=== PATIENT | male | born 1950 | race Caucasian/White ===

== ENCOUNTER → 2016-12-30 | Outpatient (REF) | payer MEDICARE, BC, OTHER ==
[~2016-12-30] MED LIST: AMBI10TA PO; ASPI81TA85 PO; AVOD0.5C PO; BUPR15TA PO; CARB25TA PO; CRES20TA PO; DALI1TAB2 PO; FLUT11IN INH; GLIM4TAB PO; JANU100T PO; LEVAINH INH; LEXA1TAB2 PO; LIDO4CRE4 TOP; LISI-542 PO; POTA10TA67 PO; PRIL20CA9 PO; SERO50TA PO; SING10TA32 PO; SYMB16INH INH; TAMS0.4C2; TAMS0.4C2 PO; TRIL135C6 PO; VANC250C2 PO; VITA100054 PO; ZYRT10TA2 PO
== END ==
LOC: M LAB REF 20:39
PROVIDERS: ATTEND Internal Medicine
DX: R19.7 Diarrhea, unspecified (principal)

== ENCOUNTER 2017-02-04 13:32 | Emergency (ER) | payer MEDICARE, BC, OTHER ==
[~2017-02-04] VITALS: Ht 177.8 cm; Wt 120.2 kg
[~2017-02-04 13:32] MED LIST changes: -VANC250C2 PO
[2017-02-04] MEDS ORDERED: VANC250C2 PO (13:51)
[2017-02-04 14:57] LABS: BASO # 0.1 10^3/uL (0.0-0.2); BASO % 0.8 % (0.0-1.0); EOS # 0.6 10^3/uL (0.0-0.50); EOS % 7.2 % (0.0-3.0); IMMATURE GRANULOCYTE % 0.8 % (0-0); LYMPH # 1.7 10^3/uL (1.5-4.5); LYMPH % 18.4 % (24.0-44.0); MEAN CORPUSCULAR HEMOGLOBIN 28.8 pg (27.0-33.0); MEAN CORPUSCULAR HGB CONC 32.8 g/dl (32.0-36.5); MEAN CORPUSCULAR VOLUME 87.9 fl (80.0-96.0); MONO # 0.4 10^3/uL (0.0-0.8); MONO % 4.2 % (0.0-5.0); NEUTROPHILS # 6.1 10^3/uL (1.8-7.7); NEUTROPHILS % 68.6 % (36.0-66.0); PLATELET COUNT, AUTOMATED 219 10^3/uL (150-450)
[2017-02-04 15:21] LABS: CALCIUM LEVEL 9.2 MG/DL (8.8-10.2); CREATININE FOR GFR 1.7 MG/DL (0.70-1.30); POTASSIUM SERUM 4.3 MEQ/L (3.5-5.1)
--- NOTE | 2017-02-04 15:36 | REP ---
Abdominal wall ultrasound: The patient states she had a midline abdominal surgery in December 2016. Scanning of the anterior abdominal wall identifies a few focal fluid collection approximate 2 cm deep to the skin surface. The collection measures 4.1 x 0.8 x 1.9 cm and contains internal echoes therefore is a complex fluid collection. This is compatible with abscess or hematoma or seroma. . There appears to be a tract pointing to the skin surface from this fluid collection. Interposed between this collection and the skin surface approximately 0.7 cm deep to the skin surface. There is a second hypoechoic collection measuring 2.3 x 1.3 x 1.2 cm, compatible with a second abscess versus hematoma versus phlegmon. Signed by Socrates Anne MD 02/04/2017 03:27 P
[2017-02-04 16:16] VITALS: BP 105/56
== END 2017-02-04 16:22 | disposition home or self-care (01) ==
LOC: M ED 13:32
DX: T81.4XXA Infection following a procedure, initial encounter (principal); E78.4 Other hyperlipidemia; I25.2 Old myocardial infarction; Z86.19 Personal history of other infectious and parasitic diseases; Z72.0 Tobacco use

== ENCOUNTER 2017-02-24 14:48 | Inpatient (IN) | payer MEDICARE, BC, OTHER ==
[~2017-02-24] VITALS: Ht 177.8 cm; Wt 122.2 kg
[~2017-02-24 14:48] MED LIST changes: +VANC250C2 PO
[2017-02-24 14:55] VITALS: BP 121/63
[2017-02-24] MEDS ORDERED: zolPIDEM TARTRATE 10MG TAB PO PRN (15:00)
[2017-02-24] MEDS ORDERED: ONDANSETRON 4 MG TAB (S0181) PO PRN (15:00)
[2017-02-24] MEDS ORDERED: PERCOCET 5MG/325MG TAB PO PRN (15:00)
[2017-02-24] MEDS ORDERED: ACETAMINOPHEN TAB 650MG DOSE (2X325MG) PO PRN (15:00)
[2017-02-24] MEDS ORDERED: GLUCOSE 4 GM CHEW TABLET PO PRN (15:15)
[2017-02-24] MEDS ORDERED: DEXTROSE 50% 50 ML SYRINGE IV PRN (15:15)
[2017-02-24] MEDS ORDERED: GLUCAGON FOR INJ 1 MG VIAL (J1610) SC PRN (15:15)
[2017-02-24 15:43] LABS: BASO # 0.1 10^3/uL (0.0-0.2); BASO % 1.1 % (0.0-1.0); EOS # 0.7 10^3/uL (0.0-0.50); EOS % 7.5 % (0.0-3.0); IMMATURE GRANULOCYTE % 0.7 % (0-0); LYMPH # 2.1 10^3/uL (1.5-4.5); LYMPH % 22.6 % (24.0-44.0); MEAN CORPUSCULAR HEMOGLOBIN 27.8 pg (27.0-33.0); MONO # 0.5 10^3/uL (0.0-0.8); MONO % 4.9 % (0.0-5.0); NEUTROPHILS # 5.8 10^3/uL (1.8-7.7); NEUTROPHILS % 63.2 % (36.0-66.0); PLATELET COUNT, AUTOMATED 335 10^3/uL (150-450); RED CELL DISTRIBUTION WIDTH 14.2 % (11.5-14.5); WHITE BLOOD COUNT 9.1 10^3/uL (4.0-10.0)
[2017-02-24 15:55] LABS: INR 1.06
[2017-02-24 15:59] LABS: ALBUMIN 3.8 GM/DL (3.2-5.2); ALBUMIN/GLOBULIN RATIO 1.03 (1.00-1.93); BILIRUBIN,TOTAL 0.3 MG/DL (0.2-1.0); CALCIUM LEVEL 9.3 MG/DL (8.8-10.2); CREATININE FOR GFR 1.77 MG/DL (0.70-1.30); GLOMERULAR FILTRATION RATE 41.1 (>49); POTASSIUM SERUM 5.1 MEQ/L (3.5-5.1); TOTAL PROTEIN 7.5 GM/DL (6.4-8.2)
[2017-02-24 16:05] LABS: ERYTHROCYTE SEDIMENTATION RATE 40 mm/hr (0-20)
--- NOTE | 2017-02-24 16:45 | REP ---
RIGHT PICC LINE: The procedure was performed by MARIA Argueta under the direct supervision of Dr. Nguyễn. The procedure along with its risks, benefits, and complications were discussed with the patient prior to the examination. Informed consent was obtained both verbally and written. The patient was identified in the interventional suite and placed in a supine position. The right arm was prepped and draped in the usual sterile fashion. A procedural time out was performed to ensure that the correct, site and procedure were being performed. Under ultrasound guidance the right basilic vein was punctured. A thin guidewire was introduced and the needle was removed and local infiltrative anesthesia was achieved using 2% Lidocaine. A break-away sheath was placed over the wire. Under fluoroscopic observation via the break away sheath a 44 cm long 4.5 Telugu single lumen PICC line was placed with its tip at the junction of the distal superior vena cava. The catheter was flushed with heparinized saline and affixed to the patients skin. The patient tolerated the procedure well and had no immediate complications. IMPRESSION: Uncomplicated placement of right upper extremity single lumen PICC line. Fluoroscopy time 0.2 minutes were utilized for the this procedure. Reviewed by MARIA Shields 02/25/2017 05:28 PEdited and Signed by Socrates Nguyễn MD 02/26/2017 01:49 P
[2017-02-24] MEDS ORDERED: VITA20008 PO (17:12)
[2017-02-24] MEDS ORDERED: LIDO5DIS41 TD (17:12)
[2017-02-24] MEDS ORDERED: SERO50TA PO (17:12)
[2017-02-24] MEDS ORDERED: TRIL135C6 PO (17:12)
[2017-02-24] MEDS ORDERED: ESCI20TA PO (17:12)
[2017-02-24] MEDS ORDERED: LEVA12INH INH (17:12)
[2017-02-24] MEDS ORDERED: AVOD0.5C PO (17:12)
[2017-02-24] MEDS ORDERED: OMEP20CA3 PO (17:12)
[2017-02-24] MEDS ORDERED: BUPR15TA PO (17:12)
[2017-02-24] MEDS ORDERED: CRES20TA PO (17:12)
[2017-02-24] MEDS ORDERED: DALI1TAB2 PO (17:12)
[2017-02-24] MEDS ORDERED: SYMB16INH INH (17:12)
[2017-02-24] MEDS ORDERED: CETI10TA PO (17:12)
[2017-02-24] MEDS ORDERED: FLOM5CAP PO (17:12)
[2017-02-24] MEDS ORDERED: JANU100T PO (17:12)
[2017-02-24] MEDS ORDERED: POTA10CA PO (17:12)
[2017-02-24] MEDS ORDERED: ZOLP10TA2 PO (17:12)
[2017-02-24] MEDS ORDERED: GLIM4TAB PO (17:12)
[2017-02-24] MEDS ORDERED: ASPI1TAB PO (17:12)
[2017-02-24] MEDS ORDERED: DOXY100C PO (17:12)
[2017-02-24] MEDS ORDERED: ALBU17IN2 INH (17:12)
[2017-02-24] MEDS ORDERED: MONT10TA2 PO (17:12)
[2017-02-24] MEDS ORDERED: PRED10TA2 PO (17:12)
[2017-02-24] MEDS ORDERED: CARB25TA PO (17:12)
[2017-02-24] MEDS ORDERED: VANC25SOL PO (17:12)
[2017-02-24] MEDS ORDERED: FLUT11IN INH (17:12)
[2017-02-24] MEDS ORDERED: LISI10TA4 PO (17:12)
[2017-02-24] MEDS ORDERED: CETIRIZINE (ZyrTEC) 10 MG TAB PO PRN (17:15)
[2017-02-24] MEDS ORDERED: ALBUTEROL SULFATE 2.5 MG/0.5 ML INH NEB SOLN NEB PRN (17:15)
[2017-02-24] MEDS ORDERED: NS 1,000 ML IV SCH (17:45)
[2017-02-24] MEDS ORDERED: SODIUM CHLORIDE 0.9% INJ 10 ML SYR IV PRN (18:00)
[2017-02-24] MEDS: HEPARIN SOD (PORCINE) 5000 UNITS/ML VIAL SC SCH ×2 (18:46→22:17)
[2017-02-24] MEDS: SITagliptin 50 MG TAB (JANUVIA) PO SCH (18:57)
[2017-02-24] MEDS: LACTOBACILLUS ACIDOPHILUS CAP (BACID) PO SCH (18:57)
[2017-02-24] MEDS: HumaLOG INSULIN (NovoLOG) PER UNIT SC SCH ×2 (18:58→20:10)
[2017-02-24] MEDS: VANCOMYCIN HCL 1,000 MG, VIAL MATE ADAPTER 1 EACH in D5W 250 ML IV SCH (18:58)
[2017-02-24] MEDS: SODIUM CHLORIDE 0.9% INJ 10 ML SYR IV SCH (18:59)
[2017-02-24] MEDS: PANTOPRAZOLE 40MG TAB (PROTONIX) PO SCH (19:04)
[2017-02-24] MEDS: SYMBICORT 160/4.5MCG INHALER 6GM INH SCH (20:46)
--- NOTE | 2017-02-24 21:04 | PHACANCOPD ---
PHARMACY VANCOMYCIN DOSING Pt Demographics Demographics Patient Age:66 , Weight:121.600 , Gender: male Adjusted Body Weight Date: 02/24/17, Adjusted Body Weight: [92.44] Kg Events Past 24 Hours Events Past 24 Hours: YES: Other (MRSA positive abdominal wound culture) Vancomycin Vancomycin indication: abd abscess Vancomycin Target Ranges: 15-20 mcg/ml Vancomycin Load Y/N: No Load Dose Date Time Vancomycin Load Dose: Date: Time: Vancomycin Dose Date: 02/24/17. Current Vancomycin Dose: [1g IV Q12H] Intermittent Dosing?: No Labs Labs Item Value Date Time White Blood Count 9.1 10^3/uL 02/24/17 1523 Erythrocyte Sedimentation Rate 40 mm/hr H 02/24/17 1523 Creatinine 1.77 MG/DL H 02/24/17 1523 Blood Urea Nitrogen 25 MG/DL H 02/24/17 1523 C-Reactive Protein, Quantitative 1.34 MG/DL H 02/24/17 1523 Creatinine Clearance Date:02/24/17. Estimated Creatinine Clearance: [~42ml/min]. Pending Labs Vancomycin trough level scheduled 02/26/17 @0500 Assessment and Plan Maintaining Current Dose?: Yes Reason for dose change: No Dose Change Pharmacist Note Pharmacist Note Date: 02/24/17. Pharmacist note: Day #1 vancomycin tx initiated at 1g IV Q12H for the treatment of an abdominal abscess - aiming for a goal trough of 15-20mcg /ml. The patient recently had an abdominal wound culture that was positive for MRSA from 02/04/17 with an ROSEMARIE=1. No hx of vanco use here at [facility]. The patient is also currently being treated for cdiff colitis with Dificid. Patient is currently afebrile, WBC is WNL, but ESR and CRP are elevated. A vancomycin trough has been scheduled for 02/26/17@0500, prior to the 4th dose. We will continue to monitor and make dose adjustments if needed. [facility] Feb 24, 2017 21:04
[2017-02-24] MEDS ORDERED: LIDOCAINE 5% (LIDODERM) PATCH TD PRN (21:30)
--- NOTE | 2017-02-24 21:38 | HPEPDOC ---
General Date of Admission Feb 24, 2017 at 15:04 Other Providers Infectious disease: Dr. Dionna Spaulding Attending Physician: JACKLYN BELTRAN MD Chief Complaint The patient is a 66-year-old male admitted with a reason for visit of Mrsa,Abd Wound,Cdiff. Source: Patient, Family, RN notes reviewed, Old records Exam Limitations: No limitations History of Present Illness Mr. Ritchie is a 66-year-old male who presents to [facility] as a direct admission from the infectious disease specialist's office. Past medical history is significant for: MRSA of the abdomen, Clostridium difficile infection, dyslipidemia, benign prostatic hyperplasia, insomnia, degenerative disc disease, small sliding esophageal hiatal hernia, gastroesophageal reflux disease, diastolic congestive heart failure, pulmonary hypertension, mild aortic stensosis without insufficiency, obstructive sleep apnea, diabetes mellitus, chronic obstructive pulmonary disease, Parkinson's disease, depression/anxiety, hypertension, history of "silent" myocardial infarction. Patient had presented to the infectious disease specialist's office for evaluation of his C. diff infection and abdominal abscess. Initially presented to [facility] with fever on 12/03/16. Transferred to [facility] in [place] where he received IV antibiotics for 48 hours and an I&D was performed. Discharged from [facility] on 12/04/16. Continued with Ciprofloxacin and Metronidazole for two weeks post-discharge. Patient admitted to the development of a rash with associated pruritis of his arms and abdomen, but unsure of its relation to antibiotic use. Almost a month later on 12/31/16 patient developed diarrhea and was positive for Clostridium difficile. Treated with Vancomycin 250mg orally three times a day for ten days. Has had a total of three cycles of antibiotic therapy with the most recent on 02/03/17. Patient then presented to the Emergency Department on 02/04/17 and an abdominal ultrasound was done which showed a 4x2 cm complex fluid collection compatible with an abscess with a tract pointing to the skin surface. Would culture was performed and was positive for MRSA and Klebsiella oxytoca. On 02/08/17 he was given Bactrim DS orally twice day, but subsequently developed an increase in his creatinine. Patient was then switched to Doxycycline 100mg orally twice a day which he is still on. Patient did have an appointment scheduled with general surgery for evaluation of his abdominal abscess. Patient's states that incision is quite erythematous. Patient continues to have diarrhea with a 20 pound weight loss over the last two months. Admits to shortness of breath with exertion and the occasional numbness and tingling in his extremities, but no other review of systems was positive during my evaluation at bedside. Hospitalist service was consulted for further evaluation and management. Home Medications Scheduled (Trilipix) 135 Mg Cap, 135 MG PO QPM, (Reported) (Summer-Bid Probiotic) 1 Tab Tab, 2 EA PO WM Aspirin (Aspirin 81) 81 Mg Tab, 81 MG PO QPM, (Reported) Budesonide/Formoterol (Symbicort 160-4.5 Mcg/Act) 60 Puff/Inhaler Aers, 2 PUFF INH BID, (Reported) Bupropion HCl (Wellbutrin Sr) 150 Mg Tabcr, 150 MG PO DAILY, (Reported) Carbidopa/Levodopa (Carbidopa/Levodopa 25-100 mg) 1 Tab Tab, 1 TAB PO TID, ( Reported) Cetirizine HCl (Cetirizine HCl) 10 Mg Tab, 10 MG PO QPM, (Reported) Cholecalciferol (Vitamin D3) 2,000 Unit Tab, 2,000 UNIT PO QPM, (Reported) Dutasteride (Avodart) 0.5 Mg Cap, 0.5 MG PO QPM, (Reported) Escitalopram Oxalate (Escitalopram Oxalate) 20 Mg Tab, 20 MG PO QPM, (Reported) Fidaxomicin (Dificid) 200 Mg Tab, 200 MG PO BID Glimepiride (Glimepiride) 4 Mg Tab, 4 MG PO QPM, (Reported) Lisinopril (Lisinopril) 10 Mg Tab, 10 MG PO QPM, (Reported) Montelukast Sodium (Montelukast Sodium) 10 Mg Tab, 10 MG PO QPM, (Reported) Omeprazole (Omeprazole) 20 Mg Cap, 20 MG PO QPM, (Reported) Potassium Chloride (Klor-Con M10) 10 Meq Tabcr, 10 MEQ PO QPM, (Reported) Roflumilast (Daliresp) 500 Mcg Tab, 500 MCG PO QPM, (Reported) Rosuvastatin Calcium (Crestor) 20 Mg Tab, 20 MG PO QPM, (Reported) Sitagliptin Phosphate (Januvia) 100 Mg Tab, 100 MG PO QPM, (Reported) Tamsulosin Hydrochloride (Flomax) 0.4 Mg Cap, 0.4 MG PO QPM, (Reported) Zolpidem Tartrate (Zolpidem Tartrate) 10 Mg Tab, 10 MG PO QHS, (Reported) Scheduled PRN Albuterol Sulfate (Proventil Hfa) 108 Mcg/Act Aer, 2 MCG INH QID PRN for SHORTNESS OF BREATH, (Reported) Fluticasone Propionate (Flovent Hfa) Unknown Strength Aer, Unknown Dose INH BID PRN for SHORTNESS OF BREATH, (Reported) Levalbuterol Hydrochloride (Xopenex Concentrate) 1.25 Mg/0.5 Ml Neb, 1.25 MG INH Q4H PRN for SHORTNESS OF BREATH, (Reported) Lidocaine (Lidoderm) 5 % Dis, 1 PATCH TD DAILY PRN for BACK PAIN, (Reported) Prednisone (Prednisone) 10 Mg Tab, 10 MG PO DAILY PRN for ASTHMA, (Reported) Quetiapine Fumerate (Seroquel) 50 Mg Tab, 50 MG PO BID PRN for ANXIETY, ( Reported) Allergies Coded Allergies: Metformin (Unverified Allergy, Unknown, 09/20/15) Niacin (Unverified Allergy, Unknown, 09/20/15) Penicillins (Verified Allergy, Unknown, 07/13/12) Penicillins Cross Reactors (Verified Allergy, Unknown, 07/13/12) Insulin Degludec (Unverified Adverse Reaction, Intermediate, EXTREMELY LOW BLOOD SUGAR- JUST TRULICITY, 02/24/17) Past Medical History Medical History 1. MRSA of the abdomen with abscess 2. Clostridium difficile infection 3. Dyslipidemia 4. Benign prostatic hyperplasia 5. Insomnia 6. Degenerative disc disease 7. Small sliding esophageal hiatal hernia 8. Gastroesophageal reflux disease 9. Diastolic congestive heart failure 10. Pulmonary hypertension 11. Mild aortic stensosis without insufficiency 12. Obstructive sleep apnea 13. Diabetes mellitus 14. Chronic obstructive pulmonary disease 15. Parkinson's disease 16. Depression/anxiety 17. Hypertension 18. History of "silent" myocardial infarction. Surgical History 1. Colonoscopy 2. Palate lesion removal 3. EGD 4. Bilateral hip replacements 5. Cardiac stress test x2 6. Incision and drainage of abdominal abscess Family History Father: , 86, lung disease Mother: , 68, myocardial infarction Brother: , 62, myocardial infarction Sister: Alive, 77, Alzheimer's disease Half-sister: Alive, 81, renal and liver cancer Son: , 31, suicide Social History Lives independently with at home. 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 One adult son living, one son who is . Admits to five grandchildren. Has a dog and two cats in the home. Smokes approximately 1/2-1 PPD for the last 50 years. Denies alcohol or illicit drug use. Review of Symptoms Constitutional: Reports: Weight Loss (20 pounds over two months), Denies: Chills, Fever, Night Sweats, Weakness, Fatigue, Lethargy Eyes: Denies: Pain, Vision change, Conjunctivae inflammation ENT: Denies: Head Aches, Dysphagia, Sinus Congestion, Post Nasal Drip, Sore Throat, Epistaxis Skin: Reports: Lesions, Dry, Breakdown, Denies: Rash, Jaundice, Bruising, Itching Pulmonary: Denies: Dyspnea, Cough Cardiovascular: Denies: Chest Pain, Palpitations, Orthopnea, Paroxysmal Noc. Dyspnea, Edema, Lt Headedness Gastrointestinal: Reports: Diarrhea, Denies: Nausea, Vomiting, Abdominal Pain, Constipation, Melena, Hematochezia Genitourinary: Denies: Dysuria, Frequency, Incontinence, Hematuria, Retention Hematologic: Denies: Bruising, Bleeding Excessively, Petecchia, Purpura, Enlarged Lymph Nodes Musculoskeletal: Denies: Neck Pain, Back Pain, Joint Pain Neurological: Denies: Weakness, Numbness Physical Examination General Exam: Positive: Alert, Cooperative, No Acute Distress Eye Exam: Positive: PERRLA, Conjunctiva & lids normal, EOMI, Negative: Sclera icteric, Ptosis ENT Exam: Positive: Atraumatic, Mucous membr. moist/pink, Pharynx Normal, Tongue Midline, Nares Patent, Negative: Pharyngeal Edema Neck Exam: Positive: Supple, +2 carotid pulse wo bruit, Negative: JVD, thyromegaly, Lymphadenopathy Chest Exam: Positive: Clear to auscultation, Normal air movement, Negative: Rales, Rhonchi, Wheezing Heart Exam: Positive: Rate Normal, Regular Rhythm, Normal S1, Normal S2, Negative: Gallops, Murmurs, Rubs Abdomen Exam: Positive: BS Hypoactive, Other (Protuberant, distended, tympanic throughout, healed midline abdominal incision extending below umbilicus, open and erythematous abodminal wound with apparent sinus tract) Extremity Exam: Positive: Normal pulses, Other (Small, discrete hyperkeratotic lesions noted on upper extremities bilaterally), Negative: Clubbing, Cyanosis, Edema Skin Exam: Positive: Lesion (As noted above), Negative: Rash Neuro Exam: Positive: Normal Speech, Cranial Nerves 3-12 NL Other physical findings PICC line insertion CT abdomen and pelvis IMPRESSION: Pending Vital Signs Vital Signs Date Time Temp Pulse Resp B/P (MAP) Pulse Ox O2 Delivery O2 Flow Rate FiO2 02/24/17 14:55 97.8 82 18 121/63 (82) 95 Room Air Height (in): 70 Weight (kg): 121.6 BMI (kg): 38.5 Laboratory Data Labs 24H Laboratory Tests 2 02/24/17 15:23: Immature Granulocyte % (Auto) 0.7H, White Blood Count 9.1, Red Blood Count 4.24L , Hemoglobin 11.8L, Hematocrit 36.9L, Mean Corpuscular Volume 87.0, Mean Corpuscular Hemoglobin 27.8, Mean Corpuscular Hemoglobin Concent 32.0, Red Cell Distribution Width 14.2, Platelet Count 335, Neutrophils (%) (Auto) 63.2, Lymphocytes (%) (Auto) 22.6L, Monocytes (%) (Auto) 4.9, Eosinophils (%) (Auto) 7.5H, Basophils (%) (Auto) 1.1H, Neutrophils # (Auto) 5.8, Lymphocytes # (Auto) 2.1, Monocytes # (Auto) 0.5, Eosinophils # (Auto) 0.7H, Basophils # (Auto) 0.1, Immature Granulocyte # (Auto) 0.1H, Nucleated Red Blood Cells % (auto) 0.0, Erythrocyte Sedimentation Rate 40H, Prothrombin Time 13.9, Prothromb Time International Ratio 1.06, Anion Gap 8, Glomerular Filtration Rate 41.1L, Blood Urea Nitrogen 25H, Creatinine 1.77H, Sodium Level 140, Potassium Level 5.1, Chloride Level 109H, Carbon Dioxide Level 23, Calcium Level 9.3, Aspartate Amino Transf (AST/SGOT) 15, Alanine Aminotransferase (ALT/SGPT) 13, Alkaline Phosphatase 50, Total Bilirubin 0.3, Total Protein 7.5, Albumin 3.8, C-Reactive Protein, Quantitative 1.34H, Albumin/Globulin Ratio 1.03 02/24/17 16:51: Bedside Glucose (Misc Panel) 128H CBC/BMP Laboratory Tests 02/24/17 15:23 Red Blood Count 4.24 L, Mean Corpuscular Volume 87.0, Mean Corpuscular Hemoglobin 27.8, Mean Corpuscular Hemoglobin Concent 32.0, Red Cell Distribution Width 14.2, Neutrophils (%) (Auto) 63.2, Lymphocytes (%) (Auto) 22.6 L, Monocytes (%) (Auto) 4.9, Eosinophils (%) (Auto) 7.5 H, Basophils (%) ( Auto) 1.1 H, Neutrophils # (Auto) 5.8, Lymphocytes # (Auto) 2.1, Monocytes # ( Auto) 0.5, Eosinophils # (Auto) 0.7 H, Basophils # (Auto) 0.1, Calcium Level 9.3 , Aspartate Amino Transf (AST/SGOT) 15, Alanine Aminotransferase (ALT/SGPT) 13, Alkaline Phosphatase 50, Total Bilirubin 0.3, Total Protein 7.5, Albumin 3.8 Plan / VTE VTE Prophylaxis Ordered?: Yes (Heparin 5,000 units SC every 8 hours) Plan Plan Clostridium difficile - Start Fidaxomycin - Start Bacid - Consult infectious disease MRSA of abdominal abscess - Start IV Vancomycin - Start IVF with NS @125mLs/hr - Percocet for pain, as needed - Consult general surgery Hypertension - Continue with Lisinopril COPD - Continue Proventil, Symbicort, Avodart, Prednisone Allergies - Continue with Zyrtec, Singulair Dyslipidemia - Continue with Crestor Diabetes mellitus - Continue with Januvia - Provided SSI, fingersticks before meals and at bedtime, hypoglycemic protocol Depression - Continue with Wellbutrin and Lexapro Insomnia - Continue Ambien, Seroquel BPH - Continue Flomax GERD - Protonix Iron deficiency - Ferrous sulfate CAD - ASA Osteoarthritis - Continue with Lidocaine patch Vitamin D deficiency - Continue with supplementation Disposition Admit: Medical-surgical unit Anticipated hospitalization: 2 nights Attending; Dr. Mathias IVF: Initiate (NS @125mLs/hr) Diet: Continue Current Activity: Continue Current Medications: Change to IV, Start Antibiotics Diagnostics: Check Labs, Repeat Labs in AM, Obtain Cultures, CT (Guided abscess drain) Anticipated Discharge: Home GME ATTESTATION GME ATTESTATION My faculty preceptor for this patient encounter was physically present during the encounter and was fully available. All aspects of the patient interview, examination, medical decision making process, and medical care plan development were reviewed and approved by the faculty preceptor. The faculty preceptor is aware and concurs with the plan as stated in the body of this note and will attest to such by his/her cosignature. ATTENDING NOTE I, Jacklyn Beltran, have both independently examined this patient as well as reviewed the documentation. I have discussed in detail with the resident the findings and plan of treatment as documented in the residents documentation. I will continue to follow the patient and offer further guidance to the patients care as necessary during this hospital stay. KAHLIL MEYER DO Feb 24, 2017 21:38 JACKLYN BELTRAN MD Feb 28, 2017 16:02
[2017-02-24] MEDS: ROSUVASTATIN 10 MG TAB (CRESTOR) PO SCH (22:11)
[2017-02-24] MEDS: ESCITALOPRAM OXALATE 10 MG TAB (LEXAPRO) PO SCH (22:11)
[2017-02-24] MEDS: QUEtiapine FUMARATE 50 MG TAB PO SCH (22:11)
[2017-02-24] MEDS: VITAMIN D 1,000 INTERNATIONAL UNITS TABLET PO SCH (22:12)
[2017-02-24] MEDS: SINEMET 25-100 MG TAB PO SCH (22:12)
[2017-02-24] MEDS: TAMSULOSIN 0.4 MG CAP PO SCH (22:12)
[2017-02-24] MEDS: LISINOPRIL 10 MG TAB PO SCH (22:15)
[2017-02-24] MEDS: MONTELUKAST 10 MG TAB PO SCH (22:15)
[2017-02-24] MEDS: FIDAXOMICIN 200 MG TAB (DIFICID) PO SCH (22:16)
[2017-02-24] MEDS: DUTASTERIDE 0.5 MG CAP (AVODART) PO SCH (22:16)
[2017-02-25 01:19] VITALS: O2SAT 95
[2017-02-25] MEDS: HEPARIN SOD (PORCINE) 5000 UNITS/ML VIAL SC SCH ×4 (05:12→21:19)
[2017-02-25] MEDS: SODIUM CHLORIDE 0.9% INJ 10 ML SYR IV SCH ×2 (05:12→18:47)
[2017-02-25 05:20] LABS: BASO # 0.1 10^3/uL (0.0-0.2); BASO % 1.1 % (0.0-1.0); EOS # 0.6 10^3/uL (0.0-0.50); EOS % 7.5 % (0.0-3.0); IMMATURE GRANULOCYTE % 0.7 % (0-0); LYMPH # 2.2 10^3/uL (1.5-4.5); LYMPH % 26.3 % (24.0-44.0); MEAN CORPUSCULAR HEMOGLOBIN 27.8 pg (27.0-33.0); MEAN CORPUSCULAR HGB CONC 31.4 g/dl (32.0-36.5); MEAN CORPUSCULAR VOLUME 88.4 fl (80.0-96.0); MONO # 0.4 10^3/uL (0.0-0.8); MONO % 5.3 % (0.0-5.0); NEUTROPHILS # 4.8 10^3/uL (1.8-7.7); NEUTROPHILS % 59.1 % (36.0-66.0); PLATELET COUNT, AUTOMATED 283 10^3/uL (150-450); RED CELL DISTRIBUTION WIDTH 14.2 % (11.5-14.5); WHITE BLOOD COUNT 8.2 10^3/uL (4.0-10.0)
[2017-02-25] MEDS: VANCOMYCIN HCL 1,000 MG, VIAL MATE ADAPTER 1 EACH in D5W 250 ML IV SCH ×2 (05:58→17:36)
[2017-02-25 06:12] LABS: CALCIUM LEVEL 8.8 MG/DL (8.8-10.2); CREATININE FOR GFR 1.8 MG/DL (0.70-1.30); GLOMERULAR FILTRATION RATE 40.3 (>49); POTASSIUM SERUM 4.7 MEQ/L (3.5-5.1)
[2017-02-25] MEDS: SYMBICORT 160/4.5MCG INHALER 6GM INH SCH ×2 (07:25→22:38)
[2017-02-25] MEDS: HumaLOG INSULIN (NovoLOG) PER UNIT SC SCH ×4 (07:30→21:00)
[2017-02-25 07:50] VITALS: O2SAT 96
[2017-02-25] MEDS: LACTOBACILLUS ACIDOPHILUS CAP (BACID) PO SCH ×3 (08:54→17:35)
[2017-02-25] MEDS: predniSONE 10 MG TAB PO SCH (09:15)
[2017-02-25] MEDS: buPROPion **SR TABLET** (ZYBAN) 150MG PO SCH (09:15)
[2017-02-25] MEDS: FIDAXOMICIN 200 MG TAB (DIFICID) PO SCH ×2 (09:15→21:17)
[2017-02-25] MEDS: ASPIRIN 81 MG ENTERIC TAB PO SCH (09:16)
[2017-02-25] MEDS: SINEMET 25-100 MG TAB PO SCH ×3 (09:16→21:17)
[2017-02-25] MEDS: FERROUS SULFATE 325MG TAB PO SCH (09:16)
[2017-02-25] MEDS: PANTOPRAZOLE 40MG TAB (PROTONIX) PO SCH (09:16)
[2017-02-25] MEDS: FENOFIBRATE 145 MG TAB (TRICOR) PO SCH (09:16)
[2017-02-25] MEDS ORDERED: LIDOCAINE 1% MDV 20ML VIAL As Ordered ONE (12:43)
--- NOTE | 2017-02-25 13:38 | REP ---
Clinical: Abscess Comparison: MRI dated 03/13/2016. Findings: Evidence for an anterior abdominal wall surgery with small complex fluid collection in the midline subcutaneous tissues measuring approximately 3.7 x 3.3 x 2.3 cm containing suspect a septation and small amount of gas. Small associated hernia containing nonobstructed portions of the bowel (large bowel at images 55 - 64; small bowel and images 67 - 74). Liver, spleen, pancreas, bilateral adrenal glands are normal. Cholelithiasis noted. Kidneys demonstrate bilateral hypodensities compatible with cysts and similar to findings on prior MRI. 5 mm nonobstructing left renal calculus identified. No perinephric stranding or hydroureteronephrosis. The enteric system is without obstruction or acute inflammatory process evidence of prior sigmoid anastomoses. Further evaluation of the pelvis is significantly limited due to beam-hardening artifact from bilateral hip prostheses. No ascites. No free intraperitoneal air. No significant adenopathy. Musculoskeletal structures demonstrate age-related degenerative changes. Lung bases demonstrate minimal posterior basilar dependent changes. Visualized portions of the heart and pericardium are normal. Impression: 1. Postsurgical changes involving the midline anterior abdominal wall with small complex fluid collection/abscess may be amendable to percutaneous or incisional drainage if necessary. Associated partial hernia of nonobstructed large and small bowel as described above. 2. Cholelithiasis. 3. Bilateral renal hypodensities compatible with cysts as documented by prior MRI and 5 mm nonobstructing left renal calculus. Signed by Arley Holt MD 02/25/2017 01:29 P
[2017-02-25 14:00] VITALS: BP 111/59
--- NOTE | 2017-02-25 14:09 | IPN ---
DATE: 02/25/2017 Mr. Ritchie is feeling well today. He has no complaints of pain, chest pain, no shortness of breath. He has tolerated a diet. Most recent temperature in the computer is 97.8, pulse 55, respiratory rate 15, blood pressure 128/78, pulse oximetry 95% on room air. Intake and output are notable for no bowel movements being recorded. Body mass index (BMI) is 39. He is awake, appropriately interactive, pleasantly conversant. Breathing is symmetrical. I-to-E ratio is 1:3. Heart is distant sounding. Normal S1 and S2. Abdomen is soft. There is an area of erythema under his subumbilical bandage without any obvious drainage or scent. It is grossly nontender. White cell count 8.2, hemoglobin 10.5, and platelets of 283. BUN 22, creatinine 1.8. CT scan of that area has not been read. My assessment is as follows: This is a 66-year-old patient with abdominal wall abscess, previously with Methicillin-resistant Staphylococcus aureus (MRSA). My plan will be as follows: 1. Infectious disease. Patient is being treated for MRSA abdominal wall abscess. Will go for drainage today. Patient also has C. Difficile, is on Dificid, which will be continued. Patient is being followed by Dr. Spaulding from infectious disease and will be seen by Dr. Laurent from general surgery. 2. The patient has congestive heart failure (CHF) with diastolic dysfunction, which is compensated. 3. The patient has hypertension which is reasonably well controlled for the current settings. 4. The patient has diabetes. 5 The patient has known coronary artery disease. 6. Deep vein thrombosis (DVT) prophylaxis with subcutaneous heparin.
[2017-02-25] MEDS: SITagliptin 50 MG TAB (JANUVIA) PO SCH (17:34)
[2017-02-25] MEDS ORDERED: DIFI200T PO (17:41)
--- NOTE | 2017-02-25 17:59 | REP ---
ULTRASOUND GUIDED ABDOMINAL ABSCESS DRAINAGE: The procedure was performed by MARIA Martinez under the direct supervision of Dr. Nguyễn. The procedure along with its risks, benefits, and complications were discussed with the patient prior to the examination. Informed consent was obtained both verbally and written. The patient was identified in the ultrasound suite and placed in a supine position. Ultrasound guidance was used to find an appropriate site for needle entry. This area was marked, prepped and draped in the usual sterile fashion. A procedural time-out was performed to ensure that the correct patient, site and procedure were being performed. Local infiltrate of the anesthesia was achieved using 1% Xylocaine. A small skin betzy was made. An attempt was made to place a #10-Scottish skater catheter. This attempt was unsuccessful as I was not able to get the catheter to advance through the scar tissue and into the abscess. An #8-Scottish centesis catheter was advanced into the area of interest and 5 mL of purulent yellow fluid was aspirated. The fluid was placed in a container and sent to the lab for further evaluation. Results pending. A soft dressing was applied to the needle entry site. The patient tolerated the procedure well and had no immediate complications. IMPRESSION: Ultrasound guided abdominal abscess drainage yielding 5 mL of purulent yellow fluid that was sent to the lab for further evaluation. Results pending. Reviewed by MARIA Shields 02/25/2017 06:02 PEdited and Signed by Socrates Nguyễn MD 02/26/2017 01:49 P
--- NOTE | 2017-02-25 18:15 | IPNPDOC ---
Text Note Date of Service The patient was seen on 02/25/17. NOTE Infectious Disease Progress Note Subjective: Mr. Ritchie is feeling well today, he did have his aspiration performed by the surgeon earlier as well as some debridement of the abdominal wound, and the patient reports that they were unable to place a drain because of all the scar tissue, however they were able to draw off an aspirate for culture. Otherwise, he is not complaining of much discomfort from the procedure. He denies any fevers, chills, night sweats, respiratory issues, chest discomfort, and all other review of systems is negative. Objective: General: Awake, alert, oriented 3. He is in no acute distress. He is sitting upright on the edge of the bed. HEENT: Head normocephalic, atraumatic, sclera are nonicteric. Hearing is grossly intact to conversation. Respiratory: Clear to auscultation bilaterally with no wheezes, rales, or rhonchi. Cardiovascular: Regular rate and rhythm, with no rubs, gallops, or murmur. Abdomen: Protuberant belly, he does have a midline abdominal incision that was debrided earlier today, there is no surrounding erythema, no discharge at this time. He is not tender in the area. Extremities: 2+ pulses in the radial and dorsalis pedis bilaterally. No evidence of clubbing or cyanosis. Assessment/Plan: 1. Clostridium difficile colitis. He has failed 3 rounds of oral vancomycin 10 days each (for a total of 30 days) and therefore he has been started on Dificid 200 mg by mouth twice a day. I have already sent the prescription to [place] pharmacy on [facility] {phone number is }, I called and spoke with the pharmacist on 02/25/17 @ 1224 who said that he does not require prior authorization, however they do not stock this drug and he will need to obtain the drug through their specialty pharmacy in [place], she has already sent the request/prescription to them and the patient should be receiving a phone call within the next 24 hours from the pharmacy and they will asked the patient whether he desires to have medication shipped to the local pharmacy or sensory to his home, therefore the patient should be expecting this phone call. Supposedly specialty pharmacy is quite good and usually is able to overnight drugs to their destination. 2. MRSA Abdominal abscess. I would recommend keeping him on IV vancomycin until more definitive surgical treatment is able to be performed regarding his abdominal abscess and infected mesh. It appears that surgery would like to order a special type of mesh that is less likely to become infected, and apparantly they will not be able to get him in to the OR until at least next week. He does have a PICC line in place. He will have home IV vancomycin 1 gram Q12H through the home health care [facility]. Plan: From an infectious disease standpoint, he will be appropriate for discharge when his home antibiotics are all set up and ready to go. My preceptor for this patient encounter was physically present in the building during the encounter and was fully available. As needed, all aspects of the patient interview, examination, medical decision making process, and medical care plan development were reviewed and approved by the preceptor. Preceptor is aware and concurs with the plan as stated in the body of this note and will attest to such by his/her cosignature. VS,Valery, I+O VS, Valery, I+O Laboratory Tests 02/25/17 05:11 Red Blood Count 3.78 L, Mean Corpuscular Volume 88.4, Mean Corpuscular Hemoglobin 27.8, Mean Corpuscular Hemoglobin Concent 31.4 L, Red Cell Distribution Width 14.2, Neutrophils (%) (Auto) 59.1, Lymphocytes (%) (Auto) 26.3, Monocytes (%) (Auto) 5.3 H, Eosinophils (%) (Auto) 7.5 H, Basophils (%) ( Auto) 1.1 H, Neutrophils # (Auto) 4.8, Lymphocytes # (Auto) 2.2, Monocytes # ( Auto) 0.4, Eosinophils # (Auto) 0.6 H, Basophils # (Auto) 0.1, Calcium Level 8.8 Vital Signs Date Time Temp Pulse Resp B/P (MAP) Pulse Ox O2 Delivery O2 Flow Rate FiO2 02/25/17 14:00 99.5 63 20 111/59 (76) 93 Room Air I&O- Last 24 Hours up to 6 AM 02/26/17 06:00 Intake Total 1330 ml Output Total 400 ml Balance 930 ml SHIVANI GAYLE DO Feb 25, 2017 18:15
[2017-02-25] MEDS ORDERED: **NOTE PATIENT COMMENT** MISC XX SCH (21:00)
[2017-02-25 21:16] VITALS: BP 118/63
[2017-02-25] MEDS: VITAMIN D 1,000 INTERNATIONAL UNITS TABLET PO SCH (21:16)
[2017-02-25] MEDS: MONTELUKAST 10 MG TAB PO SCH (21:16)
[2017-02-25] MEDS: TAMSULOSIN 0.4 MG CAP PO SCH (21:16)
[2017-02-25] MEDS: QUEtiapine FUMARATE 50 MG TAB PO SCH (21:16)
[2017-02-25] MEDS: LISINOPRIL 10 MG TAB PO SCH (21:16)
[2017-02-25] MEDS: ESCITALOPRAM OXALATE 10 MG TAB (LEXAPRO) PO SCH (21:17)
[2017-02-25] MEDS: ROSUVASTATIN 10 MG TAB (CRESTOR) PO SCH (21:17)
[2017-02-25] MEDS: DUTASTERIDE 0.5 MG CAP (AVODART) PO SCH (21:17)
[2017-02-25 22:00] VITALS: BP 118/63
[2017-02-26] MEDS: HEPARIN SOD (PORCINE) 5000 UNITS/ML VIAL SC SCH (05:08)
[2017-02-26] MEDS: SODIUM CHLORIDE 0.9% INJ 10 ML SYR IV SCH (05:19)
[2017-02-26] MEDS: VANCOMYCIN HCL 1,000 MG, VIAL MATE ADAPTER 1 EACH in D5W 250 ML IV SCH (05:20)
[2017-02-26 05:41] LABS: BASO # 0.1 10^3/uL (0.0-0.2); BASO % 1.2 % (0.0-1.0); EOS # 0.4 10^3/uL (0.0-0.50); EOS % 6.9 % (0.0-3.0); LYMPH # 1.8 10^3/uL (1.5-4.5); LYMPH % 31.1 % (24.0-44.0); MEAN CORPUSCULAR HEMOGLOBIN 27.4 pg (27.0-33.0); MEAN CORPUSCULAR HGB CONC 31.5 g/dl (32.0-36.5); MEAN CORPUSCULAR VOLUME 87.1 fl (80.0-96.0); MONO # 0.3 10^3/uL (0.0-0.8); MONO % 5.6 % (0.0-5.0); NEUTROPHILS # 3.2 10^3/uL (1.8-7.7); NEUTROPHILS % 54.2 % (36.0-66.0); PLATELET COUNT, AUTOMATED 225 10^3/uL (150-450); RED CELL DISTRIBUTION WIDTH 14.1 % (11.5-14.5); WHITE BLOOD COUNT 5.9 10^3/uL (4.0-10.0)
[2017-02-26 05:54] LABS: CALCIUM LEVEL 8.5 MG/DL (8.8-10.2); CREATININE FOR GFR 1.75 MG/DL (0.70-1.30); GLOMERULAR FILTRATION RATE 41.6 (>49); POTASSIUM SERUM 4.6 MEQ/L (3.5-5.1)
[2017-02-26 06:00] VITALS: BP 109/56
--- NOTE | 2017-02-26 06:00 | PHACANCOPD ---
PHARMACY VANCOMYCIN DOSING Pt Demographics Demographics Patient Age:66 , Weight:123.400 , Gender: male Adjusted Body Weight Date: 02/24/17, Adjusted Body Weight: [92.44] Kg Vancomycin Vancomycin indication: abd abscess Vancomycin Target Ranges: 15-20 mcg/ml Vancomycin Load Y/N: No Load Dose Date Time Vancomycin Load Dose: Date: Time: Vancomycin Dose Date: 02/24/17. Current Vancomycin Dose: [1g IV Q12H] Intermittent Dosing?: No Labs Labs Item Value Date Time White Blood Count 5.9 10^3/uL 02/26/17520 Creatinine 1.75 MG/DL H 02/26/17520 Blood Urea Nitrogen 25 MG/DL H 02/26/17520 Vancomycin Level Trough 16.5 UG/ML 02/26/17520 Vital Signs Label Value Date Time Patient Temperature 98.9 degrees F 02/25/170 Temperature Source Temporal 02/25/172199 Micro Microbiology 02/25/17 Anaerobic Culture, Received Pending 02/25/17 Gram Stain - Final, Resulted 02/25/17 Abscess Culture, Resulted Pending Creatinine Clearance Date:02/24/17. Estimated Creatinine Clearance: [~42ml/min]. Assessment and Plan Maintaining Current Dose?: Yes Reason for dose change: No Dose Change Pharmacist Note Pharmacist Note Date: 02/24/17. Pharmacist note:Trough of 16.5 is within target range. Will continue current dosing. Will continue to monitor and make adjustments as needed. LILIAN [facility] Feb 26, 2017 06:00
[2017-02-26] MEDS: SYMBICORT 160/4.5MCG INHALER 6GM INH SCH (08:00)
[2017-02-26] MEDS: HumaLOG INSULIN (NovoLOG) PER UNIT SC SCH (09:05)
[2017-02-26] MEDS: SINEMET 25-100 MG TAB PO SCH (09:05)
[2017-02-26] MEDS: buPROPion **SR TABLET** (ZYBAN) 150MG PO SCH (09:05)
[2017-02-26] MEDS: FIDAXOMICIN 200 MG TAB (DIFICID) PO SCH (09:05)
[2017-02-26] MEDS: FENOFIBRATE 145 MG TAB (TRICOR) PO SCH (09:06)
[2017-02-26] MEDS: ASPIRIN 81 MG ENTERIC TAB PO SCH (09:06)
[2017-02-26] MEDS: FERROUS SULFATE 325MG TAB PO SCH (09:06)
[2017-02-26] MEDS: PANTOPRAZOLE 40MG TAB (PROTONIX) PO SCH (09:06)
[2017-02-26] MEDS: LACTOBACILLUS ACIDOPHILUS CAP (BACID) PO SCH (09:06)
[2017-02-26] MEDS: predniSONE 10 MG TAB PO SCH (09:06)
[2017-02-26] MEDS ORDERED: RISATAB3 PO (11:27)
[2017-02-26] MEDS ORDERED: OPTI6PAD XX (11:30)
--- NOTE | 2017-02-27 06:42 | DSES ---
DATE OF ADMISSION: 02/24/2017 DATE OF DISCHARGE: 02/26/2017 SPECIALISTS INVOLVED IN CARE: Dr. Laurent and Dr. Spaulding. COMPLICATIONS: No complications during stay. PROCEDURES PERFORMED DURING STAY: Needle aspiration of abdominal wall abscess, cultures of which are pending. DISCHARGE DIAGNOSES: 1. Abdominal wall abscess, presumably methicillin-resistant Staphylococcus aureus (MRSA). 2. Clostridium (C.) difficile colitis, recurrent. 3. Congestive heart failure with diastolic dysfunction, compensated. 4. Hypertension. 5. Diabetes. 6. Coronary artery disease. 7. Degenerative disc disease. 8. Pulmonary hypertension. 9. Mild aortic stenosis without insufficiency. 10. Obstructive sleep apnea (KELSY). 11. Parkinson's. SUMMARY OF PRESENTATION: This is a 66-year-old who was admitted as a direct admission from Dr. Spaulding's office with known MRSA infection of the abdominal wall, history of C. difficile. Was treated with an incision and drainage (I and D) of his abdominal wall in November at [facility]. Was treated with antibiotics over three different courses. Has had C. difficile colitis, went to Dr. Spaulding's office and felt to need admission and was admitted. He had an abscess drain. Had a peripherally inserted central catheter (PICC) line placed. Was started on Dificid and vancomycin. We seen in consultation by Dr. Spaulding, and the case was discussed with Dr. Laurent. On the day of discharge he is feeling well. The plan is to followup with Dr. Laurent for mesh replacement and debridement, and to have ongoing antibiotic therapy as managed by Dr. Spaulding. On the day of discharge, he is feeling well. He has no complaints of pain, chest pain, shortness of breath. Is tolerating diet. PHYSICAL EXAMINATION: VITAL SIGNS: Temperature 97.4, pulse 59, respiratory rate 17, blood pressure 109/56, 93% on room air. GENERAL: Awake, appropriately interactive, pleasantly conversant. LUNGS: Breathing is symmetrical and rested. HEART: Regular rate and rhythm. ABDOMEN: Soft, doughy, nontender. He has an Optifoam covering the subumbilical site of abscess drainage. There is some maceration of the skin from previous wet-to-dry dressing changes. LABORATORY DATA: White blood cell count 5.9, hemoglobin 10.4, platelets of 225. BUN 25, creatinine 1.75. DISCHARGE INSTRUCTIONS: Followup with Dr. Spaulding per her instruction; Dr. Laurent within two weeks. Diet and activity as tolerated. Continue Optifoam dressing; apply daily and as needed. DISCHARGE MEDICATIONS: - Dificid 200 mg by mouth twice daily for nine days - probiotic tablets two tablets with meals #90 - albuterol inhaled four times a day - aspirin 81 mg by mouth every evening - Symbicort two puffs inhaled twice daily - Wellbutrin S R 150 mg by mouth daily - Sinemet one tablet by mouth three times a day - cetirizine 10 mg by mouth every evening - vitamin D 2000 units every morning - Avodart 0.5 mg by mouth every evening - Nexium 20 mg by mouth every evening - Flovent inhaled twice daily as needed for shortness of breath - glimepiride 4 mg by mouth every evening - Xopenex every four hours as needed for shortness of breath - Lidoderm one patch transdermally as needed for back pain - lisinopril 10 mg by mouth every evening - Singulair 10 mg by mouth every evening - omeprazole 20 mg by mouth every evening - potassium chloride 10 mEq by mouth every evening - prednisone 10 mg by mouth daily as needed for asthma - Seroquel 50 mg by mouth twice a day as needed for anxiety - Daliresp 500 mcg by mouth every evening - Crestor 20 mg by mouth every evening - Januvia 100 mg by mouth every evening - Flomax 0.4 mg by mouth every evening - Trilipix 135 mg by mouth every evening - Ambien 10 mg by mouth daily at bedtime Discontinue doxycycline, discontinue oral vancomycin. MTDD
== END 2017-02-26 12:54 | disposition home health service (06) | DRG 372 ==
LOC: M MSPAV 15:04 → EEVIPCON 15:04
PROVIDERS: ADMIT Internal Medicine Infectious Disease; ATTEND Internal Medicine
PROC: 02HV33Z Insertion of Infusion Device into Superior Vena Cava, Percutaneous Approach (ICD-10-PCS; principal; 2017-02-24)
PROC: 0W9F3ZZ Drainage of Abdominal Wall, Percutaneous Approach (ICD-10-PCS; 2017-02-25)
DX: A04.72 Enterocolitis due to Clostridium difficile, not specified as recurrent (principal); L02.211 Cutaneous abscess of abdominal wall; I50.32 Chronic diastolic (congestive) heart failure; I11.0 Hypertensive heart disease with heart failure; J44.9 Chronic obstructive pulmonary disease, unspecified; E78.5 Hyperlipidemia, unspecified; E11.9 Type 2 diabetes mellitus without complications; F32.9 Major depressive disorder, single episode, unspecified; G47.00 Insomnia, unspecified; N40.0 Benign prostatic hyperplasia without lower urinary tract symptoms; K21.9 Gastro-esophageal reflux disease without esophagitis; I25.10 Atherosclerotic heart disease of native coronary artery without angina pectoris; M19.90 Unspecified osteoarthritis, unspecified site; I35.0 Nonrheumatic aortic (valve) stenosis; E55.9 Vitamin D deficiency, unspecified; B95.62 Methicillin resistant Staphylococcus aureus infection as the cause of diseases classified elsewhere; J30.9 Allergic rhinitis, unspecified; F17.210 Nicotine dependence, cigarettes, uncomplicated; F41.9 Anxiety disorder, unspecified; I27.20 Pulmonary hypertension, unspecified; G47.33 Obstructive sleep apnea (adult) (pediatric); G20 Parkinson's disease; Z79.82 Long term (current) use of aspirin; Z79.84 Long term (current) use of oral hypoglycemic drugs; Z79.899 Other long term (current) drug therapy; Z88.8 Allergy status to other drugs, medicaments and biological substances; Z88.0 Allergy status to penicillin; Z96.643 Presence of artificial hip joint, bilateral

== ENCOUNTER → 2017-03-03 | Outpatient (REF) | payer MEDICARE, BC, OTHER ==
[~2017-03-03] MED LIST changes: +ALBU17IN2 INH; +ASPI1TAB PO; +CETI10TA PO; +DIFI200T PO; +DOXY100C PO; +ESCI20TA PO; +FLOM5CAP PO; +LEVA12INH INH; +LIDO5DIS41 TD; +LISI10TA4 PO; +MONT10TA2 PO; +OMEP20CA3 PO; +OPTI6PAD XX; +POTA10CA PO; +PRED10TA2 PO; +RISATAB3 PO; +VANC25SOL PO; +VITA20008 PO; +ZOLP10TA2 PO
[2017-03-03 14:16] LABS: BASO # 0.1 10^3/uL (0.0-0.2); BASO % 1.1 % (0.0-1.0); EOS # 0.6 10^3/uL (0.0-0.50); EOS % 7.5 % (0.0-3.0); IMMATURE GRANULOCYTE % 1.6 % (0-0); LYMPH % 23.1 % (24.0-44.0); MEAN CORPUSCULAR HEMOGLOBIN 28.3 pg (27.0-33.0); MEAN CORPUSCULAR HGB CONC 31.7 g/dl (32.0-36.5); MEAN CORPUSCULAR VOLUME 89.1 fl (80.0-96.0); MONO # 0.5 10^3/uL (0.0-0.8); MONO % 5.9 % (0.0-5.0); NEUTROPHILS # 5.2 10^3/uL (1.8-7.7); NEUTROPHILS % 60.8 % (36.0-66.0); PLATELET COUNT, AUTOMATED 249 10^3/uL (150-450); RED CELL DISTRIBUTION WIDTH 14.6 % (11.5-14.5); WHITE BLOOD COUNT 8.5 10^3/uL (4.0-10.0)
[2017-03-03 15:10] LABS: ERYTHROCYTE SEDIMENTATION RATE 25 mm/hr (0-20)
== END ==
LOC: M LAB REF 11:57
PROVIDERS: ATTEND Internal Medicine Infectious Disease
DX: B95.62 Methicillin resistant Staphylococcus aureus infection as the cause of diseases classified elsewhere (principal)

== ENCOUNTER → 2017-03-10 | Outpatient (REF) | payer MEDICARE, OTHER ==
[2017-03-10 15:39] LABS: BASO # 0.1 10^3/uL (0.0-0.2); EOS # 0.6 10^3/uL (0.0-0.50); EOS % 8.4 % (0.0-3.0); IMMATURE GRANULOCYTE % 0.6 % (0-0); LYMPH # 1.3 10^3/uL (1.5-4.5); LYMPH % 19.1 % (24.0-44.0); MEAN CORPUSCULAR HEMOGLOBIN 27.7 pg (27.0-33.0); MEAN CORPUSCULAR HGB CONC 31.4 g/dl (32.0-36.5); MEAN CORPUSCULAR VOLUME 88.3 fl (80.0-96.0); MONO # 0.3 10^3/uL (0.0-0.8); MONO % 4.3 % (0.0-5.0); NEUTROPHILS # 4.5 10^3/uL (1.8-7.7); NEUTROPHILS % 66.6 % (36.0-66.0); PLATELET COUNT, AUTOMATED 232 10^3/uL (150-450); RED CELL DISTRIBUTION WIDTH 14.1 % (11.5-14.5); WHITE BLOOD COUNT 6.8 10^3/uL (4.0-10.0)
[2017-03-10 16:11] LABS: CALCIUM LEVEL 8.9 MG/DL (8.8-10.2); CREATININE FOR GFR 1.81 MG/DL (0.70-1.30); POTASSIUM SERUM 4.5 MEQ/L (3.5-5.1)
[2017-03-10 16:13] LABS: ERYTHROCYTE SEDIMENTATION RATE 49 mm/hr (0-20)
== END ==
LOC: M LAB REF 15:15
PROVIDERS: ATTEND Internal Medicine Infectious Disease
DX: B95.62 Methicillin resistant Staphylococcus aureus infection as the cause of diseases classified elsewhere (principal)

== ENCOUNTER → 2017-03-17 | Outpatient (REF) | payer MEDICARE, OTHER ==
[2017-03-17 15:38] LABS: CALCIUM LEVEL 8.8 MG/DL (8.8-10.2); CREATININE FOR GFR 1.64 MG/DL (0.70-1.30); GLOMERULAR FILTRATION RATE 44.8 (>49); POTASSIUM SERUM 4.6 MEQ/L (3.5-5.1)
== END ==
LOC: M LAB REF 14:51
PROVIDERS: ATTEND Internal Medicine Infectious Disease
DX: T81.4XXA Infection following a procedure, initial encounter (principal); B95.62 Methicillin resistant Staphylococcus aureus infection as the cause of diseases classified elsewhere

== ENCOUNTER → 2017-03-24 | Outpatient (REF) | payer MEDICARE, OTHER ==
[~2017-03-24] MED LIST changes: +PROBCAP4 PO; +VANC125C2 PO; +VANC1INJ38 IV
[2017-03-24 13:39] LABS: BASO # 0.1 10^3/uL (0.0-0.2); BASO % 1.3 % (0.0-1.0); EOS # 0.5 10^3/uL (0.0-0.50); EOS % 8.6 % (0.0-3.0); LYMPH # 1.4 10^3/uL (1.5-4.5); LYMPH % 22.2 % (24.0-44.0); MEAN CORPUSCULAR HEMOGLOBIN 27.9 pg (27.0-33.0); MEAN CORPUSCULAR HGB CONC 31.5 g/dl (32.0-36.5); MEAN CORPUSCULAR VOLUME 88.5 fl (80.0-96.0); MONO # 0.4 10^3/uL (0.0-0.8); MONO % 5.9 % (0.0-5.0); NEUTROPHILS # 3.9 10^3/uL (1.8-7.7); PLATELET COUNT, AUTOMATED 202 10^3/uL (150-450); RED CELL DISTRIBUTION WIDTH 14.5 % (11.5-14.5); WHITE BLOOD COUNT 6.3 10^3/uL (4.0-10.0)
[2017-03-24 14:27] LABS: ERYTHROCYTE SEDIMENTATION RATE 28 mm/hr (0-20)
[2017-03-24 14:53] LABS: CALCIUM LEVEL 8.9 MG/DL (8.8-10.2); CREATININE FOR GFR 1.74 MG/DL (0.70-1.30); GLOMERULAR FILTRATION RATE 41.9 (>49); POTASSIUM SERUM 4.5 MEQ/L (3.5-5.1)
== END ==
LOC: M LAB REF 13:31
PROVIDERS: ATTEND Internal Medicine Infectious Disease
DX: L02.211 Cutaneous abscess of abdominal wall (principal); B95.62 Methicillin resistant Staphylococcus aureus infection as the cause of diseases classified elsewhere

== ENCOUNTER → 2017-04-01 | Outpatient (CLI) | payer MEDICARE, BC, OTHER ==
[2017-04-01 09:59] LABS: ALBUMIN 3.9 GM/DL (3.2-5.2); ALBUMIN/GLOBULIN RATIO 1.15 (1.00-1.93); BILIRUBIN,TOTAL 0.4 MG/DL (0.2-1.0); CALCIUM LEVEL 8.6 MG/DL (8.8-10.2); CREATININE FOR GFR 1.84 MG/DL (0.70-1.30); GLOMERULAR FILTRATION RATE 39.3 (>49); POTASSIUM SERUM 4.9 MEQ/L (3.5-5.1); TOTAL PROTEIN 7.3 GM/DL (6.4-8.2)
--- NOTE | 2017-04-01 21:27 | ECGEPIP ---
Stationary ECG Study [facility] Test Date: 2017-04-01 Pat Name: LEO NGUYEN Department: Room: - Gender: M Outpatient Facility Physical Therapist: DUY : 1950 Requested By: PEDRITO Irvin Order Number: [id number] Reading MD: Сергей Peñaloza Measurements Intervals [place] Rate: 64 P: 64 AK: 173 QRS: 28 QRSD: 97 T: 56 QT: 399 QTc: 412 Interpretive Statements Normal sinus rhythm Low QRS complex voltage in the limb leads Nonspecific ST-T wave abnormalities Comparison tracing not on file Electronically Signed On 04-01-2017 21:27:04 EST by Сергей Peñaloza
--- NOTE | 2017-04-02 09:09 | REP ---
Clinical: Chest pain. History of COPD. . Comparison: None . Technique: PA and lateral. Findings: The mediastinum and cardiac silhouette are normal. Right PICC line with tip in the SVC. The lung lal are clear and without acute consolidation, effusion, or pneumothorax. The skeletal structures are intact and normal. Impression: 1. No acute cardiopulmonary process. Signed by Arley Holt MD 04/01/2017 09:42 A
== END ==
LOC: M LAB 08:51
PROVIDERS: ATTEND Anesthesiology
DX: J44.9 Chronic obstructive pulmonary disease, unspecified (principal)

== ENCOUNTER → 2017-04-02 | Outpatient (REF) | payer MEDICARE, OTHER ==
[2017-04-02 15:23] LABS: BASO # 0.1 10^3/uL (0.0-0.2); BASO % 1.2 % (0.0-1.0); EOS # 0.4 10^3/uL (0.0-0.50); EOS % 5.7 % (0.0-3.0); IMMATURE GRANULOCYTE # 0.1 10^3/uL (0-0); IMMATURE GRANULOCYTE % 0.9 % (0-0); LYMPH # 1.4 10^3/uL (1.5-4.5); LYMPH % 20.9 % (24.0-44.0); MEAN CORPUSCULAR HEMOGLOBIN 27.8 pg (27.0-33.0); MEAN CORPUSCULAR HGB CONC 31.6 g/dl (32.0-36.5); MONO # 0.3 10^3/uL (0.0-0.8); MONO % 4.8 % (0.0-5.0); NEUTROPHILS # 4.5 10^3/uL (1.8-7.7); NEUTROPHILS % 66.5 % (36.0-66.0); PLATELET COUNT, AUTOMATED 204 10^3/uL (150-450); RED CELL DISTRIBUTION WIDTH 14.5 % (11.5-14.5); WHITE BLOOD COUNT 6.7 10^3/uL (4.0-10.0)
[2017-04-02 15:33] LABS: ANION GAP 6 MEQ/L (8-16); BLOOD UREA NITROGEN 29 MG/DL (7-18); CALCIUM LEVEL 8.7 MG/DL (8.8-10.2); CARBON DIOXIDE LEVEL 27 MEQ/L (21-32); CHLORIDE LEVEL 109 MEQ/L (98-107); CREATININE FOR GFR 1.82 MG/DL (0.70-1.30); GLOMERULAR FILTRATION RATE 39.8 (>49); GLUCOSE, FASTING 81 MG/DL (80-110); POTASSIUM SERUM 5.1 MEQ/L (3.5-5.1); SODIUM LEVEL 142 MEQ/L (136-145); VANCOMYCIN RANDOM 15.4 UG/ML
[2017-04-02 15:46] LABS: ERYTHROCYTE SEDIMENTATION RATE 20 mm/hr (0-20)
== END ==
LOC: M LAB REF 14:38
DX: L02.211 Cutaneous abscess of abdominal wall (principal); B95.62 Methicillin resistant Staphylococcus aureus infection as the cause of diseases classified elsewhere
CPT/HCPCS: 80202

== ENCOUNTER 2017-04-08 06:49 | Inpatient (IN) | payer MEDICARE, BC, OTHER ==
[2017-04-08] MEDS ORDERED: LIDOCAINE 1% MDV 20ML VIAL SQ (07:00)
[2017-04-08] MEDS ORDERED: VANCOMYCIN 1000 MG/20 ML VIAL (J3370) As Ordered (07:52)
[2017-04-08] MEDS: LR 1,000 ML IV ×2 (07:56→13:30)
[2017-04-08] MEDS: VANCOMYCIN HCL 1,000 MG, VIAL MATE ADAPTER 1 EACH in D5W 250 ML IV (08:00)
[2017-04-08] MEDS ORDERED: ALBUTEROL SULFATE 2.5 MG/0.5 ML INH NEB SOLN As Ordered (08:05)
[2017-04-08] MEDS ORDERED: ROCURONIUM BROMIDE 50 MG/5 ML VIAL As Ordered (08:15)
[2017-04-08] MEDS ORDERED: PROPOFOL 200 MG/20 ML VIAL As Ordered (08:15)
[2017-04-08] MEDS ORDERED: fentaNYL 250 MCG/5 ML INJECTION (J3010) As Ordered (08:15)
[2017-04-08] MEDS: ALBUTEROL SULFATE 2.5 MG/0.5 ML INH NEB SOLN INH ×3 (08:15→19:47)
[2017-04-08] MEDS ORDERED: LIDOCAINE 2% INJ 100 MG/5 ML SDV (FOR ANES.) As Ordered (08:15)
[2017-04-08] MEDS ORDERED: BUPIVACAINE LIPOSOME/PF 1.3% 20 ML VIAL (13.3MG/ML)(EXPAREL) As Ordered (08:15)
[2017-04-08] MEDS ORDERED: MIDAZOLAM INJ 2 MG/2 ML VIAL (J2250) As Ordered (08:16)
[2017-04-08 08:37] LABS: BEDSIDE GLUCOSE 89 MG/DL (80-115)
[2017-04-08] MEDS: OMEPRAZOLE 20 MG CAP PO (09:00)
[2017-04-08] MEDS: LACTOBACILLUS ACIDOPHILUS CAP (BACID) PO ×3 (09:00→21:59)
[2017-04-08] MEDS ORDERED: ePHEDrine SULFATE 25 MG/5 ML(5MG/ML) SYRINGE As Ordered (09:32)
[2017-04-08] MEDS ORDERED: PHENYLephrine HCL 500 MCG/5 ML (100MCG/ML) SYRINGE (J2370) As Ordered ×2 (09:32→10:14)
[2017-04-08] MEDS ORDERED: PHENYLEPHRINE INJ 10MG/ML VIAL (J2370) As Ordered (09:47)
[2017-04-08] MEDS ORDERED: NEOSTIGMINE 10 MG/10 ML VIAL (J2710) As Ordered (10:15)
[2017-04-08] MEDS ORDERED: GLYCOPYRROLATE INJ 0.2 MG/ML 2 ML VIAL As Ordered (10:15)
[2017-04-08] MEDS ORDERED: dexameTHASONE 4 MG/ML 1ML VIAL (J1100) As Ordered (10:15)
[2017-04-08] MEDS ORDERED: ONDANSETRON 4MG/2ML VIAL (J2405) As Ordered (10:15)
[2017-04-08] MEDS ORDERED: HYDROmorphone HCL 2 MG/ML 1ML VIAL (J1170) As Ordered (10:15)
[2017-04-08] MEDS ORDERED: BUPIVACAINE HCL 0.5% 10 ML VIAL As Ordered (11:10)
[2017-04-08] MEDS ORDERED: MORPHINE 1MG/ML IN 0.9% NACL 100ML IV BAG As Ordered (12:01)
[2017-04-08] MEDS: NS 1,000 ML IV ×3 (12:05→22:03)
[2017-04-08] MEDS ORDERED: DEXTROSE 50% 50 ML SYRINGE IV (12:15)
[2017-04-08] MEDS ORDERED: NALOXONE INJ 0.4 MG/1 ML VIAL (J2310) IV (12:15)
[2017-04-08] MEDS ORDERED: diphenhydrAMINE INJ 50MG/ML VIAL (J1200) IV (12:15)
[2017-04-08] MEDS ORDERED: LIDOCAINE 5% (LIDODERM) PATCH TD (12:15)
[2017-04-08] MEDS ORDERED: EPIDURAL/PCA KEYS XX (12:15)
[2017-04-08] MEDS ORDERED: ONDANSETRON 4MG/2ML VIAL (J2405) IV ×2 (12:15→13:30)
[2017-04-08] MEDS ORDERED: GLUCAGON FOR INJ 1 MG VIAL (J1610) SC (12:15)
[2017-04-08] MEDS ORDERED: QUEtiapine FUMARATE 50 MG TAB PO (12:15)
[2017-04-08] MEDS ORDERED: GLUCOSE 4 GM CHEW TABLET PO (12:15)
[2017-04-08 12:28] LABS: BEDSIDE GLUCOSE 175 MG/DL (80-115)
[2017-04-08] MEDS ORDERED: fentaNYL 100 MCG/2 ML INJECTION (J3010) IV (13:30)
[2017-04-08] MEDS ORDERED: HumaLOG INSULIN (NovoLOG) PER UNIT SC ×2 (13:30→21:00)
[2017-04-08] MEDS ORDERED: HYDROmorphone HCL 1 MG/ML SYRINGE (J1170) IV (13:30)
[2017-04-08] MEDS: buPROPion **SR TABLET** (ZYBAN) 150MG PO (13:44)
[2017-04-08] MEDS: PANTOPRAZOLE 40MG INJ (PROTONIX) (C9113) IV (14:00)
[2017-04-08] MEDS: HumaLOG INSULIN (NovoLOG) PER UNIT SC (17:20)
[2017-04-08] MEDS: SINEMET 25-100 MG TAB PO ×2 (17:20→21:59)
[2017-04-08] MEDS: SYMBICORT 160/4.5MCG INHALER 6GM INH (19:47)
[2017-04-08] MEDS ORDERED: VANCOMYCIN HCL 1,000 MG, VIAL MATE ADAPTER 1 EACH in D5W/0.2% SODIUM CHLORIDE 250 ML IV (20:00)
[2017-04-08] MEDS: zolPIDEM TARTRATE 10MG TAB PO (21:34)
[2017-04-08] MEDS: NALBUPHINE HCL 10 MG/ML AMP (J2300) IV (21:58)
[2017-04-08] MEDS: ESCITALOPRAM OXALATE 10 MG TAB (LEXAPRO) PO (21:59)
[2017-04-08] MEDS: VANCOMYCIN ORAL SOL 250MG/5ML ORAL SYRINGE PO (21:59)
[2017-04-08] MEDS: CETIRIZINE (ZyrTEC) 10 MG TAB PO (22:00)
[2017-04-08] MEDS: TAMSULOSIN 0.4 MG CAP PO (22:00)
[2017-04-08] MEDS: ROSUVASTATIN 10 MG TAB (CRESTOR) PO (22:00)
[2017-04-08] MEDS: DUTASTERIDE 0.5 MG CAP (AVODART) PO (22:00)
[2017-04-09 00:15] LABS: BEDSIDE GLUCOSE 176 MG/DL (80-115)
[2017-04-09 01:56] LABS: HEMATOCRIT 32.7 % (42.0-52.0); HEMOGLOBIN 10.1 g/dl (14.0-18.0); MEAN CORPUSCULAR HEMOGLOBIN 28.5 pg (27.0-33.0); MEAN CORPUSCULAR HGB CONC 30.9 g/dl (32.0-36.5); MEAN CORPUSCULAR VOLUME 92.1 fl (80.0-96.0); PLATELET COUNT, AUTOMATED 187 10^3/uL (150-450); RED BLOOD COUNT 3.55 10^6/uL (4.30-6.10); RED CELL DISTRIBUTION WIDTH 14.6 % (11.5-14.5); WHITE BLOOD COUNT 11.3 10^3/uL (4.0-10.0)
[2017-04-09 02:22] LABS: ANION GAP 9 MEQ/L (8-16); BLOOD UREA NITROGEN 36 MG/DL (7-18); CALCIUM LEVEL 6.6 MG/DL (8.8-10.2); CARBON DIOXIDE LEVEL 22 MEQ/L (21-32); CHLORIDE LEVEL 111 MEQ/L (98-107); CREATININE FOR GFR 3.28 MG/DL (0.70-1.30); GLOMERULAR FILTRATION RATE 20.1 (>49); GLUCOSE, FASTING 157 MG/DL (80-110); MAGNESIUM LEVEL 1.7 MG/DL (1.8-2.4); SODIUM LEVEL 142 MEQ/L (136-145)
[2017-04-09 02:28] LABS: POTASSIUM SERUM 6.4 MEQ/L (3.5-5.1)
[2017-04-09] MEDS: HumuLIN R (REGULAR) INSULIN (NovoLIN R) **100U/ML** PER UNIT IV (02:45)
[2017-04-09] MEDS: SOD POLYSTYRENE SULFONATE SUSP 15 GM/60 ML UD PO (03:08)
[2017-04-09] MEDS: HumaLOG INSULIN (NovoLOG) PER UNIT SC ×6 (03:09→23:36)
[2017-04-09] MEDS: DEXTROSE 50% 50 ML SYRINGE IV (03:09)
[2017-04-09 03:10] LABS: OSMOLALITY SERUM 303 MOSM/KG (280-301)
[2017-04-09] MEDS: SODIUM CHLORIDE 0.9% INJ 10 ML SYR IV ×2 (04:16→17:39)
[2017-04-09] MEDS: ONDANSETRON 4MG/2ML VIAL (J2405) IV (04:16)
[2017-04-09] MEDS: LEVALBUTEROL 1.25 MG/0.5 ML CONCENTRATE NEB INH (04:51)
[2017-04-09 05:42] LABS: BEDSIDE GLUCOSE 176 MG/DL (80-115)
[2017-04-09] MEDS: NS 1,000 ML IV ×4 (06:00→21:39)
[2017-04-09 06:37] LABS: HEMATOCRIT 34.1 % (42.0-52.0); HEMOGLOBIN 10.4 g/dl (14.0-18.0); MEAN CORPUSCULAR HEMOGLOBIN 27.8 pg (27.0-33.0); MEAN CORPUSCULAR HGB CONC 30.5 g/dl (32.0-36.5); MEAN CORPUSCULAR VOLUME 91.2 fl (80.0-96.0); PLATELET COUNT, AUTOMATED 203 10^3/uL (150-450); RED BLOOD COUNT 3.74 10^6/uL (4.30-6.10); RED CELL DISTRIBUTION WIDTH 14.8 % (11.5-14.5); WHITE BLOOD COUNT 11.4 10^3/uL (4.0-10.0)
[2017-04-09 07:06] LABS: ALBUMIN 3.6 GM/DL (3.2-5.2); ANION GAP 8 MEQ/L (8-16); BLOOD UREA NITROGEN 43 MG/DL (7-18); CALCIUM LEVEL 7.4 MG/DL (8.8-10.2); CARBON DIOXIDE LEVEL 22 MEQ/L (21-32); CHLORIDE LEVEL 108 MEQ/L (98-107); GLOMERULAR FILTRATION RATE 14.7 (>49); GLUCOSE, FASTING 148 MG/DL (80-110); PHOSPHORUS LEVEL 5.6 MG/DL (2.5-4.9); SODIUM LEVEL 138 MEQ/L (136-145); VANCOMYCIN RANDOM 23.9 UG/ML
[2017-04-09 07:12] LABS: POTASSIUM SERUM 6.1 MEQ/L (3.5-5.1)
[2017-04-09] MEDS: ALBUTEROL SULFATE 2.5 MG/0.5 ML INH NEB SOLN INH ×4 (08:00→20:00)
[2017-04-09] MEDS: SYMBICORT 160/4.5MCG INHALER 6GM INH ×2 (08:05→20:21)
[2017-04-09] MEDS ORDERED: POTASSIUM CHLORIDE 10 MEQ SR TABLET PO (09:00)
[2017-04-09] MEDS ORDERED: LISINOPRIL 10 MG TAB PO (09:00)
[2017-04-09] MEDS: VANCOMYCIN ORAL SOL 250MG/5ML ORAL SYRINGE PO ×2 (09:23→21:39)
[2017-04-09] MEDS: buPROPion **SR TABLET** (ZYBAN) 150MG PO (09:23)
[2017-04-09] MEDS: LACTOBACILLUS ACIDOPHILUS CAP (BACID) PO ×3 (09:23→21:38)
[2017-04-09] MEDS: MONTELUKAST 10 MG TAB PO (09:23)
[2017-04-09] MEDS: SINEMET 25-100 MG TAB PO (09:23)
[2017-04-09] MEDS: PANTOPRAZOLE 40MG INJ (PROTONIX) (C9113) IV (09:23)
[2017-04-09] MEDS: SODIUM CHLORIDE 0.9% 1000 ML IV (11:35)
[2017-04-09 12:18] LABS: BEDSIDE GLUCOSE 218 MG/DL (80-115)
[2017-04-09 12:23] LABS: BEDSIDE GLUCOSE 118 MG/DL (80-115)
[2017-04-09] MEDS: LevoFLOXacin 750 MG TABLET PO (12:34)
[2017-04-09] MEDS: metroNIDAZOLE 500 MG in APPROPRIATE DILUENT 1 EA IV ×2 (12:34→21:38)
[2017-04-09 13:36] LABS: LACTIC ACID SEPSIS PROTOCOL 1.1 MMOL/L (0.4-2.0)
[2017-04-09 13:36] LABS: ALBUMIN 3.5 GM/DL (3.2-5.2); ANION GAP 9 MEQ/L (8-16); BLOOD UREA NITROGEN 48 MG/DL (7-18); CARBON DIOXIDE LEVEL 21 MEQ/L (21-32); CHLORIDE LEVEL 110 MEQ/L (98-107); CREATININE FOR GFR 4.63 MG/DL (0.70-1.30); GLOMERULAR FILTRATION RATE 13.5 (>49); GLUCOSE, FASTING 106 MG/DL (80-110); PHOSPHORUS LEVEL 5.8 MG/DL (2.5-4.9); SODIUM LEVEL 140 MEQ/L (136-145)
[2017-04-09 13:47] LABS: POTASSIUM SERUM 5.8 MEQ/L (3.5-5.1)
[2017-04-09] MEDS ORDERED: MEROPENEM INJ 500 MG in APPROPRIATE DILUENT 1 EA IV (14:00)
[2017-04-09] MEDS: MORPHINE 1MG/ML IN 0.9% NACL 100ML IV BAG IV (14:48)
[2017-04-09 18:02] LABS: BEDSIDE GLUCOSE 107 MG/DL (80-115)
[2017-04-09] MEDS: ESCITALOPRAM OXALATE 10 MG TAB (LEXAPRO) PO (21:38)
[2017-04-09] MEDS ORDERED: SODIUM CHLORIDE NASAL 0.65% SPRAY BTL (OCEAN) (23:30)
[2017-04-09 23:43] LABS: BEDSIDE GLUCOSE 89 MG/DL (80-115)
[2017-04-10 00:26] LABS: APPEARANCE, URINE HAZY (CLEAR); BACTERIA, URINE AUTO NEGATIVE (NEGATIVE); BILIRUBIN, URINE AUTO NEGATIVE (NEGATIVE); BLOOD, URINE BLOOD 2+ (NEGATIVE); COLOR, URINE YELLOW (YELLOW); GLUCOSE, URINE (UA) AUTO NEGATIVE (NEGATIVE); KETONE, URINE AUTO TRACE mg/dL (NEGATIVE); LEUKOCYTE ESTERASE, URINE AUTO NEGATIVE (NEGATIVE); MUCUS, URINE SMALL (NEGATIVE); NITRITE, URINE AUTO NEGATIVE (NEGATIVE); PROTEIN, URINE AUTO NEGATIVE (NEGATIVE); RBC, URINE AUTO 20 /HPF (0-3); SPECIFIC GRAVITY URINE AUTO 1.014 (1.002-1.035); SQUAMOUS EPITHELIAL CELL UR AU 0 /HPF (0-6); UROBILINOGEN, URINE AUTO 0.2 mg/dL (0.0-2.0); WBC, URINE AUTO 5 /HPF (0-3)
[2017-04-10 00:37] LABS: OSMOLALITY URINE 389 MOSM/KG (500-800)
[2017-04-10 00:49] LABS: POTASSIUM RANDOM URINE 43.1 MEQ/L; SODIUM,RANDOM URINE 25 MEQ/L
[2017-04-10] MEDS: HumaLOG INSULIN (NovoLOG) PER UNIT SC ×3 (05:31→17:38)
[2017-04-10] MEDS: SODIUM CHLORIDE 0.9% INJ 10 ML SYR IV ×3 (05:37→21:41)
[2017-04-10] MEDS: metroNIDAZOLE 500 MG in APPROPRIATE DILUENT 1 EA IV ×2 (05:37→12:28)
[2017-04-10 06:06] LABS: HEMATOCRIT 32.1 % (42.0-52.0); HEMOGLOBIN 9.7 g/dl (14.0-18.0); MEAN CORPUSCULAR HEMOGLOBIN 28.4 pg (27.0-33.0); MEAN CORPUSCULAR HGB CONC 30.2 g/dl (32.0-36.5); MEAN CORPUSCULAR VOLUME 94.1 fl (80.0-96.0); PLATELET COUNT, AUTOMATED 148 10^3/uL (150-450); RED BLOOD COUNT 3.41 10^6/uL (4.30-6.10); RED CELL DISTRIBUTION WIDTH 14.7 % (11.5-14.5); WHITE BLOOD COUNT 10.6 10^3/uL (4.0-10.0)
[2017-04-10 06:07] LABS: IONIZED CALCIUM 3.9 MG/DL (4.5-5.3)
[2017-04-10] MEDS: NS 1,000 ML IV ×2 (06:20→09:44)
[2017-04-10 06:31] LABS: ANION GAP 8 MEQ/L (8-16); BLOOD UREA NITROGEN 53 MG/DL (7-18); CALCIUM LEVEL 7.1 MG/DL (8.8-10.2); CARBON DIOXIDE LEVEL 23 MEQ/L (21-32); CHLORIDE LEVEL 111 MEQ/L (98-107); CREATININE FOR GFR 3.61 MG/DL (0.70-1.30); GLUCOSE, FASTING 100 MG/DL (80-110); MAGNESIUM LEVEL 1.8 MG/DL (1.8-2.4); SODIUM LEVEL 142 MEQ/L (136-145)
[2017-04-10 06:34] LABS: POTASSIUM SERUM 5.2 MEQ/L (3.5-5.1)
[2017-04-10] MEDS: ALBUTEROL SULFATE 2.5 MG/0.5 ML INH NEB SOLN INH ×4 (08:00→19:56)
[2017-04-10] MEDS ORDERED: VANCOMYCIN INTERMITTENT/PULSE DOSING BY CLINICAL PHARMACIST PER DOSING PROTOCOL XX (08:00)
[2017-04-10] MEDS: SYMBICORT 160/4.5MCG INHALER 6GM INH ×2 (08:01→19:55)
[2017-04-10] MEDS: INFLUENZA VIRUS VACCINE HIGH DOSE 0.5 ML SYRINGE (90662) IM (09:00)
[2017-04-10] MEDS: PREVNAR 13 VACCINE SYRINGE (CPT CODE:90670) IM (09:00)
[2017-04-10] MEDS: CALCIUM GLUCONATE 1,000 MG in D5W MINI-BAG PLUS 100 ML IV (09:37)
[2017-04-10] MEDS: VANCOMYCIN HCL 500 MG in D5W MINI-BAG PLUS 100 ML IV (09:40)
[2017-04-10] MEDS: PANTOPRAZOLE 40MG INJ (PROTONIX) (C9113) IV (09:40)
[2017-04-10] MEDS: MONTELUKAST 10 MG TAB PO (09:43)
[2017-04-10] MEDS: VANCOMYCIN ORAL SOL 250MG/5ML ORAL SYRINGE PO ×2 (09:44→20:14)
[2017-04-10] MEDS: ALVIMOPAN 12 MG CAPSULE (ENTEREG) PO ×2 (09:44→20:15)
[2017-04-10] MEDS: LACTOBACILLUS ACIDOPHILUS CAP (BACID) PO ×3 (09:44→20:15)
[2017-04-10] MEDS: buPROPion **SR TABLET** (ZYBAN) 150MG PO (09:44)
[2017-04-10 12:55] LABS: BEDSIDE GLUCOSE 105 MG/DL (80-115)
[2017-04-10 12:55] LABS: BEDSIDE GLUCOSE 109 MG/DL (80-115)
[2017-04-10 12:55] LABS: BEDSIDE GLUCOSE 91 MG/DL (80-115)
[2017-04-10] MEDS: NS 0.45% 1,000 ML IV ×2 (14:02→21:39)
[2017-04-10 18:44] LABS: BEDSIDE GLUCOSE 110 MG/DL (80-115)
[2017-04-10] MEDS: ESCITALOPRAM OXALATE 10 MG TAB (LEXAPRO) PO (20:15)
[2017-04-10] MEDS: ONDANSETRON 4MG/2ML VIAL (J2405) IV (21:40)
[2017-04-10] MEDS: ACETAMINOPHEN TAB 650MG DOSE (2X325MG) PO (21:40)
[2017-04-10 23:58] LABS: BEDSIDE GLUCOSE 145 MG/DL (80-115)
[2017-04-11] MEDS: PROMETHAZINE INJ 25 MG/ML VIAL (J2550) IV (02:07)
[2017-04-11] MEDS: SODIUM CHLORIDE 0.9% INJ 10 ML SYR IV ×3 (02:53→17:34)
[2017-04-11] MEDS: ACETAMINOPHEN TAB 650MG DOSE (2X325MG) PO (04:48)
[2017-04-11] MEDS: LEVALBUTEROL 1.25 MG/0.5 ML CONCENTRATE NEB INH ×2 (04:58→17:57)
[2017-04-11] MEDS: NS 0.45% 1,000 ML IV ×2 (05:41→12:40)
[2017-04-11 05:58] LABS: BEDSIDE GLUCOSE 178 MG/DL (80-115)
[2017-04-11] MEDS: HumaLOG INSULIN (NovoLOG) PER UNIT SC ×5 (06:04→20:55)
[2017-04-11 06:05] LABS: HEMATOCRIT 30.2 % (42.0-52.0); HEMOGLOBIN 9.1 g/dl (14.0-18.0); MEAN CORPUSCULAR HEMOGLOBIN 28.1 pg (27.0-33.0); MEAN CORPUSCULAR HGB CONC 30.1 g/dl (32.0-36.5); MEAN CORPUSCULAR VOLUME 93.2 fl (80.0-96.0); PLATELET COUNT, AUTOMATED 137 10^3/uL (150-450); RED BLOOD COUNT 3.24 10^6/uL (4.30-6.10); RED CELL DISTRIBUTION WIDTH 14.2 % (11.5-14.5); WHITE BLOOD COUNT 9.5 10^3/uL (4.0-10.0)
[2017-04-11 06:29] LABS: ANION GAP 12 MEQ/L (8-16); BLOOD UREA NITROGEN 41 MG/DL (7-18); CALCIUM LEVEL 7.5 MG/DL (8.8-10.2); CARBON DIOXIDE LEVEL 19 MEQ/L (21-32); CHLORIDE LEVEL 109 MEQ/L (98-107); CREATININE FOR GFR 1.95 MG/DL (0.70-1.30); GLOMERULAR FILTRATION RATE 36.7 (>49); GLUCOSE, FASTING 186 MG/DL (80-110); MAGNESIUM LEVEL 1.9 MG/DL (1.8-2.4); SODIUM LEVEL 140 MEQ/L (136-145); VANCOMYCIN RANDOM 9.2 UG/ML
[2017-04-11 06:35] LABS: POTASSIUM SERUM 5.5 MEQ/L (3.5-5.1)
[2017-04-11] MEDS: ALBUTEROL SULFATE 2.5 MG/0.5 ML INH NEB SOLN INH ×4 (08:00→19:53)
[2017-04-11] MEDS: SYMBICORT 160/4.5MCG INHALER 6GM INH ×2 (08:22→19:52)
[2017-04-11] MEDS: VANCOMYCIN HCL 1,000 MG, VIAL MATE ADAPTER 1 EACH in D5W 250 ML IV (08:58)
[2017-04-11] MEDS: PANTOPRAZOLE 40MG INJ (PROTONIX) (C9113) IV (08:59)
[2017-04-11] MEDS: LACTOBACILLUS ACIDOPHILUS CAP (BACID) PO ×3 (09:02→21:21)
[2017-04-11] MEDS: MONTELUKAST 10 MG TAB PO (09:02)
[2017-04-11] MEDS: buPROPion **SR TABLET** (ZYBAN) 150MG PO (09:02)
[2017-04-11] MEDS: ALVIMOPAN 12 MG CAPSULE (ENTEREG) PO (09:02)
[2017-04-11] MEDS: VANCOMYCIN ORAL SOL 250MG/5ML ORAL SYRINGE PO ×2 (09:03→21:21)
[2017-04-11] MEDS: CALCIUM GLUCONATE 1,000 MG in D5W MINI-BAG PLUS 100 ML IV (10:06)
[2017-04-11] MEDS: SINEMET 25-100 MG TAB PO ×3 (10:06→21:21)
[2017-04-11 12:08] LABS: BEDSIDE GLUCOSE 118 MG/DL (80-115)
[2017-04-11] MEDS: NORCO, ANEXSIA 5/325MG TABLET (HYDROcodone/ACETAMINOPHEN) PO ×2 (14:59→21:22)
[2017-04-11 16:52] LABS: BEDSIDE GLUCOSE 152 MG/DL (80-115)
[2017-04-11 20:59] LABS: BEDSIDE GLUCOSE 133 MG/DL (80-115)
[2017-04-11] MEDS: ESCITALOPRAM OXALATE 10 MG TAB (LEXAPRO) PO (21:21)
[2017-04-12] MEDS: SODIUM CHLORIDE 0.9% INJ 10 ML SYR IV ×2 (06:18→11:06)
[2017-04-12 06:26] LABS: HEMATOCRIT 28.9 % (42.0-52.0); HEMOGLOBIN 9.1 g/dl (14.0-18.0); MEAN CORPUSCULAR HEMOGLOBIN 27.7 pg (27.0-33.0); MEAN CORPUSCULAR HGB CONC 31.5 g/dl (32.0-36.5); MEAN CORPUSCULAR VOLUME 88.1 fl (80.0-96.0); PLATELET COUNT, AUTOMATED 177 10^3/uL (150-450); RED BLOOD COUNT 3.28 10^6/uL (4.30-6.10); RED CELL DISTRIBUTION WIDTH 14.1 % (11.5-14.5); WHITE BLOOD COUNT 8.1 10^3/uL (4.0-10.0)
[2017-04-12 06:58] LABS: ANION GAP 7 MEQ/L (8-16); BLOOD UREA NITROGEN 25 MG/DL (7-18); CALCIUM LEVEL 8.3 MG/DL (8.8-10.2); CARBON DIOXIDE LEVEL 27 MEQ/L (21-32); CHLORIDE LEVEL 107 MEQ/L (98-107); CREATININE FOR GFR 1.21 MG/DL (0.70-1.30); GLOMERULAR FILTRATION RATE > 60.0 (>49); GLUCOSE, FASTING 133 MG/DL (80-110); MAGNESIUM LEVEL 1.6 MG/DL (1.8-2.4); POTASSIUM SERUM 4.1 MEQ/L (3.5-5.1); SODIUM LEVEL 141 MEQ/L (136-145)
[2017-04-12] MEDS: ALBUTEROL SULFATE 2.5 MG/0.5 ML INH NEB SOLN INH (08:00)
[2017-04-12] MEDS: QUEtiapine FUMARATE 50 MG TAB PO ×2 (08:33→21:41)
[2017-04-12] MEDS: LACTOBACILLUS ACIDOPHILUS CAP (BACID) PO ×3 (08:33→21:22)
[2017-04-12] MEDS: PANTOPRAZOLE 40MG INJ (PROTONIX) (C9113) IV (08:33)
[2017-04-12] MEDS: HumaLOG INSULIN (NovoLOG) PER UNIT SC ×4 (08:33→21:00)
[2017-04-12] MEDS: buPROPion **SR TABLET** (ZYBAN) 150MG PO (08:33)
[2017-04-12] MEDS: NORCO, ANEXSIA 5/325MG TABLET (HYDROcodone/ACETAMINOPHEN) PO (08:35)
[2017-04-12] MEDS: MONTELUKAST 10 MG TAB PO (08:35)
[2017-04-12] MEDS: SYMBICORT 160/4.5MCG INHALER 6GM INH (08:36)
[2017-04-12] MEDS: SINEMET 25-100 MG TAB PO ×3 (08:36→21:22)
[2017-04-12] MEDS: VANCOMYCIN HCL 1,000 MG, VIAL MATE ADAPTER 1 EACH in D5W 250 ML IV (08:36)
[2017-04-12] MEDS: VANCOMYCIN ORAL SOL 250MG/5ML ORAL SYRINGE PO ×2 (08:36→21:23)
[2017-04-12] MEDS ORDERED: ALBUTEROL SULFATE 2.5 MG/0.5 ML INH NEB SOLN NEB (09:45)
[2017-04-12 10:14] LABS: ABG BASE EXCESS -3.5 (-2.0-2.0); ABG HCO3 21.7 MEQ/L (22.0-26.0); ABG O2 SATURATION 97.6 % (95.0-99.0); ABG PARTIAL PRESSURE O2 96.1 mmHg (75.0-100.0); ABG STANDARD HCO3 21.5 MEQ/L (22.0-26.0); ABG pH (ARTERIAL) 7.353 UNITS (7.350-7.450)
[2017-04-12] MEDS: MAG SULF 1GM/100ML (MAG RUN) 1 GM in APPROPRIATE DILUENT 1 EA IV ×2 (11:04→11:05)
[2017-04-12] MEDS: methylPREDNISolone INJ 125 MG/2 ML VIAL (J2930) IV (11:05)
[2017-04-12] MEDS: IPRATROPIUM 0.5MG/ALBUTEROL 2.5MG INH SOL UD 3ML (DUONEB)(J7620) NEB ×2 (13:48→21:40)
[2017-04-12] MEDS: CALCIUM GLUCONATE 1,000 MG in D5W MINI-BAG PLUS 100 ML IV (15:54)
[2017-04-12 16:45] LABS: BEDSIDE GLUCOSE 251 MG/DL (80-115)
[2017-04-12 16:45] LABS: BEDSIDE GLUCOSE 304 MG/DL (80-115)
[2017-04-12] MEDS: BUDESONIDE 0.5 MG/2 ML INHALATION SUSPENSION INH (20:00)
[2017-04-12] MEDS: FORMOTEROL FUMARATE 20 MCG/2 ML INHALATION SOLUTION (PERFOROMIST) INH (20:00)
[2017-04-12 20:11] LABS: BEDSIDE GLUCOSE 207 MG/DL (80-115)
[2017-04-12] MEDS: ESCITALOPRAM OXALATE 10 MG TAB (LEXAPRO) PO (21:22)
[2017-04-13] MEDS: IPRATROPIUM 0.5MG/ALBUTEROL 2.5MG INH SOL UD 3ML (DUONEB)(J7620) NEB ×4 (02:00→20:00)
[2017-04-13] MEDS: SODIUM CHLORIDE 0.9% INJ 10 ML SYR IV ×2 (05:11→18:18)
[2017-04-13 05:39] LABS: HEMATOCRIT 29.1 % (42.0-52.0); HEMOGLOBIN 9.2 g/dl (14.0-18.0); MEAN CORPUSCULAR HEMOGLOBIN 27.7 pg (27.0-33.0); MEAN CORPUSCULAR HGB CONC 31.6 g/dl (32.0-36.5); MEAN CORPUSCULAR VOLUME 87.7 fl (80.0-96.0); PLATELET COUNT, AUTOMATED 192 10^3/uL (150-450); RED BLOOD COUNT 3.32 10^6/uL (4.30-6.10); RED CELL DISTRIBUTION WIDTH 14.2 % (11.5-14.5); WHITE BLOOD COUNT 8.2 10^3/uL (4.0-10.0)
[2017-04-13 05:54] LABS: ANION GAP 6 MEQ/L (8-16); BLOOD UREA NITROGEN 22 MG/DL (7-18); CALCIUM LEVEL 8.8 MG/DL (8.8-10.2); CARBON DIOXIDE LEVEL 30 MEQ/L (21-32); CHLORIDE LEVEL 108 MEQ/L (98-107); CREATININE FOR GFR 1.26 MG/DL (0.70-1.30); GLOMERULAR FILTRATION RATE > 60.0 (>49); GLUCOSE, FASTING 187 MG/DL (80-110); POTASSIUM SERUM 3.9 MEQ/L (3.5-5.1); SODIUM LEVEL 144 MEQ/L (136-145)
[2017-04-13] MEDS: NORCO, ANEXSIA 5/325MG TABLET (HYDROcodone/ACETAMINOPHEN) PO (06:07)
[2017-04-13] MEDS: BUDESONIDE 0.5 MG/2 ML INHALATION SUSPENSION INH ×2 (07:49→21:18)
[2017-04-13] MEDS: FORMOTEROL FUMARATE 20 MCG/2 ML INHALATION SOLUTION (PERFOROMIST) INH ×2 (07:49→21:18)
[2017-04-13 08:37] LABS: VANCOMYCIN LEVEL TROUGH 7.5 UG/ML (10.0-20.0)
[2017-04-13] MEDS: VANCOMYCIN HCL 1,000 MG, VIAL MATE ADAPTER 1 EACH in D5W 250 ML IV (09:13)
[2017-04-13] MEDS: PANTOPRAZOLE 40MG INJ (PROTONIX) (C9113) IV (09:13)
[2017-04-13] MEDS: VANCOMYCIN ORAL SOL 250MG/5ML ORAL SYRINGE PO ×2 (09:13→20:54)
[2017-04-13] MEDS: MONTELUKAST 10 MG TAB PO (09:13)
[2017-04-13] MEDS: SINEMET 25-100 MG TAB PO ×3 (09:13→20:54)
[2017-04-13] MEDS: LACTOBACILLUS ACIDOPHILUS CAP (BACID) PO ×3 (09:13→21:39)
[2017-04-13] MEDS: buPROPion **SR TABLET** (ZYBAN) 150MG PO (09:13)
[2017-04-13] MEDS: HumaLOG INSULIN (NovoLOG) PER UNIT SC ×4 (09:14→20:56)
[2017-04-13] MEDS: predniSONE 20 MG TAB PO (10:34)
[2017-04-13] MEDS: QUEtiapine FUMARATE 50 MG TAB PO (15:17)
[2017-04-13 17:13] LABS: BEDSIDE GLUCOSE 288 MG/DL (80-115)
[2017-04-13 17:13] LABS: BEDSIDE GLUCOSE 188 MG/DL (80-115)
[2017-04-13] MEDS: VANCOMYCIN HCL 750 MG, VIAL MATE ADAPTER 1 EACH in D5W 250 ML IV (18:19)
[2017-04-13 20:16] LABS: BEDSIDE GLUCOSE 302 MG/DL (80-115)
[2017-04-13] MEDS: ESCITALOPRAM OXALATE 10 MG TAB (LEXAPRO) PO (20:54)
[2017-04-14] MEDS: IPRATROPIUM 0.5MG/ALBUTEROL 2.5MG INH SOL UD 3ML (DUONEB)(J7620) NEB ×4 (02:00→20:00)
[2017-04-14] MEDS: VANCOMYCIN HCL 750 MG, VIAL MATE ADAPTER 1 EACH in D5W 250 ML IV ×2 (05:50→18:27)
[2017-04-14 06:03] LABS: HEMATOCRIT 31.1 % (42.0-52.0); HEMOGLOBIN 9.8 g/dl (14.0-18.0); MEAN CORPUSCULAR HEMOGLOBIN 27.6 pg (27.0-33.0); MEAN CORPUSCULAR HGB CONC 31.5 g/dl (32.0-36.5); MEAN CORPUSCULAR VOLUME 87.6 fl (80.0-96.0); PLATELET COUNT, AUTOMATED 229 10^3/uL (150-450); RED BLOOD COUNT 3.55 10^6/uL (4.30-6.10); RED CELL DISTRIBUTION WIDTH 14.5 % (11.5-14.5); WHITE BLOOD COUNT 10.6 10^3/uL (4.0-10.0)
[2017-04-14 06:16] LABS: ANION GAP 7 MEQ/L (8-16); BLOOD UREA NITROGEN 22 MG/DL (7-18); CALCIUM LEVEL 8.8 MG/DL (8.8-10.2); CARBON DIOXIDE LEVEL 31 MEQ/L (21-32); CHLORIDE LEVEL 106 MEQ/L (98-107); CREATININE FOR GFR 1.26 MG/DL (0.70-1.30); GLOMERULAR FILTRATION RATE > 60.0 (>49); GLUCOSE, FASTING 116 MG/DL (80-110); MAGNESIUM LEVEL 1.6 MG/DL (1.8-2.4); POTASSIUM SERUM 4.1 MEQ/L (3.5-5.1); SODIUM LEVEL 144 MEQ/L (136-145)
[2017-04-14] MEDS: BUDESONIDE 0.5 MG/2 ML INHALATION SUSPENSION INH ×2 (07:12→20:00)
[2017-04-14] MEDS: FORMOTEROL FUMARATE 20 MCG/2 ML INHALATION SOLUTION (PERFOROMIST) INH ×2 (07:13→20:00)
[2017-04-14] MEDS ORDERED: amLODIPine 5 MG TAB PO (09:00)
[2017-04-14] MEDS: SODIUM CHLORIDE 0.9% INJ 10 ML SYR IV ×2 (09:29→18:27)
[2017-04-14] MEDS: VANCOMYCIN ORAL SOL 250MG/5ML ORAL SYRINGE PO ×2 (09:30→20:59)
[2017-04-14] MEDS: PANTOPRAZOLE 40MG INJ (PROTONIX) (C9113) IV (09:33)
[2017-04-14] MEDS: amLODIPine 10 MG TAB PO (09:34)
[2017-04-14] MEDS: SINEMET 25-100 MG TAB PO ×3 (09:34→21:01)
[2017-04-14] MEDS: HumaLOG INSULIN (NovoLOG) PER UNIT SC ×4 (09:34→20:59)
[2017-04-14] MEDS: predniSONE 20 MG TAB PO (09:34)
[2017-04-14] MEDS: LACTOBACILLUS ACIDOPHILUS CAP (BACID) PO ×3 (09:34→20:57)
[2017-04-14] MEDS: buPROPion **SR TABLET** (ZYBAN) 150MG PO (09:34)
[2017-04-14] MEDS: QUEtiapine FUMARATE 50 MG TAB PO (09:35)
[2017-04-14] MEDS: MONTELUKAST 10 MG TAB PO (09:35)
[2017-04-14] MEDS: **hydrALAZINE HCL** 25 MG TAB PO ×3 (09:35→20:58)
[2017-04-14 12:14] LABS: BEDSIDE GLUCOSE 188 MG/DL (80-115)
[2017-04-14] MEDS: LEVEMIR (INSULIN DETEMIR) 1 UNITS/0.01ML SC (13:59)
[2017-04-14] MEDS: MAG SULF 1GM/100ML (MAG RUN) 1 GM in APPROPRIATE DILUENT 1 EA IV ×2 (13:59→14:00)
[2017-04-14] MEDS: NORCO, ANEXSIA 5/325MG TABLET (HYDROcodone/ACETAMINOPHEN) PO ×2 (15:11→20:57)
[2017-04-14 16:54] LABS: BEDSIDE GLUCOSE 298 MG/DL (80-115)
[2017-04-14 20:33] LABS: BEDSIDE GLUCOSE 313 MG/DL (80-115)
[2017-04-14] MEDS: ESCITALOPRAM OXALATE 10 MG TAB (LEXAPRO) PO (20:55)
[2017-04-15] MEDS: IPRATROPIUM 0.5MG/ALBUTEROL 2.5MG INH SOL UD 3ML (DUONEB)(J7620) NEB ×4 (02:00→20:00)
[2017-04-15] MEDS: SODIUM CHLORIDE 0.9% INJ 10 ML SYR IV ×2 (05:53→18:08)
[2017-04-15] MEDS: VANCOMYCIN HCL 750 MG, VIAL MATE ADAPTER 1 EACH in D5W 250 ML IV (05:53)
[2017-04-15 06:20] LABS: HEMOGLOBIN 9.9 g/dl (14.0-18.0); MEAN CORPUSCULAR HEMOGLOBIN 27.9 pg (27.0-33.0); MEAN CORPUSCULAR HGB CONC 31.9 g/dl (32.0-36.5); MEAN CORPUSCULAR VOLUME 87.3 fl (80.0-96.0); PLATELET COUNT, AUTOMATED 210 10^3/uL (150-450); RED BLOOD COUNT 3.55 10^6/uL (4.30-6.10); RED CELL DISTRIBUTION WIDTH 14.2 % (11.5-14.5); WHITE BLOOD COUNT 9.5 10^3/uL (4.0-10.0)
[2017-04-15 06:31] LABS: ANION GAP 9 MEQ/L (8-16); BLOOD UREA NITROGEN 24 MG/DL (7-18); CALCIUM LEVEL 8.6 MG/DL (8.8-10.2); CARBON DIOXIDE LEVEL 30 MEQ/L (21-32); CHLORIDE LEVEL 103 MEQ/L (98-107); CREATININE FOR GFR 1.28 MG/DL (0.70-1.30); GLOMERULAR FILTRATION RATE 59.7 (>49); GLUCOSE, FASTING 110 MG/DL (80-110); MAGNESIUM LEVEL 1.9 MG/DL (1.8-2.4); POTASSIUM SERUM 3.9 MEQ/L (3.5-5.1); SODIUM LEVEL 142 MEQ/L (136-145)
[2017-04-15] MEDS: FORMOTEROL FUMARATE 20 MCG/2 ML INHALATION SOLUTION (PERFOROMIST) INH ×2 (07:37→21:51)
[2017-04-15] MEDS: BUDESONIDE 0.5 MG/2 ML INHALATION SUSPENSION INH ×2 (07:38→21:51)
[2017-04-15] MEDS: **hydrALAZINE HCL** 25 MG TAB PO ×3 (08:41→20:50)
[2017-04-15] MEDS: NORCO, ANEXSIA 5/325MG TABLET (HYDROcodone/ACETAMINOPHEN) PO ×2 (08:41→20:49)
[2017-04-15] MEDS: buPROPion **SR TABLET** (ZYBAN) 150MG PO (08:42)
[2017-04-15] MEDS: SINEMET 25-100 MG TAB PO ×3 (08:42→20:49)
[2017-04-15] MEDS: amLODIPine 10 MG TAB PO (08:42)
[2017-04-15] MEDS: VANCOMYCIN ORAL SOL 250MG/5ML ORAL SYRINGE PO (08:43)
[2017-04-15] MEDS: PANTOPRAZOLE 40MG INJ (PROTONIX) (C9113) IV (08:43)
[2017-04-15] MEDS: MONTELUKAST 10 MG TAB PO (08:43)
[2017-04-15] MEDS: LACTOBACILLUS ACIDOPHILUS CAP (BACID) PO ×3 (08:43→20:50)
[2017-04-15] MEDS: LEVEMIR (INSULIN DETEMIR) 1 UNITS/0.01ML SC (08:44)
[2017-04-15] MEDS: HumaLOG INSULIN (NovoLOG) PER UNIT SC ×4 (08:44→20:50)
[2017-04-15 11:36] LABS: BEDSIDE GLUCOSE 148 MG/DL (80-115)
[2017-04-15 17:13] LABS: BEDSIDE GLUCOSE 232 MG/DL (80-115)
[2017-04-15 17:42] LABS: VANCOMYCIN LEVEL TROUGH 10.6 UG/ML (10.0-20.0)
[2017-04-15] MEDS: VANCOMYCIN HCL 1,000 MG, VIAL MATE ADAPTER 1 EACH in D5W 250 ML IV (18:08)
[2017-04-15 20:23] LABS: BEDSIDE GLUCOSE 263 MG/DL (80-115)
[2017-04-15] MEDS: ESCITALOPRAM OXALATE 10 MG TAB (LEXAPRO) PO (20:50)
[2017-04-15 20:54] LABS: C REACTIVE PROTEIN QUANTITATIV 4.68 MG/DL (0.00-0.30)
[2017-04-16] MEDS: VANCOMYCIN ORAL SOL 250MG/5ML ORAL SYRINGE PO ×3 (01:19→20:19)
[2017-04-16] MEDS: IPRATROPIUM 0.5MG/ALBUTEROL 2.5MG INH SOL UD 3ML (DUONEB)(J7620) NEB ×4 (01:34→18:46)
[2017-04-16] MEDS: SODIUM CHLORIDE 0.9% INJ 10 ML SYR IV ×2 (05:53→18:05)
[2017-04-16] MEDS: VANCOMYCIN HCL 1,000 MG, VIAL MATE ADAPTER 1 EACH in D5W 250 ML IV ×2 (05:54→18:05)
[2017-04-16 07:08] LABS: HEMATOCRIT 32.9 % (42.0-52.0); HEMOGLOBIN 10.6 g/dl (14.0-18.0); MEAN CORPUSCULAR HEMOGLOBIN 27.7 pg (27.0-33.0); MEAN CORPUSCULAR HGB CONC 32.2 g/dl (32.0-36.5); MEAN CORPUSCULAR VOLUME 86.1 fl (80.0-96.0); PLATELET COUNT, AUTOMATED 224 10^3/uL (150-450); RED BLOOD COUNT 3.82 10^6/uL (4.30-6.10); RED CELL DISTRIBUTION WIDTH 14.5 % (11.5-14.5); WHITE BLOOD COUNT 10.1 10^3/uL (4.0-10.0)
[2017-04-16 07:27] LABS: ANION GAP 8 MEQ/L (8-16); BLOOD UREA NITROGEN 25 MG/DL (7-18); CALCIUM LEVEL 8.6 MG/DL (8.8-10.2); CARBON DIOXIDE LEVEL 29 MEQ/L (21-32); CHLORIDE LEVEL 102 MEQ/L (98-107); CREATININE FOR GFR 1.27 MG/DL (0.70-1.30); GLOMERULAR FILTRATION RATE > 60.0 (>49); GLUCOSE, FASTING 160 MG/DL (80-110); POTASSIUM SERUM 3.7 MEQ/L (3.5-5.1); SODIUM LEVEL 139 MEQ/L (136-145)
[2017-04-16] MEDS: FORMOTEROL FUMARATE 20 MCG/2 ML INHALATION SOLUTION (PERFOROMIST) INH ×2 (07:50→21:35)
[2017-04-16 07:51] LABS: ADD MANUAL DIFFER YES; DIFF SLIDE NUMBER 48; POS COUNT POS FLAG; POSITIVE MORPH POS FLAG
[2017-04-16] MEDS: BUDESONIDE 0.5 MG/2 ML INHALATION SUSPENSION INH ×2 (07:51→21:35)
[2017-04-16 08:58] LABS: ATYPICAL LYMPH 3 % (0-5); BANDS 3 % (< 11); EOSINOPHILS 13 % (0-5); LYMPHOCYTES 17 % (16-52); METAMYELOCYTES 4 % (0-0); MONOCYTES 2 % (0-8); MYELOCYTES 9 % (0-0); NEUTROPHILS 49 % (35-75)
[2017-04-16 08:59] LABS: ANISOCYTOSIS 1+; PLATELET ESTIMATE NORMAL (NORMAL); POIKILOCYTOSIS 1+
[2017-04-16] MEDS: **hydrALAZINE HCL** 25 MG TAB PO ×3 (09:00→20:19)
[2017-04-16] MEDS: buPROPion **SR TABLET** (ZYBAN) 150MG PO (09:10)
[2017-04-16] MEDS: LACTOBACILLUS ACIDOPHILUS CAP (BACID) PO ×3 (09:10→20:19)
[2017-04-16] MEDS: SINEMET 25-100 MG TAB PO ×3 (09:11→20:19)
[2017-04-16] MEDS: PANTOPRAZOLE 40MG INJ (PROTONIX) (C9113) IV (09:11)
[2017-04-16] MEDS: MONTELUKAST 10 MG TAB PO (09:11)
[2017-04-16] MEDS: amLODIPine 10 MG TAB PO (09:11)
[2017-04-16] MEDS: HumaLOG INSULIN (NovoLOG) PER UNIT SC ×4 (09:12→21:00)
[2017-04-16] MEDS: LEVEMIR (INSULIN DETEMIR) 1 UNITS/0.01ML SC (09:13)
[2017-04-16 11:27] LABS: BEDSIDE GLUCOSE 174 MG/DL (80-115)
[2017-04-16] MEDS: NORCO, ANEXSIA 5/325MG TABLET (HYDROcodone/ACETAMINOPHEN) PO (12:17)
[2017-04-16] MEDS: ACETAMINOPHEN TAB 650MG DOSE (2X325MG) PO (14:05)
[2017-04-16 16:40] LABS: BEDSIDE GLUCOSE 172 MG/DL (80-115)
[2017-04-16] MEDS: ESCITALOPRAM OXALATE 10 MG TAB (LEXAPRO) PO (20:19)
[2017-04-16 20:37] LABS: BEDSIDE GLUCOSE 208 MG/DL (80-115)
[2017-04-17] MEDS: NORCO, ANEXSIA 5/325MG TABLET (HYDROcodone/ACETAMINOPHEN) PO ×3 (00:28→17:22)
[2017-04-17] MEDS: IPRATROPIUM 0.5MG/ALBUTEROL 2.5MG INH SOL UD 3ML (DUONEB)(J7620) NEB ×4 (02:00→19:45)
[2017-04-17 05:13] LABS: HEMATOCRIT 31.8 % (42.0-52.0); HEMOGLOBIN 10.3 g/dl (14.0-18.0); MEAN CORPUSCULAR HEMOGLOBIN 28.4 pg (27.0-33.0); MEAN CORPUSCULAR HGB CONC 32.4 g/dl (32.0-36.5); MEAN CORPUSCULAR VOLUME 87.6 fl (80.0-96.0); PLATELET COUNT, AUTOMATED 218 10^3/uL (150-450); RED BLOOD COUNT 3.63 10^6/uL (4.30-6.10); RED CELL DISTRIBUTION WIDTH 14.3 % (11.5-14.5); WHITE BLOOD COUNT 11.6 10^3/uL (4.0-10.0)
[2017-04-17 05:17] LABS: ADD MANUAL DIFFER YES; DIFF SLIDE NUMBER 38; POS COUNT POS FLAG; POSITIVE MORPH POS FLAG
[2017-04-17 05:34] LABS: ANION GAP 6 MEQ/L (8-16); BLOOD UREA NITROGEN 25 MG/DL (7-18); CALCIUM LEVEL 8.3 MG/DL (8.8-10.2); CARBON DIOXIDE LEVEL 32 MEQ/L (21-32); CHLORIDE LEVEL 103 MEQ/L (98-107); GLOMERULAR FILTRATION RATE 53.8 (>49); GLUCOSE, FASTING 135 MG/DL (80-110); POTASSIUM SERUM 4.1 MEQ/L (3.5-5.1); SODIUM LEVEL 141 MEQ/L (136-145)
[2017-04-17 05:36] LABS: VANCOMYCIN LEVEL TROUGH 16.5 UG/ML (10.0-20.0)
[2017-04-17 05:44] LABS: EOSINOPHILS 6 % (0-5); HYPOCHROMASIA 1+; LYMPHOCYTES 15 % (16-52); METAMYELOCYTES 2 % (0-0); MONOCYTES 11 % (0-8); MYELOCYTES 2 % (0-0); NEUTROPHILS 64 % (35-75); PLATELET ESTIMATE NORMAL (NORMAL)
[2017-04-17] MEDS: VANCOMYCIN HCL 1,000 MG, VIAL MATE ADAPTER 1 EACH in D5W 250 ML IV ×2 (05:52→18:41)
[2017-04-17] MEDS: SODIUM CHLORIDE 0.9% INJ 10 ML SYR IV ×2 (05:52→18:00)
[2017-04-17] MEDS: BUDESONIDE 0.5 MG/2 ML INHALATION SUSPENSION INH ×2 (07:58→19:43)
[2017-04-17] MEDS: FORMOTEROL FUMARATE 20 MCG/2 ML INHALATION SOLUTION (PERFOROMIST) INH ×2 (07:58→19:43)
[2017-04-17] MEDS: buPROPion **SR TABLET** (ZYBAN) 150MG PO (09:53)
[2017-04-17] MEDS: VANCOMYCIN ORAL SOL 250MG/5ML ORAL SYRINGE PO ×2 (09:53→20:15)
[2017-04-17] MEDS: PANTOPRAZOLE 40MG INJ (PROTONIX) (C9113) IV (09:53)
[2017-04-17] MEDS: LACTOBACILLUS ACIDOPHILUS CAP (BACID) PO ×3 (09:54→20:15)
[2017-04-17] MEDS: SINEMET 25-100 MG TAB PO ×3 (09:54→20:15)
[2017-04-17] MEDS: MONTELUKAST 10 MG TAB PO (09:55)
[2017-04-17] MEDS: LEVEMIR (INSULIN DETEMIR) 1 UNITS/0.01ML SC (09:55)
[2017-04-17] MEDS: HumaLOG INSULIN (NovoLOG) PER UNIT SC ×4 (09:56→21:00)
[2017-04-17] MEDS: **hydrALAZINE HCL** 25 MG TAB PO ×3 (10:06→20:16)
[2017-04-17] MEDS: amLODIPine 10 MG TAB PO (10:09)
[2017-04-17 11:36] LABS: BEDSIDE GLUCOSE 251 MG/DL (80-115)
[2017-04-17 16:42] LABS: BEDSIDE GLUCOSE 176 MG/DL (80-115)
[2017-04-17 17:44] LABS: C REACTIVE PROTEIN QUANTITATIV 7.46 MG/DL (0.00-0.30)
[2017-04-17] MEDS: ESCITALOPRAM OXALATE 10 MG TAB (LEXAPRO) PO (20:16)
[2017-04-17] MEDS: QUEtiapine FUMARATE 50 MG TAB PO (20:16)
[2017-04-17 21:10] LABS: BEDSIDE GLUCOSE 189 MG/DL (80-115)
[2017-04-18] MEDS: IPRATROPIUM 0.5MG/ALBUTEROL 2.5MG INH SOL UD 3ML (DUONEB)(J7620) NEB ×4 (01:49→20:00)
[2017-04-18] MEDS: VANCOMYCIN HCL 1,000 MG, VIAL MATE ADAPTER 1 EACH in D5W 250 ML IV ×2 (05:48→17:47)
[2017-04-18] MEDS: SODIUM CHLORIDE 0.9% INJ 10 ML SYR IV ×3 (05:48→21:30)
[2017-04-18 06:01] LABS: HEMATOCRIT 32.6 % (42.0-52.0); HEMOGLOBIN 10.3 g/dl (14.0-18.0); MEAN CORPUSCULAR HEMOGLOBIN 27.5 pg (27.0-33.0); MEAN CORPUSCULAR HGB CONC 31.6 g/dl (32.0-36.5); MEAN CORPUSCULAR VOLUME 87.2 fl (80.0-96.0); PLATELET COUNT, AUTOMATED 234 10^3/uL (150-450); RED BLOOD COUNT 3.74 10^6/uL (4.30-6.10); RED CELL DISTRIBUTION WIDTH 14.2 % (11.5-14.5); WHITE BLOOD COUNT 11.8 10^3/uL (4.0-10.0)
[2017-04-18 06:24] LABS: ADD MANUAL DIFFER YES; DIFF SLIDE NUMBER 20; POS COUNT POS FLAG; POSITIVE MORPH POS FLAG
[2017-04-18 06:33] LABS: ANION GAP 7 MEQ/L (8-16); BLOOD UREA NITROGEN 27 MG/DL (7-18); CALCIUM LEVEL 8.3 MG/DL (8.8-10.2); CARBON DIOXIDE LEVEL 31 MEQ/L (21-32); CHLORIDE LEVEL 103 MEQ/L (98-107); CREATININE FOR GFR 1.65 MG/DL (0.70-1.30); GLOMERULAR FILTRATION RATE 44.5 (>49); GLUCOSE, FASTING 137 MG/DL (80-110); POTASSIUM SERUM 4.8 MEQ/L (3.5-5.1); SODIUM LEVEL 141 MEQ/L (136-145)
[2017-04-18 06:52] LABS: EOSINOPHILS 8 % (0-5); LYMPHOCYTES 23 % (16-52); METAMYELOCYTES 1 % (0-0); MONOCYTES 6 % (0-8); MYELOCYTES 3 % (0-0); NEUTROPHILS 59 % (35-75); PLATELET ESTIMATE NORMAL (NORMAL); POIKILOCYTOSIS 1+
[2017-04-18] MEDS: BUDESONIDE 0.5 MG/2 ML INHALATION SUSPENSION INH ×2 (07:19→20:18)
[2017-04-18] MEDS: FORMOTEROL FUMARATE 20 MCG/2 ML INHALATION SOLUTION (PERFOROMIST) INH ×2 (07:19→20:18)
[2017-04-18] MEDS: **hydrALAZINE HCL** 25 MG TAB PO ×3 (08:30→21:00)
[2017-04-18] MEDS: buPROPion **SR TABLET** (ZYBAN) 150MG PO (08:31)
[2017-04-18] MEDS: LACTOBACILLUS ACIDOPHILUS CAP (BACID) PO ×3 (08:31→21:36)
[2017-04-18] MEDS: MONTELUKAST 10 MG TAB PO (08:31)
[2017-04-18] MEDS: PANTOPRAZOLE 40MG INJ (PROTONIX) (C9113) IV (08:31)
[2017-04-18] MEDS: SINEMET 25-100 MG TAB PO ×3 (08:31→21:36)
[2017-04-18] MEDS: amLODIPine 10 MG TAB PO (08:31)
[2017-04-18] MEDS: HumaLOG INSULIN (NovoLOG) PER UNIT SC ×4 (08:32→21:00)
[2017-04-18] MEDS: VANCOMYCIN ORAL SOL 250MG/5ML ORAL SYRINGE PO ×2 (08:32→21:34)
[2017-04-18] MEDS: LEVEMIR (INSULIN DETEMIR) 1 UNITS/0.01ML SC (08:33)
[2017-04-18] MEDS: NORCO, ANEXSIA 5/325MG TABLET (HYDROcodone/ACETAMINOPHEN) PO ×3 (08:51→21:35)
[2017-04-18] MEDS: NS 1,000 ML IV (10:17)
[2017-04-18] MEDS: GASTROGRAFIN SOLUTION 30ML PO (10:18)
[2017-04-18] MEDS: GASTROGRAFIN SOLUTION 30ML (Q9963) PO (10:19)
[2017-04-18 11:54] LABS: BEDSIDE GLUCOSE 181 MG/DL (80-115)
[2017-04-18 16:53] LABS: BEDSIDE GLUCOSE 197 MG/DL (80-115)
[2017-04-18] MEDS: ESCITALOPRAM OXALATE 10 MG TAB (LEXAPRO) PO (21:35)
[2017-04-19] MEDS: IPRATROPIUM 0.5MG/ALBUTEROL 2.5MG INH SOL UD 3ML (DUONEB)(J7620) NEB ×4 (01:44→19:56)
[2017-04-19 02:26] LABS: BEDSIDE GLUCOSE 228 MG/DL (80-115)
[2017-04-19] MEDS: SODIUM CHLORIDE 0.9% INJ 10 ML SYR IV ×2 (05:20→17:06)
[2017-04-19] MEDS: VANCOMYCIN HCL 1,000 MG, VIAL MATE ADAPTER 1 EACH in D5W 250 ML IV (05:20)
[2017-04-19 06:02] LABS: HEMATOCRIT 31.7 % (42.0-52.0); HEMOGLOBIN 10.1 g/dl (14.0-18.0); MEAN CORPUSCULAR HEMOGLOBIN 27.9 pg (27.0-33.0); MEAN CORPUSCULAR HGB CONC 31.9 g/dl (32.0-36.5); MEAN CORPUSCULAR VOLUME 87.6 fl (80.0-96.0); PLATELET COUNT, AUTOMATED 225 10^3/uL (150-450); RED BLOOD COUNT 3.62 10^6/uL (4.30-6.10); RED CELL DISTRIBUTION WIDTH 13.7 % (11.5-14.5); WHITE BLOOD COUNT 10.7 10^3/uL (4.0-10.0)
[2017-04-19 06:03] LABS: ADD MANUAL DIFFER YES; DIFF SLIDE NUMBER 14; POS COUNT POS FLAG; POSITIVE MORPH POS FLAG
[2017-04-19 06:27] LABS: ANION GAP 6 MEQ/L (8-16); BLOOD UREA NITROGEN 24 MG/DL (7-18); C REACTIVE PROTEIN QUANTITATIV 8.87 MG/DL (0.00-0.30); CALCIUM LEVEL 8.2 MG/DL (8.8-10.2); CARBON DIOXIDE LEVEL 27 MEQ/L (21-32); CHLORIDE LEVEL 105 MEQ/L (98-107); CREATININE FOR GFR 1.45 MG/DL (0.70-1.30); GLOMERULAR FILTRATION RATE 51.7 (>49); GLUCOSE, FASTING 138 MG/DL (80-110); POTASSIUM SERUM 4.2 MEQ/L (3.5-5.1); SODIUM LEVEL 138 MEQ/L (136-145)
[2017-04-19 06:57] LABS: BANDS 1 % (< 11); EOSINOPHILS 6 % (0-5); LYMPHOCYTES 15 % (16-52); METAMYELOCYTES 4 % (0-0); MONOCYTES 7 % (0-8); MYELOCYTES 3 % (0-0); NEUTROPHILS 64 % (35-75)
[2017-04-19 06:58] LABS: PLATELET ESTIMATE NORMAL (NORMAL)
[2017-04-19] MEDS: BUDESONIDE 0.5 MG/2 ML INHALATION SUSPENSION INH ×2 (07:57→19:56)
[2017-04-19] MEDS: FORMOTEROL FUMARATE 20 MCG/2 ML INHALATION SOLUTION (PERFOROMIST) INH ×2 (07:57→19:56)
[2017-04-19] MEDS: **hydrALAZINE HCL** 25 MG TAB PO ×3 (09:00→21:00)
[2017-04-19] MEDS: MONTELUKAST 10 MG TAB PO (09:34)
[2017-04-19] MEDS: PANTOPRAZOLE 40MG INJ (PROTONIX) (C9113) IV (09:34)
[2017-04-19] MEDS: buPROPion **SR TABLET** (ZYBAN) 150MG PO (09:34)
[2017-04-19] MEDS: SINEMET 25-100 MG TAB PO ×3 (09:34→20:51)
[2017-04-19] MEDS: LACTOBACILLUS ACIDOPHILUS CAP (BACID) PO ×3 (09:34→20:51)
[2017-04-19] MEDS: HumaLOG INSULIN (NovoLOG) PER UNIT SC ×4 (09:34→21:00)
[2017-04-19] MEDS: LEVEMIR (INSULIN DETEMIR) 1 UNITS/0.01ML SC (09:37)
[2017-04-19] MEDS: VANCOMYCIN ORAL SOL 250MG/5ML ORAL SYRINGE PO ×2 (09:54→20:51)
[2017-04-19] MEDS: NS 1,000 ML IV ×2 (09:54→22:13)
[2017-04-19] MEDS: NORCO, ANEXSIA 5/325MG TABLET (HYDROcodone/ACETAMINOPHEN) PO ×2 (09:55→20:52)
[2017-04-19 12:11] LABS: BEDSIDE GLUCOSE 178 MG/DL (80-115)
[2017-04-19 17:02] LABS: BEDSIDE GLUCOSE 134 MG/DL (80-115)
[2017-04-19 18:33] LABS: VANCOMYCIN LEVEL TROUGH 20.4 UG/ML (10.0-20.0)
[2017-04-19 20:49] LABS: BEDSIDE GLUCOSE 167 MG/DL (80-115)
[2017-04-19] MEDS: ESCITALOPRAM OXALATE 10 MG TAB (LEXAPRO) PO (20:51)
[2017-04-20] MEDS: IPRATROPIUM 0.5MG/ALBUTEROL 2.5MG INH SOL UD 3ML (DUONEB)(J7620) NEB ×3 (02:00→13:12)
[2017-04-20] MEDS: NORCO, ANEXSIA 5/325MG TABLET (HYDROcodone/ACETAMINOPHEN) PO ×2 (04:28→10:12)
[2017-04-20] MEDS: VANCOMYCIN HCL 1,000 MG, VIAL MATE ADAPTER 1 EACH in D5W 250 ML IV (05:40)
[2017-04-20 05:50] LABS: BASO # 0.1 10^3/uL (0.0-0.2); BASO % 0.5 % (0.0-1.0); EOS # 0.5 10^3/uL (0.0-0.50); EOS % 4.9 % (0.0-3.0); HEMATOCRIT 32.2 % (42.0-52.0); HEMOGLOBIN 10.1 g/dl (14.0-18.0); IMMATURE GRANULOCYTE # 0.3 10^3/uL (0-0); IMMATURE GRANULOCYTE % 2.9 % (0-0); LYMPH # 1.9 10^3/uL (1.5-4.5); MEAN CORPUSCULAR HEMOGLOBIN 27.2 pg (27.0-33.0); MEAN CORPUSCULAR HGB CONC 31.4 g/dl (32.0-36.5); MEAN CORPUSCULAR VOLUME 86.8 fl (80.0-96.0); MONO # 0.8 10^3/uL (0.0-0.8); MONO % 6.8 % (0.0-5.0); NEUTROPHILS # 7.4 10^3/uL (1.8-7.7); NEUTROPHILS % 67.9 % (36.0-66.0); PLATELET COUNT, AUTOMATED 253 10^3/uL (150-450); RED BLOOD COUNT 3.71 10^6/uL (4.30-6.10); RED CELL DISTRIBUTION WIDTH 13.7 % (11.5-14.5)
[2017-04-20] MEDS: SODIUM CHLORIDE 0.9% INJ 10 ML SYR IV (06:00)
[2017-04-20 06:01] LABS: ANION GAP 7 MEQ/L (8-16); BLOOD UREA NITROGEN 23 MG/DL (7-18); CALCIUM LEVEL 8.2 MG/DL (8.8-10.2); CARBON DIOXIDE LEVEL 27 MEQ/L (21-32); CHLORIDE LEVEL 107 MEQ/L (98-107); CREATININE FOR GFR 1.53 MG/DL (0.70-1.30); GLOMERULAR FILTRATION RATE 48.6 (>49); GLUCOSE, FASTING 144 MG/DL (80-110); POTASSIUM SERUM 4.5 MEQ/L (3.5-5.1); SODIUM LEVEL 141 MEQ/L (136-145)
[2017-04-20] MEDS: FORMOTEROL FUMARATE 20 MCG/2 ML INHALATION SOLUTION (PERFOROMIST) INH (07:38)
[2017-04-20] MEDS: BUDESONIDE 0.5 MG/2 ML INHALATION SUSPENSION INH (07:38)
[2017-04-20] MEDS: SINEMET 25-100 MG TAB PO (08:06)
[2017-04-20] MEDS: buPROPion **SR TABLET** (ZYBAN) 150MG PO (08:06)
[2017-04-20] MEDS: LACTOBACILLUS ACIDOPHILUS CAP (BACID) PO (08:06)
[2017-04-20] MEDS: MONTELUKAST 10 MG TAB PO (08:06)
[2017-04-20] MEDS: VANCOMYCIN ORAL SOL 250MG/5ML ORAL SYRINGE PO (08:07)
[2017-04-20] MEDS: **hydrALAZINE HCL** 25 MG TAB PO (08:07)
[2017-04-20] MEDS: HumaLOG INSULIN (NovoLOG) PER UNIT SC ×2 (08:07→12:00)
[2017-04-20] MEDS: PANTOPRAZOLE 40MG INJ (PROTONIX) (C9113) IV (08:07)
[2017-04-20] MEDS: LEVEMIR (INSULIN DETEMIR) 1 UNITS/0.01ML SC (08:09)
[2017-04-20 11:44] LABS: BEDSIDE GLUCOSE 157 MG/DL (80-115)
== END 2017-04-20 14:00 | disposition home health service (06) | DRG 907 ==
LOC: M OR 06:49 → M MSPAV 13:33
PROVIDERS: Surgery
PROC: 0WPF0JZ Removal of Synthetic Substitute from Abdominal Wall, Open Approach (ICD-10-PCS; principal; 2017-04-08 08:30)
PROC: 0WUF0JZ Supplement Abdominal Wall with Synthetic Substitute, Open Approach (ICD-10-PCS; 2017-04-08 08:30)
PROC: 0KXK0Z6 Transfer Right Abdomen Muscle, Transverse Rectus Abdominis Myocutaneous Flap, Open Approach (ICD-10-PCS; 2017-04-08 08:30)
DX: T85.79XA Infection and inflammatory reaction due to other internal prosthetic devices, implants and grafts, initial encounter (principal); N17.0 Acute kidney failure with tubular necrosis; A41.9 Sepsis, unspecified organism; I50.32 Chronic diastolic (congestive) heart failure; I13.0 Hypertensive heart and chronic kidney disease with heart failure and stage 1 through stage 4 chronic kidney disease, or unspecified chronic kidney disease; J44.1 Chronic obstructive pulmonary disease with (acute) exacerbation; A04.72 Enterocolitis due to Clostridium difficile, not specified as recurrent; Y83.1 Surgical operation with implant of artificial internal device as the cause of abnormal reaction of the patient, or of later complication, without mention of misadventure at the time of the procedure; G20 Parkinson's disease; F32.9 Major depressive disorder, single episode, unspecified; F43.10 Post-traumatic stress disorder, unspecified; E78.5 Hyperlipidemia, unspecified; K43.2 Incisional hernia without obstruction or gangrene; M62.08 Separation of muscle (nontraumatic), other site; E11.22 Type 2 diabetes mellitus with diabetic chronic kidney disease; F41.9 Anxiety disorder, unspecified; I25.10 Atherosclerotic heart disease of native coronary artery without angina pectoris; N40.0 Benign prostatic hyperplasia without lower urinary tract symptoms; G47.00 Insomnia, unspecified; F17.210 Nicotine dependence, cigarettes, uncomplicated; E87.6 Hypokalemia; K21.9 Gastro-esophageal reflux disease without esophagitis; N18.3 Chronic kidney disease, stage 3 (moderate); I35.0 Nonrheumatic aortic (valve) stenosis; E83.51 Hypocalcemia; I27.20 Pulmonary hypertension, unspecified; E66.01 Morbid (severe) obesity due to excess calories; G47.33 Obstructive sleep apnea (adult) (pediatric); B95.62 Methicillin resistant Staphylococcus aureus infection as the cause of diseases classified elsewhere; I25.2 Old myocardial infarction; Z88.0 Allergy status to penicillin; Z79.2 Long term (current) use of antibiotics; Z88.8 Allergy status to other drugs, medicaments and biological substances; Z91.048 Other nonmedicinal substance allergy status; Z96.643 Presence of artificial hip joint, bilateral; Z79.82 Long term (current) use of aspirin; Z79.84 Long term (current) use of oral hypoglycemic drugs; Z79.899 Other long term (current) drug therapy; Z99.81 Dependence on supplemental oxygen; Z68.39 Body mass index [BMI] 39.0-39.9, adult

== ENCOUNTER → 2017-04-24 | Outpatient (REF) | payer MEDICARE, OTHER ==
[2017-04-24 14:39] LABS: FERRITIN 118 NG/ML (26-388); IRON (FE) 26 UG/DL (65-175); PERCENT SATURATION 8.6 % (19.7-50.0); TOTAL IRON BINDING CAPACITY 303 UG/DL (250-450)
[2017-04-24 14:42] LABS: VITAMIN B12 LEVEL 898 PG/ML
[2017-04-24 14:43] LABS: FOLATE 5.7 NG/ML
== END ==
LOC: M LAB REF 13:45
DX: D64.9 Anemia, unspecified (principal)
CPT/HCPCS: 82746

== ENCOUNTER → 2017-04-25 | Outpatient (REF) | payer MEDICARE, OTHER ==
[2017-04-25 16:05] LABS: BASO # 0.1 10^3/uL (0.0-0.2); BASO % 0.7 % (0.0-1.0); EOS # 0.4 10^3/uL (0.0-0.50); EOS % 4.4 % (0.0-3.0); HEMOGLOBIN 10.7 g/dl (14.0-18.0); IMMATURE GRANULOCYTE # 0.1 10^3/uL (0-0); IMMATURE GRANULOCYTE % 0.8 % (0-0); LYMPH # 1.5 10^3/uL (1.5-4.5); LYMPH % 16.2 % (24.0-44.0); MEAN CORPUSCULAR HEMOGLOBIN 27.6 pg (27.0-33.0); MEAN CORPUSCULAR HGB CONC 31.5 g/dl (32.0-36.5); MEAN CORPUSCULAR VOLUME 87.6 fl (80.0-96.0); MONO # 0.5 10^3/uL (0.0-0.8); MONO % 5.8 % (0.0-5.0); NEUTROPHILS # 6.5 10^3/uL (1.8-7.7); NEUTROPHILS % 72.1 % (36.0-66.0); PLATELET COUNT, AUTOMATED 327 10^3/uL (150-450); RED BLOOD COUNT 3.88 10^6/uL (4.30-6.10); RED CELL DISTRIBUTION WIDTH 13.7 % (11.5-14.5)
[2017-04-25 16:32] LABS: ALBUMIN/GLOBULIN RATIO 0.83 (1.00-1.93); ALKALINE PHOSPHATASE 70 U/L (45-117); ALT/SGPT 6 U/L (12-78); ANION GAP 9 MEQ/L (8-16); AST/SGOT 12 U/L (7-37); BILIRUBIN,TOTAL 0.4 MG/DL (0.2-1.0); BLOOD UREA NITROGEN 20 MG/DL (7-18); C REACTIVE PROTEIN QUANTITATIV 7.24 MG/DL (0.00-0.30); CALCIUM LEVEL 8.6 MG/DL (8.8-10.2); CARBON DIOXIDE LEVEL 27 MEQ/L (21-32); CHLORIDE LEVEL 104 MEQ/L (98-107); CREATININE FOR GFR 1.46 MG/DL (0.70-1.30); GLOMERULAR FILTRATION RATE 51.3 (>49); GLUCOSE, FASTING 179 MG/DL (80-110); POTASSIUM SERUM 4.4 MEQ/L (3.5-5.1); SODIUM LEVEL 140 MEQ/L (136-145); TOTAL PROTEIN 6.6 GM/DL (6.4-8.2); VANCOMYCIN LEVEL TROUGH 8.9 UG/ML (10.0-20.0)
[2017-04-25 19:05] LABS: ERYTHROCYTE SEDIMENTATION RATE 65 mm/hr (0-20)
== END ==
LOC: M SHH 15:42
DX: N28.89 Other specified disorders of kidney and ureter (principal); A49.02 Methicillin resistant Staphylococcus aureus infection, unspecified site
CPT/HCPCS: 80053

== ENCOUNTER → 2017-04-28 | Outpatient (REF) | payer MEDICARE, OTHER ==
[2017-04-28 18:02] LABS: BASO # 0.1 10^3/uL (0.0-0.2); BASO % 0.6 % (0.0-1.0); EOS # 0.3 10^3/uL (0.0-0.50); EOS % 3.5 % (0.0-3.0); HEMATOCRIT 32.2 % (42.0-52.0); HEMOGLOBIN 10.3 g/dl (14.0-18.0); IMMATURE GRANULOCYTE % 0.3 % (0-0); LYMPH # 1.2 10^3/uL (1.5-4.5); LYMPH % 13.2 % (24.0-44.0); MEAN CORPUSCULAR HEMOGLOBIN 27.3 pg (27.0-33.0); MEAN CORPUSCULAR VOLUME 85.4 fl (80.0-96.0); MONO # 0.5 10^3/uL (0.0-0.8); MONO % 5.7 % (0.0-5.0); NEUTROPHILS # 6.9 10^3/uL (1.8-7.7); NEUTROPHILS % 76.7 % (36.0-66.0); PLATELET COUNT, AUTOMATED 294 10^3/uL (150-450); RED BLOOD COUNT 3.77 10^6/uL (4.30-6.10); RED CELL DISTRIBUTION WIDTH 13.3 % (11.5-14.5); WHITE BLOOD COUNT 8.9 10^3/uL (4.0-10.0)
[2017-04-28 18:38] LABS: ERYTHROCYTE SEDIMENTATION RATE > 140 mm/hr (0-20)
[2017-04-28 19:48] LABS: ALBUMIN 2.8 GM/DL (3.2-5.2); ALBUMIN/GLOBULIN RATIO 0.82 (1.00-1.93); ALKALINE PHOSPHATASE 70 U/L (45-117); ALT/SGPT 10 U/L (12-78); ANION GAP 11 MEQ/L (8-16); AST/SGOT 8 U/L (7-37); BILIRUBIN,TOTAL 0.4 MG/DL (0.2-1.0); BLOOD UREA NITROGEN 23 MG/DL (7-18); CALCIUM LEVEL 8.5 MG/DL (8.8-10.2); CARBON DIOXIDE LEVEL 25 MEQ/L (21-32); CHLORIDE LEVEL 101 MEQ/L (98-107); CREATININE FOR GFR 1.54 MG/DL (0.70-1.30); GLOMERULAR FILTRATION RATE 48.2 (>49); GLUCOSE, FASTING 198 MG/DL (70-100); POTASSIUM SERUM 4.1 MEQ/L (3.5-5.1); SODIUM LEVEL 137 MEQ/L (136-145); TOTAL PROTEIN 6.2 GM/DL (6.4-8.2); VANCOMYCIN LEVEL TROUGH 8.9 UG/ML (10.0-20.0)
== END ==
LOC: M SHH 16:47
DX: A04.72 Enterocolitis due to Clostridium difficile, not specified as recurrent (principal); A49.02 Methicillin resistant Staphylococcus aureus infection, unspecified site
CPT/HCPCS: 80053

== ENCOUNTER → 2017-05-02 | Outpatient (CLI) | payer MEDICARE, BC, OTHER ==
[~2017-05-02] MED LIST changes: -ALBU17IN2 INH; -AMBI10TA PO; -ASPI1TAB PO; -ASPI81TA85 PO; -AVOD0.5C PO; -BUPR15TA PO; -CARB25TA PO; -CETI10TA PO; -CRES20TA PO; -DALI1TAB2 PO; -DIFI200T PO; -DOXY100C PO; -ESCI20TA PO; -FLOM5CAP PO; -FLUT11IN INH; +GASTROGRAFIN SOLUTION 30ML (Q9963) As Ordered; -GLIM4TAB PO; +ISOVUE-370 76% 100ML VIAL (Q9967) As Ordered; -JANU100T PO; -LEVA12INH INH; -LEVAINH INH; -LEXA1TAB2 PO; -LIDO4CRE4 TOP; -LIDO5DIS41 TD; -LISI-542 PO; -LISI10TA4 PO; -MONT10TA2 PO; -OMEP20CA3 PO; -OPTI6PAD XX; -POTA10CA PO; -POTA10TA67 PO; -PRED10TA2 PO; -PRIL20CA9 PO; -PROBCAP4 PO; -RISATAB3 PO; -SERO50TA PO; -SING10TA32 PO; -SYMB16INH INH; -TAMS0.4C2; -TAMS0.4C2 PO; -TRIL135C6 PO; -VANC125C2 PO; -VANC1INJ38 IV; -VANC250C2 PO; -VANC25SOL PO; -VITA100054 PO; -VITA20008 PO; -ZOLP10TA2 PO; -ZYRT10TA2 PO
== END ==
LOC: M RAD 09:37
DX: R93.5 Abnormal findings on diagnostic imaging of other abdominal regions, including retroperitoneum (principal); A49.02 Methicillin resistant Staphylococcus aureus infection, unspecified site
CPT/HCPCS: Q9963

== ENCOUNTER 2017-05-08 08:57 | Outpatient (CLI) | payer MEDICARE, BC, OTHER ==
[2017-05-08] MEDS: IRON SUCROSE 25 MG in NS 50 ML IV (10:33)
[2017-05-08] MEDS: IRON SUCROSE 475 MG in NS 250 ML IV (11:41)
== END 2017-05-08 15:25 | disposition home or self-care (01) ==
LOC: M INFU 08:57
DX: D50.9 Iron deficiency anemia, unspecified (principal); N18.4 Chronic kidney disease, stage 4 (severe); I11.0 Hypertensive heart disease with heart failure; E78.00 Pure hypercholesterolemia, unspecified; I50.30 Unspecified diastolic (congestive) heart failure; G20 Parkinson's disease; G47.33 Obstructive sleep apnea (adult) (pediatric); E11.9 Type 2 diabetes mellitus without complications; E03.9 Hypothyroidism, unspecified; K21.9 Gastro-esophageal reflux disease without esophagitis; J44.9 Chronic obstructive pulmonary disease, unspecified; M54.17 Radiculopathy, lumbosacral region; F32.9 Major depressive disorder, single episode, unspecified; F41.9 Anxiety disorder, unspecified; E55.9 Vitamin D deficiency, unspecified; F43.10 Post-traumatic stress disorder, unspecified; Z79.4 Long term (current) use of insulin; Z79.891 Long term (current) use of opiate analgesic; Z79.899 Other long term (current) drug therapy; Z88.0 Allergy status to penicillin; Z88.8 Allergy status to other drugs, medicaments and biological substances; Z91.048 Other nonmedicinal substance allergy status; Z99.89 Dependence on other enabling machines and devices
CPT/HCPCS: J1756

== ENCOUNTER → 2017-05-20 | Outpatient (REF) | payer MEDICARE, OTHER ==
[2017-05-20 17:57] LABS: BASO # 0.1 10^3/uL (0.0-0.2); BASO % 0.8 % (0.0-1.0); EOS # 0.4 10^3/uL (0.0-0.50); EOS % 5.7 % (0.0-3.0); HEMOGLOBIN 10.2 g/dl (14.0-18.0); IMMATURE GRANULOCYTE % 0.9 % (0-3.0); LYMPH # 1.5 10^3/uL (1.5-4.5); LYMPH % 20.8 % (24.0-44.0); MEAN CORPUSCULAR HEMOGLOBIN 27.4 pg (27.0-33.0); MEAN CORPUSCULAR HGB CONC 30.9 g/dl (32.0-36.5); MEAN CORPUSCULAR VOLUME 88.7 fl (80.0-96.0); MONO # 0.5 10^3/uL (0.0-0.8); MONO % 6.4 % (0.0-5.0); NEUTROPHILS # 4.8 10^3/uL (1.8-7.7); NEUTROPHILS % 65.4 % (36.0-66.0); PLATELET COUNT, AUTOMATED 195 10^3/uL (150-450); RED BLOOD COUNT 3.72 10^6/uL (4.30-6.10); RED CELL DISTRIBUTION WIDTH 15.3 % (11.5-14.5); WHITE BLOOD COUNT 7.4 10^3/uL (4.0-10.0)
[2017-05-20 18:27] LABS: ERYTHROCYTE SEDIMENTATION RATE 68 mm/hr (0-20)
[2017-05-20 19:22] LABS: ANION GAP 9 MEQ/L (8-16); BLOOD UREA NITROGEN 26 MG/DL (7-18); C REACTIVE PROTEIN QUANTITATIV 1.99 MG/DL (0.00-0.30); CARBON DIOXIDE LEVEL 26 MEQ/L (21-32); CHLORIDE LEVEL 107 MEQ/L (98-107); CREATININE FOR GFR 1.77 MG/DL (0.70-1.30); GLOMERULAR FILTRATION RATE 41.1 (>49); GLUCOSE, FASTING 107 MG/DL (70-100); POTASSIUM SERUM 4.7 MEQ/L (3.5-5.1); SODIUM LEVEL 142 MEQ/L (136-145)
== END ==
LOC: M SFHCPLAZ 11:46
DX: A49.02 Methicillin resistant Staphylococcus aureus infection, unspecified site (principal)
CPT/HCPCS: 80048

== ENCOUNTER → 2019-12-28 | Outpatient (CLI) | payer MEDICARE, BC, OTHER ==
[~2019-12-28] MED LIST changes: +ALCOPAD25 XX; +AMBI10TA PO; +ASPI81TA26 PO; +ASPI81TA86 PO; +AVOD0.5C PO; +BD L33MI XX; +BD P32MI XX; +BLOOKIT21 XX; +BUPR15TA PO; +CARB25TA9 PO; +CETI10TA PO; +CRES20TA2 PO; +DALI1TAB2 PO; +DIFI200T PO; +DOXY100C PO; +ESCI20TA PO; +FLOM0.4C39 PO; +FLUT11IN INH; -GASTROGRAFIN SOLUTION 30ML (Q9963) As Ordered; +GLIM4TAB5 PO; +HYDR-3715 PO; +HYDR25TA PO; +INSUDET SC; -ISOVUE-370 76% 100ML VIAL (Q9967) As Ordered; +JANU100T PO; +KLOR10TA76 PO; +LEVA12INH INH; +LEVAINH INH; +LEXA1TAB2 PO; +LIDO4CRE4 TOP; +LIDO5DIS41 TD; +LISI-542 PO; +LISI10TA4 PO; +MONT10TA4 PO; +OMEP1CAP73 PO; +OPTI6PAD XX; +POTA10TA67 PO; +PRED10TA2 PO; +PRED20TA PO; +PRIL20CA9 PO; +PROBCAP4 PO; +PROV108A INH; +RISATAB3 PO; +SERO50TA PO; +SING10TA32 PO; +SYMB16INH INH; +TAMS0.4C2; +TAMS0.4C2 PO; +TRIL135C6 PO; +TRUL0.5I SC; +TRUL10IN SC; +VANC10005 INJ; +VANC125C3 PO; +VANC1INJ38 IV; +VANC250C3 PO; +VANC25SOL PO; +VITA100054 PO; +VITA20008 PO; +ZOLP10TA2 PO; +ZYRT10CA5 PO
--- NOTE | 2020-01-04 17:01 | REP ---
CHEST X-RAY: 2-VIEWS HISTORY: COPD COMPARISON: 04/18/17 as well as other prior exams. FINDINGS: There is no evidence of acute infiltrate. The lungs are clear. The heart is normal in size. Mediastinal silhouette is unremarkable and unchanged. There are moderate degenerative changes of the spine. There is a stable compression deformity of a mid-thoracic vertebral body. IMPRESSION: No active pulmonary disease. MTDD
== END ==
LOC: M RAD 13:10
PROVIDERS: ATTEND Anesthesiology
DX: Z01.818 Encounter for other preprocedural examination (principal); J44.9 Chronic obstructive pulmonary disease, unspecified; I25.10 Atherosclerotic heart disease of native coronary artery without angina pectoris

== ENCOUNTER → 2020-01-06 | Outpatient (CLI) | payer MEDICARE, BC, OTHER | LOC: M LABSMTC 09:31 | PROVIDERS: ATTEND Anesthesiology | DX: Z01.812 Encounter for preprocedural laboratory examination (principal); Z20.828 Contact with and (suspected) exposure to other viral communicable diseases | CPT/HCPCS: C9803; U0003 ==

== ENCOUNTER 2020-01-11 09:23 | Day surgery (SDC) | payer MEDICARE, BC, OTHER ==
[~2020-01-11] VITALS: Ht 177.8 cm; Wt 110.7 kg
[~2020-01-11 09:23] MED LIST changes: +LR 1,000 ML IV ONE; +LevoFLOXacin IV 500 MG in IV 1 EA IV ONE
[2020-01-11] MEDS ORDERED: ONDANSETRON 4MG/2ML VIAL As Ordered ONE (10:41)
[2020-01-11] MEDS ORDERED: dexameTHASONE 4 MG/ML 1ML VIAL (J1100 PER 1MG) As Ordered ONE (10:41)
[2020-01-11] MEDS ORDERED: ROCURONIUM BROMIDE 50 MG/5 ML VIAL As Ordered ONE ×2 (10:41→12:04)
[2020-01-11] MEDS ORDERED: LIDOCAINE 2% INJ 100 MG/5 ML SYRINGE As Ordered ONE (10:41)
[2020-01-11] MEDS ORDERED: fentaNYL 100 MCG/2 ML INJECTION (J3010) As Ordered ONE (10:41)
[2020-01-11] MEDS ORDERED: propofoL 200 MG/20 ML VIAL As Ordered ONE (10:41)
[2020-01-11] MEDS ORDERED: MIDAZOLAM INJ 2MG/2ML VIAL (J2250 PER 1MG) As Ordered ONE (10:42)
[2020-01-11] MEDS ORDERED: LIDOCAINE 2% 100MG/5ML SDV (FOR ANES.) As Ordered ONE (10:44)
[2020-01-11] MEDS ORDERED: BUPIVACAINE/EPIN 0.25% 30 ML VIAL As Ordered ONE (11:19)
[2020-01-11] MEDS ORDERED: BUPIVACAINE HCL 0.25% 10ML VIAL As Ordered ONE (11:19)
[2020-01-11] MEDS ORDERED: BUPIVACAINE LIPOSOME/PF 1.3% 20ML VIAL (13.3MG/ML)(EXPAREL)(C9290 PER1MG) As Ordered ONE (11:19)
[2020-01-11] MEDS ORDERED: SUCCINYLCHOLINE 100 MG/5 ML SYRINGE (J0330) As Ordered ONE (11:41)
[2020-01-11] MEDS ORDERED: ACETAMINOPHEN 1000MG 100ML IV BTL (OFIRMEV) (J0131 PER 10MG) As Ordered ONE (11:54)
[2020-01-11] MEDS ORDERED: ePHEDrine SULFATE 25 MG/5 ML(5MG/ML) SYRINGE As Ordered ONE (12:00)
[2020-01-11] MEDS ORDERED: SUGAMMADEX SODIUM 500 MG/5 ML VIAL (BRIDION) As Ordered ONE (13:47)
[2020-01-11] MEDS ORDERED: HYDROmorphone HCL 2 MG/ML 1ML VIAL (J1170) As Ordered ONE (13:56)
[2020-01-11] MEDS ORDERED: oxyCODONE 5MG TAB As Ordered ONE (14:23)
[2020-01-11] MEDS ORDERED: oxyCODONE 5MG TAB PO PRN (14:30)
[2020-01-11] MEDS ORDERED: fentaNYL 100 MCG/2 ML INJECTION (J3010) IV PRN (14:30)
[2020-01-11] MEDS ORDERED: ONDANSETRON 4MG/2ML VIAL IV PRN (14:30)
[2020-01-11] MEDS ORDERED: LR 1,000 ML IV SCH ×2 (14:30→15:30)
[2020-01-11] MEDS ORDERED: PERCOCET 5MG/325MG TAB PO PRN (15:30)
[2020-01-11 16:35] VITALS: BP 125/64
--- NOTE | 2020-02-08 07:34 | RO ---
DATE OF OPERATION: 01/11/2020 PREOPERATIVE DIAGNOSIS: Incisional hernia. POSTOPERATIVE DIAGNOSIS: Incisional hernia. PROCEDURE: Laparoscopic incisional hernia repair with Ventralight mesh. SURGEON: Jeremy Laurent MD ANESTHESIA: General endotracheal anesthesia. EBL: Minimal. FLUIDS: Crystalloid. BRIEF PROCEDURE SUMMARY: The patient was brought to the operating room, given general anesthesia. After adequate anesthesia and preoperative antibiotics were given the patient was prepped and draped in usual sterile fashion. An epigastric incision was made with skin knife, blunt dissection was carried down to fascia and Veress needle was placed into the abdominal cavity, insufflated to 15 mm of pressure. Left subcostal and left lateral abdominal 5 mm trocars were placed. Once the trocar was placed I was able to see where I could place a lateral trocar on the left-hand side and this was also repeated on the right-hand side after I was able to take down some adhesions along the midline. There were a significant amount of adhesions that I eventually was able to take down with Harmonic scalpel. Fortunately the majority of these were taken down with Harmonic scalpel but there was still some small bowel adherent to the midline and eventually once I was able to take this down with sharp dissection the hernia was well visualized along the midline. Previously I had done a laparoscopic colostomy reversal and I was able to take down at least some of these adhesions last visit and thus, even there were still a fair bit, it was not as bad as it could have been. In any case, once these adhesions were taken down in the midline, there were multiple smaller, almost [place] cheesing of the incision just above the umbilicus and then there was a larger hernia below that with some diastasis of the rectus muscle and this extended down to the mid area between the pubis and the umbilicus. Once this was eventually established the patient was placed in Trendelenburg position and I then placed 12 mm trocar just above the umbilicus which actually it seemed right about at the level of the midportion of the multiple hernias present. Once these were well visualized and identified the Ventralight mesh was positioned and circumferentially using SecureStraps after the abdominal pressure was decreased, I used three SecureStraps to tack the Ventralight in circumferentially. Once this was performed circumferentially then additional tacks on the rectus muscle were added. The abdomen was then desufflated after removing the green balloon for the Ventralight. Once this was all intact local Exparel was injected laterally and all sites were closed with toya. Dry, sterile dressing was applied. The patient was awakened from his anesthesia, extubated and brought to the recovery room awake, alert, hemodynamically stable. Sponge and needle counts correct x2. MTDD
== END 2020-01-11 16:35 | disposition home or self-care (01) ==
LOC: M SDC 09:23
PROVIDERS: ATTEND Surgery
DX: K43.2 Incisional hernia without obstruction or gangrene (principal); J44.9 Chronic obstructive pulmonary disease, unspecified; E78.00 Pure hypercholesterolemia, unspecified; E11.9 Type 2 diabetes mellitus without complications; I25.10 Atherosclerotic heart disease of native coronary artery without angina pectoris; F41.9 Anxiety disorder, unspecified; F32.9 Major depressive disorder, single episode, unspecified; G47.33 Obstructive sleep apnea (adult) (pediatric); Z79.82 Long term (current) use of aspirin; K57.92 Diverticulitis of intestine, part unspecified, without perforation or abscess without bleeding; Z79.899 Other long term (current) drug therapy; Z88.0 Allergy status to penicillin; Z88.8 Allergy status to other drugs, medicaments and biological substances; Z91.040 Latex allergy status; F17.218 Nicotine dependence, cigarettes, with other nicotine-induced disorders; G20 Parkinson's disease
CPT/HCPCS: 49654; C1781; C9290; J0131; J0330; J1170; J1956; J2250; J2405; J3010

== ENCOUNTER → 2020-04-08 | Outpatient (CLI) | payer MEDICARE, BC, OTHER ==
[~2020-04-08] MED LIST changes: +BENA25CA4 PO; -LR 1,000 ML IV ONE; -LevoFLOXacin IV 500 MG in IV 1 EA IV ONE; -MONT10TA4 PO; +MONT5TAB2 PO; +PROAAER10
== END ==
LOC: M LABSMTC 08:39
PROVIDERS: ATTEND Anesthesiology
DX: Z01.812 Encounter for preprocedural laboratory examination (principal); Z20.828 Contact with and (suspected) exposure to other viral communicable diseases

== ENCOUNTER 2020-04-13 07:12 | Day surgery (SDC) | payer MEDICARE, BC, OTHER ==
[~2020-04-13] VITALS: Ht 177.8 cm; Wt 108.4 kg
[~2020-04-13 07:12] MED LIST changes: +LIDOCAINE 2% 100MG/5ML SDV (FOR ANES.) As Ordered ONE; +NS 1,000 ML IV ONE; +propofoL 200 MG/20 ML VIAL As Ordered ONE
[2020-04-13] MEDS ORDERED: ePHEDrine SULFATE 25 MG/5 ML(5MG/ML) SYRINGE As Ordered ONE (08:33)
--- NOTE | 2020-04-13 08:59 | ROOR ---
Patient Name: Koby Ritchie Procedure Date: 04/13/2020 8:16 AM Date of : 1950 Age: 69 Room: [facility] Gender: Male Note Status: Finalized Procedure: Colonoscopy Indications: High risk colon cancer surveillance: Personal history of colonic polyps Providers: Jeremy Laurent Jr, MD Referring MD: KONG DENNEY Requesting Provider: Medicines: Propofol per Anesthesia Complications: No immediate complications. Procedure: Pre-Anesthesia Assessment: - Prior to the procedure, a History and Physical was performed, and patient medications and allergies were reviewed. The patient is competent. The risks and benefits of the procedure and the sedation options and risks were discussed with the patient. All questions were answered and informed consent was obtained. Patient identification and proposed procedure were verified by the physician and the nurse in the pre-procedure area and in the procedure room. Mental Status Examination: alert and oriented. Airway Examination: normal oropharyngeal airway and neck mobility. Respiratory Examination: clear to auscultation. CV Examination: normal. ASA Grade Assessment: III - A patient with severe systemic disease. After reviewing the risks and benefits, the patient was deemed in satisfactory condition to undergo the procedure. The anesthesia plan was to use moderate sedation / analgesia (conscious sedation). Immediately prior to administration of medications, the patient was re-assessed for adequacy to receive sedatives. The heart rate, respiratory rate, oxygen saturations, blood pressure, adequacy of pulmonary ventilation, and response to care were monitored throughout the procedure. The physical status of the patient was re-assessed after the procedure. The Colonoscope was introduced through the anus and advanced to the cecum, identified by appendiceal orifice and ileocecal valve. The colonoscopy was performed without difficulty. The patient tolerated the procedure well. The quality of the bowel preparation was adequate. Findings: The cecum, appendiceal orifice, ileocecal valve and anastomosis appeared normal. Six polyps were found in the rectum, recto-sigmoid colon, descending colon, transverse colon and ascending colon. The polyps were small in size. These polyps were removed with a hot snare. Resection was complete, but the polyp tissue was only partially retrieved. Multiple small-mouthed diverticula were found in the descending colon. Impression: - The cecum, appendiceal orifice, ileocecal valve and colonic anastomosis are normal. - Six small polyps in the rectum, at the recto-sigmoid colon, in the descending colon, in the transverse colon and in the ascending colon, removed with a hot snare. Complete resection. Partial retrieval. - Diverticulosis in the descending colon. Recommendation: - Discharge patient to home (ambulatory). - Repeat colonoscopy in 5 years for surveillance. Procedure Code(s): --- Professional --- 81434, Colonoscopy, flexible; with removal of tumor(s), polyp(s), or other lesion(s) by snare technique Diagnosis Code(s): --- Professional --- Z86.010, Personal history of colonic polyps K62.1, Rectal polyp K63.5, Polyp of colon K57.30, Diverticulosis of large intestine without perforation or abscess without bleeding CPT copyright 2019 [employer]. All rights reserved. The codes documented in this report are preliminary and upon remote coders review may be revised to meet current compliance requirements. Jeremy Laurent MD Jeremy Laurent Jr, MD 04/13/2020 8:59:15 AM Electronically signed by Jeremy Laurent Jr, MD Number of Addenda: 0 Note Initiated On: 04/13/2020 8:16 AM Estimated Blood Loss: Estimated blood loss: none.
[2020-04-13 09:20] VITALS: BP 133/77
== END 2020-04-13 09:27 | disposition home or self-care (01) ==
LOC: M OPP 07:12
PROVIDERS: ATTEND Surgery
DX: Z12.11 Encounter for screening for malignant neoplasm of colon (principal); Z86.010 Personal history of colon polyps; D12.6 Benign neoplasm of colon, unspecified; K57.30 Diverticulosis of large intestine without perforation or abscess without bleeding; I25.2 Old myocardial infarction; E11.9 Type 2 diabetes mellitus without complications; M19.90 Unspecified osteoarthritis, unspecified site; F41.9 Anxiety disorder, unspecified; F31.9 Bipolar disorder, unspecified; F43.10 Post-traumatic stress disorder, unspecified; J44.9 Chronic obstructive pulmonary disease, unspecified; G47.30 Sleep apnea, unspecified; F17.210 Nicotine dependence, cigarettes, uncomplicated; B20 Human immunodeficiency virus [HIV] disease; G20 Parkinson's disease; I25.10 Atherosclerotic heart disease of native coronary artery without angina pectoris; Z86.14 Personal history of Methicillin resistant Staphylococcus aureus infection; Z88.0 Allergy status to penicillin; Z88.8 Allergy status to other drugs, medicaments and biological substances; Z91.040 Latex allergy status; Z91.09 Other allergy status, other than to drugs and biological substances; Z79.4 Long term (current) use of insulin; Z79.899 Other long term (current) drug therapy

== ENCOUNTER → 2020-07-04 | Outpatient (REF) | payer MEDICARE, OTHER ==
[~2020-07-04] MED LIST changes: -ESCI20TA PO; +ESCI20TA16 PO; -LIDOCAINE 2% 100MG/5ML SDV (FOR ANES.) As Ordered ONE; -LISI-542 PO; +LISI-898 PO; +LISI10TA22 PO; -LISI10TA4 PO; +MONT10TA10 PO; -MONT5TAB2 PO; -NS 1,000 ML IV ONE; -propofoL 200 MG/20 ML VIAL As Ordered ONE
[2020-07-04 18:11] LABS: PERCENT SATURATION 17.9 % (19.7-50.0)
== END ==
LOC: M LAB REF 17:00
PROVIDERS: ATTEND Nurse Practitioner Family
DX: D50.9 Iron deficiency anemia, unspecified (principal)

== ENCOUNTER → 2020-07-21 | Outpatient (CLI) | payer MEDICARE, BC, OTHER ==
[~2020-07-21] MED LIST changes: +ISOVUE-370 76% 100ML VIAL As Ordered ONE
--- NOTE | 2020-07-21 10:41 | REP ---
INDICATION: HEMATURIA. COMPARISON: 05/02/2017. TECHNIQUE: CT abdomen and pelvis performed without IV contrast. CT abdomen and pelvis performed with IV contrast as well, following intravenous administration of 100 cc of Isovue 370. Sagittal, coronal and 3D MIP reconstruction images are performed. FINDINGS: Lung bases: There is mild bibasilar fibro atelectatic change. There are 2 small calcified granulomas in the left lower lobe. Liver: Normal Gallbladder: There is a subcentimeter gallstone in the gallbladder with no evidence gallbladder wall edema.. Spleen: There is mild splenomegaly, the length of the spleen is approximately 14.1 cm.. Adrenals: Normal. Pancreas: Normal. Kidneys: There is a 7 mm calculus in the left lower pole collecting system. There are multiple bilateral renal cysts which do not demonstrate suspicious enhancement. The largest on the right is superior and posterior and somewhat exophytic measuring 3 cm in maximum diameter. The largest on the left is exophytic at the medial aspect of the lower pole. This is bilobed and demonstrates mild linear calcification in the lower wall of the cyst. Maximum diameter is approximately 4.1 cm. No suspicious solid renal mass is seen. Ureters demonstrate no calculus or other abnormality. Small and large bowel: Unremarkable. Free fluid: None. Adenopathy: None. Appendix: Not inflamed. Osseous structures: There are degenerative changes of the spine without compression deformity.. Metallic hip prostheses are seen bilaterally. Pelvis: In the posteroinferior bladder lumen there is a small irregular crescentic defect which could be due to the patient's prostate. Evaluation of the bladder is limited, streak artifact from the hip prostheses limits evaluation of pelvic structures. IMPRESSION: Subcentimeter gallstone in a nondistended gallbladder. Mild splenomegaly. 7 mm calculus lower pole left renal collecting system. Multiple bilateral renal cysts with no suspicious enhancement. Limited evaluation of pelvic structures, including the bladder, due to metallic hip prostheses. Broad small irregular filling defect at the posteroinferior bladder may be due to the prostate. Consider cystoscopy. <Electronically signed by Socrates Nguyễn > 07/21/20 [id number]
== END ==
LOC: M RAD 09:05
PROVIDERS: ATTEND Urology
DX: K80.20 Calculus of gallbladder without cholecystitis without obstruction (principal); Q61.02 Congenital multiple renal cysts; R16.1 Splenomegaly, not elsewhere classified; R31.29 Other microscopic hematuria
CPT/HCPCS: 74178; Q9967

== ENCOUNTER → 2020-10-19 | Outpatient (CLI) | payer MEDICARE, BC, OTHER ==
[~2020-10-19] MED LIST changes: -ISOVUE-370 76% 100ML VIAL As Ordered ONE
--- NOTE | 2020-10-19 13:15 | REP ---
INDICATION: NICOTINE DEPENDENCE. COMPARISON: Comparison study August 24, 2018.. TECHNIQUE: Dose reduction was performed utilizing CARE dose with automated adjustment of the kV and MAS according to patient size; iterative reconstruction, automated exposure control, as well as adaptive dose shielding. Helical scanning is acquired and 3 mm axial images are re-formatted at lung windows. FINDINGS: Digital preliminary drafter chief design radiograph is unremarkable. There is bilateral upper lobe predominantly peripheral pattern of interstitial fibrosis which is more pronounced than on the 2019 study. There is no evidence of pleural effusion. No pulmonary mass lesion is seen. There is a 5 mm noncalcified pulmonary nodule in the left upper lobe on page 53 of 116 in today's study. This is unchanged from the prior study, previously measured as 7 mm. There are 2 tiny stable nodules in the left lower lobe. These are observed on page 68 and page 79 of today's exam. They are visible in retrospect and are unchanged. No new pulmonary nodule is appreciated. There is some mucoid material in the trachea and right mainstem bronchus. No bony destructive lesion. IMPRESSION: Lung RADS category 1 findings. Peripheral pattern of bilateral upper lobe interstitial fibrosis has progressed somewhat since the August 24, 2018 prior study. Repeat screening study indicated in 1 year. <Electronically signed by Isra Narayanan > 10/19/20 [id number]
== END ==
LOC: M RAD 12:50
PROVIDERS: ATTEND Internal Medicine Pulmonary Disease
DX: F17.218 Nicotine dependence, cigarettes, with other nicotine-induced disorders (principal)

== ENCOUNTER 2021-02-07 08:57 | Emergency (ER) | payer MEDICARE, BC, OTHER ==
[~2021-02-07] VITALS: Ht 177.8 cm; Wt 102.7 kg
[~2021-02-07 08:57] MED LIST changes: -DOXY100C PO; +DOXY100C3 PO; -KLOR10TA76 PO; +POTA-136 PO
--- OUTSIDE RECORDS SUMMARY | 2021-02-07 09:04 | CCD | Continuity of Care Document ---
Author Author Koby MARIE [facility] Organization Unknown Address 3 [facility] 3 [place] [address] Phone [phone] Problems Active Problems Provider Date Chronic obstructive lung disease Rina Contreras Onset: 04/05/2002 Sleep apnea Dale Amaya D.O., SIOBHAN Onset: 03/09 Gastroesophageal reflux disease Dale Amaya D.O., NHIFP Onset: 04/05/2002 Hyperlipidemia Dale Amaya D.O., FAAFP Onset: 05/08 Degenerative joint disease involving multiple joints Louise Trinh DO Onset: 10/12/2003 Impotence of organic origin Dale Amaya D.O., FAAFP Ons et: 05/24/2002 Anxiety state Сергей Oneal M.D. Onset: 12/29/2006 Moderate recurrent major depression Сергей Oneal M.D. On set: 12/29/2006 Hypothyroidism Сергей Oneal M.D. Onset: 12/29/2006 Benign prostatic hyperplasia without outflow obstruction Jim Oneal M.D. Onset: 12/29/2006 Posttraumatic stress disorder Isma Marie RPA Onset: 03/08/2009 Type 2 diabetes mellitus Isma Marie RPA Onset: 06/05 Vitamin D deficiency Isma Marie RPA Onset: 0 Secondary parkinsonism Isma Marie RPA Onset: 013 Note: [facility] Treated Kidney stone Isma Marie RPA Onset: 05/18/2013 Note: 05/14/13 CT Lumbar radiculopathy Isma Marie RPA Onset: 10/29/201 5 Chronic kidney disease stage 4 Isma Marie, RPA Onset: 06/07/2015 History of polyp of colon Isma Marie, RPA Onset: 09/06 Note: Colonoscopy 09/21/15 Dr. Ralph perez 1 yr Social History Type Date Description Comments Sex Unknown Tobacco Use Start: Unknown Half a pack a day ETOH Use Denies alcohol use Recreational Drug Use Never Used Drugs Tobacco Use Start: Unknown End: Unknown Patient is a former smoker Exercise Type/Frequency exercises sporadically Allergies and adverse reactions Active Allergies Criticality Reaction | Severity Comments Date Penicillin Unable to assess criticality 09/05/2000 Niaspan Unable to assess criticality 01/15/2010 Metformin Unable to assess criticality Hives 11/02/2010 Medications Active Medications SIG Qnty Indications Ordering Provide r Date Moderna Covid-19 Vaccine 100mcg/0.5ML Suspension - 05/02/20 Dale Amaya D.O., FAAFP 06/22/2020 Flonase Allergy Relief 50mcg/Act Suspension 2 sprays each nare every day 15.800ml Dale brown D.O., FAAFP 04/18/2020 Viagra 100mg Tablets 1 by mouth every day as needed 14tabs Dale Amaya D.O., FAAFP Proair HFA 108(90Base) mcg/Act Aer osol inhale 2 puffs by mouth every 4 hours as needed for shortness of breath 8.5units Dale Amaya D.O., FAAFP 06/30/2019 Trulicity 1.5mg/0.5ML Solution Pen -Inject inject 1 subcutaneously once a week 2units Brandon Fam M.D. 08/06/2018 Prevnar 13 Suspension injection x 1 .500ml Dale Amaya D.O., FAAFP 09/18/2017 Pen Bath 32G X 4 mm Misc use to inject insulin twice a day dx: e 11.9 200units Dale Amaya D.O., FAAFP 05/19/2017 Symbicort 160-4.5mcg/Act Aerosol 2 puffs bid. Unknown Levemir Flextouch 10 0Unit/ML Solution Pen-Inject inject 40 units twice a day (change 07/01/19) 45ml Dale Amaya D.O., FAAFP Medications Administered in Office Medication SIG Qnty Indications Ordering Provider Date Injection (SC)/(Im) Injection Tereza Joseph D., SENIOR ORACLE APPLICATIONS DEVELOPER-C 03/22/2014 Injection (SC)/(Im) Injection Isma Marie, KEVIN 01/22/2012 Injection (SC)/(Im) Injection Сергей Oneal M.D. 03/19/2002 Immunizations CPT Code Status Date Vaccine Reaction Lot # [id number] Given 01/09/2021 Influenza Virus Vaccine, Quadrivalent, Slit Virus, Im Use 3Y & Up [id number] 23013 Given 01/25/2015 Influenza Vaccin e (Fluzone) 3Yrs Of Age Or Older Medicare Plans 45225 Given 01/24/2014 Influenza Vaccin e (Fluzone) 3Yrs Of Age Or Older Medicare Plans [id number] 79317 Given 01/24/2014 Pneumococcal Immunization [id number] 18915 Given 01/22/2012 Influenza Vaccin e (Fluzone) 3Yrs Of Age Or Older Medicare Plans 16409 Given 01/22/2012 Tdap Tetanus,Dip htheria Toxoids/Acellular Pertussis 7Yrs Or Older [id number] 46369 Given 01/22/2012 Influenza Virus Vac. Split Virus Individuals 3 Years And Above [id number] 27246 Given 01/19/2011 Influenza Virus Vac. Split Virus Individuals 3 Years And Above 71143 Given 12/05/2008 Influenza Virus Vac. Split Virus Individuals 3 Years And Above [id number] 06133 Given 01/15/2008 Pneumococcal Immunization [id number] 54994 Given 01/15/2008 Influenza Virus Vac. Split Virus Individuals 3 Years And Above [id number] 10979 Given 03/19/2002 Influenza Virus Vac. Whole Virus 49985 Given 03/19/2002 Influenza Virus Vac. Split Virus Individuals 3 Years And Above [id number] Refused 01/04/2020 Influenza Virus Vaccine, Quadrivalent, Slit Virus, Im Use 3Y & Up RECEIVED AT [facility] 1 WEEK AGO Vital Signs Date Vital Result Comment 01/09/2021 9:08am BP Systolic 122 mmHg BP Diastolic 76 mmHg Body Temperature 97.6 F Heart Rate 85 /min Respiratory Rate 16 /min Height 70 inches 5'10" Weight 231.00 lb [place] Body Weight 166 lb BMI (Body Mass Index) 33.1 kg/m2 O2 % BldC Oximetry 97 % 10/11/2020 1:08pm BP Systolic 102 mmHg BP Diastolic 72 mmHg Body Temperature 97.6 F Heart Rate 53 /min Respiratory Rate 16 /min Height 70 inches 5'10" Weight 241.00 lb [place] Body Weight 166 lb BMI (Body Mass Index) 34.6 kg/m2 O2 % BldC Oximetry 94 % Results Test Acquired Date Facility Test Result H/L Range Note Laboratory test finding 01/09/2021 [facility] Hemoglobin A1c 5.9 % 4.50-6.20 CMP 01/09/2021 [facility] Glu 102 mg/dL 70 - 110 1 BUN 22 mg/dL 8 - 23 Creat 1.1 mg/dL 0.7 - 1.2 BUN/Creatinine Ratio 19.2 CALC Na 140 mmol/L 136 - 145 K 4.2 mmol/L 3.5 - 5.1 CL 105.3 mmol/L 98.0 - 107.0 Co2 19.6 mmol/L Low 22.0 - 29.0 CA 9.4 mg/dL 8.6 - 10.2 TP 6.5 g/dL Low 6.6 - 8.7 Alb 4.6 g/dL 3.5 - 5.2 A/G Ratio 2.3 CALC Globulin 2.0 CALC Alp 87.7 U/L 40 - 129 Alt (SGPT) 9 U/L 0 - 41 Ast (Sgot) 12 U/L 0 - 40 Tbili 0.41 mg/dL 0.0 - 1.2 Osmolality-Calculated 282.3 CALC Anion Gap 19 mmol/L eGFR 78 # Calc 2 eGFR Non-Afr. Burundian 67 # Calc 3 Lipid Panel 01/09/2021 [facility] Chol 208 mg/dL High 0 - 200 Trig 114 mg/dL 35 - 200 HDL 40 mg/dL 35 - 55 LDL_C 145 Calc High 75 - 129 Cho/HDL Ratio 5.3 CALC Laboratory test finding 10/11/2020 [facility] Hemoglobin A1c 6.3 % High 4.50-6.20 1 CHRONIC KIDNEY DISEASE STAGI NG PER NKF: MALE GFR INTERPRETATION: 20-49 YRS: >60 mL/min Normal 50-59 YRS: >56 mL/min Normal 60-69 YRS: >49 mL/min Normal 70-79 YRS: >42 mL/min Normal 80 and above >35 mL/min Normal FEMALE GRF INTERPRETATION: 20-39 YRS: >60 mL/min Normal 40-49 YRS: >58 mL/min Normal 50-59 YRS: >51 mL/min Normal 60-69 YRS: >45 mL/min Normal 70-79 YRS: >39 mL/min Normal 80 and above >32 mL/min NormalCLASSIFICATION CHOLESTEROL FOR ADULTS CHILDREN/ADOLESCENTS* DESIRABLE: <200 MG/DL <170 MG/DL BORDER-LINE HIGH RISK: 200-239 MG/DL 170-199 MG/DL HIGH RISK: >240 MG/DL >200 MG/DL CLASS. FOR PRIMARY LDL CHOL PREVENTION: LDL CHOL-CHILD/ADOLESCENTS* DESIRABLE: <130 MG/DL <110 MG/DL BORDERLINE-HIGH RISK: 130-159 MG/DL 110-129 MG/DL HIGH RISK: >160 MG/DL >130 MG/DL *CHILDREN AND ADOLESCENTS REPRESENTS INDIVIDUALA AGED 2-19 YEARS EXCLUSIVE. 2 CKD-EPI 3 CKD-EPI Procedures Date Code Description Status 01/09/2021 02728 Office/Outpatient Established Mo d MDM 30-39 Min Completed 10/11/2020 85954 Office/Outpatient Established Mo d MDM 30-39 Min Completed 10/11/2020 14455 Capillary Blood Collection Finge r, Heel, Ear Stick Completed Medical Devices Description No Information Available Encounters Type Date Location Provider Dx Diagnosis Office Visit 01/09/2021 9:15a [place] Office Isma Marie, ALONDRA A E11.9 Type 2 diabetes mellitus without complications J44.9 Chronic obstructive pulmonar y disease, unspecified E78.5 Hyperlipidemia, unspecified G47.30 Sleep apnea, unspecified E03.9 Hypothyroidism, unspecified Z23 Encounter for immunization Office Visit 10/11/2020 1:00p [place] [facility] Isma Marie, ALONDRA A E11.9 Type 2 diabetes mellitus without complications J44.9 Chronic obstructive pulmonar y disease, unspecified E78.5 Hyperlipidemia, unspecified G47.30 Sleep apnea, unspecified E03.9 Hypothyroidism, unspecified Assessments Date Code Description Provider 01/09/2021 E11.9 Type 2 diabetes mellitus without complications Isma Marie, RPA 01/09/2021 J44.9 Chronic obstructive pulmonary di sease, unspecified Isma Marie, RPA 01/09/2021 E78.5 Hyperlipidemia, unspecified Isma Elise, RPA 01/09/2021 G47.30 Sleep apnea, unspecified Isma Marie, RPA 01/09/2021 E03.9 Hypothyroidism, unspecified Isma Elise, RPA 01/09/2021 Z23 Encounter for immunization Isma Alan, RPA 10/11/2020 E11.9 Type 2 diabetes mellitus without complications Isma Marie, RPA 10/11/2020 J44.9 Chronic obstructive pulmonary di sease, unspecified Isma Marie, RPA 10/11/2020 E78.5 Hyperlipidemia, unspecified Isma Elise, RPA 10/11/2020 G47.30 Sleep apnea, unspecified Isma Marie, RPA 10/11/2020 E03.9 Hypothyroidism, unspecified Isma Elise, RPA 10/11/2020 E11.9 Type 2 diabetes mellitus without complications Laboratory [place] Schedule Plan of Treatment Future Appointment(s):* 04/13/2021 9:00 am - Isma Marie, [facility] at [place] Office 12/05/2008 - Сергей Oneal M.D.* 496 COPD* Comments:* Discussed current use of MDIs/Nebulyzed rx. Ensured appropriate technique. * Follow up:* In 3 months, For Complete Annual Exam. * 780.57 Sleep Apnea Other Unspecified * 530.81 Esophageal Reflux * 244.9 Hypothyroidism Unspecified * 272.4 Hyperlipidemia Oth Unspec * 715.09 [facility] Multiple Sites* Follow up:* In 3 months, For Complete Annual Exam. * V04.81 Flu Vaccine * All * New Medication:* Xopenex HFA 45 mcg/Act - 2 puffs q4-6h prn shortness of breath Functional Status Description No Information Available Mental Status Description No Information Available Referrals Description No Information Available
--- OUTSIDE RECORDS SUMMARY | 2021-02-07 09:05 | CCD | Continuity of Care Document ---
Author Author Koby MARIE [facility] Organization Unknown Address 3 [facility] 3 [place] [address] Phone [phone] Problems Active Problems Provider Date Chronic obstructive [...] .500ml Dale Amaya D.O., FAAFP 09/18/2017 Pen [place] 32G X 4 mm Misc use to [...] Date Injection (SC)/(Im) Injection Tereza Joseph D., FASHION SHOW DIRECTOR-C 03/22/2014 Injection (SC)/(Im) Injection Isma Marie, KEVIN 01/22/2012 Injection (SC)/(Im) Injection Сергей Oneal M.D. 03/19/2002 Immunizations CPT Code Status Date Vaccine Reaction Lot # [id number] Given 01/09/2021 Influenza Virus Vaccine, Quadrivalent, Slit Virus, Im Use 3Y & Up [id number] 35758 Given 01/25/2015 Influenza Vaccin e (Fluzone) 3Yrs Of Age Or Older Medicare Plans 68851 Given 01/24/2014 Influenza Vaccin e (Fluzone) 3Yrs Of Age Or Older Medicare Plans [id number] 30663 Given 01/24/2014 Pneumococcal Immunization [id number] 07971 Given 01/22/2012 Influenza Vaccin e (Fluzone) 3Yrs Of Age Or Older Medicare Plans 94203 Given 01/22/2012 Tdap Tetanus,Dip htheria Toxoids/Acellular Pertussis 7Yrs Or Older [id number] 35258 Given 01/22/2012 Influenza Virus Vac. Split Virus Individuals 3 Years And Above [id number] 78663 Given 01/19/2011 Influenza Virus Vac. Split Virus Individuals 3 Years And Above 54054 Given 12/05/2008 Influenza Virus Vac. Split Virus Individuals 3 Years And Above [id number] 99504 Given 01/15/2008 Pneumococcal Immunization [id number] 91283 Given 01/15/2008 Influenza Virus Vac. Split Virus Individuals 3 Years And Above [id number] 51773 Given 03/19/2002 Influenza Virus Vac. Whole Virus 57678 Given 03/19/2002 Influenza Virus Vac. Split Virus Individuals 3 Years And Above [id number] Refused 01/04/2020 Influenza Virus Vaccine, Quadrivalent, Slit Virus, Im Use 3Y & Up RECEIVED AT [facility] 1 WEEK AGO Vital Signs Date Vital Result Comment 01/09/2021 9:08am BP Systolic 122 mmHg BP Diastolic 76 mmHg Body Temperature 97.6 F Heart Rate 85 /min Respiratory Rate 16 /min Height 70 inches 5'10" Weight 231.00 lb [place] Body Weight 166 lb BMI (Body Mass Index) 33.1 kg/m2 O2 % BldC Oximetry 97 % 10/11/2020 1:08pm BP Systolic 102 mmHg BP Diastolic 72 mmHg Body Temperature 97.6 F Heart Rate 53 /min Respiratory Rate 16 /min Height 70 inches 5'10" Weight 241.00 lb [place] Body Weight 166 lb BMI (Body Mass Index) 34.6 kg/m2 O2 % BldC Oximetry 94 % Results Test Acquired Date Facility Test Result H/L Range Note Laboratory test finding 01/09/2021 [facility] Hemoglobin A1c 5.9 % 4.50-6.20 Laboratory test finding 10/11/2020 [facility] Hemoglobin A1c 6.3 % High 4.50-6.20 Laboratory test finding 07/11/2020 [facility] Hemoglobin A1c 6.3 % High 4.50-6.20 Laboratory test finding 07/11/2020 [facility] PSA, Total 0.89 ng/mL 0.0 - 4.0 CMP 07/11/2020 [facility] Glu 207 mg/dL High 70 - 110 1 BUN 20 mg/dL 8 - 23 Creat 1.1 mg/dL 0.7 - 1.2 BUN/Creatinine Ratio 18.2 CALC Na 134 mmol/L Low 136 - 145 K 4.1 mmol/L 3.5 - 5.1 CL 99.9 mmol/L 98.0 - 107.0 Co2 21.9 mmol/L Low 22.0 - 29.0 CA 8.8 mg/dL 8.6 - 10.2 TP 6.2 g/dL Low 6.6 - 8.7 Alb 4.2 g/dL 3.5 - 5.2 A/G Ratio 2.1 CALC Globulin 2.0 CALC Alp 79.4 U/L 40 - 129 Alt (SGPT) 11 U/L 0 - 41 Ast (Sgot) 12 U/L 0 - 40 Tbili 0.52 mg/dL 0.0 - 1.2 Osmolality-Calculated 276.4 CALC Anion Gap 16 mmol/L eGFR 78 # Calc 2 eGFR Non-Afr. [place]ian 67 # Calc 3 Lipid Panel 07/11/2020 [facility] Chol 180 mg/dL 0 - 200 Trig 191 mg/dL 35 - 200 HDL 42 mg/dL 35 - 55 LDL_C 100 Calc 75 - 129 Cho/HDL Ratio 4.3 CALC 1 CHRONIC KIDNEY DISEASE STAGI NG PER [...] CKD-EPI Procedures Date Code Description Status 01/09/2021 61161 Office/Outpatient Established Mo d MDM 30-39 Min Completed 10/11/2020 13218 Office/Outpatient Established Mo d MDM 30-39 Min Completed 10/11/2020 67477 Capillary Blood Collection Finge r, Heel, Ear Stick Completed Medical Devices Description No Information Available Encounters Type Date Location Provider Dx Diagnosis Office Visit 01/09/2021 9:15a [place] Office Isma Marie, RP A E11.9 Type 2 diabetes mellitus without complications J44.9 Chronic obstructive pulmonar y disease, unspecified E78.5 Hyperlipidemia, unspecified G47.30 Sleep apnea, unspecified E03.9 Hypothyroidism, unspecified Office Visit 10/11/2020 1:00p [place] [facility] Isma Maire, RP A E11.9 Type 2 diabetes mellitus without [...] 01/09/2021 E03.9 Hypothyroidism, unspecified Isma Elise, RPA 10/11/2020 E11.9 Type 2 diabetes mellitus without complications Isma Marie, RPA 10/11/2020 J44.9 Chronic obstructive pulmonary di sease, unspecified Isma Marie, RPA 10/11/2020 E78.5 Hyperlipidemia, unspecified Isma Elise, RPA 10/11/2020 G47.30 Sleep apnea, unspecified Isma Marie, RPA 10/11/2020 E03.9 Hypothyroidism, unspecified Isma Elise, RPA 10/11/2020 E11.9 Type 2 diabetes mellitus without complications Laboratory [place] Schedule 07/11/2020 E11.9 Type 2 diabetes mellitus without complications Huy Fam M.D. 07/11/2020 E11.9 Type 2 diabetes mellitus without complications Laboratory [place] Schedule 07/11/2020 J44.9 Chronic obstructive pulmonary di sease, unspecified Huy Fam M.D. 07/11/2020 J44.9 Chronic obstructive pulmonary di sease, unspecified Laboratory [place] Schedule 07/11/2020 E78.5 Hyperlipidemia, unspecified [facility] Huy gillis M.D. 07/11/2020 E78.5 Hyperlipidemia, unspecified Labo ratory [place] Schedule 07/11/2020 Z12.5 Encounter for screening for tamera gnant neoplasm of prostate Huy Fam M.D. 07/11/2020 Z12.5 Encounter for screening for tamera gnant neoplasm of prostate Laboratory [place] Schedule Plan of Treatment Future Appointment(s):* 04/13/2021 9:00 am - Isma Marie, RPA at [facility] 12/05/2008 - Сергей Oneal M.D.* 496 COPD* Comments:* Discussed current use of MDIs/Nebulyzed rx. Ensured appropriate technique. * Follow up:* In 3 months, For Complete Annual Exam. * 780.57 Sleep Apnea Other Unspecified * 530.81 Esophageal Reflux * 244.9 Hypothyroidism Unspecified * 272.4 Hyperlipidemia Oth Unspec * 715.09 [facility] Multiple Sites* Follow up:* In 3 months, For Complete Annual Exam. * V04.81 Flu Vaccine * All * New Medication:* Xopenex HFA 45 mcg/Act - 2 puffs q4-6h prn shortness of breath Functional Status Description No Information Available Mental Status Description No Information Available Referrals Description No Information Available
--- OUTSIDE RECORDS SUMMARY | 2021-02-07 09:05 | CCD | Continuity of Care Document ---
Author Author Koby MARIE [facility] Organization Unknown Address 3 [facility] 3 [place] [address] Phone [phone] Problems Active Problems Provider Date Chronic obstructive lung disease Rina Cotnreras Onset: 04/05/2002 Sleep apnea Dale Amaya D.O., [...] .500ml Dale Amaya D.O., FAAFP 09/18/2017 Pen [place] 32G X 4 mm Misc use to [...] Date Injection (SC)/(Im) Injection Tereza Joseph D., DRESSAGE INSTRUCTOR-C 03/22/2014 Injection (SC)/(Im) Injection Isma Marie, KEVIN 01/22/2012 Injection (SC)/(Im) Injection Сергей Oneal M.D. 03/19/2002 Immunizations CPT Code Status Date Vaccine Reaction Lot # [id number] Given 01/09/2021 Influenza Virus Vaccine, Quadrivalent, Slit Virus, Im Use 3Y & Up [id number] 42366 Given 01/25/2015 Influenza Vaccin e (Fluzone) 3Yrs Of Age Or Older Medicare Plans 24816 Given 01/24/2014 Influenza Vaccin e (Fluzone) 3Yrs Of Age Or Older Medicare Plans [id number] 80253 Given 01/24/2014 Pneumococcal Immunization [id number] 49758 Given 01/22/2012 Influenza Vaccin e (Fluzone) 3Yrs Of Age Or Older Medicare Plans 26578 Given 01/22/2012 Tdap Tetanus,Dip htheria Toxoids/Acellular Pertussis 7Yrs Or Older [id number] 41940 Given 01/22/2012 Influenza Virus Vac. Split Virus Individuals 3 Years And Above [id number] 35205 Given 01/19/2011 Influenza Virus Vac. Split Virus Individuals 3 Years And Above 69322 Given 12/05/2008 Influenza Virus Vac. Split Virus Individuals 3 Years And Above [id number] 07292 Given 01/15/2008 Pneumococcal Immunization [id number] 43171 Given 01/15/2008 Influenza Virus Vac. Split Virus Individuals 3 Years And Above [id number] 26564 Given 03/19/2002 Influenza Virus Vac. Whole Virus 86632 Given 03/19/2002 Influenza Virus Vac. Split Virus Individuals 3 Years And Above [id number] Refused 01/04/2020 Influenza Virus Vaccine, Quadrivalent, Slit Virus, Im Use 3Y & Up RECEIVED AT [facility] 1 WEEK AGO Vital Signs Date Vital Result Comment 01/09/2021 9:08am BP Systolic 122 mmHg BP Diastolic 76 mmHg Body Temperature 97.6 F Heart Rate 85 /min Respiratory Rate 16 /min Height 70 inches 5'10" Weight 231.00 lb [place] Body Weight 166 lb BMI (Body Mass Index) 33.1 kg/m2 O2 % BldC Oximetry 97 % 10/11/2020 1:08pm BP Systolic 102 mmHg BP Diastolic 72 mmHg Body Temperature 97.6 F Heart Rate 53 /min Respiratory Rate 16 /min Height 70 inches 5'10" Weight 241.00 lb [place] Body Weight 166 lb BMI (Body Mass Index) 34.6 kg/m2 O2 % BldC Oximetry 94 % Results Test Acquired Date Facility Test Result H/L Range Note Laboratory test finding 01/09/2021 [facility] Hemoglobin A1c 5.9 % 4.50-6.20 CMP 01/09/2021 [...] eGFR 78 # Calc 2 eGFR Non-Afr. [place] 67 # Calc 3 Lipid Panel 01/09/2021 [facility] Chol 208 mg/dL High 0 - 200 Trig 114 mg/dL 35 - 200 HDL 40 mg/dL 35 - 55 LDL_C 145 Calc High 75 - 129 Cho/HDL Ratio 5.3 CALC Laboratory test finding 10/11/2020 [facility] Hemoglobin A1c 6.3 % High 4.50-6.20 1 [...] CKD-EPI Procedures Date Code Description Status 01/09/2021 71516 Office/Outpatient Established Mo d MDM 30-39 Min Completed 10/11/2020 93536 Office/Outpatient Established Mo d MDM 30-39 Min Completed 10/11/2020 12328 Capillary Blood Collection Finge r, Heel, Ear Stick Completed Medical Devices Description No Information Available Encounters Type Date Location Provider Dx Diagnosis Office Visit 01/09/2021 9:15a [place] Office Isma Marie, RP A E11.9 Type 2 diabetes mellitus without complications J44.9 Chronic obstructive pulmonar y disease, unspecified E78.5 Hyperlipidemia, unspecified G47.30 Sleep apnea, unspecified E03.9 Hypothyroidism, unspecified Office Visit 10/11/2020 1:00p [place] Office Isma Marie, RP A E11.9 Type [...] E11.9 Type 2 diabetes mellitus without complications [facility] Schedule Plan of Treatment Future Appointment(s):* 04/13/2021 9:00 am - Isma Marie, [facility] at [place] Office 12/05/2008 - Сергей Oneal M.D.* 496 COPD* Comments:* Discussed current use of MDIs/Nebulyzed rx. Ensured appropriate technique. * Follow up:* In 3 months, For Complete Annual Exam. * 780.57 Sleep Apnea Other Unspecified * 530.81 Esophageal Reflux * 244.9 Hypothyroidism Unspecified * 272.4 Hyperlipidemia Oth Unspec * 715.09 [facility] Sites* Follow up:* In 3 months, For Complete Annual Exam. * V04.81 Flu Vaccine * All * New Medication:* Xopenex HFA 45 mcg/Act - 2 puffs q4-6h prn shortness of breath Functional Status Description No Information Available Mental Status Description No Information Available Referrals Description No Information Available
--- OUTSIDE RECORDS SUMMARY | 2021-02-07 09:05 | CCD | Continuity of Care Document ---
Author Author Koby [facility] Organization Unknown Address [address] [facility] [address] [place] [address] Phone [phone] Problems Active Problems Provider Date Chronic obstructive [...] .500ml Dale Amaya D.O., FAAFP 09/18/2017 Pen [place] 32G X 4 mm Misc use to inject insulin twice a day dx: e 11.9 200units Dale Amaya D.O., FAAFP 05/19/2017 Symbicort 160-4.5mcg/Act Aerosol 2 puffs bid. Unknown Levemir Flextouch 10 0Unit/ML Solution Pen-Inject inject 40 units twice a day (change 07/01/19) 45ml Dale Amaya D.O., FAAFP Montelukast Sodium 10mg Tablets take 1 tablet at bedtime Unknown Medications Administered in Office Medication SIG Qnty Indications Ordering Provider Date Injection (SC)/(Im) Injection Tereza Joseph D., [employer] 03/22/2014 Injection (SC)/(Im) Injection Isma Marie, KEVIN 01/22/2012 Injection (SC)/(Im) Injection Сергей Oneal M.D. 03/19/2002 Immunizations CPT Code Status Date Vaccine Reaction Lot # 68085 Given 01/09/2021 Influenza Virus Vaccine, Quadrivalent, Slit Virus, Im Use 3Y & Up [id number] 54160 Given 01/25/2015 Influenza Vaccin e (Fluzone) 3Yrs Of Age Or Older Medicare Plans [id number] Given 01/24/2014 Influenza Vaccin e (Fluzone) 3Yrs Of Age Or Older Medicare Plans [id number] 26200 Given 01/24/2014 Pneumococcal Immunization [id number] 47648 Given 01/22/2012 Influenza Vaccin e (Fluzone) 3Yrs Of Age Or Older Medicare Plans [id number] Given 01/22/2012 Tdap Tetanus,Dip htheria Toxoids/Acellular Pertussis 7Yrs Or Older [id number] 51537 Given 01/22/2012 Influenza Virus Vac. Split Virus Individuals 3 Years And Above [id number] 54363 Given 01/19/2011 Influenza Virus Vac. Split Virus Individuals 3 Years And Above 59772 Given 12/05/2008 Influenza Virus Vac. Split Virus Individuals 3 Years And Above [id number] 20649 Given 01/15/2008 Pneumococcal Immunization [id number] 40839 Given 01/15/2008 Influenza Virus Vac. Split Virus Individuals 3 Years And Above [id number] 81626 Given 03/19/2002 Influenza Virus Vac. Whole Virus 46372 Given 03/19/2002 Influenza Virus Vac. Split Virus Individuals 3 Years And Above [id number] Refused 01/04/2020 Influenza Virus Vaccine, Quadrivalent, Slit Virus, Im Use 3Y & Up RECEIVED AT [facility] 1 WEEK AGO Vital Signs Date Vital Result Comment 01/09/2021 9:08am BP Systolic 122 mmHg BP Diastolic 76 mmHg Body Temperature 97.6 F Heart Rate 85 /min Respiratory Rate 16 /min Height 70 inches 5'10" Weight 231.00 lb [place] Body Weight 166 lb BMI (Body Mass Index) 33.1 kg/m2 O2 % BldC Oximetry 97 % 10/11/2020 1:08pm BP Systolic 102 mmHg BP Diastolic 72 mmHg Body Temperature 97.6 F Heart Rate 53 /min Respiratory Rate 16 /min Height 70 inches 5'10" Weight 241.00 lb [place] Body Weight 166 lb BMI (Body Mass Index) 34.6 kg/m2 O2 % BldC Oximetry 94 % Results Test Acquired Date Facility Test Result H/L Range Note Laboratory test finding 10/11/2020 [facility] Hemoglobin A1c 6.3 % High 4.50-6.20 Laboratory test finding 07/11/2020 [facility] Hemoglobin A1c 6.3 % High 4.50-6.20 [...] eGFR 78 # Calc 2 eGFR Non-Afr. Ethiopian 67 # Calc 3 Lipid Panel 07/11/2020 [...] 3 CKD-EPI Procedures Date Code Description Status 10/11/2020 88835 Office/Outpatient Established Mo d MDM 30-39 Min Completed 10/11/2020 85566 Capillary Blood Collection Finge r, Heel, Ear Stick Completed Medical Devices Description No Information Available Encounters Type Date Location Provider Dx Diagnosis Office Visit 10/11/2020 1:00p [place] [facility] Isma Marie, RP A E11.9 Type 2 diabetes mellitus without complications J44.9 Chronic obstructive pulmonar y disease, unspecified E78.5 Hyperlipidemia, unspecified G47.30 Sleep apnea, unspecified E03.9 Hypothyroidism, unspecified Assessments Date Code Description Provider 10/11/2020 E11.9 Type 2 diabetes mellitus without complications Isma Marie, RPA 10/11/2020 J44.9 Chronic obstructive pulmonary di sease, unspecified Isma Marie, RPA 10/11/2020 E78.5 Hyperlipidemia, unspecified Isma Elise, RPA 10/11/2020 G47.30 Sleep apnea, unspecified Isma Marie, RPA 10/11/2020 E03.9 Hypothyroidism, unspecified Isma Elise, RPA 10/11/2020 E11.9 Type 2 diabetes mellitus without complications Laboratory [place] Schedule 07/11/2020 E11.9 Type 2 diabetes mellitus without complications Huy Fam M.D. 07/11/2020 E11.9 Type 2 diabetes mellitus without complications Laboratory [place] Schedule 07/11/2020 J44.9 Chronic obstructive pulmonary di sease, unspecified Huy Fam M.D. 07/11/2020 J44.9 Chronic obstructive pulmonary di sease, unspecified Laboratory [place] Schedule 07/11/2020 E78.5 Hyperlipidemia, unspecified Mitc Huy gillis M.D. 07/11/2020 E78.5 Hyperlipidemia, unspecified Labo ratory [place] Schedule 07/11/2020 Z12.5 Encounter for screening for tamera gnant neoplasm of prostate Huy Fam M.D. 07/11/2020 Z12.5 Encounter for screening for tamera gnant neoplasm of prostate Laboratory [place] Schedule Plan of Treatment 12/05/2008 - Сергей Oneal M.D.* 496 COPD* [...]
--- OUTSIDE RECORDS SUMMARY | 2021-02-07 09:06 | CCD ---
Author Author [facility] Organization [facility] Address Unknown Phone Unavailable Care Team Providers Care Air Pollution Inspector Name Role Phone Judy Otto XRAY TECH Unavailable Unavailable Fam, Judy Prieto XRAY TECH Unavailable Unavailable [place], Judy Prieto XRAY TECH Unavailable Unavailable [place], Judy Prieto XRAY TECH Unavailable Unavailable [place], Judy Prieto XRAY TECH Unavailable Unavailable [place], Judy Prieto XRAY TECH Unavailable Unavailable Fam, Judy Prieto XRAY TECH Unavailable Unavailable [place], Judy Prieto XRAY TECH Unavailable Unavailable [place], Judy Prieto XRAY TECH Unavailable Unavailable Fam, Judy Prieto XRAY TECH Unavailable Unavailable Fam, Judy Prieto XRAY TECH Unavailable Unavailable Fam, Judy Prieto XRAY TECH Unavailable Unavailable Fam, Judy Prieto XRAY TECH Unavailable Unavailable [place], Judy Prieto XRAY TECH Unavailable Unavailable Lauren Marie PA Unavailable Unavailable Lauren Marie PA Unavailable Unavailable Lauren Marie PA Unavailable Unavailable Lauren Marie PA Unavailable Unavailable Frank, D Isma PA Unavailable Unavailable Frank, D Isma PA Unavailable Unavailable Frank, D Isma PA Unavailable Unavailable Frank, D Isma PA Unavailable Unavailable Frank, D Isma PA Unavailable Unavailable Frank, D Isma PA Unavailable Unavailable Frank, D Isma PA Unavailable Unavailable Frank, D Isma PA Unavailable Unavailable Frank, D Isma PA Unavailable Unavailable Frank, D Isma PA Unavailable Unavailable Frank, D Isma PA Unavailable Unavailable Frank, D Isma PA Unavailable Unavailable Frank, D Isma PA Unavailable Unavailable Frank, D Isma PA Unavailable Unavailable Frank, D Isma PA Unavailable Unavailable Frank, D Isma PA Unavailable Unavailable Frank, D Isma PA Unavailable Unavailable Frank, D Isma PA Unavailable Unavailable Frank, D Isma PA Unavailable Unavailable Frank, D Isma PA Unavailable Unavailable Frank, D Isma PA Unavailable Unavailable Frank, D Isma PA Unavailable Unavailable Frank, D Isma PA Unavailable Unavailable Frank, D Isma PA Unavailable Unavailable Frank, D Isma PA Unavailable Unavailable Frank, D Isma PA Unavailable Unavailable Frank, D Isma PA Unavailable Unavailable Frank, D Isma PA Unavailable Unavailable Frank, D Isma PA Unavailable Unavailable Frank, D Isma PA Unavailable Unavailable Frank, D Isma PA Unavailable Unavailable Frank, D Isma PA Unavailable Unavailable Frank, D Isma PA Unavailable Unavailable Frank, D Isma PA Unavailable Unavailable Frank, D Isma PA Unavailable Unavailable Frank, D Isma PA Unavailable Unavailable Frank, D Isma PA Unavailable Unavailable Frank, D Isma PA Unavailable Unavailable Frank, D Isma PA Unavailable Unavailable Frank, D Isma PA Unavailable Unavailable Frank, D Isma PA Unavailable Unavailable Frank, D Isma PA Unavailable Unavailable Frank, D Isma PA Unavailable Unavailable Frank, D Isma PA Unavailable Unavailable Frank, D Isma PA Unavailable Unavailable Frank, D Isma PA Unavailable Unavailable Frank, D Isma PA Unavailable Unavailable Frank, D Isma PA Unavailable Unavailable Frank, D Isma PA Unavailable Unavailable Frank, D Isma PA Unavailable Unavailable Frank, D Isma PA Unavailable Unavailable Frank, D Isma PA Unavailable Unavailable Frank, D Isma PA Unavailable Unavailable Frank, D Isma PA Unavailable Unavailable Frank, D Isma PA Unavailable Unavailable Frank, D Isma PA Unavailable Unavailable Frank, D Isma PA Unavailable Unavailable Frank, D Isma PA Unavailable Unavailable Frank, D Isma PA Unavailable Unavailable Frank, D Isma PA Unavailable Unavailable Frank, D Isma PA Unavailable Unavailable Frank, D Isma PA Unavailable Unavailable Frank, D Isma PA Unavailable Unavailable Frank, D Isma PA Unavailable Unavailable Americo Laurent JR, MD Unavailable Unavailable Americo Laurent JR, MD Unavailable Unavailable Americo Laurent JR, MD Unavailable Unavailable Americo Laurent JR, MD Unavailable Unavailable Americo Laurent JR, MD Unavailable Unavailable Americo Laurent JR, MD Unavailable Unavailable Americo Laurent JR, MD Unavailable Unavailable Americo Laurent JR, MD Unavailable Unavailable Americo Laurent JR, MD Unavailable Unavailable Americo Laurent JR, MD Unavailable Unavailable Americo Laurent JR, MD Unavailable Unavailable Americo Laurent JR, MD Unavailable Unavailable Americo Laurent JR, MD Unavailable Unavailable Americo Laurent JR, MD Unavailable Unavailable Americo Laurent JR, MD Unavailable Unavailable Americo Laurent JR, MD Unavailable Unavailable Americo Laurent JR, MD Unavailable Unavailable Americo Laurent JR, MD Unavailable Unavailable Americo Laurent JR, MD Unavailable Unavailable Americo Laurent JR, MD Unavailable Unavailable Americo Laurent JR, MD Unavailable Unavailable Americo Laurent JR, MD Unavailable Unavailable Americo Laurent JR, MD Unavailable Unavailable Americo Laurent JR, MD Unavailable Unavailable Americo Laurent JR, MD Unavailable Unavailable Americo Laurent JR, MD Unavailable Unavailable Americo Laurent JR, MD Unavailable Unavailable Americo Laurent JR, MD Unavailable Unavailable Americo Laurent JR, MD Unavailable Unavailable Americo Laurent JR, MD Unavailable Unavailable Americo Laurent JR, MD Unavailable Unavailable Americo Laurent JR, MD Unavailable Unavailable Americo Laurent JR, MD Unavailable Unavailable Americo Laurent JR, MD Unavailable Unavailable Americo Laurent JR, MD Unavailable Unavailable Americo Laurent JR, MD Unavailable Unavailable Americo Laurent JR, MD Unavailable Unavailable Americo Laurent JR, MD Unavailable Unavailable Americo Laurent JR, MD Unavailable Unavailable Americo Laurent JR, MD Unavailable Unavailable Americo Laurent JR, MD Unavailable Unavailable Americo Laurent JR, MD Unavailable Unavailable Americo Laurent JR, MD Unavailable Unavailable Americo Laurent JR, MD Unavailable Unavailable Americo Laurent JR, MD Unavailable Unavailable Americo Laurent JR, MD Unavailable Unavailable Americo Laurent JR, MD Unavailable Unavailable Americo Laurent JR, MD Unavailable Unavailable Americo Laurent JR, MD Unavailable Unavailable Americo Laurent JR, MD Unavailable Unavailable Americo Laurent JR, MD Unavailable Unavailable Americo Laurent JR, MD Unavailable Unavailable Americo Laurent JR, MD Unavailable Unavailable Americo Laurent JR, MD Unavailable Unavailable BertrandDomenic MD Unavailable Unavailable BertrandDomenic MD Unavailable Unavailable BertrandDomenic MD Unavailable Unavailable BertrandDomenic MD Unavailable Unavailable BertrandDomenic MD Unavailable Unavailable BertrandDomenic MD Unavailable Unavailable BertrandDomenic MD Unavailable Unavailable BertrandDomenic MD Unavailable Unavailable BertrandDomenic MD Unavailable Unavailable BertrandDomenic MD Unavailable Unavailable BertrandDomenic MD Unavailable Unavailable Domenic Bertrand MD Unavailable Unavailable Domenic Bertrand MD Unavailable Unavailable Domenic Bertrand MD Unavailable Unavailable Domenic Bertrand MD Unavailable Unavailable BertrandDomenic MD Unavailable Unavailable BertrandDomenic MD Unavailable Unavailable Domenic Bertrand MD Unavailable Unavailable BertrandDomenic MD Unavailable Unavailable BertrandDomenic MD Unavailable Unavailable Domenic Bertrand MD Unavailable Unavailable Domenic Bertrand MD Unavailable Unavailable Domenic Bertrand MD Unavailable Unavailable Domenic Bertrand MD Unavailable Unavailable BertrandDomenic MD Unavailable Unavailable BertrandDomenic MD Unavailable Unavailable Domenic Bertrand MD Unavailable Unavailable BertrandDomenic MD Unavailable Unavailable Domenic Bertrand MD Unavailable Unavailable Domenic Bertrand MD Unavailable Unavailable Domenic Bertrand MD Unavailable Unavailable Domenic Bertrand MD Unavailable Unavailable Domenic Bertrand MD Unavailable Unavailable BertrandDomenic MD Unavailable Unavailable BertrandDomenic MD Unavailable Unavailable Domenic Bertrand MD Unavailable Unavailable BertrandDomenic MD Unavailable Unavailable Domenic Bertrand MD Unavailable Unavailable Domenic Bertrand MD Unavailable Unavailable Domenic Bertrand MD Unavailable Unavailable Domenic Bertrand MD Unavailable Unavailable Domenic Bertrand MD Unavailable Unavailable Domenic Bertrand MD Unavailable Unavailable BertrandDomenic MD Unavailable Unavailable BertrandDomenic MD Unavailable Unavailable Domenic Bertrand MD Unavailable Unavailable BertrandDomenic MD Unavailable Unavailable Domenic Bertrand MD Unavailable Unavailable Domenic Bertrand MD Unavailable Unavailable Domenic Bertrand MD Unavailable Unavailable Domenic Bertrand MD Unavailable Unavailable Domenic Bertrand MD Unavailable Unavailable Domenic Bertrand MD Unavailable Unavailable BertrandDomenic MD Unavailable Unavailable Re-disclosure Warning The records that you are about to access may contain information from federally-assisted alcohol or drug abuse programs. If such information is present, then the following federally mandated warning applies: This information has been disclosed to you from records protected by federal confidentiality rules (42 CFR part 2). The federal rules prohibit you from making any further disclosure of this information unless further disclosure is expressly permitted by the written consent of the person to whom it pertains or as otherwise permitted by 42 CFR part 2. A general authorization for the release of medical or other information is NOT sufficient for this purpose. The Federal rules restrict any use of the information to criminally investigate or prosecute any alcohol or drug abuse patient.The records that you are about to access may contain highly sensitive health information, the redisclosure of which is protected by Article 27-F of the [facility] Public Health law. If you continue you may have access to information: Regarding HIV / AIDS; Provided by facilities licensed or operated by the [facility] Office of Mental Health; or Provided by the [facility] Office for People With Developmental Disabilities. If such information is present, then the following [facility] mandated warning applies: This information has been disclosed to you from confidential records which are protected by state law. State law prohibits you from making any further disclosure of this information without the specific written consent of the person to whom it pertains, or as otherwise permitted by law. Any unauthorized further disclosure in violation of state law may result in a fine or detention sentence or both. A general authorization for the release of medical or other information is NOT sufficient authorization for further disc losure. Family History Family Member Name Family Member Gender Family Member Status Date o f Status Description Data Source(s) Unknown Male Problem [facility] ([facility]) Unknown Male Problem [facility] ([facility] () Unknown Male Problem [facility] ([facility] () Encounters Encounter Providers Location Date Indications Data Source(s ) Outpatient Attender: Isma [place] Office 08/2020 09:15:00 AM EDT [facility] ([facility] Outpatient Attender: Isma [place] Office 10/2020 01:00:00 PM EDT [facility] ([facility] Outpatient Attender: Tor [place]ravo/[place]/R eindl 09/20/2020 01:00:00 PM EDT [facility] ([facility] (Cysto1) Urology [address] [place] [address] 08/11/2020 12:00:00 AM EDT eCW1 ([facility]) Unknown [address] [facility] [id number] 07/19/2020 12:00:00 AM EDT eCW1 ([facility]) Outpatient [address] [facility] [id number] 07/06/2020 12:00:00 AM EDT eCW1 ([facility]) Outpatient Attender: Isma TRIANA [place] Office 01:15:00 PM EDT MEDENT ([facility] Outpatient Attender: Jeremy Bravo/[place]/Rein dl 05/01/2020 08:55:00 AM EST MED[facility] ([facility]) Outpatient Attender: Isma TRIANA [place] Office 12:15:00 PM EST MED[facility] ([facility] Outpatient Attender: Tor Bravo/[place]/R eindl 03/20/2020 10:00:00 AM EST [facility] ([facility]) Office Visit Attender: Jeremy Bravo/[place]/Rein dl 02/09/2020 08:10:00 AM EST [facility] ([facility] Office Visit Attender: Prieto Bravo/[place]/Dimitrios ndl 01/25/2020 10:30:00 AM EDT MED[facility] ([facility]) Outpatient Attender: Isma TRIANA [place] Office 01:30:00 PM EDT MED[facility] ([facility] Immunizations Vaccine Date Status Description Data Source(s) COVID-19 VACCINE Moderna 02/01/2021 12:00:00 AM EDT completed [place] Vaccine Series Complete: YESThis Data wa s Submitted to [facility] Via [employer]. New in 2012. IIV4 01/09/2021 09:06:00 AM EDT completed [facility] ([facility] COVID-19 VACCINE Moderna 05/02/2020 12:00:00 AM EST completed [place] Vaccine Series Complete: YESThis Data wa s Submitted to [facility] Via [employer]. COVID-19 VACCINE Moderna 04/04/2020 12:00:00 AM EST completed [place] Vaccine Series Complete: NOThis Data was Submitted to [facility] Via [employer]. New in 2012. IIV4 01/04/2020 01:38:00 PM EDT completed [facility] ([facility] INFLUENZA VIRUS VACCINE QUADRIVALENT 2019- (6 MOS AN D UP) 12/28/2019 12:00:00 AM EDT completed [facility] Medications Medication Brand Name Start Date Product Form Dose Route Admi nistrative Instructions Pharmacy Instructions Status Indications Reaction Description Data Source(s) 0.6 mg 01/04/2021 12:00:00 AM EDT tablet 10 2 TABLETS BY MOUTH FOR THE 1ST DOSE, THEN 1 AFTER 1 HOUR, THEN 1 EVERY DAY FOR 7 DAYS NEEDED FOR GOUT 2 TABLETS BY MOUTH FOR THE 1ST DOSE, THEN 1 AFTER 1 HOUR, THEN 1 EVERY DAY FOR 7 DAYS NEEDED FOR GOUT SOLD: 01/08/2021 [facility] 90 mcg/actuation 12/02/2020 12:00:00 AM EDT HFA aerosol inha ler 8 INHALE TWO PUFFS BY MOUTH FOUR TIMES A DAY NEEDED INHALE TWO PUFFS BY MOUTH FOUR TIMES A DAY NEEDED SOLD: 12/04/2020 [facility] 90 mcg/actuation 12/02/2020 12:00:00 AM EDT HFA aerosol inha ler 8 INHALE TWO PUFFS BY MOUTH FOUR TIMES A DAY NEEDED INHALE TWO PUFFS BY MOUTH FOUR TIMES A DAY NEEDED SOLD: 12/27/2020 [facility] 10 mg 09/20/2020 12:00:00 AM EDT tablet 40 TAKE 4 TABLETS BY MOUTH ONCE DAILY FOR 4 DAYS THEN 3 ONCE DAILY FOR 4 DAYS THEN 2 TABLETS BY MOUTH EVERY DAY FOR 4 DAYS THEN 1 TABLET BY MOUTH EVERY DAY FOR 4 DAYS AND STOP TAKE 4 TABLETS BY MOUTH ONCE DAILY FOR 4 DAYS THEN 3 ONCE DAILY FOR 4 DAYS THEN 2 TABLETS BY MOUTH EVERY DAY FOR 4 DAYS THEN 1 TABLET BY MOUTH EVERY DAY FOR 4 DAYS AND STOP SOLD: 09/25/2020 [facility] Prednisone 10 MG Oral Tablet Prednisone 09/20/2020 12:00:00 AM EDT ORAL active [facility] ([facility] ) 1.5 mg/0.5 mL 09/05/2020 12:00:00 AM EDT pen injector 2 INJECT 1 SUBCUTANEOUSLY ONCE A WEEK INJECT 1 SUBCUTANEOUSLY ONCE A WEEK SOLD: 11/07/2020 [facility] 1.5 mg/0.5 mL 09/05/2020 12:00:00 AM EDT pen injector 2 INJECT 1 SUBCUTANEOUSLY ONCE A WEEK INJECT 1 SUBCUTANEOUSLY ONCE A WEEK SOLD: 09/06/2020 [facility] 1.5 mg/0.5 mL 09/05/2020 12:00:00 AM EDT pen injector 2 INJECT 1 SUBCUTANEOUSLY ONCE A WEEK INJECT 1 SUBCUTANEOUSLY ONCE A WEEK SOLD: 01/11/2021 [facility] 1.5 mg/0.5 mL 09/05/2020 12:00:00 AM EDT pen injector 2 INJECT 1 SUBCUTANEOUSLY ONCE A WEEK INJECT 1 SUBCUTANEOUSLY ONCE A WEEK SOLD: 12/04/2020 [facility] vardenafil 20 MG Oral Tablet Vardenafil HCl 20 MG Vardenafil HCl 20 MG 08/11/2020 12:00:00 AM EDT active Vardenafil HCl 20 MG eCW1 ([facility]) vardenafil 20 MG Oral Tablet Vardenafil HCl 20 MG Vardenafil HCl 20 MG 08/11/2020 12:00:00 AM EDT active Vardenafil HCl 20 MG eCW1 ([facility]) 20 mg 08/11/2020 12:00:00 AM EDT tablet 6 TAKE 1 TABLET BY MOUTH 60 MINUTES BEFORE SEXUAL ACTIVITY NEEDED TAKE 1 TABLET BY MOUTH 60 MINUTES BEFORE SEXUAL ACTIVITY NEEDED SOLD: 01/22/2021 [facility] vardenafil 20 MG Oral Tablet Vardenafil HCl 20 MG Vardenafil HCl 20 MG 08/11/2020 12:00:00 AM EDT active Vardenafil HCl 20 MG eCW1 ([facility]) vardenafil 20 MG Oral Tablet Vardenafil HCl 20 MG Vardenafil HCl 20 MG 08/11/2020 12:00:00 AM EDT active Vardenafil HCl 20 MG eCW1 ([facility]) 20 mg 08/11/2020 12:00:00 AM EDT tablet 6 TAKE 1 TABLET BY MOUTH 60 MINUTES BEFORE SEXUAL ACTIVITY NEEDED TAKE 1 TABLET BY MOUTH 60 MINUTES BEFORE SEXUAL ACTIVITY NEEDED SOLD: 08/12/2020 [facility] 0.5 mg (11)- 1 mg (42) 07/04/2020 12:00:00 AM EDT tablets,do se pack 53 TAKE BY MOUTH DIRECTED TAKE BY MOUTH DIRECTED SOLD: 07/07/2020 [facility] 90 mcg/actuation 06/26/2020 12:00:00 AM EDT HFA aerosol inha ler 8 INHALE TWO PUFFS BY MOUTH FOUR TIMES A DAY NEEDED INHALE TWO PUFFS BY MOUTH FOUR TIMES A DAY NEEDED SOLD: 09/25/2020 [facility] 90 mcg/actuation 06/26/2020 12:00:00 AM EDT HFA aerosol inha ler 8 INHALE TWO PUFFS BY MOUTH FOUR TIMES A DAY NEEDED INHALE TWO PUFFS BY MOUTH FOUR TIMES A DAY NEEDED SOLD: 10/17/2020 [facility] 90 mcg/actuation 06/26/2020 12:00:00 AM EDT HFA aerosol inha ler 8 INHALE TWO PUFFS BY MOUTH FOUR TIMES A DAY NEEDED INHALE TWO PUFFS BY MOUTH FOUR TIMES A DAY NEEDED SOLD: 06/27/2020 [facility] 90 mcg/actuation 06/26/2020 12:00:00 AM EDT HFA aerosol inha ler 8 INHALE TWO PUFFS BY MOUTH FOUR TIMES A DAY NEEDED INHALE TWO PUFFS BY MOUTH FOUR TIMES A DAY NEEDED SOLD: 08/27/2020 [facility] 90 mcg/actuation 06/26/2020 12:00:00 AM EDT HFA aerosol inha ler 8 INHALE TWO PUFFS BY MOUTH FOUR TIMES A DAY NEEDED INHALE TWO PUFFS BY MOUTH FOUR TIMES A DAY NEEDED SOLD: 11/14/2020 [facility] 90 mcg/actuation 06/26/2020 12:00:00 AM EDT HFA aerosol inha ler 8 INHALE TWO PUFFS BY MOUTH FOUR TIMES A DAY NEEDED INHALE TWO PUFFS BY MOUTH FOUR TIMES A DAY NEEDED SOLD: 07/25/2020 [facility] Moderna Covid-19 Vaccine Moderna Covid-19 Vaccine 06/22/2020 12:00: 00 AM EDT active [facility] ([facility] 800-160 mg 06/22/2020 12:00:00 AM EDT tablet 20 TAKE ONE TABLET BY MOUTH TWICE A DAY FOR 10 DAYS TAKE ONE TABLET BY MOUTH TWICE A DAY FOR 10 DAYS SOLD: 06/22/2020 [facility] Sulfamethoxazole 800 MG / Trimethoprim 160 MG Oral Tab let Sulfamethoxazole/Trimethoprim DS 06/22/2020 12:00:00 AM EDT ORAL completed [facility] ([facility] 60 ACTUAT Albuterol 0.09 MG/ACTUAT Metered Dose Inhaler Albu terol Sulfate HFA 06/20/2020 12:00:00 AM EDT RESPIRATORY active [facility] ([facility], ) 0.05 % 04/27/2020 12:00:00 AM EST cream 15 APPLY TO AFFECTED AREA(S) ON FACE SPARINGLY TWO TIMES A DAY FOR 2 DAYS THEN NEEDED FOR SCALING APPLY TO AFFECTED AREA(S) ON FACE SPARINGLY TWO TIMES A DAY FOR 2 DAYS THEN NEEDED FOR SCALING SOLD: 04/29/2020 [facility] 50 mcg/actuation 04/19/2020 12:00:00 AM EST spray,suspension 48 SPRAY TWO SPRAYS IN EACH NOSTRIL EVERY DAY SPRAY TWO SPRAYS IN EACH NOSTRIL EVERY DAY SOLD: 04/20/2020 [facility] Flonase Allergy Relief Flonase Allergy Relief 04/18/2020 12:00:[address] active [facility] ([facility] 100 mg 04/05/2020 12:00:00 AM EST tablet 12 TAKE ONE TABLET BY MOUTH EVERY DAY NEEDED TAKE ONE TABLET BY MOUTH EVERY DAY NEEDED SOLD: 08/27/2020 [facility] 100 mg 04/05/2020 12:00:00 AM EST tablet 12 TAKE ONE TABLET BY MOUTH EVERY DAY NEEDED TAKE ONE TABLET BY MOUTH EVERY DAY NEEDED SOLD: 07/07/2020 [facility] 100 mg 04/05/2020 12:00:00 AM EST tablet 12 TAKE ONE TABLET BY MOUTH EVERY DAY NEEDED TAKE ONE TABLET BY MOUTH EVERY DAY NEEDED SOLD: 04/08/2020 [facility] 100 mg 04/05/2020 12:00:00 AM EST tablet 12 TAKE ONE TABLET BY MOUTH EVERY DAY NEEDED TAKE ONE TABLET BY MOUTH EVERY DAY NEEDED SOLD: 01/08/2021 [facility] sildenafil 100 MG Oral Tablet [Viagra] Viagra 04/04/2020 12:00:00 AM EST ORAL active [facility] ([facility] 17.5-3.13-1.6 gram 04/04/2020 12:00:00 AM EST recon [place]n 354 USE DIRECTED BY PHYSICIAN USE DIRECTED BY PHYSICIAN SOLD: 04/08/2020 [facility] Suprep Bowel Prep Kit Suprep Bowel Prep Kit 04/03/2020 12:00:00 AM EST completed [facility] ([facility]) 1.5 mg/0.5 mL 02/07/2020 12:00:00 AM EST pen injector 2 INJECT 1 SUBCUTANEOUSLY ONCE A WEEK INJECT 1 SUBCUTANEOUSLY ONCE A WEEK SOLD: 08/02/2020 [facility] 1.5 mg/0.5 mL 02/07/2020 12:00:00 AM EST pen injector 2 INJECT 1 SUBCUTANEOUSLY ONCE A WEEK INJECT 1 SUBCUTANEOUSLY ONCE A WEEK SOLD: 04/13/2020 [facility] 1.5 mg/0.5 mL 02/07/2020 12:00:00 AM EST pen injector 2 INJECT 1 SUBCUTANEOUSLY ONCE A WEEK INJECT 1 SUBCUTANEOUSLY ONCE A WEEK SOLD: 02/09/2020 [facility] 1.5 mg/0.5 mL 02/07/2020 12:00:00 AM EST pen injector 2 INJECT 1 SUBCUTANEOUSLY ONCE A WEEK INJECT 1 SUBCUTANEOUSLY ONCE A WEEK SOLD: 05/16/2020 [facility] 1.5 mg/0.5 mL 02/07/2020 12:00:00 AM EST pen injector 2 INJECT 1 SUBCUTANEOUSLY ONCE A WEEK INJECT 1 SUBCUTANEOUSLY ONCE A WEEK SOLD: 06/22/2020 [facility] 90 mcg/actuation 01/25/2020 12:00:00 AM EDT HFA aerosol inha ler 8 INHALE TWO PUFFS BY MOUTH FOUR TIMES A DAY NEEDED INHALE TWO PUFFS BY MOUTH FOUR TIMES A DAY NEEDED SOLD: 01/27/2020 [facility] 90 mcg/actuation 01/25/2020 12:00:00 AM EDT HFA aerosol inha ler 8 INHALE TWO PUFFS BY MOUTH FOUR TIMES A DAY NEEDED INHALE TWO PUFFS BY MOUTH FOUR TIMES A DAY NEEDED SOLD: 03/27/2020 [facility] 90 mcg/actuation 01/25/2020 12:00:00 AM EDT HFA aerosol inha ler 8 INHALE TWO PUFFS BY MOUTH FOUR TIMES A DAY NEEDED INHALE TWO PUFFS BY MOUTH FOUR TIMES A DAY NEEDED SOLD: 06/07/2020 [facility] 90 mcg/actuation 01/25/2020 12:00:00 AM EDT HFA aerosol inha ler 8 INHALE TWO PUFFS BY MOUTH FOUR TIMES A DAY NEEDED INHALE TWO PUFFS BY MOUTH FOUR TIMES A DAY NEEDED SOLD: 03/06/2020 [facility] 90 mcg/actuation 01/25/2020 12:00:00 AM EDT HFA aerosol inha ler 8 INHALE TWO PUFFS BY MOUTH FOUR TIMES A DAY NEEDED INHALE TWO PUFFS BY MOUTH FOUR TIMES A DAY NEEDED SOLD: 04/20/2020 [facility] 90 mcg/actuation 01/25/2020 12:00:00 AM EDT HFA aerosol inha ler 8 INHALE TWO PUFFS BY MOUTH FOUR TIMES A DAY NEEDED INHALE TWO PUFFS BY MOUTH FOUR TIMES A DAY NEEDED SOLD: 05/16/2020 [facility] 160-4.5 mcg/actuation 01/20/2020 12:00:00 AM EDT HFA aerosol inhaler 10 INHALE TWO PUFFS BY MOUTH TWICE A DAY INHALE TWO PUFFS BY MOUTH TWICE A DAY SOLD: 01/22/2020 [facility] 5-325 mg 01/11/2020 12:00:00 AM EDT tablet 30 TAKE ONE TO TWO TABLETS BY MOUTH EVERY 6 HOURS NEEDED FOR PAIN MAXIMUM DAILY DOSE = 6 TABLETS TAKE ONE TO TWO TABLETS BY MOUTH EVERY 6 HOURS NEEDED FOR PAIN MAXIMUM DAILY DOSE = 6 TABLETS SOLD: 01/11/2020 [facility] Acetaminophen 325 MG / Oxycodone Hydrochloride 5 MG Or al Tablet [Percocet] Percocet 01/11/2020 12:00:00 AM EDT ORAL completed [facility] ([facility], ) 0.5 mg (11)- 1 mg (42) 01/05/2020 12:00:00 AM EDT tablets,do se pack 53 TAKE BY MOUTH PER PACKAGE INSTRUCTIONS, CALL OFFICE FOR REFILLS TAKE BY MOUTH PER PACKAGE INSTRUCTIONS, CALL OFFICE FOR REFILLS SOLD: 01/06/2020 [facility] 90 mcg/actuation 08/03/2019 12:00:00 AM EDT HFA aerosol inha ler 8 INHALE TWO PUFFS BY MOUTH FOUR TIMES A DAY NEEDED INHALE TWO PUFFS BY MOUTH FOUR TIMES A DAY NEEDED SOLD: 12/28/2019 [facility] 160-4.5 mcg/actuation 08/02/2019 12:00:00 AM EDT HFA aerosol inhaler 10 INHALE TWO PUFFS BY MOUTH TWICE A DAY INHALE TWO PUFFS BY MOUTH TWICE A DAY SOLD: 12/28/2019 [facility] 1.5 mg/0.5 mL 06/16/2019 12:00:00 AM EDT pen injector 2 INJECT 1 SUBCUTANEOUSLY ONCE A WEEK INJECT 1 SUBCUTANEOUSLY ONCE A WEEK SOLD: 01/06/2020 [facility] Insurance Providers Payer name Policy type / Coverage type Policy ID Covered republican ID Covered republican's relationship to starr Policy Starr Plan Information [facility] [id number] Self [id number] [facility] Part B [id number] Self [id number] [facility] Part B [id number] Self [id number] Medicare [facility]/[place] Medicare Primary [id number] Self [id number] MEDICARE [id number] SP [id number] A Medicare [place] Medicare Primary [id number] Self [id number] Medicare C [id number] SELF [id number] A Medicare [facility] Medicare Primary [id number] Self [id number] MEDICARE [id number] Faiza [id number] A [facility] MEDICARE DIVISION [id number] S [id number] [place]ICARE [place] [id number] S [id number] MEDICARE A [id number] Self [id number] A [place] Plan F [id number] SELF [id number] Blue Cross Blue Shield P [id number] SPOUSE [id number] MEDICARE [id number] SP [id number] A DME Jurisdiction A [facility] C [id number] SELF [id number] BCBS EMPIRE [place] DIV [id number] SP [id number] UNITED HEALTHCARE [id number] SP [id number] EXCELLUS BCBS [id number] [place] YLS [id number] UNITED HEALTHCARE [id number] SP [id number] UNITED HEALTHCARE [id number] S [id number] BCBS EMPIRE [id number] S [id number] UNITED HEALTHCARE [id number] SP [id number] BCBS EMPIRE [place] DIV [id number] SP [id number] EMPIRE PLAN C U [id number] Self [id number] UNITED HEALTHCARE [id number] SP [id number] BCBS EMPIRE [place] DIV [id number] SP [id number] BCBS EMPIRE [place] DIV [id number] SP [id number] UNITED HEALTHCARE [id number] SP [id number] MEDICARE PART A -O/P [id number] 18 [id number] [employer] BCBS Medigap Part B [id number] Family Dependent United Healthcare [place] Medigap Part B [id number] [place] Medicare Primary [id number] Self UNITED HEALTHCARE O [id number] S [id number] EXCELLUS BCBS S [id number] S [id number] BLUE CROSS OTHER 1 [id number] MEDICARE [id number] SP [id number] BC/BS OF ULISESCA O [id number] P [id number] [facility] DIV [id number] SP [id number] [facility] [id number] SP [id number] [facility] [id number] SP [id number] MEDICARE [id number] SP [id number] A [facility] (HMO) [id number] Family Dependent [id number] [facility] Part B [id number] Family Dependent [id number] [facility] Part B [id number] Self [id number] Medicare (Part B) Medicare Primary [id number] Self [id number] [place] BC/BS [facility] Part B [id number] Family Dependent [id number] [facility] Medigap Part B [id number] Self [id number] Medicare (Part B) Medicare Primary [id number] Self [id number] Medicare (Part B) Medicare Primary [id number] Self 8 [id number] MEDICARE [id number] SP [id number] UNITED HEALTHCARE [id number] S [id number] BS EMPIRE [id number] S [id number] [facility] MEDICARE DIVISION [id number] S [id number] MEDICARE - [place] [id number] S [id number] BCBS EMPIRE [place] DIV UNAVAILABLE UNAVAILABLE [place] BCBS Medigap Part B [id number] Family Dependent [id number] [place] Plan Medigap Part B [id number] Self [id number] [facility] O [id number] S [id number] MEDICARE [id number] S [id number] A BCBS EMPIRE [place] DIV [id number] SP [id number] MEDICARE [id number] SP [id number] A [place] Medicare Primary [id number] Self [id number] EMPIRE ([facility]) O [id number] S [id number] [facility] [id number] SP [id number] [facility] -O/P [id number] 18 [id number] Problems, Conditions, and Diagnoses No Information Surgeries/Procedures Procedure Description Date Indications Data Source(s) OFFICE OUTPATIENT VISIT 25 MINUTES 01/09/2021 12:00:00 AM EDT IGNACIO ([facility] Capillary Blood Collection Finger, Heel, Ear Stick 10/11/2020 12:00:00 AM EDT IGNACIO ([facility] ) OFFICE OUTPATIENT VISIT 25 MINUTES 10/11/2020 12:00:00 AM EDLouise PIERRE ([facility] Spirometry 09/20/2020 12:00:00 AM EDWIN TONEY ([facility], ) Medication: Lidocaine HCl 2% Jelly 5mL Intravesically 08/11/2020 12:00:00 AM EDT eCW1 ([facility]) OFFICE OUTPATIENT VISIT 25 MINUTES 06/22/2020 12:00:00 AM EDT MEDENT ([facility] Colonoscopy W/ Poly 04/13/2020 12:00:00 AM EST MEDENT ([facility], ) Spirometry 03/20/2020 12:00:00 AM EST M EDENT ([facility], ) Laparoscopic Incisional Hernia W/ Mesh, Reducible 01/11/2020 12:00:00 AM EDT MEDENT ([facility], ) Electrocardiogram Complete 01/04/2020 12:00:00 AM EDT MEDENT ([facility] Results ID Date Data Source [id number] 01/09/2021 09:35:00 AM EDT MEDENT ([facility] Name Value Range Interpretation Code Description Data Ashley rce(s) Supporting Document(s) Trig 114 mg/dL 35-200 MEDENT ([facility] CHRONIC KIDNEY DISEASE STAGING PER NKF: MALE GFR INTERPRETATION: 20-49 YRS: [...] DESIRABLE: <130 MG/DL <110 MG/DL BORDERLINE-HIGH RISK: 130- 159 MG/DL 110-129 MG/DL HIGH RISK: >160 MG/DL >130 MG/DL *CHILDREN AND ADOLESCENTS REPRESENTS INDIVIDUALA AGED 2-19 YEARS EXCLUSIVE. Chol 208 mg/dL 0-200 Above high normal MEDENT ([facility] CHRONIC KIDNEY DISEASE STAGING PER NKF: MALE GFR INTERPRETATION: 20-49 YRS: [...] DESIRABLE: <130 MG/DL <110 MG/DL BORDERLINE-HIGH RISK: 130- 159 MG/DL 110-129 MG/DL HIGH RISK: >160 MG/DL >130 MG/DL *CHILDREN AND ADOLESCENTS REPRESENTS INDIVIDUALA AGED 2-19 YEARS EXCLUSIVE. LDL_C 145 Calc 75-129 Above high normal MEDENT ([facility] CHRONIC KIDNEY DISEASE STAGING PER NKF: MALE GFR INTERPRETATION: 20-49 YRS: [...] DESIRABLE: <130 MG/DL <110 MG/DL BORDERLINE-HIGH RISK: 130- 159 MG/DL 110-129 MG/DL HIGH RISK: >160 MG/DL >130 MG/DL *CHILDREN AND ADOLESCENTS REPRESENTS INDIVIDUALA AGED 2-19 YEARS EXCLUSIVE. Cho/HDL Ratio 5.3 CALC MEDENT ([facility] CHRONIC KIDNEY DISEASE STAGING PER NKF: MALE GFR INTERPRETATION: 20-49 YRS: [...] DESIRABLE: <130 MG/DL <110 MG/DL BORDERLINE-HIGH RISK: 130- 159 MG/DL 110-129 MG/DL HIGH RISK: >160 MG/DL >130 MG/DL *CHILDREN AND ADOLESCENTS REPRESENTS INDIVIDUALA AGED 2-19 YEARS EXCLUSIVE. Cholesterol in HDL [Mass/volume] in Serum or Plasma 40 mg/dL 35-55 MED[facility] ([facility] CHRONIC KIDNEY DISEASE STAGING PER NKF: MALE GFR INTERPRETATION: 20-49 YRS: [...] DESIRABLE: <130 MG/DL <110 MG/DL BORDERLINE-HIGH RISK: 130- 159 MG/DL 110-129 MG/DL HIGH RISK: >160 MG/DL >130 MG/DL *CHILDREN AND ADOLESCENTS REPRESENTS INDIVIDUALA AGED 2-19 YEARS EXCLUSIVE. ID Date Data Source [id number] 01/09/2021 09:35:00 AM EDT IGNACIO ([facility] Name Value Range Interpretation Code Description Data Ashley rce(s) Supporting Document(s) Glu 102 mg/dL 70-110 MEDENT ([employer] [facility] CHRONIC KIDNEY DISEASE STAGING PER NKF: MALE GFR INTERPRETATION: 20-49 YRS: [...] DESIRABLE: <130 MG/DL <110 MG/DL BORDERLINE-HIGH RISK: 130- 159 MG/DL 110-129 MG/DL HIGH RISK: >160 MG/DL >130 MG/DL *CHILDREN AND ADOLESCENTS REPRESENTS INDIVIDUALA AGED 2-19 YEARS EXCLUSIVE. BUN 22 mg/dL 8-23 MEDENT ([facility] [facility] CHRONIC KIDNEY DISEASE STAGING PER NKF: MALE GFR INTERPRETATION: 20-49 YRS: [...] DESIRABLE: <130 MG/DL <110 MG/DL BORDERLINE-HIGH RISK: 130- 159 MG/DL 110-129 MG/DL HIGH RISK: >160 MG/DL >130 MG/DL *CHILDREN AND ADOLESCENTS REPRESENTS INDIVIDUALA AGED 2-19 YEARS EXCLUSIVE. Na 140 mmol/L 136-145 [facility] CHRONIC KIDNEY DISEASE STAGING PER NKF: MALE GFR INTERPRETATION: 20-49 YRS: [...] DESIRABLE: <130 MG/DL <110 MG/DL BORDERLINE-HIGH RISK: 130- 159 MG/DL 110-129 MG/DL HIGH RISK: >160 MG/DL >130 MG/DL *CHILDREN AND ADOLESCENTS REPRESENTS INDIVIDUALA AGED 2-19 YEARS EXCLUSIVE. BUN/Creatinine Ratio 19.2 CALC MEDENT ([facility] CHRONIC KIDNEY DISEASE STAGING PER NKF: MALE GFR INTERPRETATION: 20-49 YRS: [...] DESIRABLE: <130 MG/DL <110 MG/DL BORDERLINE-HIGH RISK: 130- 159 MG/DL 110-129 MG/DL HIGH RISK: >160 MG/DL >130 MG/DL *CHILDREN AND ADOLESCENTS REPRESENTS INDIVIDUALA AGED 2-19 YEARS EXCLUSIVE. Creat 1.1 mg/dL 0.7-1.2 MED[facility] ([facility] CHRONIC KIDNEY DISEASE STAGING PER NKF: MALE GFR INTERPRETATION: 20-49 YRS: [...] DESIRABLE: <130 MG/DL <110 MG/DL BORDERLINE-HIGH RISK: 130- 159 MG/DL 110-129 MG/DL HIGH RISK: >160 MG/DL >130 MG/DL *CHILDREN AND ADOLESCENTS REPRESENTS INDIVIDUALA AGED 2-19 YEARS EXCLUSIVE. K 4.2 mmol/L 3.5-5.1 [facility] ([facility] CHRONIC KIDNEY DISEASE STAGING PER NKF: MALE GFR INTERPRETATION: 20-49 YRS: [...] DESIRABLE: <130 MG/DL <110 MG/DL BORDERLINE-HIGH RISK: 130- 159 MG/DL 110-129 MG/DL HIGH RISK: >160 MG/DL >130 MG/DL *CHILDREN AND ADOLESCENTS REPRESENTS INDIVIDUALA AGED 2-19 YEARS EXCLUSIVE. Co2 19.6 mmol/L 22.0-29.0 Below low normal [facility] ([facility] CHRONIC KIDNEY DISEASE STAGING PER NKF: MALE GFR INTERPRETATION: 20-49 YRS: [...] DESIRABLE: <130 MG/DL <110 MG/DL BORDERLINE-HIGH RISK: 130- 159 MG/DL 110-129 MG/DL HIGH RISK: >160 MG/DL >130 MG/DL *CHILDREN AND ADOLESCENTS REPRESENTS INDIVIDUALA AGED 2-19 YEARS EXCLUSIVE. CL 105.3 mmol/L 98.0-107.0 MEDENT ([facility] CHRONIC KIDNEY DISEASE STAGING PER NKF: MALE GFR INTERPRETATION: 20-49 YRS: [...] DESIRABLE: <130 MG/DL <110 MG/DL BORDERLINE-HIGH RISK: 130- 159 MG/DL 110-129 MG/DL HIGH RISK: >160 MG/DL >130 MG/DL *CHILDREN AND ADOLESCENTS REPRESENTS INDIVIDUALA AGED 2-19 YEARS EXCLUSIVE. TP 6.5 g/dL 6.6-8.7 Below low normal MEDENT ( [facility] CHRONIC KIDNEY DISEASE STAGING PER NKF: MALE GFR INTERPRETATION: 20-49 YRS: [...] DESIRABLE: <130 MG/DL <110 MG/DL BORDERLINE-HIGH RISK: 130- 159 MG/DL 110-129 MG/DL HIGH RISK: >160 MG/DL >130 MG/DL *CHILDREN AND ADOLESCENTS REPRESENTS INDIVIDUALA AGED 2-19 YEARS EXCLUSIVE. CA 9.4 mg/dL 8.6-10.2 [facility] ([facility] CHRONIC KIDNEY DISEASE STAGING PER NKF: MALE GFR INTERPRETATION: 20-49 YRS: [...] DESIRABLE: <130 MG/DL <110 MG/DL BORDERLINE-HIGH RISK: 130- 159 MG/DL 110-129 MG/DL HIGH RISK: >160 MG/DL >130 MG/DL *CHILDREN AND ADOLESCENTS REPRESENTS INDIVIDUALA AGED 2-19 YEARS EXCLUSIVE. Alb 4.6 g/dL 3.5-5.2 [facility] ([facility] CHRONIC KIDNEY DISEASE STAGING PER NKF: MALE GFR INTERPRETATION: 20-49 YRS: [...] DESIRABLE: <130 MG/DL <110 MG/DL BORDERLINE-HIGH RISK: 130- 159 MG/DL 110-129 MG/DL HIGH RISK: >160 MG/DL >130 MG/DL *CHILDREN AND ADOLESCENTS REPRESENTS INDIVIDUALA AGED 2-19 YEARS EXCLUSIVE. Globulin 2.0 CALC [facility] ([facility] CHRONIC KIDNEY DISEASE STAGING PER NKF: MALE GFR INTERPRETATION: 20-49 YRS: [...] DESIRABLE: <130 MG/DL <110 MG/DL BORDERLINE-HIGH RISK: 130- 159 MG/DL 110-129 MG/DL HIGH RISK: >160 MG/DL >130 MG/DL *CHILDREN AND ADOLESCENTS REPRESENTS INDIVIDUALA AGED 2-19 YEARS EXCLUSIVE. A/G Ratio 2.3 CALC [facility] ([facility] CHRONIC KIDNEY DISEASE STAGING PER NKF: MALE GFR INTERPRETATION: 20-49 YRS: [...] DESIRABLE: <130 MG/DL <110 MG/DL BORDERLINE-HIGH RISK: 130- 159 MG/DL 110-129 MG/DL HIGH RISK: >160 MG/DL >130 MG/DL *CHILDREN AND ADOLESCENTS REPRESENTS INDIVIDUALA AGED 2-19 YEARS EXCLUSIVE. Alt (SGPT) 9 U/L 0-41 [facility] ([facility] CHRONIC KIDNEY DISEASE STAGING PER NKF: MALE GFR INTERPRETATION: 20-49 YRS: [...] DESIRABLE: <130 MG/DL <110 MG/DL BORDERLINE-HIGH RISK: 130- 159 MG/DL 110-129 MG/DL HIGH RISK: >160 MG/DL >130 MG/DL *CHILDREN AND ADOLESCENTS REPRESENTS INDIVIDUALA AGED 2-19 YEARS EXCLUSIVE. Alp 87.7 U/L 40-129 [facility] ([facility] CHRONIC KIDNEY DISEASE STAGING PER NKF: MALE GFR INTERPRETATION: 20-49 YRS: [...] DESIRABLE: <130 MG/DL <110 MG/DL BORDERLINE-HIGH RISK: 130- 159 MG/DL 110-129 MG/DL HIGH RISK: >160 MG/DL >130 MG/DL *CHILDREN AND ADOLESCENTS REPRESENTS INDIVIDUALA AGED 2-19 YEARS EXCLUSIVE. Ast (Sgot) 12 U/L 0-40 [facility] ([facility] CHRONIC KIDNEY DISEASE STAGING PER NKF: MALE GFR INTERPRETATION: 20-49 YRS: [...] DESIRABLE: <130 MG/DL <110 MG/DL BORDERLINE-HIGH RISK: 130- 159 MG/DL 110-129 MG/DL HIGH RISK: >160 MG/DL >130 MG/DL *CHILDREN AND ADOLESCENTS REPRESENTS INDIVIDUALA AGED 2-19 YEARS EXCLUSIVE. Anion Gap 19 mmol/L MEDENT ([facility] CHRONIC KIDNEY DISEASE STAGING PER NKF: MALE GFR INTERPRETATION: 20-49 YRS: [...] DESIRABLE: <130 MG/DL <110 MG/DL BORDERLINE-HIGH RISK: 130- 159 MG/DL 110-129 MG/DL HIGH RISK: >160 MG/DL >130 MG/DL *CHILDREN AND ADOLESCENTS REPRESENTS INDIVIDUALA AGED 2-19 YEARS EXCLUSIVE. Tbili 0.41 mg/dL 0.0-1.2 [facility] ([facility] CHRONIC KIDNEY DISEASE STAGING PER NKF: MALE GFR INTERPRETATION: 20-49 YRS: [...] DESIRABLE: <130 MG/DL <110 MG/DL BORDERLINE-HIGH RISK: 130- 159 MG/DL 110-129 MG/DL HIGH RISK: >160 MG/DL >130 MG/DL *CHILDREN AND ADOLESCENTS REPRESENTS INDIVIDUALA AGED 2-19 YEARS EXCLUSIVE. Osmolality-Calculated 282.3 CALC MED ENT ([facility] CHRONIC KIDNEY DISEASE STAGING PER NKF: MALE GFR INTERPRETATION: 20-49 YRS: [...] DESIRABLE: <130 MG/DL <110 MG/DL BORDERLINE-HIGH RISK: 130- 159 MG/DL 110-129 MG/DL HIGH RISK: >160 MG/DL >130 MG/DL *CHILDREN AND ADOLESCENTS REPRESENTS INDIVIDUALA AGED 2-19 YEARS EXCLUSIVE. eGFR 78 # MEDMARCUS ( [facility] CHRONIC KIDNEY DISEASE STAGING PER NKF: MALE GFR INTERPRETATION: 20-49 YRS: [...] DESIRABLE: <130 MG/DL <110 MG/DL BORDERLINE-HIGH RISK: 130- 159 MG/DL 110-129 MG/DL HIGH RISK: >160 MG/DL >130 MG/DL *CHILDREN AND ADOLESCENTS REPRESENTS INDIVIDUALA AGED 2-19 YEARS EXCLUSIVE. eGFR Non-Afr. Algerian 67 # MEDENT ([facility] CHRONIC KIDNEY DISEASE STAGING PER NKF: MALE GFR INTERPRETATION: 20-49 YRS: [...] DESIRABLE: <130 MG/DL <110 MG/DL BORDERLINE-HIGH RISK: 130- 159 MG/DL 110-129 MG/DL HIGH RISK: >160 MG/DL >130 MG/DL *CHILDREN AND ADOLESCENTS REPRESENTS INDIVIDUALA AGED 2-19 YEARS EXCLUSIVE. ID Date Data Source [id number] 01/09/2021 09:35:00 AM EDT MEDENT ([facility] Name Value Range Interpretation Code Description Data Ashley rce(s) Supporting Document(s) Hemoglobin A1c/Hemoglobin.total in Blood 5.9 % 4.50-6.20 MED[facility] ([facility] ID Date Data Source [id number] 10/11/2020 01:34:00 PM EDT MEDENT ([facility] Name Value Range Interpretation Code Description Data Ashley rce(s) Supporting Document(s) Hemoglobin A1c/Hemoglobin.total in Blood 6.3 % 4.50-6.20 Above high normal MEDENT ([facility] [facility] ID Date Data Source CT ABD & Pelvis w/o FOL by BERNICE 07/21/2020 12:00:00 AM EDT eC W1 ([facility]) Name Value Range Interpretation Code Description Data Ashley rce(s) Supporting Document(s) CT ABD & Pelvis w/o FOL by BERNICE eCW1 ([facility]) ID Date Data Source [id number] 07/11/2020 09:05:00 AM EDT MEDENT ([facility] Name Value Range Interpretation Code Description Data Ashley rce(s) Supporting Document(s) Hemoglobin A1c/Hemoglobin.total in Blood 6.3 % 4.50-6.20 Above high normal MEDENT ([facility] ID Date Data Source [id number] 07/11/2020 09:00:00 AM EDT MEDENT ([facility] Name Value Range Interpretation Code Description Data Ashley rce(s) Supporting Document(s) Prostate specific Ag [Mass/volume] in Serum or Plasma 0.89 ng/mL 0.0- 4.0 MEDMARCUS ([facility] ID Date Data Source [id number] 07/11/2020 08:59:00 AM EDT IGNACIO ([facility] Name Value Range Interpretation Code Description Data Ashley rce(s) Supporting Document(s) Chol 180 mg/dL 0-200 MEDMARCUS ([facility] CHRONIC KIDNEY DISEASE STAGING PER NKF: MALE GFR INTERPRETATION: 20-49 YRS: [...] DESIRABLE: <130 MG/DL <110 MG/DL BORDERLINE-HIGH RISK: 130- 159 MG/DL 110-129 MG/DL HIGH RISK: >160 MG/DL >130 MG/DL *CHILDREN AND ADOLESCENTS REPRESENTS INDIVIDUALA AGED 2-19 YEARS EXCLUSIVE. Cholesterol in HDL [Mass/volume] in Serum or Plasma 42 mg/dL 35-55 MEDENT ([facility] CHRONIC KIDNEY DISEASE STAGING PER NKF: MALE GFR INTERPRETATION: 20-49 YRS: [...] DESIRABLE: <130 MG/DL <110 MG/DL BORDERLINE-HIGH RISK: 130- 159 MG/DL 110-129 MG/DL HIGH RISK: >160 MG/DL >130 MG/DL *CHILDREN AND ADOLESCENTS REPRESENTS INDIVIDUALA AGED 2-19 YEARS EXCLUSIVE. Trig 191 mg/dL 35-200 [facility] ([facility] CHRONIC KIDNEY DISEASE STAGING PER NKF: MALE GFR INTERPRETATION: 20-49 YRS: [...] DESIRABLE: <130 MG/DL <110 MG/DL BORDERLINE-HIGH RISK: 130- 159 MG/DL 110-129 MG/DL HIGH RISK: >160 MG/DL >130 MG/DL *CHILDREN AND ADOLESCENTS REPRESENTS INDIVIDUALA AGED 2-19 YEARS EXCLUSIVE. LDL_C 100 Calc 75-129 [facility] ([facility] CHRONIC KIDNEY DISEASE STAGING PER NKF: MALE GFR INTERPRETATION: 20-49 YRS: [...] DESIRABLE: <130 MG/DL <110 MG/DL BORDERLINE-HIGH RISK: 130- 159 MG/DL 110-129 MG/DL HIGH RISK: >160 MG/DL >130 MG/DL *CHILDREN AND ADOLESCENTS REPRESENTS INDIVIDUALA AGED 2-19 YEARS EXCLUSIVE. Cho/HDL Ratio 4.3 [facility]C [facility] CHRONIC KIDNEY DISEASE STAGING PER NKF: MALE GFR INTERPRETATION: 20-49 YRS: [...] DESIRABLE: <130 MG/DL <110 MG/DL BORDERLINE-HIGH RISK: 130- 159 MG/DL 110-129 MG/DL HIGH RISK: >160 MG/DL >130 MG/DL *CHILDREN AND ADOLESCENTS REPRESENTS INDIVIDUALA AGED 2-19 YEARS EXCLUSIVE. ID Date Data Source [id number] 07/11/2020 08:59:00 AM EDT IGNACIO ([facility] Name Value Range Interpretation Code Description Data Ashley rce(s) Supporting Document(s) Glu 207 mg/dL 70-110 Above high normal IGNACIO ([facility] CHRONIC KIDNEY DISEASE STAGING PER NKF: MALE GFR INTERPRETATION: 20-49 YRS: [...] DESIRABLE: <130 MG/DL <110 MG/DL BORDERLINE-HIGH RISK: 130- 159 MG/DL 110-129 MG/DL HIGH RISK: >160 MG/DL >130 MG/DL *CHILDREN AND ADOLESCENTS REPRESENTS INDIVIDUALA AGED 2-19 YEARS EXCLUSIVE. BUN 20 mg/dL 8-23 MEDMARCUS ([facility] CHRONIC KIDNEY DISEASE STAGING PER NKF: MALE GFR INTERPRETATION: 20-49 YRS: [...] DESIRABLE: <130 MG/DL <110 MG/DL BORDERLINE-HIGH RISK: 130- 159 MG/DL 110-129 MG/DL HIGH RISK: >160 MG/DL >130 MG/DL *CHILDREN AND ADOLESCENTS REPRESENTS INDIVIDUALA AGED 2-19 YEARS EXCLUSIVE. BUN/Creatinine Ratio 18.2 CALC MEDENT ([facility] CHRONIC KIDNEY DISEASE STAGING PER NKF: MALE GFR INTERPRETATION: 20-49 YRS: [...] DESIRABLE: <130 MG/DL <110 MG/DL BORDERLINE-HIGH RISK: 130- 159 MG/DL 110-129 MG/DL HIGH RISK: >160 MG/DL >130 MG/DL *CHILDREN AND ADOLESCENTS REPRESENTS INDIVIDUALA AGED 2-19 YEARS EXCLUSIVE. Creat 1.1 mg/dL 0.7-1.2 MEDENT ([facility] CHRONIC KIDNEY DISEASE STAGING PER NKF: MALE GFR INTERPRETATION: 20-49 YRS: [...] DESIRABLE: <130 MG/DL <110 MG/DL BORDERLINE-HIGH RISK: 130- 159 MG/DL 110-129 MG/DL HIGH RISK: >160 MG/DL >130 MG/DL *CHILDREN AND ADOLESCENTS REPRESENTS INDIVIDUALA AGED 2-19 YEARS EXCLUSIVE. Na 134 mmol/L 136-145 Below low normal [facility] ( [facility] CHRONIC KIDNEY DISEASE STAGING PER NKF: MALE GFR INTERPRETATION: 20-49 YRS: [...] DESIRABLE: <130 MG/DL <110 MG/DL BORDERLINE-HIGH RISK: 130- 159 MG/DL 110-129 MG/DL HIGH RISK: >160 MG/DL >130 MG/DL *CHILDREN AND ADOLESCENTS REPRESENTS INDIVIDUALA AGED 2-19 YEARS EXCLUSIVE. K 4.1 mmol/L 3.5-5.1 [facility] ([facility] CHRONIC KIDNEY DISEASE STAGING PER NKF: MALE GFR INTERPRETATION: 20-49 YRS: [...] DESIRABLE: <130 MG/DL <110 MG/DL BORDERLINE-HIGH RISK: 130- 159 MG/DL 110-129 MG/DL HIGH RISK: >160 MG/DL >130 MG/DL *CHILDREN AND ADOLESCENTS REPRESENTS INDIVIDUALA AGED 2-19 YEARS EXCLUSIVE. CL 99.9 mmol/L 98.0-107.0 [facility] ([facility] CHRONIC KIDNEY DISEASE STAGING PER NKF: MALE GFR INTERPRETATION: 20-49 YRS: [...] DESIRABLE: <130 MG/DL <110 MG/DL BORDERLINE-HIGH RISK: 130- 159 MG/DL 110-129 MG/DL HIGH RISK: >160 MG/DL >130 MG/DL *CHILDREN AND ADOLESCENTS REPRESENTS INDIVIDUALA AGED 2-19 YEARS EXCLUSIVE. Co2 21.9 mmol/L 22.0-29.0 Below low normal [facility] ([facility] CHRONIC KIDNEY DISEASE STAGING PER NKF: MALE GFR INTERPRETATION: 20-49 YRS: [...] DESIRABLE: <130 MG/DL <110 MG/DL BORDERLINE-HIGH RISK: 130- 159 MG/DL 110-129 MG/DL HIGH RISK: >160 MG/DL >130 MG/DL *CHILDREN AND ADOLESCENTS REPRESENTS INDIVIDUALA AGED 2-19 YEARS EXCLUSIVE. CA 8.8 mg/dL 8.6-10.2 [facility] ([facility] CHRONIC KIDNEY DISEASE STAGING PER NKF: MALE GFR INTERPRETATION: 20-49 YRS: [...] DESIRABLE: <130 MG/DL <110 MG/DL BORDERLINE-HIGH RISK: 130- 159 MG/DL 110-129 MG/DL HIGH RISK: >160 MG/DL >130 MG/DL *CHILDREN AND ADOLESCENTS REPRESENTS INDIVIDUALA AGED 2-19 YEARS EXCLUSIVE. TP 6.2 g/dL 6.6-8.7 Below low normal [facility] ( [facility] CHRONIC KIDNEY DISEASE STAGING PER NKF: MALE GFR INTERPRETATION: 20-49 YRS: [...] DESIRABLE: <130 MG/DL <110 MG/DL BORDERLINE-HIGH RISK: 130- 159 MG/DL 110-129 MG/DL HIGH RISK: >160 MG/DL >130 MG/DL *CHILDREN AND ADOLESCENTS REPRESENTS INDIVIDUALA AGED 2-19 YEARS EXCLUSIVE. Alb 4.2 g/dL 3.5-5.2 [facility] ([facility] CHRONIC KIDNEY DISEASE STAGING PER NKF: MALE GFR INTERPRETATION: 20-49 YRS: [...] DESIRABLE: <130 MG/DL <110 MG/DL BORDERLINE-HIGH RISK: 130- 159 MG/DL 110-129 MG/DL HIGH RISK: >160 MG/DL >130 MG/DL *CHILDREN AND ADOLESCENTS REPRESENTS INDIVIDUALA AGED 2-19 YEARS EXCLUSIVE. A/G Ratio 2.1 CALC [facility] ([facility] CHRONIC KIDNEY DISEASE STAGING PER NKF: MALE GFR INTERPRETATION: 20-49 YRS: [...] DESIRABLE: <130 MG/DL <110 MG/DL BORDERLINE-HIGH RISK: 130- 159 MG/DL 110-129 MG/DL HIGH RISK: >160 MG/DL >130 MG/DL *CHILDREN AND ADOLESCENTS REPRESENTS INDIVIDUALA AGED 2-19 YEARS EXCLUSIVE. Globulin 2.0 CALC [facility] ([facility] CHRONIC KIDNEY DISEASE STAGING PER NKF: MALE GFR INTERPRETATION: 20-49 YRS: [...] DESIRABLE: <130 MG/DL <110 MG/DL BORDERLINE-HIGH RISK: 130- 159 MG/DL 110-129 MG/DL HIGH RISK: >160 MG/DL >130 MG/DL *CHILDREN AND ADOLESCENTS REPRESENTS INDIVIDUALA AGED 2-19 YEARS EXCLUSIVE. Ast (Sgot) 12 U/L 0-40 [facility] ([facility] CHRONIC KIDNEY DISEASE STAGING PER NKF: MALE GFR INTERPRETATION: 20-49 YRS: [...] DESIRABLE: <130 MG/DL <110 MG/DL BORDERLINE-HIGH RISK: 130- 159 MG/DL 110-129 MG/DL HIGH RISK: >160 MG/DL >130 MG/DL *CHILDREN AND ADOLESCENTS REPRESENTS INDIVIDUALA AGED 2-19 YEARS EXCLUSIVE. Alt (SGPT) 11 U/L 0-41 [facility] ([facility] CHRONIC KIDNEY DISEASE STAGING PER NKF: MALE GFR INTERPRETATION: 20-49 YRS: [...] DESIRABLE: <130 MG/DL <110 MG/DL BORDERLINE-HIGH RISK: 130- 159 MG/DL 110-129 MG/DL HIGH RISK: >160 MG/DL >130 MG/DL *CHILDREN AND ADOLESCENTS REPRESENTS INDIVIDUALA AGED 2-19 YEARS EXCLUSIVE. Alp 79.4 U/L 40-129 [facility] ([facility] CHRONIC KIDNEY DISEASE STAGING PER NKF: MALE GFR INTERPRETATION: 20-49 YRS: [...] DESIRABLE: <130 MG/DL <110 MG/DL BORDERLINE-HIGH RISK: 130- 159 MG/DL 110-129 MG/DL HIGH RISK: >160 MG/DL >130 MG/DL *CHILDREN AND ADOLESCENTS REPRESENTS INDIVIDUALA AGED 2-19 YEARS EXCLUSIVE. Osmolality-Calculated 276.4 CALC MED ENT ([facility] CHRONIC KIDNEY DISEASE STAGING PER NKF: MALE GFR INTERPRETATION: 20-49 YRS: [...] DESIRABLE: <130 MG/DL <110 MG/DL BORDERLINE-HIGH RISK: 130- 159 MG/DL 110-129 MG/DL HIGH RISK: >160 MG/DL >130 MG/DL *CHILDREN AND ADOLESCENTS REPRESENTS INDIVIDUALA AGED 2-19 YEARS EXCLUSIVE. Tbili 0.52 mg/dL 0.0-1.2 MEDENT ([facility] CHRONIC KIDNEY DISEASE STAGING PER NKF: MALE GFR INTERPRETATION: 20-49 YRS: [...] DESIRABLE: <130 MG/DL <110 MG/DL BORDERLINE-HIGH RISK: 130- 159 MG/DL 110-129 MG/DL HIGH RISK: >160 MG/DL >130 MG/DL *CHILDREN AND ADOLESCENTS REPRESENTS INDIVIDUALA AGED 2-19 YEARS EXCLUSIVE. eGFR 78 # MEDMARCUS ( [facility] CHRONIC KIDNEY DISEASE STAGING PER NKF: MALE GFR INTERPRETATION: 20-49 YRS: [...] DESIRABLE: <130 MG/DL <110 MG/DL BORDERLINE-HIGH RISK: 130- 159 MG/DL 110-129 MG/DL HIGH RISK: >160 MG/DL >130 MG/DL *CHILDREN AND ADOLESCENTS REPRESENTS INDIVIDUALA AGED 2-19 YEARS EXCLUSIVE. Anion Gap 16 mmol/L MEDENT ([facility] CHRONIC KIDNEY DISEASE STAGING PER NKF: MALE GFR INTERPRETATION: 20-49 YRS: [...] DESIRABLE: <130 MG/DL <110 MG/DL BORDERLINE-HIGH RISK: 130- 159 MG/DL 110-129 MG/DL HIGH RISK: >160 MG/DL >130 MG/DL *CHILDREN AND ADOLESCENTS REPRESENTS INDIVIDUALA AGED 2-19 YEARS EXCLUSIVE. eGFR Non-Afr. Algerian 67 # IGNACIO ([facility] CHRONIC KIDNEY DISEASE STAGING PER NKF: MALE GFR INTERPRETATION: 20-49 YRS: [...] DESIRABLE: <130 MG/DL <110 MG/DL BORDERLINE-HIGH RISK: 130- 159 MG/DL 110-129 MG/DL HIGH RISK: >160 MG/DL >130 MG/DL *CHILDREN AND ADOLESCENTS REPRESENTS INDIVIDUALA AGED 2-19 YEARS EXCLUSIVE. ID Date Data Source [id number] 06/22/2020 01:53:00 PM EDT IGNACIO ([facility] Name Value Range Interpretation Code Description Data Ashley rce(s) Supporting Document(s) Pathology report site of origin Narrative Laboratory test result MEDENT ([facility] No. of containers..01 Sterile Cup SRC:MARCO A JERNIGAN [id number] Laboratory test finding (navigational concept) Laboratory test result MEDENT ([facility] No. of containers..01 Sterile Cup SRC:MARCO A JERNIGAN [id number] Pathology report final diagnosis Narrative Laboratory test result MEDENT ([facility] No. of containers..01 Sterile Cup SRC:MARCO A JERNIGAN [id number] Laboratory test finding (navigational concept) Laboratory test result MEDENT ([facility] No. of containers..01 Sterile Cup SRC:MARCO A JERNIGAN [id number] Pathology report comments [Interpretation] Narrative Laboratory clint t result MEDENT ([facility] No. of containers..01 Sterile Cup SRC:MARCO A JERNIGAN [id number] Pathologist name Laboratory test result MEDENT ([facility] No. of containers..01 Sterile Cup SRC:MARCO A JERNIGAN [id number] Pathology report gross observation Narrative Laboratory test result MEDENT ([facility] No. of containers..01 Sterile Cup SRC:MARCO A JERNIGAN [id number] Laboratory test finding (navigational concept) Laboratory test result MEDENT ([facility] No. of containers..01 Sterile Cup SRC:MARCO A JERNIGAN [id number] ID Date Data Source [id number] 06/22/2020 01:49:00 PM EDT MEDENT ([facility] Name Value Range Interpretation Code Description Data Ashley rce(s) Supporting Document(s) Urine Culture, Routine Laboratory test result MEDENT ([facility] SRC:URINE Bacteria identified in Urine by Culture Laboratory test result MEDENT ([facility] SRC:URINE ID Date Data Source [id number] 06/22/2020 01:48:00 PM EDT MEDENT ([facility] Name Value Range Interpretation Code Description Data Ashley rce(s) Supporting Document(s) Comment 1 Laboratory test result ME DENT ([facility] Color Urine Laboratory test result M EDENT ([facility] Specific [place] 1.030 1.00-1.03 MEDENT ([facility] Appearance of Urine Laboratory test result MEDENT ([facility] PH Urine 6.0 5.0-8.0 MEDENT ([facility] Bilirubin.total [Presence] in Urine by Test strip Laboratory test res ult MEDENT ([facility] Glucose Urine Laboratory test result MEDENT ([facility] Blood Urine Laboratory test result M EDENT ([facility] Protein Urine Laboratory test result MEDENT ([facility] Ketones Laboratory test result MEDENT ([facility] Urobilinogen 1.0 EU/dl 0.2-1.0 MEDENT ([facility] Nitrite Laboratory test result MEDENT ([facility] Leukocytes Laboratory test result ME DENT ([facility] ID Date Data Source [id number] 04/13/2020 08:55:00 AM EST MEDENT ([facility]) Name Value Range Interpretation Code Description [facility] Surgical pathology study Laboratory test result MEDENT ([facility], ) FINAL DIAGNOSIS Colon, polyps, polypectomy: Adenomatous polyp/tubular adenoma fragments. 04/14/2020 - 1037 CLINICAL DIAGNOSIS H/O colon polyps 04/13/2020 - 1320 GROSS DIAGNOSIS Received in formalin labeled "colon polyps" is a 1 x 0.4 x 0.4 cm. aggregate of polyp fragments. All in one. - 04/13/2020 - 1320 Signed Breezy Burroughs MD 04/14/2020 1208 ID Date Data Source [id number] 04/08/2020 09:00:00 AM EST [facility] Name Value Range Interpretation Code Description Data [facility] rce(s) Supporting Document(s) SARS coronavirus 2 RNA [facility] This lab was ordered by [facility] and reported by [facility]. ID Date Data Source [id number] 04/04/2020 01:36:00 PM EST MEDENT ([facility] Name Value Range Interpretation Code Description Data Ashley rce(s) Supporting Document(s) Hemoglobin A1c/Hemoglobin.total in Blood 6.0 % 4.50-6.20 MED[facility] ([facility] ID Date Data Source [id number] 03/20/2020 11:00:00 AM EST MEDENT ([facility], ) Name Value Range Interpretation Code Description Data Ashley rce(s) Supporting Document(s) PDFReport Laboratory test result MEDENT ([facility], ) FVC-Pre 3.52 L MEDENT ([facility]) FVC-Pred 4.43 L MEDENT ([facility]) FVC-%Pred-Pre 79 L MEDENT ([facility], ) FVC-LLN 3.49 L MEDENT ([facility]) Fev1-Pred 3.26 L MEDENT ([facility]) Fev1-Pre 2.34 L MED[facility] ([facility]) Fev1-%Pred-Pre 71 L MEDENT ([facility]) Fev1-LLN 2.47 L MED[facility] ([facility]) Fev6-Pred 4.18 L MED[facility] ([facility]) Fev6-Pre 3.52 L MEDENT ([facility]) Fev6-%Pred-Pre 84 L MEDENT ([facility]) Xvv6bsm-Fmc 67 % MEDENT ([facility]) Thw8icy-Ebiu 74 % [facility] ([facility]) Fev6-LLN 3.27 L MEDENT ([facility]) Qsd7mbm-Vjxv 94 % MED[facility] ([facility]) Uxb7afh-%Pred-Pre 90 % MED[facility] ([facility]) Jrv9xtr-LKP 64 % [facility] ([facility]) Rsm9ida-%Pred-Pre 105 % MED[facility] ([facility]) Wcw8wer-Zzb 100 % MED[facility] ([facility]) FEFMax-Pred 8.36 L/E/sec MEDENT ([facility]) FEFMax-%Pred-Pre 69 L/E/sec MED[facility] ([facility]) FEFMax-LLN 6.04 L/E/sec MED[facility] ([facility]) FEFMax-Pre 5.83 L/E/sec [facility] ([facility]) Osz2793-%Pred-Pre 53 L/E/sec [facility] ([facility]) Lie5983-Kbz 1.31 L/E/sec MED[facility] ([facility]) Ycl2917-Ytyt 2.47 L/E/sec MED[facility] ([facility]) Qwz2khc5-Siop 78 % MEDENT ([facility]) Xiv8797-PSZ 0.87 L/E/sec MED[facility] ([facility]) ExpTime-Pre 6.31 sec MEDENT ([facility]) Ada0knq9-Zql 67 % [facility] ([facility]) Krq1aiy1-PVZ 69 % [facility] ([facility]) Nxh5ggz4-%Pred-Pre 85 % MED[facility] ([facility]) ID Date Data Source [id number] 02/28/2020 12:00:00 AM EST [facility] Name Value Range Interpretation Code Description Data Ashley rce(s) Supporting Document(s) SARS coronavirus 2 Ag [facility] This lab was ordered by [facility] and reported by [facility]. ID Date Data Source [id number] 01/11/2020 02:09:00 PM EDT MEDENT ([facility] Name Value Range Interpretation Code Description Data Ashley rce(s) Supporting Document(s) Glucose [Mass/volume] in Capillary blood by Glucometer 144 mg/dL 83-110 Above high normal MEDENT ([facility] ) ID Date Data Source [id number] 01/11/2020 02:09:00 PM EDT MEDENT ([facility]) Name Value Range Interpretation Code Description Data Ashley rce(s) Supporting Document(s) Glucose [Mass/volume] in Capillary blood by Glucometer 144 mg/dL 83-110 Above high normal MED[facility] ([facility]) ID Date Data Source [id number] 01/11/2020 10:46:00 AM EDT MEDENT ([facility] Name Value Range Interpretation Code Description Data Ashley rce(s) Supporting Document(s) Glucose [Mass/volume] in Capillary blood by Glucometer 130 mg/dL 83-110 Above high normal [facility] ([facility] ) ID Date Data Source [id number] 01/11/2020 10:46:00 AM EDT MEDENT ([facility]) Name Value Range Interpretation Code Description Data Ashley rce(s) Supporting Document(s) Glucose [Mass/volume] in Capillary blood by Glucometer 130 mg/dL 83-110 Above high normal [facility] ([facility]) ID Date Data Source [id number] 01/06/2020 10:00:00 AM EDT [facility] Name Value Range Interpretation Code Description Data Ashley rce(s) Supporting Document(s) SARS coronavirus 2 RNA [facility] This lab was ordered by [facility] and reported by [facility]. ID Date Data Source [id number] 01/04/2020 01:59:00 PM EDT MEDENT ([facility] Name Value Range Interpretation Code Description Data Ashley rce(s) Supporting Document(s) Hemoglobin A1c/Hemoglobin.total in Blood 6.1 % 4.50-6.20 MEDENT ([facility] ID Date Data Source [id number] 01/04/2020 01:59:00 PM EDT MEDENT ([facility] Name Value Range Interpretation Code Description Data Ashley rce(s) Supporting Document(s) Glu 198 mg/dL 70-110 Above high normal MEDENT ([facility] NORMAL RANGES Age WBC RBC HGB HCT MCV PLT Adult M 4.1-10.9 4.20-6.30 12.0-18.0 37.0-51.0 80-97 140-440 Adult F 4.1-10.9 4.04-5.48 12.0-18.0 37.0-51.0 80-97 140-440 0 -1 Yr 5.0-20.0 3.9-5.9 15-18 MV: 44 MV: 91 MV: 277 2-9 Yr. 6.0-17.0 3.8-5.4 11-13 MV: 37 MV: 78 MV: 300 10 Yrs. 5.0-13.0 3.8-5.4 12-15 MV: 39 MV: 80 MV: 250 NOTE: * FOR ADULT BLACK MALES AND FEMALES, NORMAL WBC IS 2.9-7.7 K/ML * FOR ADULT BLACK MALES AND FEMALES, NORMAL RBC,HGB, AND HCT IS 5% LESS SOURCE FOR DATA: [employer] 1800 OPERATION MANUAL( AUTOMATED BLOOD COUNTS AND DIFF.) APPENDIX B-3 CHRONIC KIDNEY DISEASE STAGING PER NKF: MALE GFR INTERPRETATION: 20-49 YRS: [...] mL/min Normal 80 and above >32 mL/min Normal BUN 22 mg/dL 8- [facility] ([facility] NORMAL RANGES Age WBC RBC HGB HCT MCV PLT Adult M 4.1-10.9 4.20-6.30 12.0-18.0 37.0-51.0 80-97 140-440 Adult F 4.1-10.9 4.04-5.48 12.0-18.0 37.0-51.0 80-97 140-440 0 -1 Yr 5.0-20.0 3.9-5.9 15-18 MV: 44 MV: 91 MV: 277 2-9 Yr. 6.0-17.0 3.8-5.4 11-13 MV: 37 MV: 78 MV: 300 10 Yrs. 5.0-13.0 3.8-5.4 12-15 MV: 39 MV: 80 MV: 250 NOTE: * FOR ADULT BLACK MALES AND FEMALES, NORMAL WBC IS 2.9-7.7 K/ML * FOR ADULT BLACK MALES AND FEMALES, NORMAL RBC,HGB, AND HCT IS 5% LESS SOURCE FOR DATA: [employer] 1800 OPERATION MANUAL( AUTOMATED BLOOD COUNTS AND DIFF.) APPENDIX B-3 CHRONIC KIDNEY DISEASE STAGING PER NKF: MALE GFR INTERPRETATION: 20-49 YRS: [...] mL/min Normal 80 and above >32 mL/min Normal Creat 1.2 mg/dL 0.7-1.2 [facility] ([facility] NORMAL RANGES Age WBC RBC HGB HCT MCV PLT Adult M 4.1-10.9 4.20-6.30 12.0-18.0 37.0-51.0 80-97 140-440 Adult F 4.1-10.9 4.04-5.48 12.0-18.0 37.0-51.0 80-97 140-440 0 -1 Yr 5.0-20.0 3.9-5.9 15-18 MV: 44 MV: 91 MV: 277 2-9 Yr. 6.0-17.0 3.8-5.4 11-13 MV: 37 MV: 78 MV: 300 10 Yrs. 5.0-13.0 3.8-5.4 12-15 MV: 39 MV: 80 MV: 250 NOTE: * FOR ADULT BLACK MALES AND FEMALES, NORMAL WBC IS 2.9-7.7 K/ML * FOR ADULT BLACK MALES AND FEMALES, NORMAL RBC,HGB, AND HCT IS 5% LESS SOURCE FOR DATA: [employer] 1800 OPERATION MANUAL( AUTOMATED BLOOD COUNTS AND DIFF.) APPENDIX B-3 CHRONIC KIDNEY DISEASE STAGING PER NKF: MALE GFR INTERPRETATION: 20-49 YRS: [...] mL/min Normal 80 and above >32 mL/min Normal BUN/Creatinine Ratio 18.4 [facility] [employer] ([facility] NORMAL RANGES Age WBC RBC HGB HCT MCV PLT Adult M 4.1-10.9 4.20-6.30 12.0-18.0 37.0-51.0 80-97 140-440 Adult F 4.1-10.9 4.04-5.48 12.0-18.0 37.0-51.0 80-97 140-440 0 -1 Yr 5.0-20.0 3.9-5.9 15-18 MV: 44 MV: 91 MV: 277 2-9 Yr. 6.0-17.0 3.8-5.4 11-13 MV: 37 MV: 78 MV: 300 10 Yrs. 5.0-13.0 3.8-5.4 12-15 MV: 39 MV: 80 MV: 250 NOTE: * FOR ADULT BLACK MALES AND FEMALES, NORMAL WBC IS 2.9-7.7 K/ML * FOR ADULT BLACK MALES AND FEMALES, NORMAL RBC,HGB, AND HCT IS 5% LESS SOURCE FOR DATA: [employer] 1800 OPERATION MANUAL( AUTOMATED BLOOD COUNTS AND DIFF.) APPENDIX B-3 CHRONIC KIDNEY DISEASE STAGING PER NKF: MALE GFR INTERPRETATION: 20-49 YRS: [...] mL/min Normal 80 and above >32 mL/min Normal CL 101.1 mmol/L 98.0-107.0 [facility] ([facility] NORMAL RANGES Age WBC RBC HGB HCT MCV PLT Adult M 4.1-10.9 4.20-6.30 12.0-18.0 37.0-51.0 80-97 140-440 Adult F 4.1-10.9 4.04-5.48 12.0-18.0 37.0-51.0 80-97 140-440 0 -1 Yr 5.0-20.0 3.9-5.9 15-18 MV: 44 MV: 91 MV: 277 2-9 Yr. 6.0-17.0 3.8-5.4 11-13 MV: 37 MV: 78 MV: 300 10 Yrs. 5.0-13.0 3.8-5.4 12-15 MV: 39 MV: 80 MV: 250 NOTE: * FOR ADULT BLACK MALES AND FEMALES, NORMAL WBC IS 2.9-7.7 K/ML * FOR ADULT BLACK MALES AND FEMALES, NORMAL RBC,HGB, AND HCT IS 5% LESS SOURCE FOR DATA: [employer] 1800 OPERATION MANUAL( AUTOMATED BLOOD COUNTS AND DIFF.) APPENDIX B-3 CHRONIC KIDNEY DISEASE STAGING PER NKF: MALE GFR INTERPRETATION: 20-49 YRS: [...] mL/min Normal 80 and above >32 mL/min Normal K 4.0 mmol/L 3.5-5.1 [facility] NORMAL RANGES Age WBC RBC HGB HCT MCV PLT Adult M 4.1-10.9 4.20-6.30 12.0-18.0 37.0-51.0 80-97 140-440 Adult F 4.1-10.9 4.04-5.48 12.0-18.0 37.0-51.0 80-97 140-440 0 -1 Yr 5.0-20.0 3.9-5.9 15-18 MV: 44 MV: 91 MV: 277 2-9 Yr. 6.0-17.0 3.8-5.4 11-13 MV: 37 MV: 78 MV: 300 10 Yrs. 5.0-13.0 3.8-5.4 12-15 MV: 39 MV: 80 MV: 250 NOTE: * FOR ADULT BLACK MALES AND FEMALES, NORMAL WBC IS 2.9-7.7 K/ML * FOR ADULT BLACK MALES AND FEMALES, NORMAL RBC,HGB, AND HCT IS 5% LESS SOURCE FOR DATA: [employer] 1800 OPERATION MANUAL( AUTOMATED BLOOD COUNTS AND DIFF.) APPENDIX B-3 CHRONIC KIDNEY DISEASE STAGING PER NKF: MALE GFR INTERPRETATION: 20-49 YRS: [...] mL/min Normal 80 and above >32 mL/min Normal Na 138 mmol/L 136-145 [facility] ([facility] NORMAL RANGES Age WBC RBC HGB HCT MCV PLT Adult M 4.1-10.9 4.20-6.30 12.0-18.0 37.0-51.0 80-97 140-440 Adult F 4.1-10.9 4.04-5.48 12.0-18.0 37.0-51.0 80-97 140-440 0 -1 Yr 5.0-20.0 3.9-5.9 15-18 MV: 44 MV: 91 MV: 277 2-9 Yr. 6.0-17.0 3.8-5.4 11-13 MV: 37 MV: 78 MV: 300 10 Yrs. 5.0-13.0 3.8-5.4 12-15 MV: 39 MV: 80 MV: 250 NOTE: * FOR ADULT BLACK MALES AND FEMALES, NORMAL WBC IS 2.9-7.7 K/ML * FOR ADULT BLACK MALES AND FEMALES, NORMAL RBC,HGB, AND HCT IS 5% LESS SOURCE FOR DATA: [employer] 1800 OPERATION MANUAL( AUTOMATED BLOOD COUNTS AND DIFF.) APPENDIX B-3 CHRONIC KIDNEY DISEASE STAGING PER NKF: MALE GFR INTERPRETATION: 20-49 YRS: [...] mL/min Normal 80 and above >32 mL/min Normal CA 9.4 mg/dL 8.6-10.2 [facility] NORMAL RANGES Age WBC RBC HGB HCT MCV PLT Adult M 4.1-10.9 4.20-6.30 12.0-18.0 37.0-51.0 80-97 140-440 Adult F 4.1-10.9 4.04-5.48 12.0-18.0 37.0-51.0 80-97 140-440 0 -1 Yr 5.0-20.0 3.9-5.9 15-18 MV: 44 MV: 91 MV: 277 2-9 Yr. 6.0-17.0 3.8-5.4 11-13 MV: 37 MV: 78 MV: 300 10 Yrs. 5.0-13.0 3.8-5.4 12-15 MV: 39 MV: 80 MV: 250 NOTE: * FOR ADULT BLACK MALES AND FEMALES, NORMAL WBC IS 2.9-7.7 K/ML * FOR ADULT BLACK MALES AND FEMALES, NORMAL RBC,HGB, AND HCT IS 5% LESS SOURCE FOR DATA: [employer] 1800 OPERATION MANUAL( AUTOMATED BLOOD COUNTS AND DIFF.) APPENDIX B-3 CHRONIC KIDNEY DISEASE STAGING PER NKF: MALE GFR INTERPRETATION: 20-49 YRS: [...] mL/min Normal 80 and above >32 mL/min Normal Co2 23.7 mmol/L 22.0-29.0 [facility] NORMAL RANGES Age WBC RBC HGB HCT MCV PLT Adult M 4.1-10.9 4.20-6.30 12.0-18.0 37.0-51.0 80-97 140-440 Adult F 4.1-10.9 4.04-5.48 12.0-18.0 37.0-51.0 80-97 140-440 0 -1 Yr 5.0-20.0 3.9-5.9 15-18 MV: 44 MV: 91 MV: 277 2-9 Yr. 6.0-17.0 3.8-5.4 11-13 MV: 37 MV: 78 MV: 300 10 Yrs. 5.0-13.0 3.8-5.4 12-15 MV: 39 MV: 80 MV: 250 NOTE: * FOR ADULT BLACK MALES AND FEMALES, NORMAL WBC IS 2.9-7.7 K/ML * FOR ADULT BLACK MALES AND FEMALES, NORMAL RBC,HGB, AND HCT IS 5% LESS SOURCE FOR DATA: [employer] 1800 OPERATION MANUAL( AUTOMATED BLOOD COUNTS AND DIFF.) APPENDIX B-3 CHRONIC KIDNEY DISEASE STAGING PER NKF: MALE GFR INTERPRETATION: 20-49 YRS: [...] mL/min Normal 80 and above >32 mL/min Normal TP 6.5 g/dL 6.6-8.7 Below low normal [facility] NORMAL RANGES Age WBC RBC HGB HCT MCV PLT Adult M 4.1-10.9 4.20-6.30 12.0-18.0 37.0-51.0 80-97 140-440 Adult F 4.1-10.9 4.04-5.48 12.0-18.0 37.0-51.0 80-97 140-440 0 -1 Yr 5.0-20.0 3.9-5.9 15-18 MV: 44 MV: 91 MV: 277 2-9 Yr. 6.0-17.0 3.8-5.4 11-13 MV: 37 MV: 78 MV: 300 10 Yrs. 5.0-13.0 3.8-5.4 12-15 MV: 39 MV: 80 MV: 250 NOTE: * FOR ADULT BLACK MALES AND FEMALES, NORMAL WBC IS 2.9-7.7 K/ML * FOR ADULT BLACK MALES AND FEMALES, NORMAL RBC,HGB, AND HCT IS 5% LESS SOURCE FOR DATA: [employer] 1800 OPERATION MANUAL( AUTOMATED BLOOD COUNTS AND DIFF.) APPENDIX B-3 CHRONIC KIDNEY DISEASE STAGING PER NKF: MALE GFR INTERPRETATION: 20-49 YRS: [...] mL/min Normal 80 and above >32 mL/min Normal A/G Ratio 2.2 [facility] ([facility] NORMAL RANGES Age WBC RBC HGB HCT MCV PLT Adult M 4.1-10.9 4.20-6.30 12.0-18.0 37.0-51.0 80-97 140-440 Adult F 4.1-10.9 4.04-5.48 12.0-18.0 37.0-51.0 80-97 140-440 0 -1 Yr 5.0-20.0 3.9-5.9 15-18 MV: 44 MV: 91 MV: 277 2-9 Yr. 6.0-17.0 3.8-5.4 11-13 MV: 37 MV: 78 MV: 300 10 Yrs. 5.0-13.0 3.8-5.4 12-15 MV: 39 MV: 80 MV: 250 NOTE: * FOR ADULT BLACK MALES AND FEMALES, NORMAL WBC IS 2.9-7.7 K/ML * FOR ADULT BLACK MALES AND FEMALES, NORMAL RBC,HGB, AND HCT IS 5% LESS SOURCE FOR DATA: [employer] 1800 OPERATION MANUAL( AUTOMATED BLOOD COUNTS AND DIFF.) APPENDIX B-3 CHRONIC KIDNEY DISEASE STAGING PER NKF: MALE GFR INTERPRETATION: 20-49 YRS: [...] mL/min Normal 80 and above >32 mL/min Normal Alb 4.5 g/dL 3.5-5.2 [facility] ([facility] NORMAL RANGES Age WBC RBC HGB HCT MCV PLT Adult M 4.1-10.9 4.20-6.30 12.0-18.0 37.0-51.0 80-97 140-440 Adult F 4.1-10.9 4.04-5.48 12.0-18.0 37.0-51.0 80-97 140-440 0 -1 Yr 5.0-20.0 3.9-5.9 15-18 MV: 44 MV: 91 MV: 277 2-9 Yr. 6.0-17.0 3.8-5.4 11-13 MV: 37 MV: 78 MV: 300 10 Yrs. 5.0-13.0 3.8-5.4 12-15 MV: 39 MV: 80 MV: 250 NOTE: * FOR ADULT BLACK MALES AND FEMALES, NORMAL WBC IS 2.9-7.7 K/ML * FOR ADULT BLACK MALES AND FEMALES, NORMAL RBC,HGB, AND HCT IS 5% LESS SOURCE FOR DATA: [employer] 1800 OPERATION MANUAL( AUTOMATED BLOOD COUNTS AND DIFF.) APPENDIX B-3 CHRONIC KIDNEY DISEASE STAGING PER NKF: MALE GFR INTERPRETATION: 20-49 YRS: [...] mL/min Normal 80 and above >32 mL/min Normal Globulin 2.0 [facility]C [facility] ([facility] NORMAL RANGES Age WBC RBC HGB HCT MCV PLT Adult M 4.1-10.9 4.20-6.30 12.0-18.0 37.0-51.0 80-97 140-440 Adult F 4.1-10.9 4.04-5.48 12.0-18.0 37.0-51.0 80-97 140-440 0 -1 Yr 5.0-20.0 3.9-5.9 15-18 MV: 44 MV: 91 MV: 277 2-9 Yr. 6.0-17.0 3.8-5.4 11-13 MV: 37 MV: 78 MV: 300 10 Yrs. 5.0-13.0 3.8-5.4 12-15 MV: 39 MV: 80 MV: 250 NOTE: * FOR ADULT BLACK MALES AND FEMALES, NORMAL WBC IS 2.9-7.7 K/ML * FOR ADULT BLACK MALES AND FEMALES, NORMAL RBC,HGB, AND HCT IS 5% LESS SOURCE FOR DATA: [employer] 1800 OPERATION MANUAL( AUTOMATED BLOOD COUNTS AND DIFF.) APPENDIX B-3 CHRONIC KIDNEY DISEASE STAGING PER NKF: MALE GFR INTERPRETATION: 20-49 YRS: [...] mL/min Normal 80 and above >32 mL/min Normal Alt (SGPT) 13 U/L 0-[facility] NORMAL RANGES Age WBC RBC HGB HCT MCV PLT Adult M 4.1-10.9 4.20-6.30 12.0-18.0 37.0-51.0 80-97 140-440 Adult F 4.1-10.9 4.04-5.48 12.0-18.0 37.0-51.0 80-97 140-440 0 -1 Yr 5.0-20.0 3.9-5.9 15-18 MV: 44 MV: 91 MV: 277 2-9 Yr. 6.0-17.0 3.8-5.4 11-13 MV: 37 MV: 78 MV: 300 10 Yrs. 5.0-13.0 3.8-5.4 12-15 MV: 39 MV: 80 MV: 250 NOTE: * FOR ADULT BLACK MALES AND FEMALES, NORMAL WBC IS 2.9-7.7 K/ML * FOR ADULT BLACK MALES AND FEMALES, NORMAL RBC,HGB, AND HCT IS 5% LESS SOURCE FOR DATA: [employer] 1800 OPERATION MANUAL( AUTOMATED BLOOD COUNTS AND DIFF.) APPENDIX B-3 CHRONIC KIDNEY DISEASE STAGING PER NKF: MALE GFR INTERPRETATION: 20-49 YRS: [...] mL/min Normal 80 and above >32 mL/min Normal Alp 81.9 U/L 40-129 [facility] ([facility] NORMAL RANGES Age WBC RBC HGB HCT MCV PLT Adult M 4.1-10.9 4.20-6.30 12.0-18.0 37.0-51.0 80-97 140-440 Adult F 4.1-10.9 4.04-5.48 12.0-18.0 37.0-51.0 80-97 140-440 0 -1 Yr 5.0-20.0 3.9-5.9 15-18 MV: 44 MV: 91 MV: 277 2-9 Yr. 6.0-17.0 3.8-5.4 11-13 MV: 37 MV: 78 MV: 300 10 Yrs. 5.0-13.0 3.8-5.4 12-15 MV: 39 MV: 80 MV: 250 NOTE: * FOR ADULT BLACK MALES AND FEMALES, NORMAL WBC IS 2.9-7.7 K/ML * FOR ADULT BLACK MALES AND FEMALES, NORMAL RBC,HGB, AND HCT IS 5% LESS SOURCE FOR DATA: [employer] 1800 OPERATION MANUAL( AUTOMATED BLOOD COUNTS AND DIFF.) APPENDIX B-3 CHRONIC KIDNEY DISEASE STAGING PER NKF: MALE GFR INTERPRETATION: 20-49 YRS: [...] mL/min Normal 80 and above >32 mL/min Normal Osmolality-Calculated 283.7 [facility] ([facility] NORMAL RANGES Age WBC RBC HGB HCT MCV PLT Adult M 4.1-10.9 4.20-6.30 12.0-18.0 37.0-51.0 80-97 140-440 Adult F 4.1-10.9 4.04-5.48 12.0-18.0 37.0-51.0 80-97 140-440 0 -1 Yr 5.0-20.0 3.9-5.9 15-18 MV: 44 MV: 91 MV: 277 2-9 Yr. 6.0-17.0 3.8-5.4 11-13 MV: 37 MV: 78 MV: 300 10 Yrs. 5.0-13.0 3.8-5.4 12-15 MV: 39 MV: 80 MV: 250 NOTE: * FOR ADULT BLACK MALES AND FEMALES, NORMAL WBC IS 2.9-7.7 K/ML * FOR ADULT BLACK MALES AND FEMALES, NORMAL RBC,HGB, AND HCT IS 5% LESS SOURCE FOR DATA: [employer] 1800 OPERATION MANUAL( AUTOMATED BLOOD COUNTS AND DIFF.) APPENDIX B-3 CHRONIC KIDNEY DISEASE STAGING PER NKF: MALE GFR INTERPRETATION: 20-49 YRS: [...] mL/min Normal 80 and above >32 mL/min Normal Ast (Sgot) 12 U/L 0-40 [facility] ([facility] NORMAL RANGES Age WBC RBC HGB HCT MCV PLT Adult M 4.1-10.9 4.20-6.30 12.0-18.0 37.0-51.0 80-97 140-440 Adult F 4.1-10.9 4.04-5.48 12.0-18.0 37.0-51.0 80-97 140-440 0 -1 Yr 5.0-20.0 3.9-5.9 15-18 MV: 44 MV: 91 MV: 277 2-9 Yr. 6.0-17.0 3.8-5.4 11-13 MV: 37 MV: 78 MV: 300 10 Yrs. 5.0-13.0 3.8-5.4 12-15 MV: 39 MV: 80 MV: 250 NOTE: * FOR ADULT BLACK MALES AND FEMALES, NORMAL WBC IS 2.9-7.7 K/ML * FOR ADULT BLACK MALES AND FEMALES, NORMAL RBC,HGB, AND HCT IS 5% LESS SOURCE FOR DATA: [employer] 1800 OPERATION MANUAL( AUTOMATED BLOOD COUNTS AND DIFF.) APPENDIX B-3 CHRONIC KIDNEY DISEASE STAGING PER NKF: MALE GFR INTERPRETATION: 20-49 YRS: [...] mL/min Normal 80 and above >32 mL/min Normal Tbili 0.60 mg/dL 0.0-1.2 [facility] ([facility] NORMAL RANGES Age WBC RBC HGB HCT MCV PLT Adult M 4.1-10.9 4.20-6.30 12.0-18.0 37.0-51.0 80-97 140-440 Adult F 4.1-10.9 4.04-5.48 12.0-18.0 37.0-51.0 80-97 140-440 0 -1 Yr 5.0-20.0 3.9-5.9 15-18 MV: 44 MV: 91 MV: 277 2-9 Yr. 6.0-17.0 3.8-5.4 11-13 MV: 37 MV: 78 MV: 300 10 Yrs. 5.0-13.0 3.8-5.4 12-15 MV: 39 MV: 80 MV: 250 NOTE: * FOR ADULT BLACK MALES AND FEMALES, NORMAL WBC IS 2.9-7.7 K/ML * FOR ADULT BLACK MALES AND FEMALES, NORMAL RBC,HGB, AND HCT IS 5% LESS SOURCE FOR DATA: [employer] 1800 OPERATION MANUAL( AUTOMATED BLOOD COUNTS AND DIFF.) APPENDIX B-3 CHRONIC KIDNEY DISEASE STAGING PER NKF: MALE GFR INTERPRETATION: 20-49 YRS: [...] mL/min Normal 80 and above >32 mL/min Normal eGFR Non-Afr. Algerian 61 # [facility] ([facility] NORMAL RANGES Age WBC RBC HGB HCT MCV PLT Adult M 4.1-10.9 4.20-6.30 12.0-18.0 37.0-51.0 80-97 140-440 Adult F 4.1-10.9 4.04-5.48 12.0-18.0 37.0-51.0 80-97 140-440 0 -1 Yr 5.0-20.0 3.9-5.9 15-18 MV: 44 MV: 91 MV: 277 2-9 Yr. 6.0-17.0 3.8-5.4 11-13 MV: 37 MV: 78 MV: 300 10 Yrs. 5.0-13.0 3.8-5.4 12-15 MV: 39 MV: 80 MV: 250 NOTE: * FOR ADULT BLACK MALES AND FEMALES, NORMAL WBC IS 2.9-7.7 K/ML * FOR ADULT BLACK MALES AND FEMALES, NORMAL RBC,HGB, AND HCT IS 5% LESS SOURCE FOR DATA: [employer] 1800 OPERATION MANUAL( AUTOMATED BLOOD COUNTS AND DIFF.) APPENDIX B-3 CHRONIC KIDNEY DISEASE STAGING PER NKF: MALE GFR INTERPRETATION: 20-49 YRS: [...] mL/min Normal 80 and above >32 mL/min Normal Anion Gap 17 mmol/L [facility] NORMAL RANGES Age WBC RBC HGB HCT MCV PLT Adult M 4.1-10.9 4.20-6.30 12.0-18.0 37.0-51.0 80-97 140-440 Adult F 4.1-10.9 4.04-5.48 12.0-18.0 37.0-51.0 80-97 140-440 0 -1 Yr 5.0-20.0 3.9-5.9 15-18 MV: 44 MV: 91 MV: 277 2-9 Yr. 6.0-17.0 3.8-5.4 11-13 MV: 37 MV: 78 MV: 300 10 Yrs. 5.0-13.0 3.8-5.4 12-15 MV: 39 MV: 80 MV: 250 NOTE: * FOR ADULT BLACK MALES AND FEMALES, NORMAL WBC IS 2.9-7.7 K/ML * FOR ADULT BLACK MALES AND FEMALES, NORMAL RBC,HGB, AND HCT IS 5% LESS SOURCE FOR DATA: [employer] 1800 OPERATION MANUAL( AUTOMATED BLOOD COUNTS AND DIFF.) APPENDIX B-3 CHRONIC KIDNEY DISEASE STAGING PER NKF: MALE GFR INTERPRETATION: 20-49 YRS: [...] mL/min Normal 80 and above >32 mL/min Normal eGFR 71 # [facility] ( [facility] NORMAL RANGES Age WBC RBC HGB HCT MCV PLT Adult M 4.1-10.9 4.20-6.30 12.0-18.0 37.0-51.0 80-97 140-440 Adult F 4.1-10.9 4.04-5.48 12.0-18.0 37.0-51.0 80-97 140-440 0 -1 Yr 5.0-20.0 3.9-5.9 15-18 MV: 44 MV: 91 MV: 277 2-9 Yr. 6.0-17.0 3.8-5.4 11-13 MV: 37 MV: 78 MV: 300 10 Yrs. 5.0-13.0 3.8-5.4 12-15 MV: 39 MV: 80 MV: 250 NOTE: * FOR ADULT BLACK MALES AND FEMALES, NORMAL WBC IS 2.9-7.7 K/ML * FOR ADULT BLACK MALES AND FEMALES, NORMAL RBC,HGB, AND HCT IS 5% LESS SOURCE FOR DATA: [employer] 1800 OPERATION MANUAL( AUTOMATED BLOOD COUNTS AND DIFF.) APPENDIX B-3 CHRONIC KIDNEY DISEASE STAGING PER NKF: MALE GFR INTERPRETATION: 20-49 YRS: [...] mL/min Normal 80 and above >32 mL/min Normal ID Date Data Source [id number] 01/04/2020 01:59:00 PM EDT [facility] ([facility] Name Value Range Interpretation Code Description Data Ashley rce(s) Supporting Document(s) RBC 5.12 10E6/uL [facility] ([facility] NORMAL RANGES Age WBC RBC HGB HCT MCV PLT Adult M 4.1-10.9 4.20-6.30 12.0-18.0 37.0-51.0 80-97 140-440 Adult F 4.1-10.9 4.04-5.48 12.0-18.0 37.0-51.0 80-97 140-440 0 -1 Yr 5.0-20.0 3.9-5.9 15-18 MV: 44 MV: 91 MV: 277 2-9 Yr. 6.0-17.0 3.8-5.4 11-13 MV: 37 MV: 78 MV: 300 10 Yrs. 5.0-13.0 3.8-5.4 12-15 MV: 39 MV: 80 MV: 250 NOTE: * FOR ADULT BLACK MALES AND FEMALES, NORMAL WBC IS 2.9-7.7 K/ML * FOR ADULT BLACK MALES AND FEMALES, NORMAL RBC,HGB, AND HCT IS 5% LESS SOURCE FOR DATA: [employer] 1800 OPERATION MANUAL( AUTOMATED BLOOD COUNTS AND DIFF.) APPENDIX B-3 CHRONIC KIDNEY DISEASE STAGING PER NKF: MALE GFR INTERPRETATION: 20-49 YRS: [...] mL/min Normal 80 and above >32 mL/min Normal WBC 7.9 10E3/uL 4.1-10.9 [employer] ([facility] NORMAL RANGES Age WBC RBC HGB HCT MCV PLT Adult M 4.1-10.9 4.20-6.30 12.0-18.0 37.0-51.0 80-97 140-440 Adult F 4.1-10.9 4.04-5.48 12.0-18.0 37.0-51.0 80-97 140-440 0 -1 Yr 5.0-20.0 3.9-5.9 15-18 MV: 44 MV: 91 MV: 277 2-9 Yr. 6.0-17.0 3.8-5.4 11-13 MV: 37 MV: 78 MV: 300 10 Yrs. 5.0-13.0 3.8-5.4 12-15 MV: 39 MV: 80 MV: 250 NOTE: * FOR ADULT BLACK MALES AND FEMALES, NORMAL WBC IS 2.9-7.7 K/ML * FOR ADULT BLACK MALES AND FEMALES, NORMAL RBC,HGB, AND HCT IS 5% LESS SOURCE FOR DATA: [employer] 1800 OPERATION MANUAL( AUTOMATED BLOOD COUNTS AND DIFF.) APPENDIX B-3 CHRONIC KIDNEY DISEASE STAGING PER NKF: MALE GFR INTERPRETATION: 20-49 YRS: [...] mL/min Normal 80 and above >32 mL/min Normal HGB 15.9 g/dL 12.0-18.0 [facility] ([facility] NORMAL RANGES Age WBC RBC HGB HCT MCV PLT Adult M 4.1-10.9 4.20-6.30 12.0-18.0 37.0-51.0 80-97 140-440 Adult F 4.1-10.9 4.04-5.48 12.0-18.0 37.0-51.0 80-97 140-440 0 -1 Yr 5.0-20.0 3.9-5.9 15-18 MV: 44 MV: 91 MV: 277 2-9 Yr. 6.0-17.0 3.8-5.4 11-13 MV: 37 MV: 78 MV: 300 10 Yrs. 5.0-13.0 3.8-5.4 12-15 MV: 39 MV: 80 MV: 250 NOTE: * FOR ADULT BLACK MALES AND FEMALES, NORMAL WBC IS 2.9-7.7 K/ML * FOR ADULT BLACK MALES AND FEMALES, NORMAL RBC,HGB, AND HCT IS 5% LESS SOURCE FOR DATA: [employer] 1800 OPERATION MANUAL( AUTOMATED BLOOD COUNTS AND DIFF.) APPENDIX B-3 CHRONIC KIDNEY DISEASE STAGING PER NKF: MALE GFR INTERPRETATION: 20-49 YRS: [...] mL/min Normal 80 and above >32 mL/min Normal MCV 90.0 fL 80.0-97.0 [facility] ([facility] NORMAL RANGES Age WBC RBC HGB HCT MCV PLT Adult M 4.1-10.9 4.20-6.30 12.0-18.0 37.0-51.0 80-97 140-440 Adult F 4.1-10.9 4.04-5.48 12.0-18.0 37.0-51.0 80-97 140-440 0 -1 Yr 5.0-20.0 3.9-5.9 15-18 MV: 44 MV: 91 MV: 277 2-9 Yr. 6.0-17.0 3.8-5.4 11-13 MV: 37 MV: 78 MV: 300 10 Yrs. 5.0-13.0 3.8-5.4 12-15 MV: 39 MV: 80 MV: 250 NOTE: * FOR ADULT BLACK MALES AND FEMALES, NORMAL WBC IS 2.9-7.7 K/ML * FOR ADULT BLACK MALES AND FEMALES, NORMAL RBC,HGB, AND HCT IS 5% LESS SOURCE FOR DATA: [employer] 1800 OPERATION MANUAL( AUTOMATED BLOOD COUNTS AND DIFF.) APPENDIX B-3 CHRONIC KIDNEY DISEASE STAGING PER NKF: MALE GFR INTERPRETATION: 20-49 YRS: [...] mL/min Normal 80 and above >32 mL/min Normal HCT 46.1 % 37.0-51.0 [facility] NORMAL RANGES Age WBC RBC HGB HCT MCV PLT Adult M 4.1-10.9 4.20-6.30 12.0-18.0 37.0-51.0 80-97 140-440 Adult F 4.1-10.9 4.04-5.48 12.0-18.0 37.0-51.0 80-97 140-440 0 -1 Yr 5.0-20.0 3.9-5.9 15-18 MV: 44 MV: 91 MV: 277 2-9 Yr. 6.0-17.0 3.8-5.4 11-13 MV: 37 MV: 78 MV: 300 10 Yrs. 5.0-13.0 3.8-5.4 12-15 MV: 39 MV: 80 MV: 250 NOTE: * FOR ADULT BLACK MALES AND FEMALES, NORMAL WBC IS 2.9-7.7 K/ML * FOR ADULT BLACK MALES AND FEMALES, NORMAL RBC,HGB, AND HCT IS 5% LESS SOURCE FOR DATA: [employer] 1800 OPERATION MANUAL( AUTOMATED BLOOD COUNTS AND DIFF.) APPENDIX B-3 CHRONIC KIDNEY DISEASE STAGING PER NKF: MALE GFR INTERPRETATION: 20-49 YRS: [...] mL/min Normal 80 and above >32 mL/min Normal PLT 186 10E3/uL 140-440 [facility] ([facility] NORMAL RANGES Age WBC RBC HGB HCT MCV PLT Adult M 4.1-10.9 4.20-6.30 12.0-18.0 37.0-51.0 80-97 140-440 Adult F 4.1-10.9 4.04-5.48 12.0-18.0 37.0-51.0 80-97 140-440 0 -1 Yr 5.0-20.0 3.9-5.9 15-18 MV: 44 MV: 91 MV: 277 2-9 Yr. 6.0-17.0 3.8-5.4 11-13 MV: 37 MV: 78 MV: 300 10 Yrs. 5.0-13.0 3.8-5.4 12-15 MV: 39 MV: 80 MV: 250 NOTE: * FOR ADULT BLACK MALES AND FEMALES, NORMAL WBC IS 2.9-7.7 K/ML * FOR ADULT BLACK MALES AND FEMALES, NORMAL RBC,HGB, AND HCT IS 5% LESS SOURCE FOR DATA: [employer] 1800 OPERATION MANUAL( AUTOMATED BLOOD COUNTS AND DIFF.) APPENDIX B-3 CHRONIC KIDNEY DISEASE STAGING PER NKF: MALE GFR INTERPRETATION: 20-49 YRS: [...] mL/min Normal 80 and above >32 mL/min Normal MCHC 34.5 g/dL 31.0-36.0 [facility] ([facility] NORMAL RANGES Age WBC RBC HGB HCT MCV PLT Adult M 4.1-10.9 4.20-6.30 12.0-18.0 37.0-51.0 80-97 140-440 Adult F 4.1-10.9 4.04-5.48 12.0-18.0 37.0-51.0 80-97 140-440 0 -1 Yr 5.0-20.0 3.9-5.9 15-18 MV: 44 MV: 91 MV: 277 2-9 Yr. 6.0-17.0 3.8-5.4 11-13 MV: 37 MV: 78 MV: 300 10 Yrs. 5.0-13.0 3.8-5.4 12-15 MV: 39 MV: 80 MV: 250 NOTE: * FOR ADULT BLACK MALES AND FEMALES, NORMAL WBC IS 2.9-7.7 K/ML * FOR ADULT BLACK MALES AND FEMALES, NORMAL RBC,HGB, AND HCT IS 5% LESS SOURCE FOR DATA: [employer] 1800 OPERATION MANUAL( AUTOMATED BLOOD COUNTS AND DIFF.) APPENDIX B-3 CHRONIC KIDNEY DISEASE STAGING PER NKF: MALE GFR INTERPRETATION: 20-49 YRS: [...] mL/min Normal 80 and above >32 mL/min Normal MCH 31.1 pg 26.0-32.0 [facility] NORMAL RANGES Age WBC RBC HGB HCT MCV PLT Adult M 4.1-10.9 4.20-6.30 12.0-18.0 37.0-51.0 80-97 140-440 Adult F 4.1-10.9 4.04-5.48 12.0-18.0 37.0-51.0 80-97 140-440 0 -1 Yr 5.0-20.0 3.9-5.9 15-18 MV: 44 MV: 91 MV: 277 2-9 Yr. 6.0-17.0 3.8-5.4 11-13 MV: 37 MV: 78 MV: 300 10 Yrs. 5.0-13.0 3.8-5.4 12-15 MV: 39 MV: 80 MV: 250 NOTE: * FOR ADULT BLACK MALES AND FEMALES, NORMAL WBC IS 2.9-7.7 K/ML * FOR ADULT BLACK MALES AND FEMALES, NORMAL RBC,HGB, AND HCT IS 5% LESS SOURCE FOR DATA: [employer] 1800 OPERATION MANUAL( AUTOMATED BLOOD COUNTS AND DIFF.) APPENDIX B-3 CHRONIC KIDNEY DISEASE STAGING PER NKF: MALE GFR INTERPRETATION: 20-49 YRS: [...] mL/min Normal 80 and above >32 mL/min Normal Lym% 22.0 % 10.0-58.5 [facility] ([facility] NORMAL RANGES Age WBC RBC HGB HCT MCV PLT Adult M 4.1-10.9 4.20-6.30 12.0-18.0 37.0-51.0 80-97 140-440 Adult F 4.1-10.9 4.04-5.48 12.0-18.0 37.0-51.0 80-97 140-440 0 -1 Yr 5.0-20.0 3.9-5.9 15-18 MV: 44 MV: 91 MV: 277 2-9 Yr. 6.0-17.0 3.8-5.4 11-13 MV: 37 MV: 78 MV: 300 10 Yrs. 5.0-13.0 3.8-5.4 12-15 MV: 39 MV: 80 MV: 250 NOTE: * FOR ADULT BLACK MALES AND FEMALES, NORMAL WBC IS 2.9-7.7 K/ML * FOR ADULT BLACK MALES AND FEMALES, NORMAL RBC,HGB, AND HCT IS 5% LESS SOURCE FOR DATA: [employer] 1800 OPERATION MANUAL( AUTOMATED BLOOD COUNTS AND DIFF.) APPENDIX B-3 CHRONIC KIDNEY DISEASE STAGING PER NKF: MALE GFR INTERPRETATION: 20-49 YRS: [...] mL/min Normal 80 and above >32 mL/min Normal RDW-CV 14.2 % 11.5-14.5 [facility] ([facility] NORMAL RANGES Age WBC RBC HGB HCT MCV PLT Adult M 4.1-10.9 4.20-6.30 12.0-18.0 37.0-51.0 80-97 140-440 Adult F 4.1-10.9 4.04-5.48 12.0-18.0 37.0-51.0 80-97 140-440 0 -1 Yr 5.0-20.0 3.9-5.9 15-18 MV: 44 MV: 91 MV: 277 2-9 Yr. 6.0-17.0 3.8-5.4 11-13 MV: 37 MV: 78 MV: 300 10 Yrs. 5.0-13.0 3.8-5.4 12-15 MV: 39 MV: 80 MV: 250 NOTE: * FOR ADULT BLACK MALES AND FEMALES, NORMAL WBC IS 2.9-7.7 K/ML * FOR ADULT BLACK MALES AND FEMALES, NORMAL RBC,HGB, AND HCT IS 5% LESS SOURCE FOR DATA: [employer] 1800 OPERATION MANUAL( AUTOMATED BLOOD COUNTS AND DIFF.) APPENDIX B-3 CHRONIC KIDNEY DISEASE STAGING PER NKF: MALE GFR INTERPRETATION: 20-49 YRS: [...] mL/min Normal 80 and above >32 mL/min Normal Lym# 1.7 10E3/uL 0.6-4.1 [employer] ([facility] NORMAL RANGES Age WBC RBC HGB HCT MCV PLT Adult M 4.1-10.9 4.20-6.30 12.0-18.0 37.0-51.0 80-97 140-440 Adult F 4.1-10.9 4.04-5.48 12.0-18.0 37.0-51.0 80-97 140-440 0 -1 Yr 5.0-20.0 3.9-5.9 15-18 MV: 44 MV: 91 MV: 277 2-9 Yr. 6.0-17.0 3.8-5.4 11-13 MV: 37 MV: 78 MV: 300 10 Yrs. 5.0-13.0 3.8-5.4 12-15 MV: 39 MV: 80 MV: 250 NOTE: * FOR ADULT BLACK MALES AND FEMALES, NORMAL WBC IS 2.9-7.7 K/ML * FOR ADULT BLACK MALES AND FEMALES, NORMAL RBC,HGB, AND HCT IS 5% LESS SOURCE FOR DATA: [employer] 1800 [employer]( AUTOMATED BLOOD COUNTS AND DIFF.) APPENDIX B-3 CHRONIC KIDNEY DISEASE STAGING PER NKF: MALE GFR INTERPRETATION: 20-49 YRS: [...] mL/min Normal 80 and above >32 mL/min Normal MXD% 5.5 % 0.1-24.0 [facility] ([facility] NORMAL RANGES Age WBC RBC HGB HCT MCV PLT Adult M 4.1-10.9 4.20-6.30 12.0-18.0 37.0-51.0 80-97 140-440 Adult F 4.1-10.9 4.04-5.48 12.0-18.0 37.0-51.0 80-97 140-440 0 -1 Yr 5.0-20.0 3.9-5.9 15-18 MV: 44 MV: 91 MV: 277 2-9 Yr. 6.0-17.0 3.8-5.4 11-13 MV: 37 MV: 78 MV: 300 10 Yrs. 5.0-13.0 3.8-5.4 12-15 MV: 39 MV: 80 MV: 250 NOTE: * FOR ADULT BLACK MALES AND FEMALES, NORMAL WBC IS 2.9-7.7 K/ML * FOR ADULT BLACK MALES AND FEMALES, NORMAL RBC,HGB, AND HCT IS 5% LESS SOURCE FOR DATA: [employer] 1800 [employer] MANUAL( AUTOMATED BLOOD COUNTS AND DIFF.) APPENDIX B-3 CHRONIC KIDNEY DISEASE STAGING PER NKF: MALE GFR INTERPRETATION: 20-49 YRS: [...] mL/min Normal 80 and above >32 mL/min Normal Neut% 72.5 % 37.0-92.0 [facility] NORMAL RANGES Age WBC RBC HGB HCT MCV PLT Adult M 4.1-10.9 4.20-6.30 12.0-18.0 37.0-51.0 80-97 140-440 Adult F 4.1-10.9 4.04-5.48 12.0-18.0 37.0-51.0 80-97 140-440 0 -1 Yr 5.0-20.0 3.9-5.9 15-18 MV: 44 MV: 91 MV: 277 2-9 Yr. 6.0-17.0 3.8-5.4 11-13 MV: 37 MV: 78 MV: 300 10 Yrs. 5.0-13.0 3.8-5.4 12-15 MV: 39 MV: 80 MV: 250 NOTE: * FOR ADULT BLACK MALES AND FEMALES, NORMAL WBC IS 2.9-7.7 K/ML * FOR ADULT BLACK MALES AND FEMALES, NORMAL RBC,HGB, AND HCT IS 5% LESS SOURCE FOR DATA: [employer] 1800 [employer]( AUTOMATED BLOOD COUNTS AND DIFF.) APPENDIX B-3 CHRONIC KIDNEY DISEASE STAGING PER NKF: MALE GFR INTERPRETATION: 20-49 YRS: [...] mL/min Normal 80 and above >32 mL/min Normal MXD# 0.4 10E3/uL 0.0-1.8 [facility] ([facility] NORMAL RANGES Age WBC RBC HGB HCT MCV PLT Adult M 4.1-10.9 4.20-6.30 12.0-18.0 37.0-51.0 80-97 140-440 Adult F 4.1-10.9 4.04-5.48 12.0-18.0 37.0-51.0 80-97 140-440 0 -1 Yr 5.0-20.0 3.9-5.9 15-18 MV: 44 MV: 91 MV: 277 2-9 Yr. 6.0-17.0 3.8-5.4 11-13 MV: 37 MV: 78 MV: 300 10 Yrs. 5.0-13.0 3.8-5.4 12-15 MV: 39 MV: 80 MV: 250 NOTE: * FOR ADULT BLACK MALES AND FEMALES, NORMAL WBC IS 2.9-7.7 K/ML * FOR ADULT BLACK MALES AND FEMALES, NORMAL RBC,HGB, AND HCT IS 5% LESS SOURCE FOR DATA: [employer] 1800 [employer]UAL( AUTOMATED BLOOD COUNTS AND DIFF.) APPENDIX B-3 CHRONIC KIDNEY DISEASE STAGING PER NKF: MALE GFR INTERPRETATION: 20-49 YRS: [...] mL/min Normal 80 and above >32 mL/min Normal Neut# 5.8 % 2.0-7.8 [facility] ([facility] NORMAL RANGES Age WBC RBC HGB HCT MCV PLT Adult M 4.1-10.9 4.20-6.30 12.0-18.0 37.0-51.0 80-97 140-440 Adult F 4.1-10.9 4.04-5.48 12.0-18.0 37.0-51.0 80-97 140-440 0 -1 Yr 5.0-20.0 3.9-5.9 15-18 MV: 44 MV: 91 MV: 277 2-9 Yr. 6.0-17.0 3.8-5.4 11-13 MV: 37 MV: 78 MV: 300 10 Yrs. 5.0-13.0 3.8-5.4 12-15 MV: 39 MV: 80 MV: 250 NOTE: * FOR ADULT BLACK MALES AND FEMALES, NORMAL WBC IS 2.9-7.7 K/ML * FOR ADULT BLACK MALES AND FEMALES, NORMAL RBC,HGB, AND HCT IS 5% LESS SOURCE FOR DATA: [employer] 1800 [employer] MANUAL( AUTOMATED BLOOD COUNTS AND DIFF.) APPENDIX B-3 CHRONIC KIDNEY DISEASE STAGING PER NKF: MALE GFR INTERPRETATION: 20-49 YRS: [...] mL/min Normal 80 and above >32 mL/min Normal MPV 10.0 fL 9.0-13.0 [facility] ([facility] NORMAL RANGES Age WBC RBC HGB HCT MCV PLT Adult M 4.1-10.9 4.20-6.30 12.0-18.0 37.0-51.0 80-97 140-440 Adult F 4.1-10.9 4.04-5.48 12.0-18.0 37.0-51.0 80-97 140-440 0 -1 Yr 5.0-20.0 3.9-5.9 15-18 MV: 44 MV: 91 MV: 277 2-9 Yr. 6.0-17.0 3.8-5.4 11-13 MV: 37 MV: 78 MV: 300 10 Yrs. 5.0-13.0 3.8-5.4 12-15 MV: 39 MV: 80 MV: 250 NOTE: * FOR ADULT BLACK MALES AND FEMALES, NORMAL WBC IS 2.9-7.7 K/ML * FOR ADULT BLACK MALES AND FEMALES, NORMAL RBC,HGB, AND HCT IS 5% LESS SOURCE FOR DATA: [employer] 1800 [employer]UAL( AUTOMATED BLOOD COUNTS AND DIFF.) APPENDIX B-3 CHRONIC KIDNEY DISEASE STAGING PER NKF: MALE GFR INTERPRETATION: 20-49 YRS: [...] mL/min Normal 80 and above >32 mL/min Normal Procedure Social History Code Duration Value Status Description Data Source(s ) 09/20/2020 12:00:00 AM EDT Patient is a current smoker, smokes every day completed Patient is a current smoker, smokes every day [facility] ( [facility], ) Smoking 08/11/2020 12:00:00 AM EDT Current Smoker completed Curre nt Smoker eCW1 ([facility]) Smoking 08/11/2020 12:00:00 AM EDT Current Smoker completed Curre nt Smoker eCW1 ([facility]) Smoking 07/06/2020 12:00:00 AM EDT Current Smoker completed Curre nt Smoker eCW1 ([facility]) Vital Signs ID Date Data Source UNK Name Value Range Interpretation Code Description Data Source(s) Diastolic blood pressure 76 mm[Hg] 76 mm[Hg] [facility] ([facility] Systolic blood pressure 122 mm[Hg] 122 mm[Hg] M [facility] ([facility] Body temperature 97.6 [degF] 97.6 [degF] [facility] ([facility] Heart rate 85 /min 85 /min [facility] ([facility] Respiratory rate 16 /min 16 /min [facility] ( [facility] Body height 70 [in_i] 70 [in_i] [facility] ([facility] 5'10" Body weight 231.00 [lb_av] 231.00 [lb_av] [facility] T ([facility] [place] body weight 166 [lb_av] 166 [lb_av] [facility] T ([facility] Body mass index (BMI) [Ratio] 33.1 kg/m2 33.1 k g/m2 [facility] ([facility] Oxygen saturation in Arterial blood by Pulse oximetry 97 % 97 % [facility] ([facility] Body mass index (BMI) [Ratio] 34.6 kg/m2 34.6 k g/m2 MEDENT ([facility] [place] body weight 166 [lb_av] 166 [lb_av] MEDEN T ([facility] Respiratory rate 16 /min 16 /min MEDENT ( [facility] Systolic blood pressure 102 mm[Hg] 102 mm[Hg] M EDENT ([facility] Diastolic blood pressure 72 mm[Hg] 72 mm[Hg] MEDENT ([facility] Body temperature 97.6 [degF] 97.6 [degF] MEDENT ([facility] Heart rate 53 /min 53 /min [facility] Body height 70 [in_i] 70 [in_i] MEDENT ([facility] 5'10" Body weight 241.00 [lb_av] 241.00 [lb_av] MEDEN T ([facility] Oxygen saturation in Arterial blood by Pulse oximetry 94 % 94 % [facility] ([facility] Body surface area Derived from formula 2.24 m2 2.24 m2 [facility] ([facility], ) Systolic blood pressure 120 mm[Hg] 120 mm[Hg] M EDENT ([facility], ) Diastolic blood pressure 78 mm[Hg] 78 mm[Hg] [facility] ([facility]) Heart rate 78 /min 78 /min [facility] ([facility]) Oxygen saturation in Arterial blood by Pulse oximetry 98 % 98 % [facility] ([facility]) Room Air Body height 70 [in_i] 70 [in_i] [facility] ([facility]) 5'10" Body weight 237.00 [lb_av] 237.00 [lb_av] MEDEN T ([facility], ) Body mass index (BMI) [Ratio] 34.0 kg/m2 34.0 k g/m2 [facility] ([facility]) [place] body weight 166 [lb_av] 166 [lb_av] MEDEN T ([facility]) Body weight 107.503 kg 107.503 kg [facility] ([facility]) Body weight 244 [lb_av] 244 [lb_av] W1 ([facility]) Body height [in_i] eCW1 ([facility]) Body mass index (BMI) [Ratio] 35.01 kg/m2 35.01 kg/m2 eCW1 ([facility]) Heart rate 79 /min 79 /min eCW1 ([facility]) Respiratory rate 18 /min 18 /min eCW1 ([facility]) Body temperature 98.0 [degF] 98.0 [degF] eCW1 ( [facility]) Systolic blood pressure 128 mm[Hg] 128 mm[Hg] e CW1 ([facility]) Diastolic blood pressure 76 mm[Hg] 76 mm[Hg] eCW1 ([facility]) Body weight 250 [lb_av] 250 [lb_av] eCW1 ([facility]) Body height [in_i] eCW1 ([facility]) Body mass index (BMI) [Ratio] 35.87 kg/m2 35.87 kg/m2 eCW1 ([facility]) Heart rate 70 /min 70 /min eCW1 ([facility]) Respiratory rate 18 /min 18 /min eCW1 ([facility]) Body temperature 97.7 [degF] 97.7 [degF] eCW1 ( [facility]) Systolic blood pressure 120 mm[Hg] 120 mm[Hg] e CW1 ([facility]) Diastolic blood pressure 74 mm[Hg] 74 mm[Hg] eCW1 ([facility]) Systolic blood pressure 112 mm[Hg] 112 mm[Hg] M EDENT ([facility] Heart rate 79 /min 79 /min MEDENT ([facility] Diastolic blood pressure 72 mm[Hg] 72 mm[Hg] MEDENT ([facility] [place] body weight 166 [lb_av] 166 [lb_av] MEDEN T ([facility] Body temperature 97.3 [degF] 97.3 [degF] MEDENT ([facility] Respiratory rate 16 /min 16 /min MEDENT ( [facility] Body height 70 [in_i] 70 [in_i] MEDENT ([facility] 5'10" Body weight 252.00 [lb_av] 252.00 [lb_av] MEDEN T ([facility] Body mass index (BMI) [Ratio] 36.2 kg/m2 36.2 k g/m2 MEDENT ([facility] Oxygen saturation in Arterial blood by Pulse oximetry 96 % 96 % [facility] Body mass index (BMI) [Ratio] 36.1 kg/m2 36.1 k g/m2 MEDENT ([facility]) Body height 70 [in_i] 70 [in_i] [facility] ([facility]) 5'10" Systolic blood pressure 118 mm[Hg] 118 mm[Hg] M EDENT ([facility]) Diastolic blood pressure 67 mm[Hg] 67 mm[Hg] [facility] ([facility]) Heart rate 77 /min 77 /min [facility] ([facility]) Body weight 251.50 [lb_av] 251.50 [lb_av] MEDEN T ([facility]) [place] body weight 166 [lb_av] 166 [lb_av] MEDEN T ([facility]) Body weight 114.080 kg 114.080 kg [facility] ([facility]) Body surface area Derived from formula 2.30 m2 2.30 m2 [facility] ([facility]) [place] body weight 166 [lb_av] 166 [lb_av] MEDEN T ([facility] Body mass index (BMI) [Ratio] 34.9 kg/m2 34.9 k g/m2 MEDENT ([facility] Oxygen saturation in Arterial blood by Pulse oximetry 96 % 96 % MEDENT ([facility] Systolic blood pressure 128 mm[Hg] 128 mm[Hg] M EDENT ([facility] Diastolic blood pressure 72 mm[Hg] 72 mm[Hg] MEDENT ([facility] Body temperature 98.2 [degF] 98.2 [degF] MED[facility] ([facility] Heart rate 71 /min 71 /min [facility] ([facility] [facility] Respiratory rate 16 /min 16 /min MEDENT ( [facility] Body height 70 [in_i] 70 [in_i] MEDENT ([facility] 5'10" Body weight 243.00 [lb_av] 243.00 [lb_av] MEDEN T ([facility] Systolic blood pressure 108 mm[Hg] 108 mm[Hg] M EDENT ([facility], ) Diastolic blood pressure 70 mm[Hg] 70 mm[Hg] MEDENT ([facility]) Heart rate 86 /min 86 /min [facility] ([facility]) Oxygen saturation in Arterial blood by Pulse oximetry 96 % 96 % [facility] ([facility]) Room Air Body height 70 [in_i] 70 [in_i] [facility] ([facility]) 5'10" Body weight 242.00 [lb_av] 242.00 [lb_av] MEDEN T ([facility]) Body mass index (BMI) [Ratio] 34.7 kg/m2 34.7 k g/m2 [facility] ([facility]) [place] body weight 166 [lb_av] 166 [lb_av] MEDEN T ([facility]) Body weight 109.771 kg 109.771 kg [facility] ([facility]) Body surface area Derived from formula 2.26 m2 2.26 m2 [facility] ([facility]) Systolic blood pressure 115 mm[Hg] 115 mm[Hg] M EDENT ([facility]) Diastolic blood pressure 75 mm[Hg] 75 mm[Hg] [facility] ([facility]) Body height 70 [in_i] 70 [in_i] [facility] ([facility]) 5'10" Body weight 242.00 [lb_av] 242.00 [lb_av] MEDEN T ([facility]) Body mass index (BMI) [Ratio] 34.7 kg/m2 34.7 k g/m2 [facility] ([facility]) [place] body weight 166 [lb_av] 166 [lb_av] MEDEN T ([facility]) Body weight 109.771 kg 109.771 kg [facility] ([facility]) Body surface area Derived from formula 2.26 m2 2.26 m2 [facility] ([facility]) Systolic blood pressure 130 mm[Hg] 130 mm[Hg] M EDENT ([facility]) Diastolic blood pressure 78 mm[Hg] 78 mm[Hg] MEDENT ([facility]) Body height 70 [in_i] 70 [in_i] [facility] ([facility]) 5'10" Body weight 245.00 [lb_av] 245.00 [lb_av] MEDEN T ([facility]) Body mass index (BMI) [Ratio] 35.1 kg/m2 35.1 k g/m2 [facility] ([facility]) [place] body weight 166 [lb_av] 166 [lb_av] MEDEN T ([facility]) Body weight 111.132 kg 111.132 kg [facility] ([facility]) [place] body weight 166 [lb_av] 166 [lb_av] MEDEN T ([facility] Body mass index (BMI) [Ratio] 34.9 kg/m2 34.9 k g/m2 [facility] ([facility] Oxygen saturation in Arterial blood by Pulse oximetry 96 % 96 % [facility] Systolic blood pressure 102 mm[Hg] 102 mm[Hg] M EDENT ([facility] Diastolic blood pressure 54 mm[Hg] 54 mm[Hg] MEDENT ([facility] Body temperature 97.6 [degF] 97.6 [degF] MEDENT ([facility] Heart rate 77 /min 77 /min [facility] ([facility] Respiratory rate 16 /min 16 /min [facility] Body height 70 [in_i] 70 [in_i] MEDENT ([facility] 5'10" Body weight 243.00 [lb_av] 243.00 [lb_av] JOY Gil ([facility] Patient Treatment Plan of Care Planned Activity Planned Date Details Description Data Source (s) vardenafil 20 MG Oral Tablet 08/11/2020 12:00:00 AM EDT eCW1 ([facility]) vardenafil 20 MG Oral Tablet 08/11/2020 12:00:00 AM EDT eCW1 ([facility]) vardenafil 20 MG Oral Tablet 08/11/2020 12:00:00 AM EDT eCW1 ([facility]) vardenafil 20 MG Oral Tablet 08/11/2020 12:00:00 AM EDT eCW1 ([facility])
[2021-02-07] MEDS ORDERED: VARD20TA (09:12)
[2021-02-07] MEDS ORDERED: HUMA100I3 SC (09:12)
[2021-02-07] MEDS ORDERED: ALBUTEROL 90 MCG/ACT 8GM HFA INHALER INH ONE (11:45)
--- OUTSIDE RECORDS SUMMARY | 2021-02-07 11:47 | CCD ---
Author Author [facility] Organization [facility] Address Unknown Phone Unavailable Care Team Providers Care Risk Compliance Manager Name Role Phone Judy Otto BIZTALK DEVELOPER Unavailable Unavailable Fam, Judy Prieto BIZTALK DEVELOPER Unavailable Unavailable [place], Judy Prieto BIZTALK DEVELOPER Unavailable Unavailable [place], Judy Prieto BIZTALK DEVELOPER Unavailable Unavailable [place], Judy Prieto BIZTALK DEVELOPER Unavailable Unavailable [place], Judy Prieto BIZTALK DEVELOPER Unavailable Unavailable Fam, Judy Prieto BIZTALK DEVELOPER Unavailable Unavailable [place], Judy Prieto BIZTALK DEVELOPER Unavailable Unavailable [place], Judy Prieto BIZTALK DEVELOPER Unavailable Unavailable Afm, Judy Prieto BIZTALK DEVELOPER Unavailable Unavailable Afm, Judy Prieto BIZTALK DEVELOPER Unavailable Unavailable Fam, Judy Prieto BIZTALK DEVELOPER Unavailable Unavailable Fam, Judy Prieto BIZTALK DEVELOPER Unavailable Unavailable [place], Judy Prieto BIZTALK DEVELOPER Unavailable Unavailable Lauren Marie PA Unavailable Unavailable [...] Unavailable Domenic Bertrand MD Unavailable Unavailable Domenic Bretrand MD Unavailable Unavailable Domenic Bertrand MD Unavailable [...] is protected by Article 27-F of the [facility] Public Health law. If you continue you may have access to information: Regarding HIV / AIDS; Provided by facilities licensed or operated by the [facility] Office of Mental Health; or Provided by the [facility] Office for People With Developmental Disabilities. If such information is present, then the following [facility] mandated warning applies: This information has been [...] law may result in a fine or usp sentence or both. A general authorization for the release of medical or other information is NOT sufficient authorization for further disc losure. Family History Family Member Name Family Member Gender Family Member Status Date o f Status Description Data Source(s) Unknown Male Problem [facility] ([facility]) Unknown Male Problem [facility] ([facility] () Unknown Male Problem [facility] ([facility] () Encounters Encounter Providers Location Date Indications Data Source(s ) Outpatient Attender: Isma [place] Office 08/2020 09:15:00 AM EDT [facility] ([facility] Outpatient Attender: Isma [place] Office 10/2020 01:00:00 PM EDT MED[facility] ([facility] Outpatient Attender: Tor Bravo/[place]/R eindl 09/20/2020 01:00:00 PM EDT [facility] ([facility] (Cysto1) Urology [address] [place] [address] 08/11/2020 12:00:00 AM EDT [facility] Unknown [address] [facility] [address] 07/19/2020 12:00:00 AM EDT eCW1 ([facility]) Outpatient [address] [facility] [address] 07/06/2020 12:00:00 AM EDT eCW1 ([facility]) Outpatient Attender: Isma TRIANA [place] Office 01:15:00 PM EDT MEDENT ([facility] Outpatient Attender: Jeremy Bravo/[place]/Thomas/Rein dl 05/01/2020 08:55:00 AM EST MED[facility] ([facility] Outpatient Attender: Isma TRIANA [place] Office 12:15:00 PM EST MED[facility] ([facility] Outpatient Attender: Tor Bravo/Jerri/Thomas/R eindl 03/20/2020 10:00:00 AM EST [facility] ([facility] Office Visit Attender: Jeremy Bravo/[place]/Rein dl 02/09/2020 08:10:00 AM EST MED[facility] ([facility] Office Visit Attender: Prieto Bravo/[place]/Thomas/Dimitrios ndl 01/25/2020 10:30:00 AM EDT MEDENT ([facility] Outpatient Attender: Isma TRIANA [place] Office 01:30:00 PM EDT MED[facility] ([facility] Immunizations Vaccine Date Status Description Data Source(s) COVID-19 VACCINE Moderna 02/01/2021 12:00:00 AM EDT completed [place]SIIS Vaccine Series Complete: YESThis Data wa s Submitted to [facility] Via iGen6. New in 2012. IIV4 01/09/2021 09:06:00 AM EDT completed MEDENT ([facility] COVID-19 VACCINE Moderna 05/02/2020 12:00:00 AM EST completed [place]IS Vaccine Series Complete: YESThis Data wa s Submitted to [facility] Via iGen6. COVID-19 VACCINE Moderna 04/04/2020 12:00:00 AM EST completed [place]SIIS Vaccine Series Complete: NOThis Data was Submitted to [facility] Via iGen6. New in 2012. IIV4 01/04/2020 01:38:00 PM EDT completed MEDENT ([facility] INFLUENZA VIRUS VACCINE [...] 09/20/2020 12:00:00 AM EDT ORAL active MEDENT ([facility], ) 1.5 mg/0.5 mL 09/05/2020 12:00:00 AM [...] EDT active Vardenafil HCl 20 MG eCW1 ([facility]s [facility]) vardenafil 20 MG Oral Tablet Vardenafil HCl 20 MG Vardenafil HCl 20 MG 08/11/2020 12:00:00 AM EDT active Vardenafil HCl 20 MG eCW1 (Counts Include [facility]) 20 mg 08/11/2020 12:00:00 AM EDT tablet 6 TAKE 1 TABLET BY MOUTH 60 MINUTES BEFORE SEXUAL ACTIVITY NEEDED TAKE 1 TABLET BY MOUTH 60 MINUTES BEFORE SEXUAL ACTIVITY NEEDED SOLD: 01/22/2021 Tiara Saini vardenafil 20 MG Oral Tablet Vardenafil HCl 20 MG Vardenafil HCl 20 MG 08/11/2020 12:00:00 AM EDT active Vardenafil HCl 20 MG eCW1 (Counts Include [facility]) vardenafil 20 MG Oral Tablet Vardenafil HCl 20 MG Vardenafil HCl 20 MG 08/11/2020 12:00:00 AM EDT active Vardenafil HCl 20 MG eCW1 (Counts Include [facility]) 20 mg 08/11/2020 12:00:00 AM EDT tablet [...] 06/22/2020 12:00: 00 AM EDT active MEDENT ([facility] 800-160 mg 06/22/2020 12:00:00 AM EDT tablet 20 TAKE ONE TABLET BY MOUTH TWICE A DAY FOR 10 DAYS TAKE ONE TABLET BY MOUTH TWICE A DAY FOR 10 DAYS SOLD: 06/22/2020 [facility] Sulfamethoxazole 800 MG / Trimethoprim 160 MG Oral Tab let Sulfamethoxazole/Trimethoprim DS 06/22/2020 12:00:00 AM EDT ORAL completed MEDENT ([facility] 60 ACTUAT Albuterol 0.09 MG/ACTUAT Metered Dose Inhaler Albu terol Sulfate HFA 06/20/2020 12:00:00 AM EDT RESPIRATORY active MEDENT ([facility], ) 0.05 % 04/27/2020 12:00:00 AM [...] 04/18/2020 12:00:[address] active MEDENT ([facility] 100 mg 04/05/2020 12:00:00 AM [...] 04/04/2020 12:00:00 AM EST ORAL active MED[facility] ([facility] 17.5-3.13-1.6 gram 04/04/2020 12:00:00 AM EST [place] 354 USE DIRECTED BY PHYSICIAN USE DIRECTED BY PHYSICIAN SOLD: 04/08/2020 [facility] Suprep Bowel Prep Kit Suprep Bowel Prep Kit 04/03/2020 12:00:00 AM EST completed MEDENT ([facility] 1.5 mg/0.5 mL 02/07/2020 [...] 01/11/2020 12:00:00 AM EDT ORAL completed MEDENT ([facility], ) 0.5 mg (11)- 1 mg [...] type / Coverage type Policy ID Covered libertarian ID Covered libertarian's relationship to starr Policy Starr Plan Information [facility] Part B [id number] [facility] Part B [id number] [facility] Part B [id number] Self [id number] Medicare [facility]/NGS Medicare Primary [id number] Self [id number] MEDICARE [id number] SP [id number] A Medicare NGS Medicare Primary [id number] Self [id number] Medicare C [id number] SELF [id number] A Medicare [facility] Medicare Primary [id number] Self [id number] MEDICARE [id number] Faiza [id number] A [facility] MEDICARE DIVISION [id number] S [id number] MEDICARE - [place] [id number] S [id number] MEDICARE A [id number] Self [id number] A [place] Plan F [id number] SELF [id number] Blue Cross Blue Shield P [id number] SPOUSE [id number] MEDICARE [id number] SP [id number] A DME Jurisdiction A [facility] C [id number] SELF [id number] BCBS EMPIRE TAMIA DIV [id number] SP [id number] UNITED HEALTHCARE [id number] SP [id number] EXCELLUS BCBS [id number] Faiza YLS [id number] UNITED HEALTHCARE [id number] SP [id number] UNITED HEALTHCARE [id number] S [id number] BCBS EMPIRE [id number] S [id number] UNITED HEALTHCARE [id number] SP [id number] BCBS EMPIRE TAMIA DIV [id number] SP [id number] EMPIRE PLAN C U [id number] Self [id number] UNITED HEALTHCARE [id number] SP [id number] BCBS EMPIRE TAMIA DIV [id number] SP [id number] BCBS EMPIRE TAMIA DIV [id number] SP [id number] UNITED HEALTHCARE [id number] SP [id number] MEDICARE PART A -O/P [id number] 18 [id number] Excellus BCBS Medigap Part B [id number] Family Dependent United [employer] [place] Medigap Part B [id number] Self Medicare [place] Medicare Primary [id number] Self UNITED HEALTHCARE O [id number] S [id number] EXCELLUS BCBS S [id number] S [id number] BLUE CROSS OTHER 1 [id number] MEDICARE [id number] SP [id number] BC/BS OF ULISES[place] O [id number] P NYN [id number] [facility] DIV [id number] SP [id number] [facility] [id number] SP [id number] [facility] [id number] SP [id number] MEDICARE [id number] SP [id number] A [employer] Health Maintenance Organization (HMO) [id number] Family Dependent [id number] Excellus [facility] Part B [id number] Family Dependent [id number] [facility] Part B [id number] Self [id number] Medicare (Part B) Medicare Primary [id number] Self [id number] Graham BC/BS [facility] Part B [id number] Family Dependent [id number] [facility][Note 2] Medigap Part B [id number] Self [id number] Medicare (Part B) Medicare Primary [id number] Self 8 [id number] Medicare (Part B) Medicare Primary [id number] Self [id number] MEDICARE [id number] SP [id number] UNITED HEALTHCARE [id number] S [id number] BS EMPIRE [id number] S [id number] [facility] MEDICARE DIVISION [id number] S [id number] MEDICARE - [place] [id number] S [id number] BCBS EMPIRE TAMIA DIV UNAVAILABLE UNAVAILABLE [place] BCBS Medigap Part B [id number] Family Dependent [id number] [place] Plan Medigap Part B [id number] Self [id number] [facility] O [id number] S [id number] MEDICARE [id number] S [id number] A BCBS EMPIRE TAMIA DIV [id number] SP [id number] MEDICARE [id number] SP [id number] A Medicare [place] Medicare Primary [id number] Self [id number] EMPIRE ([facility]) O [id number] S [id number] [facility] [id number] SP [id number] [facility] -O/P [id number] 18 [id number] Problems, Conditions, and Diagnoses No Information Surgeries/Procedures [...] P.C.) Spirometry 09/20/2020 12:00:00 AM EDWIN TONEY ([facility], ) Medication: Lidocaine HCl 2% Jelly 5mL Intravesically 08/11/2020 12:00:00 AM EDT eCW1 ([facility]) OFFICE OUTPATIENT VISIT 25 MINUTES 06/22/2020 12:00:00 AM EDT MEDENT ([facility] Colonoscopy W/ Poly 04/13/2020 12:00:00 AM EST MEDENT ([facility], ) Spirometry 03/20/2020 12:00:00 AM EST M EDENT ([facility], ) Laparoscopic Incisional Hernia W/ Mesh, Reducible 01/11/2020 12:00:00 AM EDT MEDENT ([facility], ) Electrocardiogram Complete 01/04/2020 12:00:00 AM EDT MEDENT ([facility] Results ID Date Data Source [id number] 01/09/2021 09:35:00 AM EDT MEDENT ([facility] Name Value Range Interpretation Code Description Data Ashley rce(s) Supporting Document(s) Trig 114 mg/dL 35-200 MEDENT ([facility] CHRONIC KIDNEY DISEASE [...] YEARS EXCLUSIVE. Cho/HDL Ratio 5.3 CALC MEDENT ([facility] CHRONIC KIDNEY DISEASE STAGING [...] 2-19 YEARS EXCLUSIVE. ID Date Data Source [id number] 01/09/2021 09:35:00 AM EDT IGNACIO ([facility] Name Value Range Interpretation Code Description Data Ashley rce(s) Supporting Document(s) Glu 102 mg/dL 70-110 MEDENT ([facility] CHRONIC KIDNEY DISEASE STAGING PER [...] YEARS EXCLUSIVE. BUN 22 mg/dL 8-23 MEDENT ([facility] CHRONIC KIDNEY DISEASE STAGING PER [...] YEARS EXCLUSIVE. Na 140 mmol/L 136-145 [facility] CHRONIC KIDNEY DISEASE STAGING PER [...] YEARS EXCLUSIVE. BUN/Creatinine Ratio 19.2 CALC MEDENT ([facility] CHRONIC KIDNEY DISEASE [...] YEARS EXCLUSIVE. Creat 1.1 mg/dL 0.7-1.2 MEDENT ([facility] CHRONIC KIDNEY [...] YEARS EXCLUSIVE. CL 105.3 mmol/L 98.0-107.0 MEDENT ([facility] CHRONIC KIDNEY DISEASE STAGING [...] g/dL 6.6-8.7 Below low normal MEDENT ( [facility] CHRONIC KIDNEY DISEASE [...] YEARS EXCLUSIVE. Anion Gap 19 mmol/L MED[facility] ([facility] CHRONIC KIDNEY [...] INDIVIDUALA AGED 2-19 YEARS EXCLUSIVE. eGFR Non-Afr. Danish 67 # [facility] ([facility] [...] 2-19 YEARS EXCLUSIVE. ID Date Data Source [id number] 01/09/2021 09:35:00 AM EDT MEDENT ([facility] Name Value Range Interpretation Code Description Data Ashley rce(s) Supporting Document(s) Hemoglobin A1c/Hemoglobin.total in Blood 5.9 % 4.50-6.20 [facility] ([facility] ID Date Data Source [id number] 10/11/2020 01:34:00 PM EDT MEDENT ([facility] Name Value Range Interpretation Code Description Data Ashley rce(s) Supporting Document(s) Hemoglobin A1c/Hemoglobin.total in Blood 6.3 % 4.50-6.20 Above high normal MED[facility] ([facility] ID Date Data Source CT ABD & Pelvis w/o FOL by BERNICE 07/21/2020 12:00:00 AM EDT eC W1 (Counts [facility]) Name Value Range Interpretation Code Description Data Ashley rce(s) Supporting Document(s) CT ABD & Pelvis w/o FOL by BERNICE eCW1 (Counts Include [facility]) ID Date Data Source [id number] 07/11/2020 09:05:00 AM EDT MEDENT ([facility] Name Value Range Interpretation Code Description Data Ashley rce(s) Supporting Document(s) Hemoglobin A1c/Hemoglobin.total in Blood 6.3 % 4.50-6.20 Above high normal [facility] ([facility] ID Date Data Source [id number] 07/11/2020 09:00:00 AM EDT MEDENT ([facility] Name Value Range Interpretation Code Description Data Ashley rce(s) Supporting Document(s) Prostate specific Ag [Mass/volume] in Serum or Plasma 0.89 ng/mL 0.0- 4.0 MEDMARCUS ([facility] ID Date Data Source [id number] 07/11/2020 08:59:00 AM EDT IGNACIO ([facility] Name Value Range Interpretation Code Description Data Ashley rce(s) Supporting Document(s) Chol 180 mg/dL 0-200 MEDMARCUS ([facility] CHRONIC KIDNEY DISEASE [...] Serum or Plasma 42 mg/dL 35-55 MEDENT ([facility] CHRONIC KIDNEY DISEASE [...] 2-19 YEARS EXCLUSIVE. Cho/HDL Ratio 4.3 CALC [facility] CHRONIC KIDNEY DISEASE STAGING [...] 2-19 YEARS EXCLUSIVE. ID Date Data Source [id number] 07/11/2020 08:59:00 AM EDT IGNACIO ([facility] Name Value Range Interpretation Code Description Data Ashley rce(s) Supporting Document(s) Glu 207 mg/dL 70-110 Above high normal IGNACIO ([facility] CHRONIC KIDNEY DISEASE [...] YEARS EXCLUSIVE. BUN 20 mg/dL 8-23 MEDMARCUS ([facility] CHRONIC KIDNEY DISEASE STAGING [...] YEARS EXCLUSIVE. BUN/Creatinine Ratio 18.2 CALC MEDENT ([facility] CHRONIC KIDNEY DISEASE [...] YEARS EXCLUSIVE. Creat 1.1 mg/dL 0.7-1.2 MEDENT ([facility] CHRONIC KIDNEY [...] EXCLUSIVE. Ast (Sgot) 12 U/L 0-40 [facility] CHRONIC KIDNEY DISEASE STAGING PER [...] EXCLUSIVE. Alt (SGPT) 11 U/L 0-41 MEDMARCUS ([facility] CHRONIC KIDNEY DISEASE STAGING PER [...] YEARS EXCLUSIVE. Alp 79.4 U/L 40-129 [facility]ARC[facility] CHRONIC KIDNEY DISEASE STAGING [...] INDIVIDUALA AGED 2-19 YEARS EXCLUSIVE. eGFR Non-Afr. Danish 67 # IGNACIO ([facility] CHRONIC KIDNEY DISEASE [...] 2-19 YEARS EXCLUSIVE. ID Date Data Source [id number] 06/22/2020 01:53:00 PM EDT IGNACIO ([facility] Name Value Range Interpretation Code Description Data Ashley rce(s) Supporting Document(s) Pathology report site of origin Narrative Laboratory test result MEDENT ([facility] No. of containers..01 Sterile Cup SRC:MARCO A JERNIGAN [id number] Laboratory test finding (navigational concept) Laboratory test result MEDENT ([facility] No. of containers..01 Sterile Cup SRC:MARCO A JERNIGAN [id number] Pathology report final diagnosis Narrative Laboratory test result MED[facility] ([facility] No. of containers..01 Sterile Cup SRC:MARCO A JERNIGAN [id number] Laboratory test finding (navigational concept) Laboratory test result MEDENT ([facility] No. of containers..01 Sterile Cup SRC:MARCO A JERNIGAN [id number] Pathology report comments [Interpretation] Narrative Laboratory clint t result MEDENT ([facility] No. of containers..01 Sterile Cup SRC:MARCO A JERNIGAN [id number] Pathologist name Laboratory test result MEDENT ([facility] No. of containers..01 Sterile Cup SRC:MARCO A JERNIGAN [id number] Pathology report gross observation Narrative Laboratory test result MEDENT ([facility] No. of containers..01 Sterile Cup SRC:MARCO A JERNIGAN [id number] Laboratory test finding (navigational concept) Laboratory test result MEDENT ([facility] No. of containers..01 Sterile Cup SRC:MARCO A JERNIGAN [id number] ID Date Data Source [id number] 06/22/2020 01:49:00 PM EDT MEDENT ([facility] Name Value Range Interpretation Code Description Data Ashley rce(s) Supporting Document(s) Urine Culture, Routine Laboratory test result MEDENT ([facility] SRC:URINE Bacteria identified in Urine by Culture Laboratory test result MED[facility] ([facility] SRC:URINE ID Date Data Source [id number] 06/22/2020 01:48:00 PM EDT MEDENT ([facility] Name Value Range Interpretation Code Description Data Ashley rce(s) Supporting Document(s) Comment 1 Laboratory test result ME DENT ([facility] Color Urine Laboratory test result M EDENT ([facility] Specific Randolph 1.030 1.00-1.03 MEDENT ([facility] Appearance of Urine Laboratory test result MEDENT ([facility] PH Urine 6.0 5.0-8.0 MEDENT ([facility] Bilirubin.total [Presence] in Urine by Test strip Laboratory test res ult MEDENT ([facility] Glucose Urine Laboratory test result MEDENT ([facility] Blood Urine Laboratory test result M EDENT ([facility] Protein Urine Laboratory test result MEDENT ([facility] Ketones Laboratory test result MEDENT ([facility] Urobilinogen 1.0 EU/dl 0.2-1.0 MEDENT ([facility] Nitrite Laboratory test result MEDENT ([facility] Leukocytes Laboratory test result ME DENT ([facility] ID Date Data Source [id number] 04/13/2020 08:55:00 AM EST MEDENT ([facility]) Name Value Range Interpretation Code Description [facility] Document(s) Surgical pathology study Laboratory test result MEDENT ([facility], ) FINAL DIAGNOSIS Colon, polyps, polypectomy: Adenomatous polyp/tubular adenoma fragments. 04/14/2020 - 1037 CLINICAL DIAGNOSIS H/O colon polyps 04/13/2020 - 1320 GROSS DIAGNOSIS Received in formalin labeled "colon polyps" is a 1 x 0.4 x 0.4 cm. aggregate of polyp fragments. All in one. - 04/13/2020 - 1320 Signed Breezy Burroughs MD 04/14/2020 1208 ID Date Data Source [id number] 04/08/2020 09:00:00 AM EST [facility] Name Value Range Interpretation Code Description Data [facility] rce(s) Supporting Document(s) SARS coronavirus 2 RNA [facility] This lab was ordered by [facility] and reported by [facility]. ID Date Data Source [id number] 04/04/2020 01:36:00 PM EST MEDENT ([facility] Name Value Range Interpretation Code Description Data Ashley rce(s) Supporting Document(s) Hemoglobin A1c/Hemoglobin.total in Blood 6.0 % 4.50-6.20 MEDENT ([facility] ID Date Data Source [id number] 03/20/2020 11:00:00 AM EST MEDENT ([facility], ) Name Value Range Interpretation Code Description Data Ashley rce(s) Supporting Document(s) PDFReport Laboratory test result MEDENT ([facility], ) FVC-Pre 3.52 L MEDENT ([facility]) FVC-Pred 4.43 L MEDENT ([facility]) FVC-%Pred-Pre 79 L MEDENT ([facility], ) FVC-LLN 3.49 L MEDENT ([facility]) Fev1-Pred 3.26 L MEDENT ([facility]) Fev1-Pre 2.34 L MEDENT ([facility]) Fev1-%Pred-Pre 71 L MEDENT ([facility]) Fev1-LLN 2.47 L MEDENT ([facility]) Fev6-Pred 4.18 L MEDENT ([facility]) Fev6-Pre 3.52 L MEDENT ([facility]) Fev6-%Pred-Pre 84 L MEDENT ([facility]) Ase8zpz-Lxv 67 % MEDENT ([facility]) Hfn4fzz-Rcxs 74 % MEDENT ([facility]) Fev6-LLN 3.27 L MEDENT ([facility]) Gnz5qsr-Xqbv 94 % MEDENT ([facility]) Yac9osu-%Pred-Pre 90 % MEDENT ([facility]) Mhd3baf-JDV 64 % MEDENT ([facility]) Fxt4gxw-%Pred-Pre 105 % MEDENT ([facility]) Afl6jkj-Jqc 100 % MEDENT ([facility]) FEFMax-Pred 8.36 L/E/sec MEDENT ([facility]) FEFMax-%Pred-Pre 69 L/E/sec MEDENT ([facility] [facility] FEFMax-LLN 6.04 L/E/sec MEDENT ([facility]) FEFMax-Pre 5.83 L/E/sec [facility] ([facility]) [id number]-Pre 53 L/E/sec MED[facility] ([facility]) [id number] 1.31 L/E/sec MED[facility] ([facility]) [id number] 2.47 L/E/sec MED[facility] ([facility]) [id number] 78 % MED[facility] ([facility]) [id number] 0.87 L/E/sec MED[facility] ([facility]) ExpTime-Pre 6.31 sec MEDENT ([facility]) [id number] 67 % [facility] ([facility]) [id number] 69 % [facility] ([facility]) [id number]-Pre 85 % [facility] ([facility]) ID Date Data Source [id number] 02/28/2020 12:00:00 AM EST [facility] Name Value Range Interpretation Code Description Data Ashley rce(s) Supporting Document(s) SARS coronavirus 2 Ag [facility] This lab was ordered by [facility] and reported by [facility]. ID Date Data Source [id number] 01/11/2020 02:09:00 PM EDT MED[facility] ([facility] Name Value Range Interpretation Code Description Data Ashley rce(s) Supporting Document(s) Glucose [Mass/volume] in Capillary blood by Glucometer 144 mg/dL 83-110 Above high normal MED[facility] ([facility] ) ID Date Data Source [id number] 01/11/2020 02:09:00 PM EDT MED[facility] ([facility]) Name Value Range Interpretation Code Description Data Ashley rce(s) Supporting Document(s) Glucose [Mass/volume] in Capillary blood by Glucometer 144 mg/dL 83-110 Above high normal MED[facility] ([facility]) ID Date Data Source [id number] 01/11/2020 10:46:00 AM EDT MED[facility] ([facility] Name Value Range Interpretation Code Description Data Ashley rce(s) Supporting Document(s) Glucose [Mass/volume] in Capillary blood by Glucometer 130 mg/dL 83-110 Above high normal MED[facility] ([facility] ) ID Date Data Source [id number] 01/11/2020 10:46:00 AM EDT MED[facility] ([facility]) Name Value Range Interpretation Code Description Data Ashley rce(s) Supporting Document(s) Glucose [Mass/volume] in Capillary blood by Glucometer 130 mg/dL 83-110 Above high normal [facility] ([facility]) ID Date Data Source [id number] 01/06/2020 10:00:00 AM EDT [facility] Name Value Range Interpretation Code Description Data Ashley rce(s) Supporting Document(s) SARS coronavirus 2 RNA [facility] This lab was ordered by [facility] and reported by [facility]. ID Date Data Source [id number] 01/04/2020 01:59:00 PM EDT MEDENT ([facility] Name Value Range Interpretation Code Description Data Ashley rce(s) Supporting Document(s) Hemoglobin A1c/Hemoglobin.total in Blood 6.1 % 4.50-6.20 MED[facility] ([facility] ID Date Data Source [id number] 01/04/2020 01:59:00 PM EDT MED[facility] ([facility] Name Value Range Interpretation Code Description Data Ashley rce(s) Supporting Document(s) Glu 198 mg/dL 70-110 Above high normal MED[facility] ([facility] NORMAL RANGES Age WBC [...] HCT IS 5% LESS SOURCE FOR DATA: [employer] 1800 OPERATION MANUAL( AUTOMATED BLOOD COUNTS [...] >32 mL/min Normal BUN 22 mg/dL 8- [facility] ([facility] NORMAL RANGES Age WBC [...] HCT IS 5% LESS SOURCE FOR DATA: [employer] 1800 OPERATION MANUAL( AUTOMATED BLOOD COUNTS AND [...] >32 mL/min Normal Creat 1.2 mg/dL 0.7-1.2 [facility] ([facility] NORMAL RANGES Age WBC [...] IS 5% LESS SOURCE FOR DATA: [employer] 1800 OPERATION MANUAL( AUTOMATED BLOOD COUNTS AND [...] above >32 mL/min Normal BUN/Creatinine Ratio 18.4 [facility] Secure-24 ([facility] NORMAL RANGES Age WBC [...] >32 mL/min Normal CL 101.1 mmol/L 98.0-107.0 [facility] ([facility] NORMAL RANGES Age WBC RBC HGB [...] HCT IS 5% LESS SOURCE FOR DATA: [employer] 1800 OPERATION MANUAL( AUTOMATED BLOOD COUNTS AND [...] >32 mL/min Normal K 4.0 mmol/L 3.5-5.1 [facility] NORMAL RANGES Age WBC RBC [...] HCT IS 5% LESS SOURCE FOR DATA: [employer] 1800 OPERATION MANUAL( AUTOMATED BLOOD COUNTS AND [...] >32 mL/min Normal Na 138 mmol/L 136-145 [facility] ([facility] NORMAL RANGES Age WBC RBC [...] HCT IS 5% LESS SOURCE FOR DATA: [employer] 1800 OPERATION MANUAL( AUTOMATED BLOOD COUNTS AND [...] >32 mL/min Normal CA 9.4 mg/dL 8.6-10.2 [facility] NORMAL RANGES [...] HCT IS 5% LESS SOURCE FOR DATA: [employer] 1800 OPERATION MANUAL( AUTOMATED BLOOD COUNTS AND [...] >32 mL/min Normal Co2 23.7 mmol/L 22.0-29.0 [facility] ([facility] NORMAL RANGES Age WBC [...] HCT IS 5% LESS SOURCE FOR DATA: [employer] 1800 OPERATION MANUAL( AUTOMATED BLOOD COUNTS AND [...] TP 6.5 g/dL 6.6-8.7 Below low normal [facility] ( [facility] NORMAL RANGES [...] HCT IS 5% LESS SOURCE FOR DATA: [employer] 1800 OPERATION MANUAL( AUTOMATED BLOOD COUNTS AND [...] >32 mL/min Normal A/G Ratio 2.2 CALC [facility] ([facility] NORMAL RANGES Age WBC [...] HCT IS 5% LESS SOURCE FOR DATA: [employer] 1800 OPERATION MANUAL( AUTOMATED BLOOD COUNTS AND [...] >32 mL/min Normal Alb 4.5 g/dL 3.5-5.2 [facility] ([facility] NORMAL RANGES Age WBC RBC HGB [...] HCT IS 5% LESS SOURCE FOR DATA: [employer] 1800 OPERATION MANUAL( AUTOMATED BLOOD COUNTS AND [...] >32 mL/min Normal Globulin 2.0 CALC [facility] ([facility] NORMAL RANGES Age WBC [...] mL/min Normal Alt (SGPT) 13 U[facility]L 0-41 [facility] NORMAL RANGES Age WBC RBC [...] >32 mL/min Normal Alp 81.9 U/L 40-129 [facility] ([facility] NORMAL RANGES Age WBC [...] HCT IS 5% LESS SOURCE FOR DATA: [employer] 1800 OPERATION MANUAL( AUTOMATED BLOOD COUNTS AND [...] HCT IS 5% LESS SOURCE FOR DATA: [employer] 1800 OPERATION MANUAL( AUTOMATED BLOOD COUNTS AND [...] mL/min Normal Ast (Sgot) 12 U/L 0-40 [facility] ([facility] NORMAL RANGES Age WBC RBC [...] HCT IS 5% LESS SOURCE FOR DATA: [employer] 1800 OPERATION MANUAL( AUTOMATED BLOOD COUNTS AND [...] >32 mL/min Normal Tbili 0.60 mg/dL 0.0-1.2 [facility] ([facility] NORMAL RANGES Age [...] HCT IS 5% LESS SOURCE FOR DATA: [employer] 1800 OPERATION MANUAL( AUTOMATED BLOOD COUNTS AND [...] and above >32 mL/min Normal eGFR Non-Afr. Danish 61 # MED[facility] ([facility] [...] HCT IS 5% LESS SOURCE FOR DATA: [employer] 1800 OPERATION MANUAL( AUTOMATED BLOOD COUNTS AND [...] >32 mL/min Normal Anion Gap 17 mmol/L [facility] NORMAL RANGES [...] HCT IS 5% LESS SOURCE FOR DATA: [employer] 1800 OPERATION MANUAL( AUTOMATED BLOOD COUNTS AND [...] mL/min Normal eGFR 71 # IGNACIO ( [facility] NORMAL RANGES Age WBC [...] HCT IS 5% LESS SOURCE FOR DATA: [employer] 1800 OPERATION MANUAL( AUTOMATED BLOOD COUNTS AND [...] >32 mL/min Normal ID Date Data Source [id number] 01/04/2020 01:59:00 PM EDT [facility] ([facility] Name Value Range Interpretation Code Description Data Ashley rce(s) Supporting Document(s) RBC 5.12 10E6/uL MED[facility] ([facility] NORMAL RANGES [...] >32 mL/min Normal WBC 7.9 10E3/uL 4.1-10.9 Secure-24 ([facility] NORMAL RANGES Age WBC [...] HCT IS 5% LESS SOURCE FOR DATA: [employer] 1800 OPERATION MANUAL( AUTOMATED BLOOD COUNTS AND [...] >32 mL/min Normal HGB 15.9 g/dL 12.0-18.0 [facility] ([facility] NORMAL RANGES [...] HCT IS 5% LESS SOURCE FOR DATA: [employer] 1800 OPERATION MANUAL( AUTOMATED BLOOD COUNTS AND [...] >32 mL/min Normal MCV 90.0 fL 80.0-97.0 [facility] ([facility] NORMAL [...] HCT IS 5% LESS SOURCE FOR DATA: [employer] 1800 OPERATION MANUAL( AUTOMATED BLOOD COUNTS AND [...] >32 mL/min Normal HCT 46.1 % 37.0-51.0 [facility] NORMAL RANGES [...] HCT IS 5% LESS SOURCE FOR DATA: [employer] 1800 OPERATION MANUAL( AUTOMATED BLOOD COUNTS AND [...] >32 mL/min Normal PLT 186 10E3/uL 140-440 [facility] ([facility] NORMAL RANGES Age WBC [...] HCT IS 5% LESS SOURCE FOR DATA: [employer] 1800 OPERATION MANUAL( AUTOMATED BLOOD COUNTS AND [...] HCT IS 5% LESS SOURCE FOR DATA: [employer] 1800 OPERATION MANUAL( AUTOMATED BLOOD COUNTS AND [...] >32 mL/min Normal MCH 31.1 pg 26.0-32.0 [facility] NORMAL RANGES [...] HCT IS 5% LESS SOURCE FOR DATA: [employer] 1800 OPERATION MANUAL( AUTOMATED BLOOD COUNTS AND [...] >32 mL/min Normal Lym% 22.0 % 10.0-58.5 [facility] ([facility] NORMAL RANGES Age WBC [...] HCT IS 5% LESS SOURCE FOR DATA: [employer] 1800 OPERATION MANUAL( AUTOMATED BLOOD COUNTS AND [...] >32 mL/min Normal RDW-CV 14.2 % 11.5-14.5 [facility] ([facility] NORMAL RANGES Age WBC [...] HCT IS 5% LESS SOURCE FOR DATA: [employer] 1800 OPERATION MANUAL( AUTOMATED BLOOD COUNTS AND [...] >32 mL/min Normal Lym# 1.7 10E3/uL 0.6-4.1 Secure-24 ([facility] NORMAL RANGES Age WBC [...] >32 mL/min Normal MXD% 5.5 % 0.1-24.0 [facility] ([facility] NORMAL RANGES Age WBC [...] HCT IS 5% LESS SOURCE FOR DATA: [employer] 1800 OPERATION MANUAL( AUTOMATED BLOOD COUNTS AND [...] >32 mL/min Normal Neut% 72.5 % 37.0-92.0 [facility] NORMAL RANGES [...] HCT IS 5% LESS SOURCE FOR DATA: [employer] 1800 OPERATION MANUAL( AUTOMATED BLOOD COUNTS AND [...] >32 mL/min Normal MXD# 0.4 10E3/uL 0.0-1.8 [facility] ([facility] NORMAL RANGES Age WBC [...] HCT IS 5% LESS SOURCE FOR DATA: [employer] 1800 OPERATION MANUAL( AUTOMATED BLOOD COUNTS AND [...] >32 mL/min Normal Neut# 5.8 % 2.0-7.8 [facility] ([facility] NORMAL [...] HCT IS 5% LESS SOURCE FOR DATA: [employer] 1800 OPERATION MANUAL( AUTOMATED BLOOD COUNTS AND [...] HCT IS 5% LESS SOURCE FOR DATA: [employer] 1800 OPERATION MANUAL( AUTOMATED BLOOD COUNTS AND [...] current smoker, smokes every day MED[facility] ( [facility], ) Smoking 08/11/2020 12:00:00 AM EDT Current Smoker completed Curre nt Smoker eCW1 (Counts Include [facility]) Smoking 08/11/2020 12:00:00 AM EDT Current Smoker completed Curre nt Smoker eCW1 (Counts Include [facility]) Smoking 07/06/2020 12:00:00 AM EDT Current Smoker completed Curre nt Smoker eCW1 (Counts Include [facility]) Vital Signs ID Date Data Source UNK Name Value Range Interpretation Code Description Data Source(s) Diastolic blood pressure 76 mm[Hg] 76 mm[Hg] [facility] ([facility] Systolic blood pressure 122 mm[Hg] 122 mm[Hg] M EDENT ([facility] Body temperature 97.6 [degF] 97.6 [degF] [facility] ([facility] Heart rate 85 /min 85 /min MED[facility] ([facility] Respiratory rate 16 /min 16 /min [facility] ( [facility] Body height 70 [in_i] 70 [in_i] MEDENT ([facility] 5'10" Body weight 231.00 [lb_av] 231.00 [lb_av] MEDEN T ([facility] Orient body weight 166 [lb_av] 166 [lb_av] MEDEN T ([facility] Body mass index (BMI) [Ratio] 33.1 kg/m2 33.1 k g/m2 [facility] ([facility] Oxygen saturation in Arterial blood by Pulse oximetry 97 % 97 % [facility] ([facility] Body mass index (BMI) [Ratio] 34.6 kg/m2 34.6 k g/m2 MED[facility] ([facility] Orient body weight 166 [lb_av] 166 [lb_av] MEDEN T ([facility] Respiratory rate 16 /min 16 /min MED[facility] ( [facility] Systolic blood pressure 102 mm[Hg] 102 mm[Hg] M EDENT ([facility] Diastolic blood pressure 72 mm[Hg] 72 mm[Hg] MED[facility] ([facility] Body temperature 97.6 [degF] 97.6 [degF] [facility] ([facility] Heart rate 53 /min 53 /min [facility] Body height 70 [in_i] 70 [in_i] MEDENT ([facility] 5'10" Body weight 241.00 [lb_av] 241.00 [lb_av] MEDEN T ([facility] Oxygen saturation in Arterial blood by Pulse oximetry 94 % 94 % [facility] ([facility] Body surface area Derived from formula 2.24 m2 2.24 m2 [facility] ([facility], ) Systolic blood pressure 120 mm[Hg] 120 mm[Hg] M EDENT ([facility], ) Diastolic blood pressure 78 mm[Hg] 78 mm[Hg] [facility] ([facility]) Heart rate 78 /min 78 /min [facility] ([facility]) Oxygen saturation in Arterial blood by Pulse oximetry 98 % 98 % [facility] ([facility]) Room Air Body height 70 [in_i] 70 [in_i] [facility] ([facility]) 5'10" Body weight 237.00 [lb_av] 237.00 [lb_av] MEDEN T ([facility], ) Body mass index (BMI) [Ratio] 34.0 kg/m2 34.0 k g/m2 [facility] ([facility]) Orient body weight 166 [lb_av] 166 [lb_av] MEDEN T ([facility]) Body weight 107.503 kg 107.503 kg [facility] ([facility]) Body weight 244 [lb_av] 244 [lb_av] W1 ([facility]) Body height [in_i] eCW1 ([facility]) Body mass index (BMI) [Ratio] 35.01 kg/m2 35.01 kg/m2 eCW1 (Counts Include [facility]) Heart rate 79 /min 79 /min eCW1 ([facility]) Respiratory rate 18 /min 18 /min eCW1 ([facility]) Body temperature 98.0 [degF] 98.0 [degF] eCW1 ( Counts Include [facility]) Systolic blood pressure 128 mm[Hg] 128 mm[Hg] e CW1 (Counts Include [facility]) Diastolic blood pressure 76 mm[Hg] 76 mm[Hg] eCW1 (Counts Include [facility]) Body weight 250 [lb_av] 250 [lb_av] eCW1 ([facility]) Body height [in_i] eCW1 ([facility]) Body mass index (BMI) [Ratio] 35.87 kg/m2 35.87 kg/m2 eCW1 (Counts Include [facility]) Heart rate 70 /min 70 /min eCW1 ([facility]) Respiratory rate 18 /min 18 /min eCW1 ([facility]) Body temperature 97.7 [degF] 97.7 [degF] eCW1 ( Counts Include [facility]) Systolic blood pressure 120 mm[Hg] 120 mm[Hg] e CW1 (Counts Include [facility]) Diastolic blood pressure 74 mm[Hg] 74 mm[Hg] eCW1 (Counts Include [facility]) Systolic blood pressure 112 mm[Hg] 112 mm[Hg] M EDENT ([facility] Diastolic blood pressure 72 mm[Hg] 72 mm[Hg] MED[facility] ([facility] Heart rate 79 /min 79 /min [facility] ([facility] Orient body weight 166 [lb_av] 166 [lb_av] MEDEN T ([facility] Oxygen saturation in Arterial blood by Pulse oximetry 96 % 96 % [facility] ([facility] Body temperature 97.3 [degF] 97.3 [degF] [facility] ([facility] Respiratory rate 16 /min 16 /min MED[facility] ( [facility] Body height 70 [in_i] 70 [in_i] [facility] 5'10" Body weight 252.00 [lb_av] 252.00 [lb_av] MEDEN T ([facility] Body mass index (BMI) [Ratio] 36.2 kg/m2 36.2 k g/m2 MED[facility] ([facility] Body weight 251.50 [lb_av] 251.50 [lb_av] MEDEN T ([facility]) Body mass index (BMI) [Ratio] 36.1 kg/m2 36.1 k g/m2 MED[facility] ([facility]) Orient body weight 166 [lb_av] 166 [lb_av] MEDEN T ([facility]) Body weight 114.080 kg 114.080 kg [facility] ([facility]) Body surface area Derived from formula 2.30 m2 2.30 m2 [facility] ([facility]) Body height 70 [in_i] 70 [in_i] MEDENT ([facility]) 5'10" Systolic blood pressure 118 mm[Hg] 118 mm[Hg] EDENT ([facility]) Diastolic blood pressure 67 mm[Hg] 67 mm[Hg] [facility] ([facility]) Heart rate 77 /min 77 /min [facility] ([facility]) Orient body weight 166 [lb_av] 166 [lb_av] MEDEN T ([facility] Body mass index (BMI) [Ratio] 34.9 kg/m2 34.9 k g/m2 [facility] Oxygen saturation in Arterial blood by Pulse oximetry 96 % 96 % MED[facility] ([facility] Systolic blood pressure 128 mm[Hg] 128 mm[Hg] M EDENT ([facility] Diastolic blood pressure 72 mm[Hg] 72 mm[Hg] MED[facility] ([facility] Body temperature 98.2 [degF] 98.2 [degF] MED[facility] ([facility] Heart rate 71 /min 71 /min [facility] ([facility] Respiratory rate 16 /min 16 /min MED[facility] ( [facility] Body height 70 [in_i] 70 [in_i] MEDENT ([facility] 5'10" Body weight 243.00 [lb_av] 243.00 [lb_av] MEDEN T ([facility] Systolic blood pressure 108 mm[Hg] 108 mm[Hg] M EDENT ([facility], ) Diastolic blood pressure 70 mm[Hg] 70 mm[Hg] MEDENT ([facility]) Heart rate 86 /min 86 /min [facility] ([facility]) Oxygen saturation in Arterial blood by Pulse oximetry 96 % 96 % [facility] ([facility]) Room Air Body height 70 [in_i] 70 [in_i] [facility] ([facility]) 5'10" Body weight 242.00 [lb_av] 242.00 [lb_av] MEDEN T ([facility]) Body mass index (BMI) [Ratio] 34.7 kg/m2 34.7 k g/m2 [facility] ([facility]) Orient body weight 166 [lb_av] 166 [lb_av] MEDEN T ([facility]) Body weight 109.771 kg 109.771 kg [facility] ([facility]) Body surface area Derived from formula 2.26 m2 2.26 m2 [facility] ([facility]) Systolic blood pressure 115 mm[Hg] 115 mm[Hg] M EDENT ([facility]) Diastolic blood pressure 75 mm[Hg] 75 mm[Hg] [facility] ([facility]) Body height 70 [in_i] 70 [in_i] [facility] ([facility]) 5'10" Body weight 242.00 [lb_av] 242.00 [lb_av] MEDEN T ([facility]) Body mass index (BMI) [Ratio] 34.7 kg/m2 34.7 k g/m2 [facility] ([facility]) Orient body weight 166 [lb_av] 166 [lb_av] MEDEN T ([facility]) Body weight 109.771 kg 109.771 kg [facility] ([facility]) Body surface area Derived from formula 2.26 m2 2.26 m2 [facility] ([facility]) Systolic blood pressure 130 mm[Hg] 130 mm[Hg] M EDENT ([facility]) Diastolic blood pressure 78 mm[Hg] 78 mm[Hg] MEDENT ([facility]) Body height 70 [in_i] 70 [in_i] [facility] ([facility]) 5'10" Body weight 245.00 [lb_av] 245.00 [lb_av] MEDEN T ([facility]) Body mass index (BMI) [Ratio] 35.1 kg/m2 35.1 k g/m2 [facility] ([facility]) Orient body weight 166 [lb_av] 166 [lb_av] MEDEN T ([facility]) Body weight 111.132 kg 111.132 kg [facility] ([facility]) Orient body weight 166 [lb_av] 166 [lb_av] MEDEN T ([facility] Body mass index (BMI) [Ratio] 34.9 kg/m2 34.9 k g/m2 [facility] ([facility] Oxygen saturation in Arterial blood by Pulse oximetry 96 % 96 % [facility] Systolic blood pressure 102 mm[Hg] 102 mm[Hg] M EDENT ([facility] Diastolic blood pressure 54 mm[Hg] 54 mm[Hg] MED[facility] ([facility] Body temperature 97.6 [degF] 97.6 [degF] MEDENT ([facility] Heart rate 77 /min 77 /min [facility] ([facility] Respiratory rate 16 /min 16 /min [facility] Body height 70 [in_i] 70 [in_i] MEDENT ([facility] 5'10" Body weight 243.00 [lb_av] 243.00 [lb_av] JOY Gil ([facility] Patient Treatment Plan of Care Planned Activity Planned Date Details Description Data Source (s) vardenafil 20 MG Oral Tablet 08/11/2020 12:00:00 AM EDT eCW1 (Counts Include [facility] At [facility]) vardenafil 20 MG Oral Tablet 08/11/2020 12:00:00 AM EDT eCW1 (Counts Include 234 [facility] At [facility]) vardenafil 20 MG Oral Tablet 08/11/2020 12:00:00 AM EDT eCW1 (Counts Include 234 [facility] At [facility]) vardenafil 20 MG Oral Tablet 08/11/2020 12:00:00 AM EDT eCW1 (Counts Include 234 [facility] At [facility])
[2021-02-07] MEDS ORDERED: NS 500 ML IV ONE (11:50)
[2021-02-07] MEDS ORDERED: PANTOPRAZOLE 40MG VIAL (C9113 PER 1) IV ONE (11:55)
[2021-02-07 12:26] LABS: HEMATOCRIT 47.5 % (42.0-52.0); HEMOGLOBIN 15.6 g/dl (13.5-17.5); MEAN CORPUSCULAR HEMOGLOBIN 30.3 pg (27.0-33.0); MEAN CORPUSCULAR HGB CONC 32.8 g/dl (32.0-36.5); MEAN CORPUSCULAR VOLUME 92.2 fl (80.0-96.0); PLATELET COUNT, AUTOMATED 184 10^3/uL (150-450); RED BLOOD COUNT 5.15 10^6/uL (4.30-6.10); WHITE BLOOD COUNT 12.9 10^3/uL (4.0-10.0)
--- NOTE | 2021-02-07 12:26 | REP ---
INDICATION: rhochi lungs. COMPARISON: Chest x-ray 12/28/2019, low-dose CT 10/19/2020 TECHNIQUE: Two views FINDINGS: Lungs are well inflated without pleural effusion or definite infiltrate. Some minor apical pleural scarring suggested. Few cuffed bronchi in the perihilar regions may reflect bronchitis or reactive airway disease I see no dense consolidation, pleural effusion or parenchymal mass. Heart not enlarged. No vascular redistribution or pulmonary edema. The aorta and airway are intact. Bony thorax shows no acute compression deformity but with marginal osteophytes heaviest in the mid and lower thoracic region. There is no free air under the diaphragm. IMPRESSION: 1. Perihilar changes of bronchitis or reactive airway disease without dense consolidation, pleural effusion or other acute parenchymal finding. 2. No cardiomegaly, vascular redistribution or other acute finding. <Electronically signed by Dirk Benavidez > 02/07/21 [id number]
[2021-02-07] MEDS ORDERED: ISOVUE-370 76% 100ML VIAL As Ordered ONE (12:36)
[2021-02-07 12:52] LABS: ALBUMIN 3.7 GM/DL (3.2-5.2); ALT/SGPT 14 U/L (12-78); BILIRUBIN,DIRECT 0.2 MG/DL (0.0-0.2); BILIRUBIN,TOTAL 0.5 MG/DL (0.2-1.0); CK-MB VALUE MASS 1.7 NG/ML (<3.6); CPK CREATINE PHOSPHOKINASE 79 U/L (39-308); LIPASE 95 U/L (73-393); MB/CK RELATIVE INDEX 2.15 (< OR =4); NT-PRO BNP 40 PG/ML (<125); TROPONIN I < 0.02 NG/ML (< 0.10)
[2021-02-07 12:53] LABS: ATYPICAL LYMPH 3 % (0-5); EOSINOPHILS 7 % (0-3); LYMPHOCYTES 17 % (16-44); MONOCYTES 3 % (0-5); NEUTROPHILS 66 % (28-66); PLATELET ESTIMATE NORMAL (NORMAL)
--- NOTE | 2021-02-07 13:37 | REP ---
INDICATION: abdominal pain. COMPARISON: CT 07/21/2020 TECHNIQUE: Bolus 100 mL Isovue 370 scanning through the abdomen pelvis with both coronal and sagittal reconstructions. FINDINGS: CT abdomen: Some mild chronic changes in the bases is again seen and stable without acute finding. The heart is not enlarged there is no pericardial thickening or effusion. I see no hiatal hernia. There is no hepatosplenomegaly, focal hepatic or splenic mass, intrahepatic biliary dilatation nor perihepatic ascites. The gallbladder shows a few calcified stones in the dependent fundus of the gallbladder, unchanged. Pancreas shows no mass, ductal dilatation, inflammatory changes in the adjacent peripancreatic fat or adenopathy. Adrenal glands are normal. The kidneys show bilateral cysts with size and number unchanged from the study 7 months ago. No renal solid mass, hydronephrosis or stone disease the right. There is a nonobstructing calcification appear mid lower pole, left, unchanged. This is about 8 mm. The abdominal portion of colon shows scattered stool and mostly fluid throughout colonic loops. No sign of colitis or diverticulitis in the abdominal colon. The small bowel loops in the abdomen proper are fluid-filled, some of them mildly dilated and without air-fluid levels. Evidence of prior abdominal wall hernia surgery in the midline scar and/or mesh noted and diastasis of those rectus muscles some atrophy of portions of the rectus muscles noted. The aorta has atherosclerotic calcifications without aneurysm there is no periaortic, other retroperitoneal or mesenteric pathologic sized lymphadenopathy. I see no inflammatory changes about the cecum. Terminal ileum grossly intact. There is no abnormal wall thickening but caliber of the terminal ileum is less than that of the more proximal ileum. No adjacent inflammatory changes to the TI. Some muscular atrophy of the right psoas muscle and iliac muscles, right compared to left. Lung window review of all CT slices shows no perforation, free air or air bubbles to suggest abscess. The bone windows show marginal osteophytes and degenerative disc changes lower thoracic and lumbar spine without compression fracture. Posterior element facet arthropathy lower lumbar region. CT pelvis: The bony pelvis shows the sacrum intact. SI joints show sclerosis iliac side right greater than left but without erosions. Iliac wings without acute finding. There are bilateral total hip arthroplasties again seen with spray artifact limiting evaluation of the deep central pelvis. Bladder partially filled but its inferior margin and distal ureters cannot be evaluated. Proximal ureters are unremarkable. No pelvic midline ventral hernia or definite inguinal hernia. No pathologic sized inguinal adenopathy or visible pelvic adenopathy. Anastomotic suture line in the distal left colon proximal sigmoid again seen. Stool and gas throughout the distal left colon to rectosigmoid. Small bowel loops in the deep pelvis fluid-filled. Subtle of decrease in caliber of the distal ileum and terminal ileum without wall thickening or adjacent inflammatory change. IMPRESSION: 1. Fluid-filled small bowel loops with some mildly distended and with subtle transition in the distal ileum and terminal ileum without significant stricture, wall thickening of the those segments or adjacent inflammatory changes in the mesenteric fat. Findings may reflect some gastroenteritis or ileus. Appearance is not typical for inflammatory bowel disease with normal wall thickness of that terminal ileum. 2. Moderate retained stool and old anastomosis of the distal left colon sigmoid junction, stable. 3. Bilateral renal cysts with no hydronephrosis, solid mass or collecting system stones. There is a nonobstructing 8 mm stone in a pyramid in the lower pole on the left. 4. Status post bilateral total hip arthroplasty without acute bony finding. No other significant or acute finding. <Electronically signed by Dirk Benavidez > 02/07/21 [id number]
[2021-02-07] MEDS ORDERED: MIRA3350 PO (13:58)
[2021-02-07 14:01] VITALS: BP 115/59
[2021-02-07] MEDS ORDERED: PANT20TA6 PO (14:10)
--- NOTE | 2021-02-08 09:43 | ECGEPIP ---
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
== END 2021-02-07 14:20 | disposition home or self-care (01) ==
LOC: M ED 08:57
DX: R79.89 Other specified abnormal findings of blood chemistry (principal); N20.0 Calculus of kidney; K52.9 Noninfective gastroenteritis and colitis, unspecified; K59.00 Constipation, unspecified; N28.1 Cyst of kidney, acquired; R06.2 Wheezing; I25.10 Atherosclerotic heart disease of native coronary artery without angina pectoris; I25.2 Old myocardial infarction; I10 Essential (primary) hypertension; E78.5 Hyperlipidemia, unspecified; J44.9 Chronic obstructive pulmonary disease, unspecified; K57.92 Diverticulitis of intestine, part unspecified, without perforation or abscess without bleeding; F32.9 Major depressive disorder, single episode, unspecified; F17.200 Nicotine dependence, unspecified, uncomplicated; Z87.442 Personal history of urinary calculi; Z96.643 Presence of artificial hip joint, bilateral; Z79.4 Long term (current) use of insulin; Z79.899 Other long term (current) drug therapy; Z88.0 Allergy status to penicillin; Z91.89 Other specified personal risk factors, not elsewhere classified; Z91.040 Latex allergy status; Z88.8 Allergy status to other drugs, medicaments and biological substances; J30.89 Other allergic rhinitis
CPT/HCPCS: 71046; 74177; 80047; 80076; 82550; 82553; 83605; 83690; 83880; 84484; 85025; 93005; 93041; 94640; 94760; 96361; 96374; 99284; C9113; Q9967

== ENCOUNTER → 2021-02-16 | Outpatient (CLI) | payer MEDICARE, BC, OTHER ==
[~2021-02-16] MED LIST changes: +HUMA100I3 SC; +MIRA3350 PO; +PANT20TA6 PO; +VARD20TA
[2021-02-16 11:36] LABS: HEMATOCRIT 42.7 % (42.0-52.0); HEMOGLOBIN 14.7 g/dl (13.5-17.5); MEAN CORPUSCULAR HEMOGLOBIN 30.5 pg (27.0-33.0); MEAN CORPUSCULAR HGB CONC 34.4 g/dl (32.0-36.5); MEAN CORPUSCULAR VOLUME 88.6 fl (80.0-96.0); PLATELET COUNT, AUTOMATED 135 10^3/uL (150-450); RED BLOOD COUNT 4.82 10^6/uL (4.30-6.10); WHITE BLOOD COUNT 13.8 10^3/uL (4.0-10.0)
[2021-02-16 12:06] LABS: ALBUMIN 3.1 GM/DL (3.2-5.2); ALT/SGPT 16 U/L (12-78); BILIRUBIN,TOTAL 0.3 MG/DL (0.2-1.0); BLOOD UREA NITROGEN 36 MG/DL (7-18); CALCIUM LEVEL 8.7 MG/DL (8.8-10.2); CARBON DIOXIDE LEVEL 23 MEQ/L (21-32); CHLORIDE LEVEL 108 MEQ/L (98-107); CREATININE FOR GFR 1.17 MG/DL (0.70-1.30); GLOMERULAR FILTRATION RATE > 60.0 (>42); GLUCOSE, FASTING 102 MG/DL (70-100); POTASSIUM SERUM 3.9 MEQ/L (3.5-5.1); SODIUM LEVEL 139 MEQ/L (136-145); TOTAL PROTEIN 6.2 GM/DL (6.4-8.2)
== END ==
LOC: M WUC 09:23
PROVIDERS: ATTEND Physician Assistant
DX: N17.9 Acute kidney failure, unspecified (principal); K52.9 Noninfective gastroenteritis and colitis, unspecified

== ENCOUNTER → 2022-04-15 | Outpatient (CLI) | payer MEDICARE, BC, OTHER ==
[~2022-04-15] MED LIST changes: +ALBU6.7H6 INH; -LISI-898 PO; +LISI5TAB11 PO; -MONT10TA10 PO; +MONT10TA97 PO; -PROV108A INH
[2022-04-15 13:44] LABS: ALKALINE PHOSPHATASE 83 U/L (46-116); ALT/SGPT 15 U/L (7.0-40); AST/SGOT 13 U/L (<34); BILIRUBIN,TOTAL 0.4 MG/DL (0.3-1.2); BLOOD UREA NITROGEN 26 MG/DL (9-23); CALCIUM LEVEL 9.3 MG/DL (8.3-10.6); CARBON DIOXIDE LEVEL 26 MMOL/L (20-31); CHLORIDE LEVEL 108 MMOL/L (98-107); CHOLESTEROL LEVEL 211 MG/DL (<200); CHOLESTEROL RISK RATIO 5.17 (<5); CREATININE FOR GFR 1.17 MG/DL (0.70-1.30); GLOMERULAR FILTRATION RATE > 60.0 (>42); GLUCOSE, FASTING 107 MG/DL (74-106); HDL CHOLESTEROL 40.8 MG/DL (>40); LDL CHOLESTEROL 132.2 MG/DL (<100); NON-HDL-C 170 MG/DL; POTASSIUM SERUM 4.3 MMOL/L (3.5-5.1); SODIUM LEVEL 141 MMOL/L (136-145); TOTAL PROTEIN 6.8 G/DL (5.7-8.2); TRIGLYCERIDES LEVEL 190 MG/DL (<150)
[2022-04-15 13:56] LABS: HEMOGLOBIN A1c 5.6 % (4.0-6.0)
== END ==
LOC: M WUC 10:05
PROVIDERS: ATTEND Physician Assistant
DX: E78.5 Hyperlipidemia, unspecified (principal); E11.9 Type 2 diabetes mellitus without complications

== ENCOUNTER → 2022-07-16 | Outpatient (CLI) | payer MEDICARE, BC, OTHER ==
[~2022-07-16] MED LIST changes: +MONT-5 PO; -SING10TA32 PO
[2022-07-16 14:18] LABS: CREATININE, URINE 82.1 MG/DL
[2022-07-16 14:19] LABS: MAU/CREAT RATIO 4.8 MCG/MG (0.0-30.0)
[2022-07-16 14:34] LABS: HEMOGLOBIN A1c 5.8 % (4.0-6.0)
== END ==
LOC: M WUC 10:14
PROVIDERS: ATTEND Physician Assistant
DX: E11.9 Type 2 diabetes mellitus without complications (principal)

== ENCOUNTER → 2022-11-14 | Outpatient (CLI) | payer MEDICARE, BC, OTHER ==
[~2022-11-14] MED LIST changes: +FLUT12AE6 INH
[2022-11-14 16:51] LABS: PROSTATIC SPECIFIC AG MONITOR 0.88 NG/ML (< 4.00)
[2022-11-14 16:53] LABS: ALBUMIN 4.1 G/DL (3.2-5.2); BILIRUBIN,TOTAL 0.7 MG/DL (0.3-1.2); CALCIUM LEVEL 9.4 MG/DL (8.3-10.6); CHOLESTEROL RISK RATIO 3.48 (<5); CREATININE FOR GFR 1.3 MG/DL (0.70-1.30); GLOMERULAR FILTRATION RATE 57.6 (>42); HDL CHOLESTEROL 54.8 MG/DL (>40); NON-HDL-C 136.2 MG/DL; POTASSIUM SERUM 4.4 MMOL/L (3.5-5.1)
[2022-11-14 16:56] LABS: HEMOGLOBIN A1c 6.1 % (4.0-6.0); THYROID STIMULATING HORMONE 1.247 uIU/ML (0.55-4.78)
[2022-11-14 17:03] LABS: HEMATOCRIT 44.7 % (42.0-52.0); HEMOGLOBIN 14.4 g/dl (13.5-17.5); MEAN CORPUSCULAR HEMOGLOBIN 30.9 pg (27.0-33.0); MEAN CORPUSCULAR HGB CONC 32.2 g/dl (32.0-36.5); MEAN CORPUSCULAR VOLUME 95.9 fl (80.0-96.0); PLATELET COUNT, AUTOMATED 191 10^3/uL (150-450); RED BLOOD COUNT 4.66 10^6/uL (4.30-6.10); WHITE BLOOD COUNT 8.1 10^3/uL (4.0-10.0)
== END ==
LOC: M WUC 11:33
PROVIDERS: ATTEND Physician Assistant
DX: E78.5 Hyperlipidemia, unspecified (principal); E11.9 Type 2 diabetes mellitus without complications; E03.9 Hypothyroidism, unspecified; Z12.5 Encounter for screening for malignant neoplasm of prostate

== ENCOUNTER → 2023-01-21 | Outpatient (CLI) | payer MEDICARE, BC, OTHER | LOC: M RAD 10:40 | PROVIDERS: ATTEND Nurse Practitioner Family | DX: N18.31 Chronic kidney disease, stage 3a (principal); Q61.02 Congenital multiple renal cysts; R16.1 Splenomegaly, not elsewhere classified; N40.1 Benign prostatic hyperplasia with lower urinary tract symptoms ==

== ENCOUNTER → 2023-02-17 | Outpatient (REF) | payer MEDICARE, BC, OTHER ==
[2023-02-17 13:08] LABS: HEMOGLOBIN A1c 5.7 % (4.0-6.0)
== END ==
LOC: M LABWUC 11:27
PROVIDERS: ATTEND Physician Assistant
DX: E11.9 Type 2 diabetes mellitus without complications (principal)

== ENCOUNTER → 2023-05-20 | Outpatient (REF) | payer MEDICARE, OTHER ==
[~2023-05-20] MED LIST changes: -HYDR25TA PO; +HYDR25TA88 PO
[2023-05-20 14:19] LABS: ALBUMIN 4.2 G/DL (3.2-5.2); ALKALINE PHOSPHATASE 71 U/L (46-116); ALT/SGPT 16 U/L (7.0-40); AST/SGOT 9 U/L (<34); BILIRUBIN,TOTAL 0.5 MG/DL (0.3-1.2); BLOOD UREA NITROGEN 22 MG/DL (9-23); CALCIUM LEVEL 8.8 MG/DL (8.3-10.6); CARBON DIOXIDE LEVEL 24 MMOL/L (20-31); CHLORIDE LEVEL 109 MMOL/L (98-107); CHOLESTEROL LEVEL 230 MG/DL (<200); CHOLESTEROL RISK RATIO 5.08 (<5); CREATININE FOR GFR 1.08 MG/DL (0.70-1.30); GLOMERULAR FILTRATION RATE > 60.0 (>42); GLUCOSE, FASTING 118 MG/DL (74-106); HDL CHOLESTEROL 45.2 MG/DL (>40); LDL CHOLESTEROL 144.8 MG/DL (<100); NON-HDL-C 184.8 MG/DL; POTASSIUM SERUM 4.1 MMOL/L (3.5-5.1); SODIUM LEVEL 139 MMOL/L (136-145); TOTAL PROTEIN 6.8 G/DL (5.7-8.2); TRIGLYCERIDES LEVEL 200 MG/DL (<150)
[2023-05-20 14:22] LABS: HEMOGLOBIN 13.9 g/dl (13.5-17.5); MEAN CORPUSCULAR HEMOGLOBIN 30.6 pg (27.0-33.0); MEAN CORPUSCULAR HGB CONC 33.1 g/dl (32.0-36.5); MEAN CORPUSCULAR VOLUME 92.5 fl (80.0-96.0); PLATELET COUNT, AUTOMATED 172 10^3/uL (150-450); RED BLOOD COUNT 4.54 10^6/uL (4.30-6.10); WHITE BLOOD COUNT 5.9 10^3/uL (4.0-10.0)
[2023-05-20 14:58] LABS: HEMOGLOBIN A1c 5.9 % (4.0-6.0)
== END ==
LOC: M LABWUC 13:29
PROVIDERS: ATTEND Physician Assistant
DX: E11.9 Type 2 diabetes mellitus without complications (principal); E78.5 Hyperlipidemia, unspecified

== ENCOUNTER → 2023-08-18 | Outpatient (CLI) | payer MEDICARE, OTHER, BC ==
[2023-08-18 13:47] LABS: HEMOGLOBIN 14.1 g/dl (13.5-17.5); MEAN CORPUSCULAR HEMOGLOBIN 31.2 pg (27.0-33.0); MEAN CORPUSCULAR HGB CONC 33.6 g/dl (32.0-36.5); MEAN CORPUSCULAR VOLUME 92.9 fl (80.0-96.0); PLATELET COUNT, AUTOMATED 159 10^3/uL (150-450); RED BLOOD COUNT 4.52 10^6/uL (4.30-6.10)
[2023-08-18 13:54] LABS: ALKALINE PHOSPHATASE 84 U/L (46-116); ALT/SGPT 18 U/L (7.0-40); AST/SGOT 14 U/L (<34); BILIRUBIN,TOTAL 0.4 MG/DL (0.3-1.2); BLOOD UREA NITROGEN 25 MG/DL (9-23); CALCIUM LEVEL 9.2 MG/DL (8.3-10.6); CARBON DIOXIDE LEVEL 27 MMOL/L (20-31); CHLORIDE LEVEL 106 MMOL/L (98-107); CHOLESTEROL LEVEL 234 MG/DL (<200); CREATININE FOR GFR 1.15 MG/DL (0.70-1.30); GLOMERULAR FILTRATION RATE > 60.0 (>42); GLUCOSE, FASTING 127 MG/DL (74-106); POTASSIUM SERUM 4.5 MMOL/L (3.5-5.1); PROSTATIC SPECIFIC AG MONITOR 0.84 NG/ML (< 4.00); SODIUM LEVEL 139 MMOL/L (136-145); TOTAL PROTEIN 7.1 G/DL (5.7-8.2); TRIGLYCERIDES LEVEL 429 MG/DL (<150)
[2023-08-18 14:03] LABS: HEMOGLOBIN A1c 6.3 % (4.0-6.0)
[2023-08-19 06:39] LABS: WHITE BLOOD COUNT 6.5 10^3/uL (4.0-10.0)
[2023-08-22 09:11] LABS: TESTOSTERONE %FREE+WEAKLY BOUN 14.2 % (9.0-46.0); TESTOSTERONE FREE+WEAKLY BOUND 31.7 ng/dL (40.0-250.0); TESTOSTERONE TOTAL 223 ng/dL (264-916)
== END ==
LOC: M WUC 11:18
PROVIDERS: ATTEND Physician Assistant
DX: E78.5 Hyperlipidemia, unspecified (principal); E11.9 Type 2 diabetes mellitus without complications; Z12.5 Encounter for screening for malignant neoplasm of prostate; R53.83 Other fatigue; F52.21 Male erectile disorder

== ENCOUNTER → 2024-01-01 | Outpatient (REF) | payer MEDICARE, OTHER, BC ==
[2024-01-01 19:16] LABS: FERRITIN 73.4 NG/ML (10.5-307.3)
[2024-01-01 19:17] LABS: FOLATE 8.1 NG/ML (>5.4)
[2024-01-01 19:18] LABS: PERCENT SATURATION 29.1 % (19.7-50.0)
== END ==
LOC: M LAB REF 17:19
PROVIDERS: ATTEND Nurse Practitioner Family
DX: D50.9 Iron deficiency anemia, unspecified (principal); D64.9 Anemia, unspecified

== ENCOUNTER → 2024-02-24 | Outpatient (CLI) | payer MEDICARE, OTHER, BC ==
[~2024-02-24] MED LIST changes: +LEVA15HF2 INH; -LEVAINH INH; -LIDO4CRE4 TOP; +LIDO5CRE7 TOP; +VANC250C12 PO; -VANC250C3 PO
[2024-02-25 09:51] LABS: HEMOGLOBIN A1c 6.4 % (4.0-6.0)
== END ==
LOC: M WUC 10:37
PROVIDERS: ATTEND Physician Assistant
DX: E11.9 Type 2 diabetes mellitus without complications (principal)

== ENCOUNTER → 2024-05-31 | Outpatient (CLI) | payer MEDICARE, OTHER, BC ==
[~2024-05-31] MED LIST changes: +VANC125C13 PO; -VANC125C3 PO
[2024-05-31 12:27] LABS: HEMATOCRIT 38.9 % (42.0-52.0); HEMOGLOBIN 12.8 g/dl (13.5-17.5); MEAN CORPUSCULAR HEMOGLOBIN 30.3 pg (27.0-33.0); MEAN CORPUSCULAR HGB CONC 32.9 g/dl (32.0-36.5); PLATELET COUNT, AUTOMATED 155 10^3/uL (150-450); RED BLOOD COUNT 4.23 10^6/uL (4.30-6.10)
[2024-05-31 12:40] LABS: HEMOGLOBIN A1c 7.1 % (4.0-6.0)
[2024-05-31 13:03] LABS: THYROID STIMULATING HORMONE 3.407 uIU/ML (0.55-4.78)
[2024-05-31 13:05] LABS: ALBUMIN 3.8 G/DL (3.2-5.2); ALKALINE PHOSPHATASE 64 U/L (40-129); ALT/SGPT 18 U/L (7.0-40); AST/SGOT 11 U/L (<34); BILIRUBIN,TOTAL 0.6 MG/DL (0.3-1.2); BLOOD UREA NITROGEN 22 MG/DL (9-23); CARBON DIOXIDE LEVEL 25 MMOL/L (20-31); CHLORIDE LEVEL 110 MMOL/L (98-107); CHOLESTEROL LEVEL 169 MG/DL (<200); CHOLESTEROL RISK RATIO 3.63 (<5); CREATININE FOR GFR 1.17 MG/DL (0.70-1.30); GLOMERULAR FILTRATION RATE > 60.0 (>42); GLUCOSE, FASTING 186 MG/DL (74-106); HDL CHOLESTEROL 46.5 MG/DL (>40); LDL CHOLESTEROL 78.1 MG/DL (<100); NON-HDL-C 122.5 MG/DL; POTASSIUM SERUM 4.7 MMOL/L (3.5-5.1); SODIUM LEVEL 142 MMOL/L (136-145); TOTAL PROTEIN 6.9 G/DL (5.7-8.2); TRIGLYCERIDES LEVEL 222 MG/DL (<150)
== END ==
LOC: M WUC 10:16
PROVIDERS: ATTEND Physician Assistant
DX: E11.9 Type 2 diabetes mellitus without complications (principal); E78.5 Hyperlipidemia, unspecified; E03.9 Hypothyroidism, unspecified

== ENCOUNTER → 2024-07-08 | Outpatient (CLI) | payer MEDICARE, BC | LOC: M RAD 12:45 | PROVIDERS: ATTEND Nurse Practitioner Family | DX: N18.31 Chronic kidney disease, stage 3a (principal); N40.1 Benign prostatic hyperplasia with lower urinary tract symptoms; N26.1 Atrophy of kidney (terminal); N28.1 Cyst of kidney, acquired ==

== ENCOUNTER → 2024-07-23 | Outpatient (REF) | payer MEDICARE, OTHER ==
[2024-07-23 15:41] LABS: APPEARANCE, URINE CLEAR (CLEAR); BACTERIA, URINE AUTO NEGATIVE (NEGATIVE); BILIRUBIN, URINE AUTO NEGATIVE (NEGATIVE); BLOOD, URINE BLOOD NEGATIVE (NEGATIVE); COLOR, URINE YELLOW (YELLOW); GLUCOSE, URINE (UA) AUTO 3+ mg/dL (NEGATIVE); KETONE, URINE AUTO NEGATIVE (NEGATIVE); LEUKOCYTE ESTERASE, URINE AUTO NEGATIVE (NEGATIVE); NITRITE, URINE AUTO NEGATIVE (NEGATIVE); PROTEIN, URINE AUTO NEGATIVE (NEGATIVE); RBC, URINE AUTO 2 /HPF (0-3); SPECIFIC GRAVITY URINE AUTO 1.017 (1.002-1.035); SQUAMOUS EPITHELIAL CELL UR AU 0 /HPF (0-6); UROBILINOGEN, URINE AUTO 0.2 mg/dL (0.0-2.0); WBC, URINE AUTO 1 /HPF (0-3)
== END ==
LOC: M SMT 15:05
PROVIDERS: ATTEND Urology
DX: R35.0 Frequency of micturition (principal); Z12.5 Encounter for screening for malignant neoplasm of prostate
CPT/HCPCS: 81001; 87086; G0103

== ENCOUNTER → 2025-03-22 | Outpatient (CLI) | payer MEDICARE, BC ==
[~2025-03-22] MED LIST changes: -AMBI10TA PO; -FLOM0.4C39 PO; +LIDO1ADH93 TD; -LIDO5DIS41 TD; +POTA-232 PO; -POTA10TA67 PO; +TAMS-18 PO; +ZOLP-533 PO; +ZOLP10TA11 PO; -ZOLP10TA2 PO
[2025-03-22 12:05] LABS: PLATELET COUNT, AUTOMATED 181 10^3/uL (150-450)
[2025-03-22 12:17] LABS: INR 0.99
[2025-03-22 12:34] LABS: ALT/SGPT 15.0 U/L (7.0-40); AST/SGOT 15.0 U/L (<34); CALCIUM LEVEL 9.4 MG/DL (8.3-10.6); CARBON DIOXIDE LEVEL 26.0 MMOL/L (20-31); CHLORIDE LEVEL 107.0 MMOL/L (98-107); CREATININE FOR GFR 1.38 MG/DL (0.70-1.30); GLOMERULAR FILTRATION RATE 53.3 (>42); POTASSIUM SERUM 4.3 MMOL/L (3.5-5.1); SODIUM LEVEL 141.0 MMOL/L (136-145)
[2025-03-22 13:21] LABS: ESTIMATED AVERAGE GLUCOSE 154.0 MG/DL (60-110)
== END ==
LOC: M WUC 10:10
PROVIDERS: ATTEND Physician Assistant
DX: Z01.818 Encounter for other preprocedural examination (principal); E11.9 Type 2 diabetes mellitus without complications; E78.2 Mixed hyperlipidemia; E03.9 Hypothyroidism, unspecified